=== PATIENT | female | born 1945 | race Caucasian/White ===

== ENCOUNTER 2017-11-10 21:31 | Inpatient (IN) | payer OTHER ==
[~2017-11-10] VITALS: Ht 149.9 cm; Wt 59.4 kg
[~2017-11-10 21:31] MED LIST: ALLO100T PO; ASPCH81X PO; ATOR-24 PO; CYM/30 PO; DOCU100C PO; FRS/40 PO; IMDSR30 PO; INSDGIPEN SC; LPR25 PO; NITR0.4S UT; POLY335019 PO; PRLSR20 PO; TYLER650 PO
[2017-11-10] MEDS ORDERED: DULO60CA44 PO (22:23)
[2017-11-10] MEDS ORDERED: INSDGIPEN SC (22:23)
[2017-11-10] MEDS ORDERED: ISOS30TA3 PO (22:24)
[2017-11-10] MEDS ORDERED: CHOL1000 PO (22:24)
[2017-11-10] MEDS ORDERED: RANI150T85 PO (22:24)
[2017-11-10] MEDS ORDERED: METO25TA56 PO (22:24)
[2017-11-10] MEDS ORDERED: SODIUM CHLORIDE 0.9% 250ML 250 ML IV STA (22:32)
[2017-11-10] MEDS ORDERED: MoRPHine SULFATE 4 MG/ML 1 ML CARP\\VIAL IV STA (22:32)
[2017-11-10 22:56] LABS: BASO % 0.6 %; BASO ABS # 0.06 K/uL (0-0.2); EOS % 2.8 %; EOS ABS # 0.27 K/uL (0-0.5); HEMATOCRIT 49.7 % (37-47); HEMOGLOBIN 16.3 g/dL (12.0-16.0); IG# 0.02 K/uL (0.00-0.02); LYMPH % 25.5 %; LYMPH ABS # 2.44 K/uL (1.2-3.4); MEAN CELL VOLUME 91.5 fL (80-100); MEAN CORPUSCULAR HGB CONC 32.8 g/dl (32-36); MEAN PLATELET VOLUME 11.3 fL (7.4-10.4); MONO % 10.6 %; MONO ABS # 1.01 K/uL (0.11-0.59); NEUT % 60.3 %; NEUT ABS # 5.77 K/uL (1.4-6.5); PLATELET COUNT 270 K/uL (130-400); RED CELL DISTRIBUTION WIDTH CV 14.2 % (11.5-14.5); RED CELL DISTRIBUTION WIDTH SD 47.1 fL (36.4-46.3); WHITE BLOOD COUNT 9.57 K/uL (4.8-10.8)
--- NOTE | 2017-11-10 23:13 | DIAGNOSTIC IMAGING REPORT ---
CHEST ONE VIEW PORTABLE CLINICAL HISTORY: Abdominal pain. COMPARISON STUDY: Chest radiograph June 27, 2017. FINDINGS: Lung volumes are normal. No pneumothorax or pleural effusion is noted. There is no consolidation. Mild cardiomegaly is noted without evidence for pulmonary edema. The appearance of the chest is unchanged. IMPRESSION: No acute cardiopulmonary findings. Electronically signed by: Jaspreet Howard M.D. 11/10/2017 11:11 PM Dictated Date/Time: 11/10/2017 11:11 PM
[2017-11-10 23:51] LABS: INFLUENZA A PCR Neg for Influ A (NEG); INFLUENZA B PCR Neg for Influ B (NEG)
[2017-11-10 23:56] LABS: ALBUMIN 3.3 gm/dl (3.4-5.0); ALKALINE PHOSPHATASE 260 U/L (45-117); ALT/SGPT 101 U/L (12-78); AST/SGOT 116 U/L (15-37); BLOOD UREA NITROGEN 33 mg/dl (7-18); CALCIUM 9.1 mg/dl (8.5-10.1); CARBON DIOXIDE 27 mmol/L (21-32); CREATININE 1.62 mg/dl (0.60-1.20); GLUCOSE 218 mg/dl (70-99); LIPASE 120 U/L (73-393); SODIUM 133 mmol/L (136-145)
--- NOTE | 2017-11-11 01:16 | EMERGENCY ROOM VISIT NOTE ---
History Report prepared by Tre: Blossom Tolbert Under the Supervision of: Dr. Chester Jimenez M.D. First contact with patient: 22:26 Chief Complaint: ABDOMINAL PAIN Stated Complaint: BACK & AB PAIN Nursing Triage Summary: patient presents by EMS, states has had mid abd pain for a few weeks now, now radiating to back. states lack of appetite recently and less BM's than normal, last being "a few days ago". History of Present Illness The patient is a 72 year old female who presents to the Emergency Room with complaints of persistent abdominal pain starting 3-4 days ago. The pain goes through to her back. The pain started gradually. She has intermittent sharp pains. She has never had this before. She reports some constipation. Her last bowel movement was 2 days ago and she had to strain. She has had a decreased appetite. She feels fatigued and she has had chills. She vomited tonight. She reports cough, congestion, headache, and dizziness for a few days. She has a rash on her leg which is itchy. She denies any burning with urination or blood in her urine. She is not on any blood thinners. 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 She was treated with chemo and radiation. She has not had any problems since. She has a history of hysterectomy , back surgery, cholecystectomy, heart failure, and kidney failure. Source of History: patient Onset: 3-4 days ago Position: abdomen Quality: sharp Timing: other (persistent) Associated Symptoms: + chills, + vomiting, + back pain, + fatigue, + rash Note: Pt reports constipation, decreased appetite. Review of Systems See HPI for pertinent positives and negatives. A total of ten systems were reviewed and were otherwise negative. Past Medical & Surgical Medical Problems: (1) TARA inhibitor intolerance (2) Anxiety (3) Atrial fibrillation and flutter (4) AV (arteriovenous fistula) (5) CKD (chronic kidney disease) stage 4, GFR 15-29 ml/min (6) Delirium (7) Diabetes mellitus type 2 in nonobese (8) Dyslipidemia (9) Generalized OA (10) Generalized weakness (11) GERD (gastroesophageal reflux disease) (12) HTN (hypertension) (13) Hyperparathyroidism (14) Right-sided congestive heart failure (15) Solitary right kidney (16) Viral syndrome Surgical Problems: (1) H/O cataract removal with insertion of prosthetic lens (2) H/O tubal ligation (3) History of cholecystectomy (4) History of hysterectomy (5) History of lumbar laminectomy (6) Previous section Family History Cancer Diabetes mellitus Hypertension Kidney disease Kidney stones Social History Smoking Status: Never Smoker Drug Use: none Marital Status: Housing Status: lives with family Occupation Status: retired Current/Historical Medications Scheduled Allopurinol (Zyloprim), 100 MG PO DAILY Aspirin (Aspirin Chewable), 81 MG PO QAM Atorvastatin (Lipitor), 40 MG PO DAILY Cholecalciferol (Vitamin D3), 1,000 MG PO DAILY Docusate Sodium (Stool Softener), 1 CAP PO BID Duloxetine Hcl (Cymbalta), 60 MG PO DAILY Insulin Glargine (Lantus Solostar), 34 UNITS SC QPM Isosorbide Mononitrate Ext Rel (Imdur Ext Rel), 30 MG PO QAM Metoprolol Tartrate (Lopressor) (Lopressor), 25 MG PO BID Nitroglycerin (Nitrostat), 0.4 MG UT PRN Polyethylene Glycol 3350 (Miralax), 17 GM PO QAM Ranitidine (Zantac), 150 MG PO DAILY Scheduled PRN Acetaminophen (Tylenol Arthitis Ext Rel), 650 MG PO Q8H PRN for Pain Furosemide (Lasix), 40 MG PO DAILY PRN for INCREASE SWELLING/BLOATING Allergies Coded Allergies: Gabapentin (Verified Allergy, Severe, EDEMA FACE/LIPS/TONGUE - ANGIOEDEMA , 11/10/17) TARA Inhibitors (Verified Allergy, Unknown, UNKNOWN, 11/10/17) Adhesives (Verified Allergy, Unknown, TAPE, 11/10/17) Latex1 -Allergic Contact Dermititis (Verified Allergy, Unknown, HIVES, RASH, 11/10/17) Meloxicam (Verified Allergy, Unknown, RENAL FAILURE, 11/10/17) Sulfa Antibiotics (Verified Allergy, Unknown, EDEMA,ITCHING, 11/10/17) Iodinated Diagnostic Agents (Verified Adverse Reaction, Unknown, PATIENT HAS CHRONIC KIDNEY FAILURE, 11/10/17) Physical Exam Vital Signs Date Time Temp Pulse Resp B/P (MAP) Pulse Ox O2 Delivery O2 Flow Rate FiO2 11/11/17 00:30 86 21 161/103 92 Room Air 11/11/17 00:19 167/70 11/10/17 22:48 180/104 11/10/17 21:45 36.9 87 20 235/91 94 Room Air 11/10/17 21:43 86 Physical Exam GENERAL: Awake, alert, fatigued-appearing, in no distress HENT: Normocephalic, atraumatic. Dry mucous membranes. EYES: Normal conjunctiva. Sclera non-icteric. NECK: Supple. No nuchal rigidity. FROM. No JVD. RESPIRATORY: Clear to auscultation. CARDIAC: Regular rate, normal rhythm. Extremities warm and well perfused. Pulses equal. ABDOMEN: Soft, non-distended. Generalized periumbilical discomfort. No discrete tenderness. No peritoneal signs. No rebound or guarding. No masses. RECTAL: Deferred. MUSCULOSKELETAL: Chest examination reveals no tenderness. The back is symmetrical on inspection without obvious abnormality. There is no CVA tenderness to palpation. No joint edema. LOWER EXTREMITIES: Calves are equal size bilaterally and non-tender. No edema. No discoloration. NEURO: Normal sensorium. No sensory or motor deficits noted. SKIN: No rash or jaundice noted. Medical Decision & Procedures ER Provider Diagnostic Interpretation: Xray results as stated below per my and radiologist interpretation. Radiology results as stated below per my review and [facility] radiologist interpretation: CHEST ONE VIEW PORTABLE CLINICAL HISTORY: Abdominal pain. COMPARISON STUDY: Chest radiograph June 27, 2017. FINDINGS: Lung volumes are normal. No pneumothorax or pleural effusion is noted. There is no consolidation. Mild cardiomegaly is noted without evidence for pulmonary edema. The appearance of the chest is unchanged. IMPRESSION: No acute cardiopulmonary findings. Electronically signed by: Jaspreet Howard M.D. 11/10/2017 11:11 PM Dictated Date/Time: 11/10/2017 11:[address] Abdomen & Pelvis without contrast: No fecal impaction. No colitis. Appendix not identified. Cholecystectomy. Splenic cyst. Marked left renal atrophy and scarring. Hysterectomy. Degenerative and surgical changes of the spine. Laboratory Results Test 11/10/17 21:41 11/10/17 22:55 11/10/17 23:11 Estimated Average Glucose 214 mg/dl Hemoglobin A1c 9.1 % (4.5-5.6) Influenza Type A (RT-PCR) Neg for Influ A (NEG) Influenza Type B (RT-PCR) Neg for Influ B (NEG) Lactic Acid Level 1.2 mmol/L (0.4-2.0) Magnesium Level 1.9 mg/dl (1.8-2.4) Direct Bilirubin 0.2 mg/dl (0-0.2) Troponin I < 0.015 ng/ml (0-0.045) Lipase 120 U/L (73-393) Laboratory results reviewed by me Medications Administered Medications (Trade) Dose Ordered Sig/Shreya Route Start Time Stop Time Status Last Admin Dose Admin Morphine Sulfate (MoRPHine SULFATE INJ) 4 mg NOW STAT IV 11/10/17 22:32 11/10/17 22:39 DC 11/10/17 22:50 4 MG Sodium Chloride 250 ml @ 999 mls/hr Q16M STAT IV 11/10/17 22:32 11/10/17 22:47 DC 11/10/17 22:32 999 MLS/HR ECG Per My Interpretation Indication: abdominal pain Rate (beats per minute): 82 Rhythm: atrial fibrillation Findings: no acute ischemic change, other (normal axis) ED Course 2230: The patient was evaluated in room C10. A complete history and physical exam was performed. 0101: Upon reexamination, the patient was resting comfortably. I discussed the test results and treatment plan with her. The patient will be evaluated for further management. 0112: I discussed the patient [facility] He will evaluate the patient for further treatment. Medical Decision I reviewed the patient's past medical history, medications, and the nursing notes as described above. Differential diagnosis: Etiologies such as appendicitis, diverticulitis, PUD, biliary pathology, UTI, pancreatitis, obstruction, mesenteric ischemia, aortic pathology, infections, inflammatory bowel disease, renal colic, as well as others were entertained. Patient is a 72-year-old woman with a past medical history of A. fib not on anticoagulation, CKD with left extremity AV fistula case patient's renal function declines from her solitary kidney since emergency department with persistent abdominal pain with radiation to her back for the past several days per hpi. 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 On arrival patient is uncomfortable but no acute distress, afebrile. She is hypertensive on arrival with systolic blood pressure to 260 but in the setting of pain. On exam the patient does exhibit pain out of proportion to exam. However, CT unremarkable but limited secondary to lack of contrast given the patient's CKD. Labs otherwise unremarkable including WBC and lactate within normal limits. The patient's pain improved after IV morphine however still with mild discomfort. Given the patient's symptoms of abdominal pain with radiation to her back dissection or aneurysm is in the differential however unable to fully evaluate at this time. Given the patient's improvement in symptoms dissection/aneurysm unlikely so will defer contrast study at this time however it is reasonable to admit the patient for pain control and possible contrast study if symptoms evolve and suggest aortic etiology. Case was discussed with Dr. Melton [facility] hospitalist to admit the patient for further management. Medication Reconcilliation Current Medication List: was personally reviewed by me Blood Pressure Screening Patient's blood pressure: Elevated blood pressure Referred to hospitalist. Consults Time Called: 0108 Consulting Physician: Dr. Burch [facility] hospitalist Returned Call: 0112 I discussed the patient with him - He will evaluate the patient for further treatment. Impression Primary Impression: Abdominal pain Scribe Attestation The scribe's documentation has been prepared under my direction and personally reviewed by me in its entirety. I confirm that the note above accurately reflects all work, treatment, procedures, and medical decision making performed by me. Departure Information Dispostion Being Evaluated By Hospitalist Referrals Jacquelyn Singleton D.O. (PCP) Patient Instructions My [facility]
[2017-11-11] MEDS ORDERED: PROCHLORPERAZINE INJ 5 MG in SYRINGE 4 ML IV PRN (02:15)
[2017-11-11] MEDS ORDERED: HYDROmorphone INJ 0.5 MG/0.5 ML SYR IV PRN (02:15)
[2017-11-11] MEDS ORDERED: HALOPERIDOL 1 MG TAB PO PRN (02:15)
[2017-11-11] MEDS ORDERED: GLUCOSE 40% GEL 15 GM TUBE PO PRN (02:15)
[2017-11-11] MEDS ORDERED: DEXTROSE 50% 50 ML SYR IV PRN (02:15)
[2017-11-11] MEDS ORDERED: GLUCAGON FOR INJ 1 MG VIAL SQ PRN (02:15)
[2017-11-11] MEDS ORDERED: GLUCOSE 10 TABS/TUBE PO PRN (02:15)
[2017-11-11] MEDS ORDERED: SODIUM CHLORIDE 0.9% 1000ML 1,000 ML IV SCH (02:15)
[2017-11-11] MEDS ORDERED: ACETAMINOPHEN 325 MG TAB PO PRN (02:15)
[2017-11-11] MEDS ORDERED: HALOPERIDOL LACTATE 5 MG/ML 1 ML VIAL IM PRN (02:15)
[2017-11-11] MEDS ORDERED: LACTULOSE SYRUP 30 GM/45 ML UDP PO STA (02:27)
[2017-11-11] MEDS ORDERED: IV FLUIDS COMPLETED PRN (03:15)
[2017-11-11 04:15] VITALS: BP 148/84; PULSE 84; TEMP 36.4; O2SAT 94; BMI 26.4
[2017-11-11] MEDS ORDERED: INSULIN ASPART 100 UNITS/ML 3 ML PEN SC ONE (05:00)
[2017-11-11] MEDS ORDERED: POLYETHYLENE (MIRALAX) 17 GM PACK PO ONE (05:00)
[2017-11-11] MEDS ORDERED: DOCUSATE SODIUM/SENNA 50/8.6MG TAB PO ONE (05:00)
--- NOTE | 2017-11-11 05:04 | HISTORY & PHYSICAL EXAMINATION ---
DATE OF ADMISSION: 11/10/2017 PRIMARY CARE PHYSICIAN: Dr. Singleton. CHIEF COMPLAINT: Abdominal pain. HISTORY OF PRESENT ILLNESS: History obtained from patient, family and records. Medical history significant for hypertension, DM2 insulin requiring, chronic renal insufficiency (baseline creatinine of 1.6), AFib not on anticoagulation due to fall risk, hyperlipidemia, chronic right-sided heart failure as per records, gallbladder cancer with liver mets, status post surgery, chemoradiation. Recent confinement last July 2017 for delirium. The last 2 days the patient noted upper abdominal pain with nausea followed by vomiting, constipated more than usual. No fever, no chills. Denies bladder discomfort. No chest pain, no sob. Patient brought by family to the Emergency Room. MEDICAL HISTORY: As above. SURGERIES: Vascular procedures, cholecystectomy, back surgery, cataract surgery, abdominal hysterectomy, bilateral tubal ligation. HOME MEDICATIONS: Tylenol, Zyloprim, aspirin, Lipitor, vitamin D3, stool softener, Lasix, Cymbalta, Lantus, Imdur ER, Lopressor, Nitrostat, MiraLax, Zantac. ALLERGIES: ADHESIVES, LATEX, GABAPENTIN, MELOXICAM, TARA INHIBITORS, SULFA, DYE. FAMILY HISTORY: Diabetes, high blood pressure. PERSONAL AND SOCIAL HISTORY: Nonsmoker, no chronic intake of alcoholic beverages. 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 REVIEW OF SYSTEMS: As per HPI, all 10 systems reviewed. All other ROS negative. PHYSICAL EXAMINATION: VITAL SIGNS: Blood pressure was noted to be 235/90, later 167/102, pulse rate 86, RR 21, temperature 36.9, sats 94 on room air. GENERAL: Noted to be slightly uncomfortable, in no respiratory distress. SKIN: Normal color, warm. HEENT: [place] palpebral conjunctivae. No ptosis. Dry mucosa. NECK: Supple, nontender. CHEST: Clear to auscultation. No tenderness. HEART: Irregular. No murmur. ABDOMEN: Some distention, minimal epigastric tenderness. EXTREMITIES: No edema, no tenderness. No gross deformity. NEUROLOGIC: Coherent. No gross focality except episodic confusion. LABORATORY DATA: Hemoglobin was noted to be 16, hematocrit 43, white blood cell count 9.3, platelets 270. Sodium 135, potassium 4, chloride 98, CO2 27, BUN 32, creatinine 1.6, glucose 218, AST 111, ALT 101, alkaline phosphatase 260. Lipase was normal. CT abdomen and pelvis initial read showed postcholecystectomy, some splenic cyst, hysterectomy, no fecal impaction, no colitis. Appendix not identified. ASSESSMENT: 1. Abdominal pain possible differentials : Biliary colic with abnormal LFTs. Constipation urinary tract infection. 2. hx gallbladder CA w/ liver metastasis status post surgery, chemoradiation In remission as per recent outpatient Oncology visit in 2013. 3. Hypertension, elevated secondary to discomfort. 4. Atrial fibrillation, rate controlled not on Coumadin as per patient preference. 5. DM2 insulin requiring, suboptimal control as of recent HgA1c of 8.5 last October 2017. 6. CRI, serum creatinine baseline PLAN: Observation [facility] MRCP. Bowel regimen. Follow UA. Further management pending workup results. ISS BG goal 140-180. Basal insulin adjusted for n.p.o. sips status Carb count coverage once diet advanced indicated due to suboptimal blood sugar control at baseline. DVT prophylaxis, Lovenox subQ. Full code. Addendum Initial MRCP read: duodenitis, no bile duct obstruction Add PPI to home Zantac. MTDD
[2017-11-11] MEDS ORDERED: PANTOprazole INJ 40 MG in SYRINGE 0 ML IV ONE (05:30)
[2017-11-11] MEDS ORDERED: INSULIN GLARGINE SOLOSTAR 100 UNITS/ML 3 ML PEN SC ONE (05:30)
[2017-11-11] MEDS: SODIUM CHLORIDE 0.9% 1000ML 1,000 ML IV SCH ×2 (05:44→16:42)
[2017-11-11 06:52] LABS: HEMOGLOBIN A1C 9.1 % (4.5-5.6)
--- NOTE | 2017-11-11 06:59 | DIAGNOSTIC IMAGING REPORT ---
ABDOMEN AND PELVIS CT WITHOUT CONTRAST CT DOSE: 284.87 mGy.cm HISTORY: Acute lower abdominal pain with constipation abd back pain constipation TECHNIQUE: Multiaxial CT images of the abdomen and pelvis were performed without contrast. A dose lowering technique was utilized adhering to the principles of ALARA. COMPARISON STUDY: MRCP 11/11/2017, CT abdomen and pelvis 11/16/2015 FINDINGS: Respiratory motion limits evaluation of the lung bases. There is mild subsegmental bibasilar atelectasis. Imaged inferior cardiac chambers are enlarged. Prior cholecystectomy. Evaluation of the solid abdominal organs is limited without the use of IV contrast. Within the limitations of the study, the liver, and adrenal glands are within normal limits. Moderate to severe generalized pancreatic atrophy. 2.7 x 2.5 cm low attenuating lesion of the medial spleen suggest splenic cyst. Marked atrophy with cortical scarring about the left kidney redemonstrated. Multifocal cortical lobulation and scarring is also noted throughout the right kidney however to a lesser extent. Bilateral renal vascular calcifications are noted. Low attenuating lesions of the left kidney are not completely characterized on this noncontrast study in measure up to 9 mm within the inferior pole left kidney suggesting renal cysts. No obstructive renal or ureteral calculi. No hydronephrosis. Ureters and urinary bladder are unremarkable. Prior hysterectomy. No adnexal mass lesions identified. Moderate atherosclerosis of the aorta without aneurysm. No bulky adenopathy. There is mild wall thickening with mild adjacent mesenteric inflammatory stranding of the pylorus, proximal duodenum and pancreatic head. No bowel obstruction. Appendix not definitively seen. No secondary signs of acute appendicitis. Soft tissues are unremarkable. The bones appear moderately demineralized and appear intact. Prior posterior decompression with interbody minerva and screw fusion at L5-S1. Multilevel facet arthrosis, intervertebral disc space narrowing and endplate spurring of the lumbar spine. IMPRESSION: 1. Mild wall thickening with mild adjacent mesenteric inflammatory stranding of the pylorus, proximal duodenum and pancreatic head suggests mild duodenitis or developing early acute pancreatitis. Correlate with lipase level. No bowel obstruction. 2. Prior cholecystectomy and hysterectomy. 3. 2.7 cm low attenuating lesion of the medial spleen suggests splenic cyst, unchanged. 4. Atrophic left kidney redemonstrated. 5. Cardiomegaly. Electronically signed by: Filipe Cunningham M.D. 11/11/2017 6:57 AM Dictated Date/Time: 11/11/2017 6:48 AM
--- NOTE | 2017-11-11 07:08 | DIAGNOSTIC IMAGING REPORT ---
MRCP HISTORY: 72 years-old Female abd pain acute generalized abdominal pain.Findings suggesting acute pancreatitis or duodenitis on CT abdomen and pelvis of same day COMPARISON: CT abdomen and pelvis of same day, MRCP 12/26/2008. TECHNIQUE: MRCP was obtained without IV contrast according to institutional protocol. FINDINGS: Motion degraded exam. Lobulated 2.8 cm circumscribed T2 hyperintense lesion of the medial spleen appears unchanged from comparison CT 11/16/2015, however has increased in size from MRCP of 2008 suggesting acquired splenic cyst. Prior cholecystectomy. No intrahepatic biliary ductal dilation. Common bile duct measures 5 mm transversely. No biliary ductal stricturing or focal filling defects identified. No pancreatic ductal dilation or evidence of pancreatic divisum. There is mild wall thickening of the duodenum with mild surrounding mesenteric edema adjacent to the duodenum and pancreatic duodenal groove. No dilated loops of small bowel identified. No soledad ascites. Marked atrophy with cortical lobulation scarring of the left kidney redemonstrated. T2 hyperintense 10 mm lesion of the inferior pole left kidney suggests splenic cyst. Mild nonspecific bilateral perinephric stranding. No aortic aneurysm or adenopathy identified. Imaged heart appears enlarged. Bones and soft tissues appear unremarkable. IMPRESSION: 1. Mild wall thickening of the duodenum with mild surrounding mesenteric edema adjacent to the duodenum and pancreatic duodenal groove suggest duodenitis or paraduodenal pancreatitis. Correlate with lipase level. 2. Prior cholecystectomy without evidence of biliary ductal dilation. 3. Motion degraded exam. 4. Atrophic left kidney. The above report was generated using voice recognition software. It may contain grammatical, syntax or spelling errors. Electronically signed by: Filipe Cunningham M.D. 11/11/2017 7:06 AM Dictated Date/Time: 11/11/2017 6:57 AM
[2017-11-11 07:46] VITALS: BP 162/76; PULSE 81; TEMP 36.6; O2SAT 90
[2017-11-11 07:53] LABS: BASO % 0.5 %; BASO ABS # 0.04 K/uL (0-0.2); EOS % 5.5 %; EOS ABS # 0.49 K/uL (0-0.5); HEMATOCRIT 43.5 % (37-47); HEMOGLOBIN 14.3 g/dL (12.0-16.0); IG# 0.02 K/uL (0.00-0.02); LYMPH % 23.2 %; LYMPH ABS # 2.05 K/uL (1.2-3.4); MEAN CELL VOLUME 90.8 fL (80-100); MEAN CORPUSCULAR HEMOGLOBIN 29.9 pg (25-34); MEAN CORPUSCULAR HGB CONC 32.9 g/dl (32-36); MEAN PLATELET VOLUME 10.5 fL (7.4-10.4); MONO % 14.8 %; MONO ABS # 1.31 K/uL (0.11-0.59); NEUT % 55.8 %; NEUT ABS # 4.92 K/uL (1.4-6.5); PLATELET COUNT 220 K/uL (130-400); RED CELL DISTRIBUTION WIDTH CV 14.3 % (11.5-14.5); RED CELL DISTRIBUTION WIDTH SD 47.2 fL (36.4-46.3); WHITE BLOOD COUNT 8.83 K/uL (4.8-10.8)
[2017-11-11 08:12] LABS: ALBUMIN 3.1 gm/dl (3.4-5.0); CALCIUM 9.1 mg/dl (8.5-10.1); CREATININE 1.7 mg/dl (0.60-1.20); POTASSIUM 3.4 mmol/L (3.5-5.1)
[2017-11-11 08:18] LABS: TOTAL PROTEIN 6.6 gm/dl (6.4-8.2)
[2017-11-11] MEDS: ASPIRIN 81 MG ECTAB PO SCH (08:21)
[2017-11-11] MEDS: ALLOPURINOL 100 MG TAB PO SCH (08:22)
[2017-11-11] MEDS: RANITIDINE HCL 150 MG TAB PO SCH (08:22)
[2017-11-11] MEDS: DULOXETINE HCL 60 MG CAP PO SCH (08:22)
[2017-11-11] MEDS: METOPROLOL TARTRATE 25 MG TAB PO SCH ×2 (08:23→20:34)
[2017-11-11] MEDS: ISOSORBIDE MONONITRATE 30 MG TABCR PO SCH (08:24)
[2017-11-11] MEDS: INSULIN ASPART 100 UNITS/ML 3 ML PEN SC SCH ×4 (08:31→20:38)
[2017-11-11] MEDS: HEPARIN SOD 5000 UNIT/0.5 ML CARP SQ SCH ×2 (09:22→13:04)
[2017-11-11] MEDS: POTASSIUM CHLR 10 MEQ / WTR 10 MEQ in PREMIXED WATER 100 ML IV SCH ×2 (09:31→12:01)
[2017-11-11] MEDS: TRAMADOL HCL 50 MG TAB PO PRN (12:07)
[2017-11-11 12:34] VITALS: BMI 26.4
--- NOTE | 2017-11-11 12:37 | Gastrointestinal Consultation ---
Gastrointestinal Consultation Date of Consultation: Nov 11, 2017 Attending Physician: Dr. Ramos Consulting Physician: Dr. Irene Templeton Reason for Consultation: Duodenitis vs. Pancreatitis History of Present Illness Patient is a 72 year old female pt of Dr. Jacquelyn Singleton with a hx of CKD, DM-2 , HTN, A-fib (not anticoagulated), CHF , gallbladder cancer with liver mets S/P surgery was brought to the ED for upper abdomen pain. GI is consulted for duodenitis vs. pancreatitis. On arrival, CT and MRCP suggest mild wall thickening of the duodenum vs. peripancreatic edema. During my evaluation of the patient, she was initially on the toilet and passed a moderate sized formed dixie stool with clots then more liquid blood passed into the toilet. She is a very poor historian. When asked about her pain, she doesn't recall when this first started. The patient is a very vague historian so I called her son who says that for the past few weeks, she has c/o pain. Her son says that at baseline, for years, she is minimally physically active, laying in bed until 3PM or until you "make her get up." He says that she is "always complaining of pain." He says that she has a poor memory and suspects dementia. He also told me that she told her family yesterday that she had not had a BM for 2-3 days. He says that his dad (the pt' s ) lives with the pt and that he also has some memory issues but is "pretty good." The /father does make sure that the pt takes her medications regularly. Regarding her hx of gallbladder cancer in 2006, she underwent surgical resection and radiation therapy, this in addition to right sided heart failure was thought to have caused development of portal hypertension. There was some mention in prior records of esophageal varices but EGDs from 2010 to 2016 mentioned "no esophageal varices," and at the time of her most recent EGD, there was mention of a mild Schatzi Ring. Past Medical/Surgical History Medical Problems: (1) Abdominal pain Status: Acute (2) Hyperglycemia Status: Acute Past Medical History: 1. CKD 2. DM-2 3. HTN 4. A-fib (not anticoagulated) 5. CHF 6. Gallbladder cancer with liver mets S/P surgery Past Surgical History: 1. Vascular procedures 2. Cholecystectomy 3. Back surgery, 4. Cataract surgery 5. Abdominal hysterectomy 6. Bilateral tubal ligation Family History Cancer Diabetes mellitus Hypertension Kidney disease Kidney stones Social History Smoking Status: Never Smoker Drug Use: none Marital Status: Housing Status: lives with family Occupation Status: retired Allergies Coded Allergies: Gabapentin (Verified Allergy, Severe, EDEMA FACE/LIPS/TONGUE - ANGIOEDEMA , 11/10/17) TARA Inhibitors (Verified Allergy, Unknown, UNKNOWN, 11/10/17) Adhesives (Verified Allergy, Unknown, TAPE, 11/10/17) Latex1 -Allergic Contact Dermititis (Verified Allergy, Unknown, HIVES, RASH, 11/10/17) Meloxicam (Verified Allergy, Unknown, RENAL FAILURE, 11/10/17) Sulfa Antibiotics (Verified Allergy, Unknown, EDEMA,ITCHING, 11/10/17) Iodinated Diagnostic Agents (Verified Adverse Reaction, Unknown, PATIENT HAS CHRONIC KIDNEY FAILURE, 11/10/17) Current Medications Home Meds and Scripts Medications Dose Route/Sig Max Daily Dose Days Date Category Lopressor (Metoprolol Tartrate) 25 Mg Tab 25 Mg PO BID 11/10/17 Reported Imdur Ext Rel (Isosorbide Mononitrate) 30 Mg Ertab 30 Mg PO QAM 11/10/17 Reported Zantac (Ranitidine HCl) 150 Mg Tab 150 Mg PO DAILY 11/10/17 Reported Vitamin D3 (Cholecalciferol) 1,000 Unit Tab 1,000 Mg PO DAILY 90 11/10/17 Reported Lantus Solostar (Insulin Glargine) 100 Unit/Ml Inj 34 Units SC QPM 11/10/17 Reported Cymbalta (Duloxetine Hcl) 60 Mg Cap 60 Mg PO DAILY 11/10/17 Reported Lipitor (Atorvastatin Calcium) 40 Mg Tab 40 Mg PO DAILY 06/27/17 Reported Miralax (Polyethylene Glycol 3350) 1 Pow Pow 17 Gm PO QAM 03/19/16 Reported Aspirin Chewable (Aspirin) 81 Mg Chew 81 Mg PO QAM 03/19/16 Reported Tylenol Arthitis Ext Rel (Acetaminophen) 650 Mg Ertab 650 Mg PO Q8H PRN 03/19/16 Reported Stool Softener (Docusate Sodium) 100 Mg Cap 1 Cap PO BID 03/19/16 Reported Zyloprim (Allopurinol) 100 Mg Tab 100 Mg PO DAILY 03/19/16 Reported Lasix (Furosemide) 40 Mg Tab 40 Mg PO DAILY PRN 03/19/16 Reported Nitrostat (Nitroglycerin) 0.4 Mg Sub 0.4 Mg UT PRN 03/09/14 Reported Review of Systems Constitutional: No fever Respiratory: No cough Cardiac: No chest pain Abdomen: + see HPI, + pain, + constipation, + GI bleeding, No nausea, No vomiting, No diarrhea Musculoskeletal: No joint pain Female : No dysuria Neuro: + memory loss (chronic) Psych: No depression symptoms Heme: No abnormal bleeding/bruising Endo: No fatigue Skin: No rash, No jaundice Physical Exam Date Time Temp Pulse Resp B/P (MAP) Pulse Ox O2 Delivery O2 Flow Rate FiO2 11/11/17 08:00 Room Air 11/11/17 07:46 36.6 81 16 162/76 (104) 90 Room Air 11/11/17 04:15 36.4 84 18 148/84 94 Room Air 11/11/17 01:54 20 159/76 96 11/11/17 00:30 86 21 161/103 92 Room Air 11/11/17 00:19 167/70 11/10/17 22:48 180/104 11/10/17 21:45 36.9 87 20 235/91 94 Room Air 11/10/17 21:43 86 General Appearance: no apparent distress ENT: pharynx normal Neck: supple, thyroid normal, no JVD Respiratory/Chest: lungs clear Cardiovascular: regular rate, rhythm, no JVD, no murmur Abdomen: soft, + tenderness (mild right mid abdomen tenderness) Extremities: non-tender, no pedal edema Neurologic/Psych: alert Skin: no jaundice Laboratory Results Last 24 Hours Test 11/10/17 21:41 11/10/17 22:55 11/10/17 23:11 11/11/17 05:14 White Blood Count 9.57 K/uL Red Blood Count 5.43 M/uL Hemoglobin 16.3 g/dL Hematocrit 49.7 % Mean Corpuscular Volume 91.5 fL Mean Corpuscular Hemoglobin 30.0 pg Mean Corpuscular Hemoglobin Concent 32.8 g/dl Platelet Count 270 K/uL Mean Platelet Volume 11.3 fL Neutrophils (%) (Auto) 60.3 % Lymphocytes (%) (Auto) 25.5 % Monocytes (%) (Auto) 10.6 % Eosinophils (%) (Auto) 2.8 % Basophils (%) (Auto) 0.6 % Neutrophils # (Auto) 5.77 K/uL Lymphocytes # (Auto) 2.44 K/uL Monocytes # (Auto) 1.01 K/uL Eosinophils # (Auto) 0.27 K/uL Basophils # (Auto) 0.06 K/uL RDW Standard Deviation 47.1 fL RDW Coefficient of Variation 14.2 % Immature Granulocyte % (Auto) 0.2 % Immature Granulocyte # (Auto) 0.02 K/uL Estimated Average Glucose 214 mg/dl Hemoglobin A1c 9.1 % Influenza Type A (RT-PCR) Neg for Influ A Influenza Type B (RT-PCR) Neg for Influ B Sodium Level 133 mmol/L Potassium Level 4.0 mmol/L Chloride Level 98 mmol/L Carbon Dioxide Level 27 mmol/L Anion Gap 8.0 mmol/L Blood Urea Nitrogen 33 mg/dl Creatinine 1.62 mg/dl Estimated GFR () 36.4 Estimated GFR (Non- 31.4 BUN/Creatinine Ratio 20.2 Random Glucose 218 mg/dl Lactic Acid Level 1.2 mmol/L Calcium Level 9.1 mg/dl Magnesium Level 1.9 mg/dl Total Bilirubin 0.6 mg/dl Direct Bilirubin 0.2 mg/dl Aspartate Amino Transf (AST/SGOT) 116 U/L Alanine Aminotransferase (ALT/SGPT) 101 U/L Alkaline Phosphatase 260 U/L Troponin I < 0.015 ng/ml Total Protein 7.0 gm/dl Albumin 3.3 gm/dl Lipase 120 U/L Bedside Glucose 118 mg/dl Test 11/11/17 07:18 11/11/17 08:06 White Blood Count 8.83 K/uL Red Blood Count 4.79 M/uL Hemoglobin 14.3 g/dL Hematocrit 43.5 % Mean Corpuscular Volume 90.8 fL Mean Corpuscular Hemoglobin 29.9 pg Mean Corpuscular Hemoglobin Concent 32.9 g/dl Platelet Count 220 K/uL Mean Platelet Volume 10.5 fL Neutrophils (%) (Auto) 55.8 % Lymphocytes (%) (Auto) 23.2 % Monocytes (%) (Auto) 14.8 % Eosinophils (%) (Auto) 5.5 % Basophils (%) (Auto) 0.5 % Neutrophils # (Auto) 4.92 K/uL Lymphocytes # (Auto) 2.05 K/uL Monocytes # (Auto) 1.31 K/uL Eosinophils # (Auto) 0.49 K/uL Basophils # (Auto) 0.04 K/uL RDW Standard Deviation 47.2 fL RDW Coefficient of Variation 14.3 % Immature Granulocyte % (Auto) 0.2 % Immature Granulocyte # (Auto) 0.02 K/uL Prothrombin Time 10.4 SECONDS Prothromb Time International Ratio 1.0 Activated Partial Thromboplast Time 21.0 SECONDS Partial Thromboplastin Ratio 0.8 Sodium Level 138 mmol/L Potassium Level 3.4 mmol/L Chloride Level 100 mmol/L Carbon Dioxide Level 30 mmol/L Anion Gap 7.0 mmol/L Blood Urea Nitrogen 34 mg/dl Creatinine 1.70 mg/dl Est Creatinine Clear Calc Drug Dose 23.5 ml/min Estimated GFR () 34.3 Estimated GFR (Non- 29.6 BUN/Creatinine Ratio 20.0 Random Glucose 156 mg/dl Calcium Level 9.1 mg/dl Total Bilirubin 0.8 mg/dl Aspartate Amino Transf (AST/SGOT) 90 U/L Alanine Aminotransferase (ALT/SGPT) 88 U/L Alkaline Phosphatase 238 U/L Total Protein 6.6 gm/dl Albumin 3.1 gm/dl Globulin 3.5 gm/dl Albumin/Globulin Ratio 0.9 Bedside Glucose 175 mg/dl Non contrast CT abd/pelvis 11/10/17: Mild wall thickening with mild adjacent mesenteric inflammatory stranding of the pylorus, proximal duodenum and pancreatic head suggests mild duodenitis or developing early acute pancreatitis. Correlate with lipase level. No bowel obstruction. 2. Prior cholecystectomy and hysterectomy. 3. 2.7 cm low attenuating lesion of the medial spleen suggests splenic cyst, unchanged. 4. Atrophic left kidney redemonstrated. 5. Cardiomegaly. MRCP 11/10/17: 1. Mild wall thickening of the duodenum with mild surrounding mesenteric edema adjacent to the duodenum and pancreatic duodenal groove suggest duodenitis or paraduodenal pancreatitis. Correlate with lipase level. 2. Prior cholecystectomy without evidence of biliary ductal dilation. 3. Motion degraded exam. 4. Atrophic left kidney. EGD 02/2016 Dr. Kirk: - Z-line regular, 33 cm from the incisors. - Mild Schatzki ring. - Hiatus hernia. - Normal stomach. - Normal examined duodenum. - Dilation attempted at the gastroesophageal junction successful. Colonoscopy 02/2016 Dr. Kirk: - Melanosis in the colon. - Two 1 to 2 mm polyps in the ascending colon. Resected and retrieved. - One 1 mm polyp in the transverse colon. Resected and retrieved. Clip was placed. Impression Patient is a 72 year old female with worsening of her chronic abdomen pain, CT suggestive of duodenitis and now, today, with rectal bleeding. Differentials considered are ulcer disease, duodenitis or duodenal ulcer, hemorrhoidal or diverticular bleeding. There is also some mention of prior portal HTN and esophageal varices, though I do not suspect a variceal bleed as her dixie stool was formed and she is hemodynamically stable. Her pain seems mild. This along with normal lipase argues against pancreatitis. I am unsure of the significance of the elevated LFTs but she could have microlithiasis in the bile duct, although CT and MRCP do not mention bile duct dilation.
--- NOTE | 2017-11-11 14:38 | Progress Note ---
Medicine Progress Note Date & Time of Visit: Nov 11, 2017 at 13:41. Subjective Pt was seen and examined Lying in bed with no distress Pt said that he feels tired and weak today Pt said that she does not have any appetite She said that her abdominal pain improved GI said that while they were there talking to her, she had a bloody BM Denies any chest pain, palpitation, dizziness and SOB Objective Last 8 Hrs Date Time Temp Pulse Resp B/P (MAP) Pulse Ox O2 Delivery O2 Flow Rate FiO2 11/11/17 08:00 Room Air 11/11/17 07:46 36.6 81 16 162/76 (104) 90 Room Air Physical Exam: General- No acute distress, sleepy Head- atraumatic Eyes- PERRL, EOMI ENT- oropharynx clear Neck- supple, no JVD Lungs- clear to auscultation Heart- regular rhythm Abdomen- normal bowel sounds, tenderness with palpation Extremities- no calf tenderness Neuro- alert, oriented x 3; PERRL Skin- warm & dry Laboratory Results: Last 24 Hours Test 11/10/17 21:41 11/10/17 22:55 11/10/17 23:11 11/11/17 05:14 White Blood Count 9.57 K/uL Red Blood Count 5.43 M/uL Hemoglobin 16.3 g/dL Hematocrit 49.7 % Mean Corpuscular Volume 91.5 fL Mean Corpuscular Hemoglobin 30.0 pg Mean Corpuscular Hemoglobin Concent 32.8 g/dl Platelet Count 270 K/uL Mean Platelet Volume 11.3 fL Neutrophils (%) (Auto) 60.3 % Lymphocytes (%) (Auto) 25.5 % Monocytes (%) (Auto) 10.6 % Eosinophils (%) (Auto) 2.8 % Basophils (%) (Auto) 0.6 % Neutrophils # (Auto) 5.77 K/uL Lymphocytes # (Auto) 2.44 K/uL Monocytes # (Auto) 1.01 K/uL Eosinophils # (Auto) 0.27 K/uL Basophils # (Auto) 0.06 K/uL RDW Standard Deviation 47.1 fL RDW Coefficient of Variation 14.2 % Immature Granulocyte % (Auto) 0.2 % Immature Granulocyte # (Auto) 0.02 K/uL Estimated Average Glucose 214 mg/dl Hemoglobin A1c 9.1 % Influenza Type A (RT-PCR) Neg for Influ A Influenza Type B (RT-PCR) Neg for Influ B Sodium Level 133 mmol/L Potassium Level 4.0 mmol/L Chloride Level 98 mmol/L Carbon Dioxide Level 27 mmol/L Anion Gap 8.0 mmol/L Blood Urea Nitrogen 33 mg/dl Creatinine 1.62 mg/dl Estimated GFR () 36.4 Estimated GFR (Non- 31.4 BUN/Creatinine Ratio 20.2 Random Glucose 218 mg/dl Lactic Acid Level 1.2 mmol/L Calcium Level 9.1 mg/dl Magnesium Level 1.9 mg/dl Total Bilirubin 0.6 mg/dl Direct Bilirubin 0.2 mg/dl Aspartate Amino Transf (AST/SGOT) 116 U/L Alanine Aminotransferase (ALT/SGPT) 101 U/L Alkaline Phosphatase 260 U/L Troponin I < 0.015 ng/ml Total Protein 7.0 gm/dl Albumin 3.3 gm/dl Lipase 120 U/L Bedside Glucose 118 mg/dl Test 11/11/17 07:18 11/11/17 08:06 11/11/17 11:43 White Blood Count 8.83 K/uL Red Blood Count 4.79 M/uL Hemoglobin 14.3 g/dL Hematocrit 43.5 % Mean Corpuscular Volume 90.8 fL Mean Corpuscular Hemoglobin 29.9 pg Mean Corpuscular Hemoglobin Concent 32.9 g/dl Platelet Count 220 K/uL Mean Platelet Volume 10.5 fL Neutrophils (%) (Auto) 55.8 % Lymphocytes (%) (Auto) 23.2 % Monocytes (%) (Auto) 14.8 % Eosinophils (%) (Auto) 5.5 % Basophils (%) (Auto) 0.5 % Neutrophils # (Auto) 4.92 K/uL Lymphocytes # (Auto) 2.05 K/uL Monocytes # (Auto) 1.31 K/uL Eosinophils # (Auto) 0.49 K/uL Basophils # (Auto) 0.04 K/uL RDW Standard Deviation 47.2 fL RDW Coefficient of Variation 14.3 % Immature Granulocyte % (Auto) 0.2 % Immature Granulocyte # (Auto) 0.02 K/uL Prothrombin Time 10.4 SECONDS Prothromb Time International Ratio 1.0 Activated Partial Thromboplast Time 21.0 SECONDS Partial Thromboplastin Ratio 0.8 Sodium Level 138 mmol/L Potassium Level 3.4 mmol/L Chloride Level 100 mmol/L Carbon Dioxide Level 30 mmol/L Anion Gap 7.0 mmol/L Blood Urea Nitrogen 34 mg/dl Creatinine 1.70 mg/dl Est Creatinine Clear Calc Drug Dose 23.5 ml/min Estimated GFR () 34.3 Estimated GFR (Non- 29.6 BUN/Creatinine Ratio 20.0 Random Glucose 156 mg/dl Calcium Level 9.1 mg/dl Total Bilirubin 0.8 mg/dl Aspartate Amino Transf (AST/SGOT) 90 U/L Alanine Aminotransferase (ALT/SGPT) 88 U/L Alkaline Phosphatase 238 U/L Total Protein 6.6 gm/dl Albumin 3.1 gm/dl Globulin 3.5 gm/dl Albumin/Globulin Ratio 0.9 Bedside Glucose 175 mg/dl 259 mg/dl Assessment & Plan Elevated liver enzymes associated with Abdominal pain Possible related to duodenitis CT showed mild wall thickening with mild adjacent mesenteric inflammatory stranding of the pylorus, proximal duodenum and pancreatic head MRCP showed mild wall thickening of the duodenum with mild surrounding mesenteric edema adjacent to the duodenum and pancreatic duodenal Elevated Liver enzymes GI consulted Continue pain control Continue PPI Continue clear liquid diet GI bleeding One episode of bloody stool as per GI team Will monitor H/H Case discussed with GI and consider scope her. 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 Hypertension BP stable Atrial fibrillation Rate controlled Not on coumadin On aspirin, If gi bleed continue, will hold aspirin DM type 2 Recent HgA1c of 8.5 last October 2017. Continue Insulin CKD stage 4 Stable Continue monitor BMP DVT Px hold heparin due to GI bleed On SCDs CODE STATUS FULL CODE Current Inpatient Medications: Current Inpatient Medications Medications (Trade) Dose Ordered Sig/Shreya Route Start Time Stop Time Status Last Admin Dose Admin Heparin Sodium (Porcine) (Heparin Sq 5000 Unit/0.5ml) 5,000 unit Q8 SQ 11/11/17 09:00 12/11/17 08:59 11/11/17 13:04 5,000 UNIT Acetaminophen (Tylenol Tab) 325 mg Q6H PRN PO 11/11/17 02:15 12/11/17 02:14 Insulin Aspart (novoLOG ASPART) SLIDING SCALE If C... ACHS SC 11/11/17 06:30 4/13/18 06:59 11/11/17 13:04 7 UNITS Glucose (Glucose 40% Gel) 15-30 GRAMS 15 GRAMS... UD PRN PO 11/11/17 02:15 12/11/17 02:14 Glucose (Glucose Chew Tab) 4-8 Tablets 4 Tabl... UD PRN PO 11/11/17 02:15 12/11/17 02:14 Dextrose (Dextrose 50% 50ML Syringe) 25-50ML OF 50% DW IV FOR... UD PRN IV 11/11/17 02:15 12/11/17 02:14 Glucagon (Glucagon Inj) 1 mg UD PRN SQ 11/11/17 02:15 12/11/17 02:14 Hydromorphone HCl (Dilaudid Inj) 0.5 mg Q3H PRN IV 11/11/17 02:15 11/25/17 02:14 Tramadol HCl (Ultram Tab) 25 mg Q6H PRN PO 11/11/17 02:15 12/11/17 02:14 11/11/17 12:07 25 MG Prochlorperazine Edisylate 5 mg/ Syringe 5 ml @ 5 mls/min Q6H PRN IV 11/11/17 02:15 12/11/17 02:14 Allopurinol (Zyloprim Tab) 100 mg DAILY PO 11/11/17 08:00 12/11/17 08:59 11/11/17 08:22 100 MG Aspirin (Ecotrin Tab) 81 mg QAM PO 11/11/17 08:00 12/11/17 08:59 11/11/17 08:21 81 MG Duloxetine HCl (Cymbalta Cap) 60 mg DAILY PO 11/11/17 08:00 12/11/17 08:59 11/11/17 08:22 60 MG Isosorbide Mononitrate (Imdur Ext Rel Tab) 30 mg QAM PO 11/11/17 08:00 12/11/17 08:59 11/11/17 08:24 30 MG Metoprolol Tartrate (Lopressor Tab) 25 mg BID PO 11/11/17 08:00 12/11/17 08:59 11/11/17 08:23 25 MG Ranitidine HCl (zANTac TAB) 150 mg DAILY PO 11/11/17 08:00 12/11/17 08:59 11/11/17 08:22 150 MG Senna/Docusate Sodium (Senokot S Tab) 1 tab BID PO 11/11/17 20:00 12/11/17 20:59 Polyethylene (Miralax Powder Packet) 17 gm DAILY PO 11/12/17 08:00 12/12/17 08:59 Haloperidol Lactate (Haldol Inj) 2 mg Q2H PRN IM 11/11/17 02:15 12/11/17 02:14 Haloperidol (Haldol Tab) 2 mg Q4H PRN PO 11/11/17 02:15 12/11/17 02:14 Miscellaneous (Iv Fluids Completed) 1 ea PRN PRN N/A 11/11/17 03:15 11/11/18 03:14 Insulin Glargine (Lantus Solostar Pen) 5 units BID SC 11/11/17 20:00 12/12/17 07:59 Pantoprazole Sodium (Protonix Tab) 40 mg QAM PO 11/12/17 08:00 12/12/17 07:59 Sodium Chloride 1,000 ml @ 60 mls/hr [id number] IV 11/11/17 05:30 11/11/17 22:09 11/11/17 05:44 60 MLS/HR
[2017-11-11 16:00] VITALS: BP 164/81; PULSE 79; TEMP 36.4; O2SAT 95
[2017-11-11] MEDS ORDERED: PANTOprazole INJ 80 MG in DEXTROSE 5% 100ML IV SCH (17:30)
[2017-11-11] MEDS: PANTOprazole INJ 40 MG in DEXTROSE 5% 100ML IV SCH ×2 (18:43→23:36)
[2017-11-11] MEDS: DOCUSATE SODIUM/SENNA 50/8.6MG TAB PO SCH (20:35)
[2017-11-11] MEDS: INSULIN GLARGINE SOLOSTAR 100 UNITS/ML 3 ML PEN SC SCH (20:37)
[2017-11-11] MEDS ORDERED: NURSING VERBAL MED ORDER ONE (23:30)
[2017-11-11 23:45] VITALS: BP 153/84; PULSE 80; TEMP 36.4; O2SAT 96
[2017-11-12] MEDS: PANTOprazole INJ 40 MG in DEXTROSE 5% 100ML IV SCH ×4 (03:57→22:23)
[2017-11-12] MEDS: INSULIN ASPART 100 UNITS/ML 3 ML PEN SC SCH ×5 (06:00→21:29)
[2017-11-12 07:42] LABS: HEMATOCRIT 39.9 % (37-47); HEMOGLOBIN 13.1 g/dL (12.0-16.0); MEAN CELL VOLUME 91.3 fL (80-100); MEAN CORPUSCULAR HGB CONC 32.8 g/dl (32-36); MEAN PLATELET VOLUME 10.5 fL (7.4-10.4); PLATELET COUNT 217 K/uL (130-400); RED CELL DISTRIBUTION WIDTH CV 14.2 % (11.5-14.5); RED CELL DISTRIBUTION WIDTH SD 47.4 fL (36.4-46.3); WHITE BLOOD COUNT 6.89 K/uL (4.8-10.8)
[2017-11-12 07:43] VITALS: BP 129/62; PULSE 74; TEMP 36.6; O2SAT 96
[2017-11-12] MEDS ORDERED: PANTOprazole SOD 40 MG TAB PO SCH (08:00)
[2017-11-12] MEDS: DOCUSATE SODIUM/SENNA 50/8.6MG TAB PO SCH ×2 (08:00→21:13)
[2017-11-12] MEDS: DULOXETINE HCL 60 MG CAP PO SCH (08:00)
[2017-11-12] MEDS: POLYETHYLENE (MIRALAX) 17 GM PACK PO SCH (08:00)
[2017-11-12] MEDS: ISOSORBIDE MONONITRATE 30 MG TABCR PO SCH (08:00)
[2017-11-12] MEDS: ALLOPURINOL 100 MG TAB PO SCH (08:00)
[2017-11-12] MEDS: RANITIDINE HCL 150 MG TAB PO SCH (08:00)
[2017-11-12] MEDS: ASPIRIN 81 MG ECTAB PO SCH (08:00)
[2017-11-12] MEDS ORDERED: INSULIN GLARGINE SOLOSTAR 100 UNITS/ML 3 ML PEN SC SCH (08:00)
[2017-11-12 08:18] LABS: ALBUMIN 2.8 gm/dl (3.4-5.0); CALCIUM 8.8 mg/dl (8.5-10.1); CREATININE 1.76 mg/dl (0.60-1.20); POTASSIUM 3.7 mmol/L (3.5-5.1); TOTAL PROTEIN 5.9 gm/dl (6.4-8.2)
[2017-11-12] MEDS ORDERED: SODIUM CHLORIDE 0.9% 500ML 500 ML IV SCH (08:45)
[2017-11-12] MEDS ORDERED: NURSING VERBAL MED ORDER ONE ×3 (08:45→16:45)
[2017-11-12] MEDS: METOPROLOL TARTRATE 25 MG TAB PO SCH ×2 (08:46→21:13)
[2017-11-12] MEDS: INSULIN GLARGINE SOLOSTAR 100 UNITS/ML 3 ML PEN SC SCH ×2 (08:48→21:28)
--- NOTE | 2017-11-12 09:33 | Gastroenterology Progress Note ---
Progress Note Date of Service: Nov 12, 2017 Subjective Pt evaluation today including: conversation w/ patient, physical exam, chart review, lab review Pt seen and evaluated, chart reviewed. No acute events overnight. Is NPO for EGD. Is hungry. She is a poor historian. I asked her about her rectal bleeding, she tells me she was not having any rectal bleeding. However, this was witnessed during admission. Continues to have intermittent abd pain. Sharp. She tells me no BM in 24 hours. No rectal bleeding x 24 hours. Otherwise feels ok. No fever, chills, CP, SOB. CT ABD/Pelvis: Mild wall thickening with mild adjacent mesenteric inflammatory stranding ofthe pylorus, proximal duodenum and pancreatic head suggests mild duodenitis or developing early acute pancreatitis. Correlate with lipase level. No bowel obstruction.2. Prior cholecystectomy and hysterectomy.3. 2.7 cm low attenuating lesion of the medial spleen suggests splenic cyst, unchanged.4. Atrophic left kidney redemonstrated.5. Cardiomegaly. MRCP 11/10/17: 1. Mild wall thickening of the duodenum with mild surrounding mesenteric edemaadjacent to the duodenum and pancreatic duodenal groove suggest duodenitis orparaduodenal pancreatitis. Correlate with lipase level.2. Prior cholecystectomy withoutevidence of biliary ductal dilation.3. Motion degraded exam.4. Atrophic left kidney. EGD 02/2016 Dr. Kirk: - Z-line regular, 33 cm from the incisors. - Mild Schatzki ring. - Hiatus hernia. - Normal stomach. - Normal examined duodenum. - Dilation attempted at the gastroesophageal junction successful. Colonoscopy 02/2016 Dr. Kirk: - Melanosis in the colon. - Two 1 to 2 mm polyps in the ascending colon. Resected and retrieved. - One 1 mm polyp in the transverse colon. Resected and retrieved. Clip was placed. Review of Systems Constitutional: No fever, No chills Respiratory: No cough, No shortness of breath Cardiac: No chest pain, No edema Abdomen: + pain, No nausea, No vomiting, No diarrhea, No constipation, No GI bleeding Medications Current Inpatient Medications Medications (Trade) Dose Ordered Sig/Shreya Route Start Time Stop Time Status Last Admin Dose Admin Heparin Sodium (Porcine) (Heparin Sq 5000 Unit/0.5ml) 5,000 unit Q8 SQ 11/11/17 09:00 12/11/17 08:59 Future Hold 11/11/17 13:04 5,000 UNIT Acetaminophen (Tylenol Tab) 325 mg Q6H PRN PO 11/11/17 02:15 12/11/17 02:14 Glucose (Glucose 40% Gel) 15-30 GRAMS 15 GRAMS... UD PRN PO 11/11/17 02:15 12/11/17 02:14 Glucose (Glucose Chew Tab) 4-8 Tablets 4 Tabl... UD PRN PO 11/11/17 02:15 12/11/17 02:14 Dextrose (Dextrose 50% 50ML Syringe) 25-50ML OF 50% DW IV FOR... UD PRN IV 11/11/17 02:15 12/11/17 02:14 11/12/17 06:29 25 ML Glucagon (Glucagon Inj) 1 mg UD PRN SQ 11/11/17 02:15 12/11/17 02:14 Hydromorphone HCl (Dilaudid Inj) 0.5 mg Q3H PRN IV 11/11/17 02:15 11/25/17 02:14 Tramadol HCl (Ultram Tab) 25 mg Q6H PRN PO 11/11/17 02:15 12/11/17 02:14 11/11/17 12:07 25 MG Prochlorperazine Edisylate 5 mg/ Syringe 5 ml @ 5 mls/min Q6H PRN IV 11/11/17 02:15 12/11/17 02:14 Allopurinol (Zyloprim Tab) 100 mg DAILY PO 11/11/17 08:00 12/11/17 08:59 11/11/17 08:22 100 MG Aspirin (Ecotrin Tab) 81 mg QAM PO 11/11/17 08:00 12/11/17 08:59 11/11/17 08:21 81 MG Duloxetine HCl (Cymbalta Cap) 60 mg DAILY PO 11/11/17 08:00 12/11/17 08:59 11/11/17 08:22 60 MG Isosorbide Mononitrate (Imdur Ext Rel Tab) 30 mg QAM PO 11/11/17 08:00 12/11/17 08:59 11/11/17 08:24 30 MG Metoprolol Tartrate (Lopressor Tab) 25 mg BID PO 11/11/17 08:00 12/11/17 08:59 11/12/17 08:46 25 MG Ranitidine HCl (zANTac TAB) 150 mg DAILY PO 11/11/17 08:00 12/11/17 08:59 11/11/17 08:22 150 MG Senna/Docusate Sodium (Senokot S Tab) 1 tab BID PO 11/11/17 20:00 12/11/17 20:59 11/11/17 20:35 1 TAB Polyethylene (Miralax Powder Packet) 17 gm DAILY PO 11/12/17 08:00 12/12/17 08:59 Haloperidol Lactate (Haldol Inj) 2 mg Q2H PRN IM 11/11/17 02:15 12/11/17 02:14 Haloperidol (Haldol Tab) 2 mg Q4H PRN PO 11/11/17 02:15 12/11/17 02:14 Miscellaneous (Iv Fluids Completed) 1 ea PRN PRN N/A 11/11/17 03:15 11/11/18 03:14 Insulin Glargine (Lantus Solostar Pen) 5 units BID SC 11/11/17 20:00 12/12/17 07:59 Future hold 11/11/17 20:37 5 UNITS Pantoprazole Sodium 40 mg/ Dextrose 100 ml @ 20 mls/hr Q5H IV 11/11/17 17:45 12/11/17 17:44 11/12/17 08:54 20 MLS/HR Insulin Aspart (novoLOG ASPART) SLIDING SCALE If C... Q6 SC 11/12/17 00:00 12/12/17 00:00 Sodium Chloride 500 ml @ 60 mls/hr Q8H20M IV 11/12/17 08:45 11/12/17 17:04 11/12/17 09:14 60 MLS/HR Objective Vital Signs Date Time Temp Pulse Resp B/P (MAP) Pulse Ox O2 Delivery O2 Flow Rate FiO2 11/12/17 07:43 36.6 74 16 129/62 (84) 96 Room Air 11/11/17 23:45 36.4 80 18 153/84 (107) 96 11/11/17 23:30 Room Air 11/11/17 16:00 36.4 79 18 164/81 (108) 95 Room Air 11/11/17 16:00 Room Air Physical Exam General Appearance: no apparent distress Eyes: PERRL ENT: hearing grossly normal Neck: supple Respiratory/Chest: lungs clear, normal breath sounds Cardiovascular: regular rate, rhythm, no JVD Abdomen: normal bowel sounds, soft, no organomegaly, + tenderness Neurologic/Psych: alert, normal mood/affect, oriented x 3 Laboratory Results Last 24 Hours Test 11/11/17 11:43 11/11/17 16:58 11/11/17 19:47 11/11/17 23:39 Bedside Glucose 259 mg/dl 178 mg/dl 234 mg/dl 78 mg/dl Test 11/12/17 06:14 11/12/17 06:49 11/12/17 07:02 Bedside Glucose 69 mg/dl 140 mg/dl White Blood Count 6.89 K/uL Red Blood Count 4.37 M/uL Hemoglobin 13.1 g/dL Hematocrit 39.9 % Mean Corpuscular Volume 91.3 fL Mean Corpuscular Hemoglobin 30.0 pg Mean Corpuscular Hemoglobin Concent 32.8 g/dl RDW Standard Deviation 47.4 fL RDW Coefficient of Variation 14.2 % Platelet Count 217 K/uL Mean Platelet Volume 10.5 fL Sodium Level 138 mmol/L Potassium Level 3.7 mmol/L Chloride Level 103 mmol/L Carbon Dioxide Level 29 mmol/L Anion Gap 6.0 mmol/L Blood Urea Nitrogen 34 mg/dl Creatinine 1.76 mg/dl Est Creatinine Clear Calc Drug Dose 22.7 ml/min Estimated GFR () 32.9 Estimated GFR (Non- 28.4 BUN/Creatinine Ratio 19.4 Random Glucose 174 mg/dl Calcium Level 8.8 mg/dl Total Bilirubin 0.6 mg/dl Aspartate Amino Transf (AST/SGOT) 56 U/L Alanine Aminotransferase (ALT/SGPT) 69 U/L Alkaline Phosphatase 205 U/L Total Protein 5.9 gm/dl Albumin 2.8 gm/dl Globulin 3.1 gm/dl Albumin/Globulin Ratio 0.9 Assessment and Plan 72 year old female with ABD pain, CT suggestive of duodenitis w/ witnessed rectal bleeding yesterday. Is NPO for EGD to rule out UGI source of rectal bleeding NPO EGD Please see report of EGD when completed for additional recommendations. I saw and evaluated the patient. EGD planned today to evalaute for evidence of PUD. We have discussed the risks to include bleeding, infection, perforation, pain, and aspiration.
[2017-11-12] MEDS ORDERED: LIDOCAINE HCL 2% 2 ML VIAL (20MG/ML) ONE (11:12)
[2017-11-12] MEDS ORDERED: PROPOFOL IV EMULSION 10 MG/ML 20 ML VIAL IV ONE (11:12)
[2017-11-12] MEDS ORDERED: FENTANYL CITRATE INJ 50 MCG/1 ML 2 ML VIAL ONE (11:13)
[2017-11-12] MEDS ORDERED: KETAMINE HCL INJ 50 MG/ML 10 ML VIAL ONE (11:18)
--- NOTE | 2017-11-12 11:56 | GI REPORT ---
Procedure Date: 11/12/2017 11:24 AM Procedure: Upper GI endoscopy Indications: Hematochezia Medicines: Monitored Anesthesia Care Complications: No immediate complications. Estimated blood loss: Minimal. Estimated Blood Loss: Estimated blood loss was minimal. Procedure: Pre-Anesthesia Assessment: - Prior to the procedure, a History and Physical was performed, and patient medications, allergies and sensitivities were reviewed. The patient's tolerance of previous anesthesia was reviewed. - The risks and benefits of the procedure and the sedation options and risks were discussed with the patient. All questions were answered and informed consent was obtained. - Patient identification and proposed procedure were verified prior to the procedure by the physician, the nurse and the public relations sales marketing. The procedure was verified in the procedure room. - Pre-procedure physical examination revealed no contraindications to sedation. - ASA Grade Assessment: III - A patient with severe systemic disease. - After reviewing the risks and benefits, the patient was deemed in satisfactory condition to undergo the procedure. - The anesthesia plan was to use monitored anesthesia care (MAC). - Immediately prior to administration of medications, the patient was re-assessed for adequacy to receive sedatives. - The heart rate, respiratory rate, oxygen saturations, blood pressure, adequacy of pulmonary ventilation, and response to care were monitored throughout the procedure. - The physical status of the patient was re-assessed after the procedure. After obtaining informed consent, the endoscope was passed under direct vision. Throughout the procedure, the patient's blood pressure, pulse, and oxygen saturations were monitored continuously. The scope was introduced through the mouth, and advanced to the third part of duodenum. The upper GI endoscopy was accomplished without difficulty. The patient tolerated the procedure well. Findings: The examined esophagus was normal. A small hiatal hernia was found. The proximal extent of the gastric folds (end of tubular esophagus) was 37 cm from the incisors. The hiatal narrowing was 39 cm from the incisors. The Z-line was 37 cm from the incisors. The entire examined stomach was normal. Biopsies were taken with a cold forceps for histology. Estimated blood loss was minimal. The second portion of the duodenum and third portion of the duodenum were normal. One partially obstructing oozing cratered duodenal ulcer with oozing hemorrhage (Chauncey Class Ib) was found in the duodenal bulb on the posterior wall. The lesion was 15 mm in largest dimension. Area was successfully injected with 2 mL of a 1:10,000 solution of epinephrine for drug delivery. Coagulation for hemostasis using a 7 Fr multipolar silver probe was successful. Impression: - Normal esophagus. - Small hiatal hernia. - Normal stomach. Biopsied. - Normal second portion of the duodenum and third portion of the duodenum. - One partially obstructing oozing posterior duodenal ulcer with oozing hemorrhage (Chauncey Class Ib). Injected. Treated with a multipolar probe. Recommendation: - [facility] care. - Clear liquid diet today. - Give Protonix (pantoprazole): 8 mg/hr IV by continuous infusion for 3 days. - Await pathology results. - If rebleeding occurs would advise transfer to a tertiary center for IR support. Irene Templeton D.O. Irene Templeton, DO 11/12/2017 11:55:56 AM This report has been signed electronically. Note Initiated On: 11/12/2017 11:24 AM I attest to the content of the Intraoperative Record and orders documented therein, exceptions below
[2017-11-12] MEDS ORDERED: EpINEphrine INJ 1MG/ML AMP 1 MG/ML AMP ONE (11:59)
[2017-11-12] MEDS ORDERED: ONDANSETRON INJ 2 MG/ML 2 ML VIAL ONE (12:17)
--- NOTE | 2017-11-12 12:39 | Anesthesiology Progress Note ---
Anesthesia Post Op Note Date & Time Nov 12, 2017 at 12:39 Vital Signs Pain Intensity: 3 Vital Signs Past 12 Hours Date Time Temp Pulse Resp B/P (MAP) Pulse Ox O2 Delivery O2 Flow Rate FiO2 11/12/17 12:37 80 16 162/54 (90) 96 Room Air 11/12/17 12:22 80 16 185/87 (119) 96 Room Air 11/12/17 12:07 80 16 166/70 (102) 96 Room Air 11/12/17 11:10 36.9 76 20 178/69 (105) 96 Room Air 11/12/17 08:00 Room Air 11/12/17 07:43 36.6 74 16 129/62 (84) 96 Room Air Notes Mental Status: alert / awake / arousable, participated in evaluation Pt Amnestic to Procedure: Yes Nausea / Vomiting: adequately controlled Pain: adequately controlled Airway Patency, RR, SpO2: stable & adequate BP & HR: stable & adequate Hydration State: stable & adequate Anesthetic Complications: no major complications apparent
[2017-11-12 13:54] VITALS: Ht 149.9 cm; Wt 59.4 kg
[2017-11-12 16:57] VITALS: BP 146/74; PULSE 86; TEMP 36.7; O2SAT 96
[2017-11-12] MEDS: SODIUM CHLORIDE 0.9% 1000ML 1,000 ML IV SCH (16:58)
--- NOTE | 2017-11-12 19:06 | Progress Note ---
Medicine Progress Note Date & Time of Visit: Nov 12, 2017 at 11:01. Subjective Pt was seen and examined Lying in bed with no distress with family at bedside Pt just came from EGD She said that she is hungry No blood stools Denies any chest pain, palpitation, dizziness and SOB Objective Last 8 Hrs Date Time Temp Pulse Resp B/P (MAP) Pulse Ox O2 Delivery O2 Flow Rate FiO2 11/12/17 16:57 36.7 86 18 146/74 (98) 96 Room Air 11/12/17 16:00 Room Air 11/12/17 12:37 80 16 162/54 (90) 96 Room Air 11/12/17 12:22 80 16 185/87 (119) 96 Room Air 11/12/17 12:07 80 16 166/70 (102) 96 Room Air 11/12/17 11:10 36.9 76 20 178/69 (105) 96 Room Air Physical Exam: General- No acute distress, sleepy Head- atraumatic Eyes- PERRL, EOMI ENT- oropharynx clear Neck- supple, no JVD Lungs- clear to auscultation Heart- regular rhythm Abdomen- normal bowel sounds, tenderness with palpation Extremities- no calf tenderness Neuro- alert, oriented x 3; PERRL Skin- warm & dry Laboratory Results: Last 24 Hours Test 11/11/17 19:47 11/11/17 23:39 11/12/17 06:14 11/12/17 06:49 Bedside Glucose 234 mg/dl 78 mg/dl 69 mg/dl 140 mg/dl Test 11/12/17 07:02 11/12/17 13:21 11/12/17 16:41 White Blood Count 6.89 K/uL Red Blood Count 4.37 M/uL Hemoglobin 13.1 g/dL Hematocrit 39.9 % Mean Corpuscular Volume 91.3 fL Mean Corpuscular Hemoglobin 30.0 pg Mean Corpuscular Hemoglobin Concent 32.8 g/dl RDW Standard Deviation 47.4 fL RDW Coefficient of Variation 14.2 % Platelet Count 217 K/uL Mean Platelet Volume 10.5 fL Sodium Level 138 mmol/L Potassium Level 3.7 mmol/L Chloride Level 103 mmol/L Carbon Dioxide Level 29 mmol/L Anion Gap 6.0 mmol/L Blood Urea Nitrogen 34 mg/dl Creatinine 1.76 mg/dl Est Creatinine Clear Calc Drug Dose 22.7 ml/min Estimated GFR () 32.9 Estimated GFR (Non- 28.4 BUN/Creatinine Ratio 19.4 Random Glucose 174 mg/dl Calcium Level 8.8 mg/dl Total Bilirubin 0.6 mg/dl Aspartate Amino Transf (AST/SGOT) 56 U/L Alanine Aminotransferase (ALT/SGPT) 69 U/L Alkaline Phosphatase 205 U/L Total Protein 5.9 gm/dl Albumin 2.8 gm/dl Globulin 3.1 gm/dl Albumin/Globulin Ratio 0.9 Bedside Glucose 85 mg/dl 99 mg/dl Assessment & Plan Elevated liver enzymes associated with Abdominal pain Possible related to duodenitis CT showed mild wall thickening with mild adjacent mesenteric inflammatory stranding of the pylorus, proximal duodenum and pancreatic head MRCP showed mild wall thickening of the duodenum with mild surrounding mesenteric edema adjacent to the duodenum and pancreatic duodenal Elevated Liver enzymes GI consulted Continue pain control Continue PPI Continue clear liquid diet GI bleeding One episode of bloody stool as per GI team Will monitor H/H Case discussed with GI and consider scope her. 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 Hypertension BP stable Atrial fibrillation Rate controlled Not on coumadin will hold aspirin due to ulcer DM type 2 Recent HgA1c of 8.5 last October 2017. Continue Insulin CKD stage 4 Stable Continue monitor BMP DVT Px hold heparin due to GI bleed On SCDs CODE STATUS FULL CODE Current Inpatient Medications: Current Inpatient Medications Medications (Trade) Dose Ordered Sig/Shreya Route Start Time Stop Time Status Last Admin Dose Admin Heparin Sodium (Porcine) (Heparin Sq 5000 Unit/0.5ml) 5,000 unit Q8 SQ 11/11/17 09:00 12/11/17 08:59 Future Hold 11/11/17 13:04 5,000 UNIT Acetaminophen (Tylenol Tab) 325 mg Q6H PRN PO 11/11/17 02:15 12/11/17 02:14 Glucose (Glucose 40% Gel) 15-30 GRAMS 15 GRAMS... UD PRN PO 11/11/17 02:15 12/11/17 02:14 Glucose (Glucose Chew Tab) 4-8 Tablets 4 Tabl... UD PRN PO 11/11/17 02:15 12/11/17 02:14 Dextrose (Dextrose 50% 50ML Syringe) 25-50ML OF 50% DW IV FOR... UD PRN IV 11/11/17 02:15 12/11/17 02:14 11/12/17 06:29 25 ML Glucagon (Glucagon Inj) 1 mg UD PRN SQ 11/11/17 02:15 12/11/17 02:14 Hydromorphone HCl (Dilaudid Inj) 0.5 mg Q3H PRN IV 11/11/17 02:15 11/25/17 02:14 Tramadol HCl (Ultram Tab) 25 mg Q6H PRN PO 11/11/17 02:15 12/11/17 02:14 11/11/17 12:07 25 MG Prochlorperazine Edisylate 5 mg/ Syringe 5 ml @ 5 mls/min Q6H PRN IV 11/11/17 02:15 12/11/17 02:14 Allopurinol (Zyloprim Tab) 100 mg DAILY PO 11/11/17 08:00 12/11/17 08:59 11/11/17 08:22 100 MG Aspirin (Ecotrin Tab) 81 mg QAM PO 11/11/17 08:00 12/11/17 08:59 11/11/17 08:21 81 MG Duloxetine HCl (Cymbalta Cap) 60 mg DAILY PO 11/11/17 08:00 12/11/17 08:59 11/11/17 08:22 60 MG Isosorbide Mononitrate (Imdur Ext Rel Tab) 30 mg QAM PO 11/11/17 08:00 12/11/17 08:59 11/11/17 08:24 30 MG Metoprolol Tartrate (Lopressor Tab) 25 mg BID PO 11/11/17 08:00 12/11/17 08:59 11/12/17 08:46 25 MG Ranitidine HCl (zANTac TAB) 150 mg DAILY PO 11/11/17 08:00 12/11/17 08:59 11/11/17 08:22 150 MG Senna/Docusate Sodium (Senokot S Tab) 1 tab BID PO 11/11/17 20:00 12/11/17 20:59 11/11/17 20:35 1 TAB Polyethylene (Miralax Powder Packet) 17 gm DAILY PO 11/12/17 08:00 12/12/17 08:59 Haloperidol Lactate (Haldol Inj) 2 mg Q2H PRN IM 11/11/17 02:15 12/11/17 02:14 Haloperidol (Haldol Tab) 2 mg Q4H PRN PO 11/11/17 02:15 12/11/17 02:14 Miscellaneous (Iv Fluids Completed) 1 ea PRN PRN N/A 11/11/17 03:15 11/11/18 03:14 Insulin Glargine (Lantus Solostar Pen) 5 units BID SC 11/11/17 20:00 12/12/17 07:59 Future hold 11/11/17 20:37 5 UNITS Pantoprazole Sodium 40 mg/ Dextrose 100 ml @ 20 mls/hr Q5H IV 11/11/17 17:45 12/11/17 17:44 11/12/17 16:58 20 MLS/HR Insulin Aspart (novoLOG ASPART) SLIDING SCALE If C... ACHS SC 11/12/17 16:30 12/12/17 00:00 Sodium Chloride 1,000 ml @ 50 mls/hr Q20H IV 11/12/17 17:00 12/12/17 16:59 11/12/17 16:58 50 MLS/HR
[2017-11-12] MEDS: TRAMADOL HCL 50 MG TAB PO PRN (21:14)
[2017-11-12 23:58] VITALS: BP 122/73; PULSE 73; TEMP 36.9; O2SAT 96
[2017-11-13] MEDS: PANTOprazole INJ 40 MG in DEXTROSE 5% 100ML IV SCH ×4 (03:02→19:08)
[2017-11-13] MEDS: SODIUM CHLORIDE 0.9% 1000ML 1,000 ML IV SCH (07:41)
[2017-11-13] MEDS: POLYETHYLENE (MIRALAX) 17 GM PACK PO SCH (08:00)
[2017-11-13 08:20] VITALS: BP 127/65; PULSE 80; TEMP 36.9; O2SAT 90
[2017-11-13] MEDS: DULOXETINE HCL 60 MG CAP PO SCH (09:14)
[2017-11-13] MEDS: ISOSORBIDE MONONITRATE 30 MG TABCR PO SCH (09:14)
[2017-11-13] MEDS: DOCUSATE SODIUM/SENNA 50/8.6MG TAB PO SCH ×2 (09:15→19:40)
[2017-11-13] MEDS: METOPROLOL TARTRATE 25 MG TAB PO SCH ×2 (09:15→19:40)
[2017-11-13] MEDS: RANITIDINE HCL 150 MG TAB PO SCH (09:16)
[2017-11-13] MEDS: ALLOPURINOL 100 MG TAB PO SCH (09:16)
[2017-11-13] MEDS: INSULIN ASPART 100 UNITS/ML 3 ML PEN SC SCH ×4 (09:22→20:58)
[2017-11-13] MEDS: INSULIN GLARGINE SOLOSTAR 100 UNITS/ML 3 ML PEN SC SCH ×2 (09:23→20:58)
[2017-11-13 09:44] LABS: HEMATOCRIT 39.3 % (37-47); HEMOGLOBIN 12.6 g/dL (12.0-16.0); MEAN CORPUSCULAR HEMOGLOBIN 29.5 pg (25-34); MEAN CORPUSCULAR HGB CONC 32.1 g/dl (32-36); MEAN PLATELET VOLUME 9.9 fL (7.4-10.4); PLATELET COUNT 212 K/uL (130-400); RED CELL DISTRIBUTION WIDTH CV 14.6 % (11.5-14.5); WHITE BLOOD COUNT 6.22 K/uL (4.8-10.8)
--- NOTE | 2017-11-13 10:10 | Gastroenterology Progress Note ---
Progress Note Date of Service: Nov 13, 2017 Subjective Pt evaluation today including: conversation w/ patient, physical exam, chart review, lab review Pt is seen and evaluated, chart reviewed. EGD w/ bleeding duodenal ulcer. Feels well. No abd pain, nausea, vomiting. Had a BM this AM which was brown. No fever , chills, CP, SOB Review of Systems Constitutional: No fever, No chills, No weight loss, No fatigue ENT: No sore throat, No tinnitus, No trouble swallowing, No pain on swallowing Respiratory: No cough, No sputum, No wheezing, No shortness of breath, No dyspnea at rest, No hemoptysis Cardiac: No chest pain, No PND, No edema, No palpitations Abdomen: No pain, No nausea, No vomiting, No diarrhea, No constipation, No GI bleeding Skin: No rash, No itch, No color change, No bleeding, No jaundice Medications Current Inpatient Medications Medications (Trade) Dose Ordered Sig/Shreya Route Start Time Stop Time Status Last Admin Dose Admin Heparin Sodium (Porcine) (Heparin Sq 5000 Unit/0.5ml) 5,000 unit Q8 SQ 11/11/17 09:00 12/11/17 08:59 Future Hold 11/11/17 13:04 5,000 UNIT Acetaminophen (Tylenol Tab) 325 mg Q6H PRN PO 11/11/17 02:15 12/11/17 02:14 Glucose (Glucose 40% Gel) 15-30 GRAMS 15 GRAMS... UD PRN PO 11/11/17 02:15 12/11/17 02:14 Glucose (Glucose Chew Tab) 4-8 Tablets 4 Tabl... UD PRN PO 11/11/17 02:15 12/11/17 02:14 Dextrose (Dextrose 50% 50ML Syringe) 25-50ML OF 50% DW IV FOR... UD PRN IV 11/11/17 02:15 12/11/17 02:14 11/12/17 06:29 25 ML Glucagon (Glucagon Inj) 1 mg UD PRN SQ 11/11/17 02:15 12/11/17 02:14 Hydromorphone HCl (Dilaudid Inj) 0.5 mg Q3H PRN IV 11/11/17 02:15 11/25/17 02:14 Tramadol HCl (Ultram Tab) 25 mg Q6H PRN PO 11/11/17 02:15 12/11/17 02:14 11/12/17 21:14 25 MG Prochlorperazine Edisylate 5 mg/ Syringe 5 ml @ 5 mls/min Q6H PRN IV 11/11/17 02:15 12/11/17 02:14 Allopurinol (Zyloprim Tab) 100 mg DAILY PO 11/11/17 08:00 12/11/17 08:59 11/13/17 09:16 100 MG Aspirin (Ecotrin Tab) 81 mg QAM PO 11/11/17 08:00 12/11/17 08:59 Future Hold 11/11/17 08:21 81 MG Duloxetine HCl (Cymbalta Cap) 60 mg DAILY PO 11/11/17 08:00 12/11/17 08:59 11/13/17 09:14 60 MG Isosorbide Mononitrate (Imdur Ext Rel Tab) 30 mg QAM PO 11/11/17 08:00 12/11/17 08:59 11/13/17 09:14 30 MG Metoprolol Tartrate (Lopressor Tab) 25 mg BID PO 11/11/17 08:00 12/11/17 08:59 11/13/17 09:15 25 MG Ranitidine HCl (zANTac TAB) 150 mg DAILY PO 11/11/17 08:00 12/11/17 08:59 11/13/17 09:16 150 MG Senna/Docusate Sodium (Senokot S Tab) 1 tab BID PO 11/11/17 20:00 12/11/17 20:59 11/13/17 09:15 1 TAB Polyethylene (Miralax Powder Packet) 17 gm DAILY PO 11/12/17 08:00 12/12/17 08:59 Haloperidol Lactate (Haldol Inj) 2 mg Q2H PRN IM 11/11/17 02:15 12/11/17 02:14 Haloperidol (Haldol Tab) 2 mg Q4H PRN PO 11/11/17 02:15 12/11/17 02:14 Miscellaneous (Iv Fluids Completed) 1 ea PRN PRN N/A 11/11/17 03:15 11/11/18 03:14 Insulin Glargine (Lantus Solostar Pen) 5 units BID SC 11/11/17 20:00 12/12/17 07:59 Future hold 11/13/17 09:23 5 UNITS Pantoprazole Sodium 40 mg/ Dextrose 100 ml @ 20 mls/hr Q5H IV 11/11/17 17:45 12/11/17 17:44 11/13/17 09:23 20 MLS/HR Insulin Aspart (novoLOG ASPART) SLIDING SCALE If C... ACHS SC 11/12/17 16:30 12/12/17 00:00 11/13/17 09:22 2 UNITS Sodium Chloride 1,000 ml @ 50 mls/hr Q20H IV 11/12/17 17:00 12/12/17 16:59 11/13/17 07:41 50 MLS/HR Objective Vital Signs Date Time Temp Pulse Resp B/P (MAP) Pulse Ox O2 Delivery O2 Flow Rate FiO2 11/13/17 08:20 36.9 80 20 127/65 (85) 90 11/13/17 00:00 Room Air 11/12/17 23:58 36.9 73 18 122/73 (89) 96 Room Air 11/12/17 19:00 Room Air 11/12/17 16:57 36.7 86 18 146/74 (98) 96 Room Air 11/12/17 16:00 Room Air 11/12/17 12:37 80 16 162/54 (90) 96 Room Air 11/12/17 12:22 80 16 185/87 (119) 96 Room Air 11/12/17 12:07 80 16 166/70 (102) 96 Room Air 11/12/17 11:10 36.9 76 20 178/69 (105) 96 Room Air Physical Exam General Appearance: no apparent distress Eyes: PERRL ENT: hearing grossly normal Neck: supple, no adenopathy, no JVD, trachea midline Respiratory/Chest: lungs clear, normal breath sounds, no respiratory distress, no accessory muscle use Cardiovascular: regular rate, rhythm, no edema, no gallop, no JVD Abdomen: normal bowel sounds, non tender, soft, no organomegaly, no pulsatile mass Neurologic/Psych: alert, normal mood/affect, oriented x 3 Skin: normal color, no jaundice, warm/dry, no rash Laboratory Results Last 24 Hours Test 11/12/17 13:21 11/12/17 16:41 11/12/17 21:00 11/13/17 07:57 Bedside Glucose 85 mg/dl 99 mg/dl 320 mg/dl 96 mg/dl Test 11/13/17 09:21 White Blood Count 6.22 K/uL Red Blood Count 4.27 M/uL Hemoglobin 12.6 g/dL Hematocrit 39.3 % Mean Corpuscular Volume 92.0 fL Mean Corpuscular Hemoglobin 29.5 pg Mean Corpuscular Hemoglobin Concent 32.1 g/dl RDW Standard Deviation 49.0 fL RDW Coefficient of Variation 14.6 % Platelet Count 212 K/uL Mean Platelet Volume 9.9 fL Assessment and Plan 72 year old female with ABD pain, CT suggestive of duodenitis w/ witnessed rectal bleeding yesterday. EGD w/ one partially obstructing oozing posterior duodenal ulcer with oozing hemorrhage treated with a multipolar probe. - Low residue diet - Continue 8 mg/hr IV infusion for 72 hours - OK to convert to PO on 11/15/17 - Await pathology results. - If rebleeding occurs would advise transfer to a tertiary center for IR support - OP EGD in 3 months I saw and evaluated the patient. She does note having some fatigue today but notes she is otherwise doing well. Her hemoglobin and hematocrit seem to be stable over the last 24-48 hours. At this time I would suggest continued use of a Protonix drip for another 24 hours. After this she can be transitioned to 40 mg of Protonix twice daily for 6 weeks and 1 time daily thereafter. We will plan to do a repeat upper endoscopy in approximately 12 weeks. I would also suggest use of an iron supplement twice daily for 6 weeks to help rebuild her iron stores. Please call with any questions or concerns over the weekend.
[2017-11-13 10:15] LABS: CALCIUM 8.6 mg/dl (8.5-10.1); CREATININE 1.86 mg/dl (0.60-1.20); POTASSIUM 3.8 mmol/L (3.5-5.1)
[2017-11-13 10:17] LABS: TOTAL PROTEIN 6.1 gm/dl (6.4-8.2)
[2017-11-13] MEDS ORDERED: INSULIN GLARGINE SOLOSTAR 100 UNITS/ML 3 ML PEN SC ONE (11:42)
[2017-11-13 15:06] LABS: HEMATOCRIT 37.3 % (37-47)
[2017-11-13 15:36] VITALS: BP 131/70; PULSE 72; TEMP 36.4; O2SAT 95
--- NOTE | 2017-11-13 19:31 | Progress Note ---
Medicine Progress Note Date & Time of Visit: Nov 13, 2017 at 19:29. Subjective Pt was seen and examined Lying in bed with no distress Pt said that she feels tired She said that she tolerated clear liquid diet Denies any chest pain, palpitation, dizziness and SOB Objective Last 8 Hrs Date Time Temp Pulse Resp B/P (MAP) Pulse Ox O2 Delivery O2 Flow Rate FiO2 11/13/17 16:00 Room Air 11/13/17 15:36 36.4 72 20 131/70 (90) 95 Physical Exam: General- No acute distress, sleepy Head- atraumatic Eyes- PERRL, EOMI ENT- oropharynx clear Neck- supple, no JVD Lungs- clear to auscultation Heart- regular rhythm Abdomen- normal bowel sounds, tenderness with palpation Extremities- no calf tenderness Neuro- alert, oriented x 3; PERRL Skin- warm & dry Laboratory Results: Last 24 Hours Test 11/12/17 21:00 11/13/17 07:57 11/13/17 09:21 11/13/17 11:22 Bedside Glucose 320 mg/dl 96 mg/dl 254 mg/dl White Blood Count 6.22 K/uL Red Blood Count 4.27 M/uL Hemoglobin 12.6 g/dL Hematocrit 39.3 % Mean Corpuscular Volume 92.0 fL Mean Corpuscular Hemoglobin 29.5 pg Mean Corpuscular Hemoglobin Concent 32.1 g/dl RDW Standard Deviation 49.0 fL RDW Coefficient of Variation 14.6 % Platelet Count 212 K/uL Mean Platelet Volume 9.9 fL Sodium Level 139 mmol/L Potassium Level 3.8 mmol/L Chloride Level 107 mmol/L Carbon Dioxide Level 23 mmol/L Anion Gap 9.0 mmol/L Blood Urea Nitrogen 21 mg/dl Creatinine 1.86 mg/dl Est Creatinine Clear Calc Drug Dose 21.5 ml/min Estimated GFR () 30.8 Estimated GFR (Non- 26.6 BUN/Creatinine Ratio 11.1 Random Glucose 187 mg/dl Calcium Level 8.6 mg/dl Total Bilirubin 0.6 mg/dl Aspartate Amino Transf (AST/SGOT) 40 U/L Alanine Aminotransferase (ALT/SGPT) 56 U/L Alkaline Phosphatase 208 U/L Total Protein 6.1 gm/dl Albumin 3.0 gm/dl Globulin 3.1 gm/dl Albumin/Globulin Ratio 1.0 Test 11/13/17 14:42 11/13/17 16:16 Hemoglobin 12.0 g/dL Hematocrit 37.3 % Bedside Glucose 204 mg/dl Assessment & Plan Elevated liver enzymes associated with Abdominal pain Possible related to duodenitis CT showed mild wall thickening with mild adjacent mesenteric inflammatory stranding of the pylorus, proximal duodenum and pancreatic head MRCP showed mild wall thickening of the duodenum with mild surrounding mesenteric edema adjacent to the duodenum and pancreatic duodenal Elevated Liver enzymes GI consulted Continue pain control Continue PPIx 3days, then transition to oral diet advanced to low fiber GI bleeding One episode of bloody stool as per GI team Will monitor H/H Case discussed with GI and consider scope her. 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 Hypertension BP stable Atrial fibrillation Rate controlled Not on coumadin will hold aspirin due to ulcer DM type 2 Recent HgA1c of 8.5 last October 2017. Continue Insulin CKD stage 4 creatine 1.86 today Will start on gentle IVF Continue monitor BMP DVT Px hold heparin due to GI bleed On SCDs CODE STATUS FULL CODE Current Inpatient Medications: Current Inpatient Medications Medications (Trade) Dose Ordered Sig/Shreya Route Start Time Stop Time Status Last Admin Dose Admin Heparin Sodium (Porcine) (Heparin Sq 5000 Unit/0.5ml) 5,000 unit Q8 SQ 11/11/17 09:00 12/11/17 08:59 Future Hold 11/11/17 13:04 5,000 UNIT Acetaminophen (Tylenol Tab) 325 mg Q6H PRN PO 11/11/17 02:15 12/11/17 02:14 Glucose (Glucose 40% Gel) 15-30 GRAMS 15 GRAMS... UD PRN PO 11/11/17 02:15 12/11/17 02:14 Glucose (Glucose Chew Tab) 4-8 Tablets 4 Tabl... UD PRN PO 11/11/17 02:15 12/11/17 02:14 Dextrose (Dextrose 50% 50ML Syringe) 25-50ML OF 50% DW IV FOR... UD PRN IV 11/11/17 02:15 12/11/17 02:14 11/12/17 06:29 25 ML Glucagon (Glucagon Inj) 1 mg UD PRN SQ 11/11/17 02:15 12/11/17 02:14 Hydromorphone HCl (Dilaudid Inj) 0.5 mg Q3H PRN IV 11/11/17 02:15 11/25/17 02:14 Tramadol HCl (Ultram Tab) 25 mg Q6H PRN PO 11/11/17 02:15 12/11/17 02:14 11/12/17 21:14 25 MG Prochlorperazine Edisylate 5 mg/ Syringe 5 ml @ 5 mls/min Q6H PRN IV 11/11/17 02:15 12/11/17 02:14 Allopurinol (Zyloprim Tab) 100 mg DAILY PO 11/11/17 08:00 12/11/17 08:59 11/13/17 09:16 100 MG Aspirin (Ecotrin Tab) 81 mg QAM PO 11/11/17 08:00 12/11/17 08:59 Future Hold 11/11/17 08:21 81 MG Duloxetine HCl (Cymbalta Cap) 60 mg DAILY PO 11/11/17 08:00 12/11/17 08:59 11/13/17 09:14 60 MG Isosorbide Mononitrate (Imdur Ext Rel Tab) 30 mg QAM PO 11/11/17 08:00 12/11/17 08:59 11/13/17 09:14 30 MG Metoprolol Tartrate (Lopressor Tab) 25 mg BID PO 11/11/17 08:00 12/11/17 08:59 11/13/17 09:15 25 MG Ranitidine HCl (zANTac TAB) 150 mg DAILY PO 11/11/17 08:00 12/11/17 08:59 11/13/17 09:16 150 MG Senna/Docusate Sodium (Senokot S Tab) 1 tab BID PO 11/11/17 20:00 12/11/17 20:59 11/13/17 09:15 1 TAB Polyethylene (Miralax Powder Packet) 17 gm DAILY PO 11/12/17 08:00 12/12/17 08:59 Haloperidol Lactate (Haldol Inj) 2 mg Q2H PRN IM 11/11/17 02:15 12/11/17 02:14 Haloperidol (Haldol Tab) 2 mg Q4H PRN PO 11/11/17 02:15 12/11/17 02:14 Miscellaneous (Iv Fluids Completed) 1 ea PRN PRN N/A 11/11/17 03:15 11/11/18 03:14 Pantoprazole Sodium 40 mg/ Dextrose 100 ml @ 20 mls/hr Q5H IV 11/11/17 17:45 12/11/17 17:44 11/13/17 19:08 20 MLS/HR Insulin Aspart (novoLOG ASPART) SLIDING SCALE If C... ACHS SC 11/12/17 16:30 12/12/17 00:00 11/13/17 18:12 4 UNITS Sodium Chloride 1,000 ml @ 50 mls/hr Q20H IV 11/12/17 17:00 12/12/17 16:59 11/13/17 07:41 50 MLS/HR Insulin Glargine (Lantus Solostar Pen) 10 units BID SC 11/13/17 20:00 12/13/17 19:59
[2017-11-13 19:38] VITALS: BP 138/69; PULSE 76
[2017-11-13] MEDS: TRAMADOL HCL 50 MG TAB PO PRN (19:40)
[2017-11-13] MEDS ORDERED: SODIUM CHLORIDE 0.9% 500ML 500 ML IV SCH (20:00)
[2017-11-14] MEDS: PANTOprazole INJ 40 MG in DEXTROSE 5% 100ML IV SCH ×3 (00:04→08:30)
[2017-11-14 00:34] VITALS: BP 144/56; PULSE 67; TEMP 36.7; O2SAT 94
[2017-11-14 07:34] VITALS: BP 143/75; PULSE 79; TEMP 36.7; O2SAT 94
[2017-11-14 07:44] LABS: BASO % 0.6 %; BASO ABS # 0.04 K/uL (0-0.2); EOS % 10.4 %; HEMATOCRIT 37.4 % (37-47); HEMOGLOBIN 11.8 g/dL (12.0-16.0); IG# 0.02 K/uL (0.00-0.02); LYMPH % 27.3 %; LYMPH ABS # 1.84 K/uL (1.2-3.4); MEAN CELL VOLUME 92.3 fL (80-100); MEAN CORPUSCULAR HEMOGLOBIN 29.1 pg (25-34); MEAN CORPUSCULAR HGB CONC 31.6 g/dl (32-36); MONO ABS # 0.81 K/uL (0.11-0.59); NEUT % 49.4 %; NEUT ABS # 3.33 K/uL (1.4-6.5); PLATELET COUNT 199 K/uL (130-400); RED CELL DISTRIBUTION WIDTH CV 14.5 % (11.5-14.5); RED CELL DISTRIBUTION WIDTH SD 49.4 fL (36.4-46.3); WHITE BLOOD COUNT 6.74 K/uL (4.8-10.8)
[2017-11-14 08:00] VITALS: O2SAT 94
[2017-11-14 08:04] LABS: CALCIUM 8.4 mg/dl (8.5-10.1); CREATININE 1.9 mg/dl (0.60-1.20)
[2017-11-14] MEDS: METOPROLOL TARTRATE 25 MG TAB PO SCH ×2 (08:27→19:46)
[2017-11-14] MEDS: ISOSORBIDE MONONITRATE 30 MG TABCR PO SCH (08:27)
[2017-11-14] MEDS: DULOXETINE HCL 60 MG CAP PO SCH (08:27)
[2017-11-14] MEDS: RANITIDINE HCL 150 MG TAB PO SCH (08:27)
[2017-11-14] MEDS: ALLOPURINOL 100 MG TAB PO SCH (08:27)
[2017-11-14] MEDS: INSULIN GLARGINE SOLOSTAR 100 UNITS/ML 3 ML PEN SC SCH ×2 (08:30→20:44)
[2017-11-14] MEDS: INSULIN ASPART 100 UNITS/ML 3 ML PEN SC SCH ×4 (08:30→20:41)
[2017-11-14] MEDS ORDERED: SODIUM CHLORIDE 0.9% 1000ML 1,000 ML IV SCH (08:30)
[2017-11-14] MEDS: DOCUSATE SODIUM/SENNA 50/8.6MG TAB PO SCH ×2 (08:31→19:46)
[2017-11-14] MEDS: POLYETHYLENE (MIRALAX) 17 GM PACK PO SCH (08:31)
[2017-11-14] MEDS: SODIUM CHLORIDE 0.9% 1000ML 1,000 ML IV SCH ×2 (08:31→11:39)
[2017-11-14] MEDS ORDERED: PANTOprazole SOD 40 MG TAB PO STA (08:50)
--- NOTE | 2017-11-14 08:53 | Gastroenterology Progress Note ---
Progress Note Date of Service: Nov 14, 2017 Subjective Pt evaluation today including: conversation w/ patient, physical exam The patient reports no recurrent melena or hematochezia over the last 24 hours. Of note she is having a large number of IV problems and seems to have been infiltrated IV this morning. She is tolerating regular food without any difficulty. Review of Systems Constitutional: No fever, No sweats, No fatigue Respiratory: + dyspnea on exertion, No cough, No wheezing, No dyspnea at rest Cardiac: No chest pain, No PND, No palpitations Medications Current Inpatient Medications Medications (Trade) Dose Ordered Sig/Shreya Route Start Time Stop Time Status Last Admin Dose Admin Heparin Sodium (Porcine) (Heparin Sq 5000 Unit/0.5ml) 5,000 unit Q8 SQ 11/11/17 09:00 12/11/17 08:59 Future Hold 11/11/17 13:04 5,000 UNIT Acetaminophen (Tylenol Tab) 325 mg Q6H PRN PO 11/11/17 02:15 12/11/17 02:14 Glucose (Glucose 40% Gel) 15-30 GRAMS 15 GRAMS... UD PRN PO 11/11/17 02:15 12/11/17 02:14 Glucose (Glucose Chew Tab) 4-8 Tablets 4 Tabl... UD PRN PO 11/11/17 02:15 12/11/17 02:14 Dextrose (Dextrose 50% 50ML Syringe) 25-50ML OF 50% DW IV FOR... UD PRN IV 11/11/17 02:15 12/11/17 02:14 11/12/17 06:29 25 ML Glucagon (Glucagon Inj) 1 mg UD PRN SQ 11/11/17 02:15 12/11/17 02:14 Hydromorphone HCl (Dilaudid Inj) 0.5 mg Q3H PRN IV 11/11/17 02:15 11/25/17 02:14 Tramadol HCl (Ultram Tab) 25 mg Q6H PRN PO 11/11/17 02:15 12/11/17 02:14 11/13/17 19:40 25 MG Prochlorperazine Edisylate 5 mg/ Syringe 5 ml @ 5 mls/min Q6H PRN IV 11/11/17 02:15 12/11/17 02:14 Allopurinol (Zyloprim Tab) 100 mg DAILY PO 11/11/17 08:00 12/11/17 08:59 11/14/17 08:27 100 MG Aspirin (Ecotrin Tab) 81 mg QAM PO 11/11/17 08:00 12/11/17 08:59 Future Hold 11/11/17 08:21 81 MG Duloxetine HCl (Cymbalta Cap) 60 mg DAILY PO 11/11/17 08:00 12/11/17 08:59 11/14/17 08:27 60 MG Isosorbide Mononitrate (Imdur Ext Rel Tab) 30 mg QAM PO 11/11/17 08:00 12/11/17 08:59 11/14/17 08:27 30 MG Metoprolol Tartrate (Lopressor Tab) 25 mg BID PO 11/11/17 08:00 12/11/17 08:59 11/14/17 08:27 25 MG Ranitidine HCl (zANTac TAB) 150 mg DAILY PO 11/11/17 08:00 12/11/17 08:59 11/14/17 08:27 150 MG Senna/Docusate Sodium (Senokot S Tab) 1 tab BID PO 11/11/17 20:00 12/11/17 20:59 11/13/17 09:15 1 TAB Polyethylene (Miralax Powder Packet) 17 gm DAILY PO 11/12/17 08:00 12/12/17 08:59 Haloperidol Lactate (Haldol Inj) 2 mg Q2H PRN IM 11/11/17 02:15 12/11/17 02:14 Haloperidol (Haldol Tab) 2 mg Q4H PRN PO 11/11/17 02:15 12/11/17 02:14 Miscellaneous (Iv Fluids Completed) 1 ea PRN PRN N/A 11/11/17 03:15 11/11/18 03:14 Pantoprazole Sodium 40 mg/ Dextrose 100 ml @ 20 mls/hr Q5H IV 11/11/17 17:45 12/11/17 17:44 11/14/17 05:23 20 MLS/HR Insulin Aspart (novoLOG ASPART) SLIDING SCALE If C... ACHS SC 11/12/17 16:30 12/12/17 00:00 11/14/17 08:30 3 UNITS Sodium Chloride 1,000 ml @ 75 mls/hr [id number] IV 11/12/17 17:00 12/12/17 16:59 11/13/17 07:41 50 MLS/HR Insulin Glargine (Lantus Solostar Pen) 10 units BID SC 11/13/17 20:00 12/13/17 19:59 11/14/17 08:30 10 UNITS Objective Vital Signs Date Time Temp Pulse Resp B/P (MAP) Pulse Ox O2 Delivery O2 Flow Rate FiO2 11/14/17 07:34 36.7 79 20 143/75 (97) 94 11/14/17 00:34 36.7 67 18 144/56 (85) 94 Room Air 11/14/17 00:00 Room Air 11/13/17 19:38 76 138/69 (92) 11/13/17 16:00 Room Air 11/13/17 15:36 36.4 72 20 131/70 (90) 95 Physical Exam General Appearance: no apparent distress Respiratory/Chest: lungs clear Cardiovascular: + systolic murmur Abdomen: soft Neurologic/Psych: alert Skin: no jaundice Laboratory Results Last 24 Hours Test 11/13/17 09:21 11/13/17 11:22 11/13/17 14:42 11/13/17 16:16 White Blood Count 6.22 K/uL Red Blood Count 4.27 M/uL Hemoglobin 12.6 g/dL 12.0 g/dL Hematocrit 39.3 % 37.3 % Mean Corpuscular Volume 92.0 fL Mean Corpuscular Hemoglobin 29.5 pg Mean Corpuscular Hemoglobin Concent 32.1 g/dl RDW Standard Deviation 49.0 fL RDW Coefficient of Variation 14.6 % Platelet Count 212 K/uL Mean Platelet Volume 9.9 fL Sodium Level 139 mmol/L Potassium Level 3.8 mmol/L Chloride Level 107 mmol/L Carbon Dioxide Level 23 mmol/L Anion Gap 9.0 mmol/L Blood Urea Nitrogen 21 mg/dl Creatinine 1.86 mg/dl Est Creatinine Clear Calc Drug Dose 21.5 ml/min Estimated GFR () 30.8 Estimated GFR (Non- 26.6 BUN/Creatinine Ratio 11.1 Random Glucose 187 mg/dl Calcium Level 8.6 mg/dl Total Bilirubin 0.6 mg/dl Aspartate Amino Transf (AST/SGOT) 40 U/L Alanine Aminotransferase (ALT/SGPT) 56 U/L Alkaline Phosphatase 208 U/L Total Protein 6.1 gm/dl Albumin 3.0 gm/dl Globulin 3.1 gm/dl Albumin/Globulin Ratio 1.0 Bedside Glucose 254 mg/dl 204 mg/dl Test 11/13/17 20:08 11/14/17 03:15 11/14/17 07:15 11/14/17 07:26 Bedside Glucose 166 mg/dl 137 mg/dl Urine Color YELLOW Urine Appearance CLEAR Urine pH 5.0 Urine Specific [place] 1.007 Urine Protein 1+ Urine Glucose (UA) NEG Urine Ketones NEG Urine Occult Blood 2+ Urine Nitrite NEG Urine Bilirubin NEG Urine Urobilinogen NEG Urine Leukocyte Esterase TRACE Urine WBC (Auto) 1-5 /hpf Urine RBC (Auto) 0-4 /hpf Urine Hyaline Casts (Auto) 1-5 /lpf Urine Epithelial Cells (Auto) 5-10 /lpf Urine Bacteria (Auto) NEG White Blood Count 6.74 K/uL Red Blood Count 4.05 M/uL Hemoglobin 11.8 g/dL Hematocrit 37.4 % Mean Corpuscular Volume 92.3 fL Mean Corpuscular Hemoglobin 29.1 pg Mean Corpuscular Hemoglobin Concent 31.6 g/dl Platelet Count 199 K/uL Mean Platelet Volume 10.0 fL Neutrophils (%) (Auto) 49.4 % Lymphocytes (%) (Auto) 27.3 % Monocytes (%) (Auto) 12.0 % Eosinophils (%) (Auto) 10.4 % Basophils (%) (Auto) 0.6 % Neutrophils # (Auto) 3.33 K/uL Lymphocytes # (Auto) 1.84 K/uL Monocytes # (Auto) 0.81 K/uL Eosinophils # (Auto) 0.70 K/uL Basophils # (Auto) 0.04 K/uL RDW Standard Deviation 49.4 fL RDW Coefficient of Variation 14.5 % Immature Granulocyte % (Auto) 0.3 % Immature Granulocyte # (Auto) 0.02 K/uL Sodium Level 140 mmol/L Potassium Level 4.0 mmol/L Chloride Level 110 mmol/L Carbon Dioxide Level 23 mmol/L Anion Gap 7.0 mmol/L Blood Urea Nitrogen 27 mg/dl Creatinine 1.90 mg/dl Est Creatinine Clear Calc Drug Dose 21.0 ml/min Estimated GFR () 30.0 Estimated GFR (Non- 25.9 BUN/Creatinine Ratio 14.0 Random Glucose 158 mg/dl Calcium Level 8.4 mg/dl Assessment and Plan Patient with a history of a posterior duodenal bulb ulcer resulting in significant bleeding. This was treated with thermal therapy and epinephrine injection. There appears to be no recurrence of bleeding interpreted her on . Given the IV problems I would suggest changing her tonics to 40 mg twice daily. Plan Protonix 40 mg twice daily for 6 weeks then 1 time daily thereafter Iron supplement twice daily for 4-6 weeks as outpatient Repeat upper endoscopy in 8-12 weeks Advance diet as tolerated She may be discharged either this afternoon or tomorrow morning from my perspective Please call with any questions or concerns, GI to sign off
[2017-11-14 15:29] VITALS: BP 143/77; PULSE 76; TEMP 36.4; O2SAT 97
--- NOTE | 2017-11-14 17:25 | Progress Note ---
Medicine Progress Note Date & Time of Visit: Nov 14, 2017 at 17:17. Subjective Pt was seen and examined Lying in bed with no distress with at bedside Pt said that she feels ok She tolerated diet No bloody stool reported Denies any chest pain, palpitation and SOB Objective Last 8 Hrs Date Time Temp Pulse Resp B/P (MAP) Pulse Ox O2 Delivery O2 Flow Rate FiO2 11/14/17 16:00 Room Air 11/14/17 15:29 36.4 76 18 143/77 (99) 97 Physical Exam: General- No acute distress, sleepy Head- atraumatic Eyes- PERRL, EOMI ENT- oropharynx clear Neck- supple, no JVD Lungs- clear to auscultation Heart- regular rhythm Abdomen- normal bowel sounds, tenderness with deep palpation Extremities- no calf tenderness Neuro- alert, oriented x 3; PERRL Skin- warm & dry Laboratory Results: Last 24 Hours Test 11/13/17 20:08 11/14/17 03:15 11/14/17 07:15 11/14/17 07:26 Bedside Glucose 166 mg/dl 137 mg/dl Urine Color YELLOW Urine Appearance CLEAR Urine pH 5.0 Urine Specific [place] 1.007 Urine Protein 1+ Urine Glucose (UA) NEG Urine Ketones NEG Urine Occult Blood 2+ Urine Nitrite NEG Urine Bilirubin NEG Urine Urobilinogen NEG Urine Leukocyte Esterase TRACE Urine WBC (Auto) 1-5 /hpf Urine RBC (Auto) 0-4 /hpf Urine Hyaline Casts (Auto) 1-5 /lpf Urine Epithelial Cells (Auto) 5-10 /lpf Urine Bacteria (Auto) NEG White Blood Count 6.74 K/uL Red Blood Count 4.05 M/uL Hemoglobin 11.8 g/dL Hematocrit 37.4 % Mean Corpuscular Volume 92.3 fL Mean Corpuscular Hemoglobin 29.1 pg Mean Corpuscular Hemoglobin Concent 31.6 g/dl Platelet Count 199 K/uL Mean Platelet Volume 10.0 fL Neutrophils (%) (Auto) 49.4 % Lymphocytes (%) (Auto) 27.3 % Monocytes (%) (Auto) 12.0 % Eosinophils (%) (Auto) 10.4 % Basophils (%) (Auto) 0.6 % Neutrophils # (Auto) 3.33 K/uL Lymphocytes # (Auto) 1.84 K/uL Monocytes # (Auto) 0.81 K/uL Eosinophils # (Auto) 0.70 K/uL Basophils # (Auto) 0.04 K/uL RDW Standard Deviation 49.4 fL RDW Coefficient of Variation 14.5 % Immature Granulocyte % (Auto) 0.3 % Immature Granulocyte # (Auto) 0.02 K/uL Sodium Level 140 mmol/L Potassium Level 4.0 mmol/L Chloride Level 110 mmol/L Carbon Dioxide Level 23 mmol/L Anion Gap 7.0 mmol/L Blood Urea Nitrogen 27 mg/dl Creatinine 1.90 mg/dl Est Creatinine Clear Calc Drug Dose 21.0 ml/min Estimated GFR () 30.0 Estimated GFR (Non- 25.9 BUN/Creatinine Ratio 14.0 Random Glucose 158 mg/dl Calcium Level 8.4 mg/dl Test 11/14/17 11:33 Bedside Glucose 207 mg/dl Assessment & Plan Elevated liver enzymes associated with Abdominal pain Possible related to duodenitis CT showed mild wall thickening with mild adjacent mesenteric inflammatory stranding of the pylorus, proximal duodenum and pancreatic head MRCP showed mild wall thickening of the duodenum with mild surrounding mesenteric edema adjacent to the duodenum and pancreatic duodenal Elevated Liver enzymes GI consulted Continue pain control Continue PPIx 3days, then transition to oral diet advanced to low fiber 11/14 PPI drip discontinued by GI Starting on oral PPI BIDx 6 weeks Diet tolerated GI bleeding One episode of bloody stool as per GI team Will monitor H/H Case discussed with GI and consider scope her. 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 Hypertension BP stable Atrial fibrillation Rate controlled Not on coumadin will hold aspirin due to ulcer DM type 2 Recent HgA1c of 8.5 last October 2017. Continue Insulin CKD stage 4 Creatine 1.9 today Continue gentle IVF Continue monitor BMP DVT Px hold heparin due to GI bleed On SCDs CODE STATUS FULL CODE DISPOSITION Will discharge tomorrow if medically stable Current Inpatient Medications: Current Inpatient Medications Medications (Trade) Dose Ordered Sig/Shreya Route Start Time Stop Time Status Last Admin Dose Admin Heparin Sodium (Porcine) (Heparin Sq 5000 Unit/0.5ml) 5,000 unit Q8 SQ 11/11/17 09:00 12/11/17 08:59 Future Hold 11/11/17 13:04 5,000 UNIT Acetaminophen (Tylenol Tab) 325 mg Q6H PRN PO 11/11/17 02:15 12/11/17 02:14 Glucose (Glucose 40% Gel) 15-30 GRAMS 15 GRAMS... UD PRN PO 11/11/17 02:15 12/11/17 02:14 Glucose (Glucose Chew Tab) 4-8 Tablets 4 Tabl... UD PRN PO 11/11/17 02:15 12/11/17 02:14 Dextrose (Dextrose 50% 50ML Syringe) 25-50ML OF 50% DW IV FOR... UD PRN IV 11/11/17 02:15 12/11/17 02:14 11/12/17 06:29 25 ML Glucagon (Glucagon Inj) 1 mg UD PRN SQ 11/11/17 02:15 12/11/17 02:14 Hydromorphone HCl (Dilaudid Inj) 0.5 mg Q3H PRN IV 11/11/17 02:15 11/25/17 02:14 Tramadol HCl (Ultram Tab) 25 mg Q6H PRN PO 11/11/17 02:15 12/11/17 02:14 11/13/17 19:40 25 MG Prochlorperazine Edisylate 5 mg/ Syringe 5 ml @ 5 mls/min Q6H PRN IV 11/11/17 02:15 12/11/17 02:14 Allopurinol (Zyloprim Tab) 100 mg DAILY PO 11/11/17 08:00 12/11/17 08:59 11/14/17 08:27 100 MG Aspirin (Ecotrin Tab) 81 mg QAM PO 11/11/17 08:00 12/11/17 08:59 Future Hold 11/11/17 08:21 81 MG Duloxetine HCl (Cymbalta Cap) 60 mg DAILY PO 11/11/17 08:00 12/11/17 08:59 11/14/17 08:27 60 MG Isosorbide Mononitrate (Imdur Ext Rel Tab) 30 mg QAM PO 11/11/17 08:00 12/11/17 08:59 11/14/17 08:27 30 MG Metoprolol Tartrate (Lopressor Tab) 25 mg BID PO 11/11/17 08:00 12/11/17 08:59 11/14/17 08:27 25 MG Ranitidine HCl (zANTac TAB) 150 mg DAILY PO 11/11/17 08:00 12/11/17 08:59 11/14/17 08:27 150 MG Senna/Docusate Sodium (Senokot S Tab) 1 tab BID PO 11/11/17 20:00 12/11/17 20:59 11/13/17 09:15 1 TAB Polyethylene (Miralax Powder Packet) 17 gm DAILY PO 11/12/17 08:00 12/12/17 08:59 Haloperidol Lactate (Haldol Inj) 2 mg Q2H PRN IM 11/11/17 02:15 12/11/17 02:14 Haloperidol (Haldol Tab) 2 mg Q4H PRN PO 11/11/17 02:15 12/11/17 02:14 Miscellaneous (Iv Fluids Completed) 1 ea PRN PRN N/A 11/11/17 03:15 11/11/18 03:14 Insulin Aspart (novoLOG ASPART) SLIDING SCALE If C... ACHS SC 11/12/17 16:30 12/12/17 00:00 11/14/17 13:01 3 UNITS Sodium Chloride 1,000 ml @ 75 mls/hr [id number] IV 11/12/17 17:00 12/12/17 16:59 11/14/17 11:39 75 MLS/HR Insulin Glargine (Lantus Solostar Pen) 10 units BID SC 11/13/17 20:00 12/13/17 19:59 11/14/17 08:30 10 UNITS Pantoprazole Sodium (Protonix Tab) 40 mg BID PO 11/14/17 20:00 12/14/17 19:59
[2017-11-14 19:43] VITALS: BP 154/89; PULSE 72
[2017-11-14] MEDS: PANTOprazole SOD 40 MG TAB PO SCH (19:45)
[2017-11-14 23:12] VITALS: BP 158/81; PULSE 76; TEMP 36.8; O2SAT 97
[2017-11-15] MEDS: SODIUM CHLORIDE 0.9% 1000ML 1,000 ML IV SCH ×2 (00:17→11:36)
[2017-11-15 07:44] VITALS: BP 146/53; PULSE 68; TEMP 36.7; O2SAT 93
[2017-11-15 08:00] VITALS: O2SAT 93
[2017-11-15] MEDS: POLYETHYLENE (MIRALAX) 17 GM PACK PO SCH (08:00)
[2017-11-15] MEDS: DOCUSATE SODIUM/SENNA 50/8.6MG TAB PO SCH (08:00)
[2017-11-15] MEDS: RANITIDINE HCL 150 MG TAB PO SCH (08:18)
[2017-11-15] MEDS: METOPROLOL TARTRATE 25 MG TAB PO SCH (08:18)
[2017-11-15] MEDS: ISOSORBIDE MONONITRATE 30 MG TABCR PO SCH (08:18)
[2017-11-15] MEDS: PANTOprazole SOD 40 MG TAB PO SCH (08:18)
[2017-11-15] MEDS: DULOXETINE HCL 60 MG CAP PO SCH (08:18)
[2017-11-15] MEDS: ALLOPURINOL 100 MG TAB PO SCH (08:18)
[2017-11-15] MEDS: INSULIN GLARGINE SOLOSTAR 100 UNITS/ML 3 ML PEN SC SCH (09:23)
[2017-11-15] MEDS: INSULIN ASPART 100 UNITS/ML 3 ML PEN SC SCH ×2 (09:25→13:11)
[2017-11-15] MEDS ORDERED: NURSING VERBAL MED ORDER ONE ×2 (09:30→12:15)
[2017-11-15 10:36] LABS: CALCIUM 7.9 mg/dl (8.5-10.1); CREATININE 1.49 mg/dl (0.60-1.20); POTASSIUM 4.6 mmol/L (3.5-5.1)
[2017-11-15 11:23] VITALS: BP 146/53; PULSE 68; TEMP 36.7; O2SAT 93
--- NOTE | 2017-11-15 15:09 | Progress Note ---
Medicine Progress Note Date & Time of Visit: Nov 15, 2017 at 15:00. Subjective Pt was seen and examined Lying in bed with no distress Pt was confused last night Now she is back to her baseline Pt does not want to go to [facility] anymore She would like to be discharged home with home health services She has been walking in the hallway with her and did well No bloody BM reported Denies any chest pain, palpitation, dizziness and SOB Objective Last 8 Hrs Date Time Temp Pulse Resp B/P (MAP) Pulse Ox O2 Delivery O2 Flow Rate FiO2 11/15/17 11:23 36.7 68 18 93 Room Air 11/15/17 08:00 93 Room Air 11/15/17 07:44 36.7 68 18 146/53 (84) 93 Physical Exam: General- No acute distress, sleepy Head- atraumatic Eyes- PERRL, EOMI ENT- oropharynx clear Neck- supple, no JVD Lungs- clear to auscultation Heart- regular rhythm Abdomen- normal bowel sounds, tenderness with deep palpation Extremities- no calf tenderness Neuro- alert, oriented x 3; PERRL Skin- warm & dry Laboratory Results: Last 24 Hours Test 11/14/17 16:23 11/14/17 20:17 11/15/17 07:26 11/15/17 07:52 Bedside Glucose 243 mg/dl 163 mg/dl 59 mg/dl 64 mg/dl Test 11/15/17 08:14 11/15/17 09:56 11/15/17 11:23 Bedside Glucose 89 mg/dl 199 mg/dl Sodium Level 142 mmol/L Potassium Level 4.6 mmol/L Chloride Level 113 mmol/L Carbon Dioxide Level 21 mmol/L Anion Gap 8.0 mmol/L Blood Urea Nitrogen 22 mg/dl Creatinine 1.49 mg/dl Est Creatinine Clear Calc Drug Dose 26.8 ml/min Estimated GFR () 40.2 Estimated GFR (Non- 34.7 BUN/Creatinine Ratio 14.4 Random Glucose 192 mg/dl Calcium Level 7.9 mg/dl Assessment & Plan Elevated liver enzymes associated with Abdominal pain Possible related to duodenitis CT showed mild wall thickening with mild adjacent mesenteric inflammatory stranding of the pylorus, proximal duodenum and pancreatic head MRCP showed mild wall thickening of the duodenum with mild surrounding mesenteric edema adjacent to the duodenum and pancreatic duodenal Elevated Liver enzymes GI consulted Continue pain control Continue PPIx 3days, then transition to oral diet advanced to low fiber 11/15 PPI drip discontinued by GI Continue oral PPI BIDx 6 weeks Tramadol for pain Diet tolerated Follow up with Gastro Upper GI bleeding Duodenal ulcer with bleeding One episode of bloody stool as per GI team Will monitor H/H Case discussed with GI and consider scope her. 11/15 EGD done showed One partially obstructing oozing posterior duodenal ulcer with oozing hemorrhage If pt develops any further bleeding will transfer to tertiary center for IR support to stop the bleeding Continue holding aspirin Continue Protonix 40 mg twice daily for 6 weeks then 1 time daily thereafter Iron supplement twice daily for 4-6 weeks as outpatient Repeat upper endoscopy in 8-12 weeks as an outpatient Follow with Gastro Hgb stable STOMACH, BIOPSIES: 1. BENIGN GASTRIC MUCOSA WITHOUT PATHOLOGIC CHANGE. 2. NO ACTIVE GASTRITIS IDENTIFIED. 3. NO H. PYLORI-LIKE ORGANISMS SEEN. 4. NO INTESTINAL METAPLASIA SEEN. 5. NEGATIVE FOR DYSPLASIA AND MALIGNANCY. 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 Hypertension BP stable Atrial fibrillation Rate controlled Not on coumadin Continue holding aspirin due to ulcer DM type 2 Recent HgA1c of 8.5 last October 2017. Continue Insulin CKD stage 4 Creatine 1.4 today Received gentle IVF Continue monitor BMP DVT Px hold heparin due to GI bleed On SCDs CODE STATUS FULL CODE DISPOSITION Will discharge home today with home health services Consultants: gastro Current Inpatient Medications: Current Inpatient Medications Medications (Trade) Dose Ordered Sig/Shreya Route Start Time Stop Time Status Last Admin Dose Admin Heparin Sodium (Porcine) (Heparin Sq 5000 Unit/0.5ml) 5,000 unit Q8 SQ 11/11/17 09:00 12/11/17 08:59 Future Hold 11/11/17 13:04 5,000 UNIT Acetaminophen (Tylenol Tab) 325 mg Q6H PRN PO 11/11/17 02:15 12/11/17 02:14 Glucose (Glucose 40% Gel) 15-30 GRAMS 15 GRAMS... UD PRN PO 11/11/17 02:15 12/11/17 02:14 Glucose (Glucose Chew Tab) 4-8 Tablets 4 Tabl... UD PRN PO 11/11/17 02:15 12/11/17 02:14 Dextrose (Dextrose 50% 50ML Syringe) 25-50ML OF 50% DW IV FOR... UD PRN IV 11/11/17 02:15 12/11/17 02:14 11/12/17 06:29 25 ML Glucagon (Glucagon Inj) 1 mg UD PRN SQ 11/11/17 02:15 12/11/17 02:14 Hydromorphone HCl (Dilaudid Inj) 0.5 mg Q3H PRN IV 11/11/17 02:15 11/25/17 02:14 Tramadol HCl (Ultram Tab) 25 mg Q6H PRN PO 11/11/17 02:15 12/11/17 02:14 11/13/17 19:40 25 MG Prochlorperazine Edisylate 5 mg/ Syringe 5 ml @ 5 mls/min Q6H PRN IV 11/11/17 02:15 12/11/17 02:14 Allopurinol (Zyloprim Tab) 100 mg DAILY PO 11/11/17 08:00 12/11/17 08:59 11/15/17 08:18 100 MG Aspirin (Ecotrin Tab) 81 mg QAM PO 11/11/17 08:00 12/11/17 08:59 Future Hold 11/11/17 08:21 81 MG Duloxetine HCl (Cymbalta Cap) 60 mg DAILY PO 11/11/17 08:00 12/11/17 08:59 11/15/17 08:18 60 MG Isosorbide Mononitrate (Imdur Ext Rel Tab) 30 mg QAM PO 11/11/17 08:00 12/11/17 08:59 11/15/17 08:18 30 MG Metoprolol Tartrate (Lopressor Tab) 25 mg BID PO 11/11/17 08:00 12/11/17 08:59 11/15/17 08:18 25 MG Ranitidine HCl (zANTac TAB) 150 mg DAILY PO 11/11/17 08:00 12/11/17 08:59 11/15/17 08:18 150 MG Senna/Docusate Sodium (Senokot S Tab) 1 tab BID PO 11/11/17 20:00 12/11/17 20:59 11/13/17 09:15 1 TAB Polyethylene (Miralax Powder Packet) 17 gm DAILY PO 11/12/17 08:00 12/12/17 08:59 Haloperidol Lactate (Haldol Inj) 2 mg Q2H PRN IM 11/11/17 02:15 12/11/17 02:14 Haloperidol (Haldol Tab) 2 mg Q4H PRN PO 11/11/17 02:15 12/11/17 02:14 Miscellaneous (Iv Fluids Completed) 1 ea PRN PRN N/A 11/11/17 03:15 11/11/18 03:14 Insulin Aspart (novoLOG ASPART) SLIDING SCALE If C... ACHS SC 11/12/17 16:30 12/12/17 00:00 Future hold 11/15/17 13:11 3 UNITS Insulin Glargine (Lantus Solostar Pen) 10 units BID SC 11/13/17 20:00 12/13/17 19:59 11/14/17 20:44 10 UNITS Pantoprazole Sodium (Protonix Tab) 40 mg BID PO 11/14/17 20:00 12/14/17 19:59 11/15/17 08:18 40 MG
[2017-11-15] MEDS ORDERED: ULT50X PO (15:13)
[2017-11-15] MEDS ORDERED: PRT40 PO (15:13)
--- NOTE | 2017-11-15 15:33 | Discharge Instructions ---
Discharge Instructions Date of Service Nov 15, 2017. Admission Reason for Admission: Abdominal Pain Discharge Discharge Diagnosis / Problem: Duodenal ulcer with bleeding, Abdominal pain, Diabetes Discharge Goals Goal(s): Decrease discomfort, Improve function, Improve disease control Activity Recommendations Activity Limitations: resume your previous activity (as tolerated) . Instructions / Follow-Up Instructions / Follow-Up Discharge home today with home health services Follow up with your primary care provider within 1 week (Dr. Singleton's office will call you for the appointment) Please call if you don't hear from Dr. Singleton's office by Thursday. Follow up with your Gastroenterology ( your physician will repeat the Endoscopy between 8 to 12 weeks) continue pantoprazole 40mg twice a day for 6 weeks, then change once to daily after the 6 weeks Hold aspirin for now until instructing to resume it by your physician Monitor blood sugar and bring blood sugar log at your next appointment with your primary care provider. Your insulin decreased to 20 units at night (Due to low blood sugar). Your physician will titrate it if needed. Hold next dose of tramadol if you develop any drowsiness or lethargy. Do not drive or operate any machine after taking the tramadol for pain. Continue physical therapy Fall precaution Current Hospital Diet Patient's current hospital diet: Diabetes Type 2 Diet, Regular Diet Discharge Diet Recommended Diet: AHA Diet (Heart Healthy), Diabetes Type 2 Diet Procedures Procedures Performed: EGD Pending Studies Studies pending at discharge: no Laboratory Results Hemoglobin A1c Test 11/10/17 21:41 Range/Units Estimated Average Glucose 214 mg/dl Hemoglobin A1c 9.1 H 4.5-5.6 % Medical Emergencies . Who to Call and When: Medical Emergencies: If at any time you feel your situation is an emergency, please call 911 immediately. . Non-Emergent Contact Non-Emergency issues call your: Primary Care Provider, [employer] Call Non-Emergent contact if: your pain is not controlled, you have any medication questions . . "Provider Documentation" section prepared by Chico Ramos. . [place] Drug Monitoring Program Search Results: no issues identified
--- NOTE | 2017-11-16 23:22 | Discharge Summary ---
Discharge Summary Date of Service Nov 16, 2017. Discharge Summary Admission Date: Nov 12, 2017 at 07:34 Discharge Date: Nov 15, 2017 Discharge Disposition: Home with services Principal Diagnosis: Duodenal ulcer with bleeding Secondary Diagnoses/Problems: Elevated Enzymes Abdominal pain DM type 2 Hx gallbladder CA w/ liver metastasis HTN AFIB CKD stage 4 Procedures: EGD MRCP HISTORY: 72 years-old Female abd pain acute generalized abdominal pain.Findings suggesting acute pancreatitis or duodenitis on CT abdomen and pelvis of same day COMPARISON: CT abdomen and pelvis of same day, MRCP 12/26/2008. TECHNIQUE: MRCP was obtained without IV contrast according to institutional protocol. FINDINGS: Motion degraded exam. Lobulated 2.8 cm circumscribed T2 hyperintense lesion of the medial spleen appears unchanged from comparison CT 11/16/2015, however has increased in size from MRCP of 2008 suggesting acquired splenic cyst. Prior cholecystectomy. No intrahepatic biliary ductal dilation. Common bile duct measures 5 mm transversely. No biliary ductal stricturing or focal filling defects identified. No pancreatic ductal dilation or evidence of pancreatic divisum. There is mild wall thickening of the duodenum with mild surrounding mesenteric edema adjacent to the duodenum and pancreatic duodenal groove. No dilated loops of small bowel identified. No soledad ascites. Marked atrophy with cortical lobulation scarring of the left kidney redemonstrated. T2 hyperintense 10 mm lesion of the inferior pole left kidney suggests splenic cyst. Mild nonspecific bilateral perinephric stranding. No aortic aneurysm or adenopathy identified. Imaged heart appears enlarged. Bones and soft tissues appear unremarkable. IMPRESSION: 1. Mild wall thickening of the duodenum with mild surrounding mesenteric edema adjacent to the duodenum and pancreatic duodenal groove suggest duodenitis or paraduodenal pancreatitis. Correlate with lipase level. 2. Prior cholecystectomy without evidence of biliary ductal dilation. 3. Motion degraded exam. 4. Atrophic left kidney. The above report was generated using voice recognition software. It may contain grammatical, syntax or spelling errors. Electronically signed by: Filipe Cunningham M.D. 11/11/2017 7:06 AM Dictated Date/Time: 11/11/2017 6:57 AM Consultations: gastro Medication Reconciliation New Medications: Pantoprazole (Pantoprazole Sodium) 40 Mg Tab 40 MG PO BID for 30 Days, TAB Tramadol HCl (Tramadol HCl) 50 Mg Tab 25 MG PO Q12 PRN for Pain for 7 Days, #7 TAB Hold for lethargy and drowsiness Continued Medications: Acetaminophen (Tylenol Arthitis Ext Rel) 650 Mg Ertab 650 MG PO Q8H PRN for Pain, CAP Allopurinol (Zyloprim) 100 Mg Tab 100 MG PO DAILY, TAB Atorvastatin (Lipitor) 40 Mg Tab 40 MG PO DAILY, TAB Cholecalciferol (Vitamin D3) 1,000 Unit Tab 1000 MG PO DAILY for 90 Days, TAB 3 Refills Docusate Sodium (Stool Softener) 100 Mg Cap 1 CAP PO BID Duloxetine Hcl (Cymbalta) 60 Mg Cap 60 MG PO DAILY, CAP Furosemide (Lasix) 40 Mg Tab 40 MG PO DAILY PRN for INCREASE SWELLING/BLOATING, TAB Insulin Glargine (Lantus Solostar) 100 Unit/Ml Inj 34 UNITS SC QPM, PEN Isosorbide Mononitrate Ext Rel (Imdur Ext Rel) 30 Mg Ertab 30 MG PO QAM, TAB Metoprolol Tartrate (Lopressor) (Lopressor) 25 Mg Tab 25 MG PO BID, TAB Nitroglycerin (Nitrostat) 0.4 Mg Sub 0.4 MG UT PRN, BTL Polyethylene Glycol 3350 (Miralax) 1 Pow Pow 17 GM PO QAM, #255 GM Ranitidine (Zantac) 150 Mg Tab 150 MG PO DAILY, TAB Discontinued Medications: Aspirin (Aspirin Chewable) 81 Mg Chew 81 MG PO QAM Admission Information HPI (per Admitting provider): CHIEF COMPLAINT: Abdominal pain. HISTORY OF PRESENT ILLNESS: History obtained from patient, family and records. Medical history significant for hypertension, DM2 insulin requiring, chronic renal insufficiency (baseline creatinine of 1.6), AFib not on anticoagulation due to fall risk, hyperlipidemia, chronic right-sided heart failure as per records, gallbladder cancer with liver mets, status post surgery, chemoradiation. Recent confinement last July 2017 for delirium. The last 2 days the patient noted upper abdominal pain with nausea followed by vomiting, constipated more than usual. No fever, no chills. Denies bladder discomfort. No chest pain, no sob. Patient brought by family to the Emergency Room. Physical Exam (per Admitting): PHYSICAL EXAMINATION: VITAL SIGNS: Blood pressure was noted to be 235/90, later 167/102, pulse rate 86, RR 21, temperature 36.9, sats 94 on room air. GENERAL: Noted to be slightly uncomfortable, in no respiratory distress. SKIN: Normal color, warm. HEENT: [place] palpebral conjunctivae. No ptosis. Dry mucosa. NECK: Supple, nontender. CHEST: Clear to auscultation. No tenderness. HEART: Irregular. No murmur. ABDOMEN: Some distention, minimal epigastric tenderness. EXTREMITIES: No edema, no tenderness. No gross deformity. NEUROLOGIC: Coherent. No gross focality except episodic confusion. Hospital Course Elevated liver enzymes associated with Abdominal pain Possible related to duodenitis CT showed mild wall thickening with mild adjacent mesenteric inflammatory stranding of the pylorus, proximal duodenum and pancreatic head MRCP showed mild wall thickening of the duodenum with mild surrounding mesenteric edema adjacent to the duodenum and pancreatic duodenal Elevated Liver enzymes GI consulted Continue pain control Continue PPIx 3days, then transition to oral diet advanced to low fiber 11/15 PPI drip discontinued by GI Continue oral PPI BIDx 6 weeks Tramadol for pain Diet tolerated Follow up with Gastro Upper GI bleeding Duodenal ulcer with bleeding One episode of bloody stool as per GI team Will monitor H/H Case discussed with GI and consider scope her. 11/15 EGD done showed One partially obstructing oozing posterior duodenal ulcer with oozing hemorrhage If pt develops any further bleeding will transfer to tertiary center for IR support to stop the bleeding Continue holding aspirin Continue Protonix 40 mg twice daily for 6 weeks then 1 time daily thereafter Iron supplement twice daily for 4-6 weeks as outpatient Repeat upper endoscopy in 8-12 weeks as an outpatient Follow with Gastro Hgb stable STOMACH, BIOPSIES: 1. BENIGN GASTRIC MUCOSA WITHOUT PATHOLOGIC CHANGE. 2. NO ACTIVE GASTRITIS IDENTIFIED. 3. NO H. PYLORI-LIKE ORGANISMS SEEN. 4. NO INTESTINAL METAPLASIA SEEN. 5. NEGATIVE FOR DYSPLASIA AND MALIGNANCY. 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 Hypertension BP stable Atrial fibrillation Rate controlled Not on coumadin Continue holding aspirin due to ulcer DM type 2 Recent HgA1c of 8.5 last October 2017. Continue Insulin CKD stage 4 Creatine 1.4 today Received gentle IVF Continue monitor BMP DVT Px hold heparin due to GI bleed On SCDs CODE STATUS FULL CODE DISPOSITION Will discharge home today with home health services Total time spent on discharge = 35 minutes This includes examination of the patient, discharge planning, medication reconciliation, and communication with other providers. Discharge Instructions Discharge Instructions Date of Service Nov 15, 2017. Admission Reason for Admission: Abdominal Pain Discharge Discharge Diagnosis / Problem: Duodenal ulcer with bleeding, Abdominal pain, Diabetes Discharge Goals Goal(s): Decrease discomfort, Improve function, Improve disease control Activity Recommendations Activity Limitations: resume your previous activity (as tolerated) . Instructions / Follow-Up Instructions / Follow-Up Discharge home today with home health services Follow up with your primary care provider within 1 week (Dr. Singleton's office will call you for the appointment) Please call if you don't hear from Dr. Singleton's office by Thursday. Follow up with your Gastroenterology ( your physician will repeat the Endoscopy between 8 to 12 weeks) continue pantoprazole 40mg twice a day for 6 weeks, then change once to daily after the 6 weeks Hold aspirin for now until instructing to resume it by your physician Monitor blood sugar and bring blood sugar log at your next appointment with your primary care provider. Your insulin decreased to 20 units at night (Due to low blood sugar). Your physician will titrate it if needed. Hold next dose of tramadol if you develop any drowsiness or lethargy. Do not drive or operate any machine after taking the tramadol for pain. Continue physical therapy Fall precaution Current Hospital Diet Patient's current hospital diet: Diabetes Type 2 Diet, Regular Diet Discharge Diet Recommended Diet: AHA Diet (Heart Healthy), Diabetes Type 2 Diet Procedures Procedures Performed: EGD Laboratory Results Hemoglobin A1c Test 11/10/17 21:41 Range/Units Estimated Average Glucose 214 mg/dl Hemoglobin A1c 9.1 H 4.5-5.6 % Medical Emergencies . Who to Call and When: Medical Emergencies: If at any time you feel your situation is an emergency, please call 911 immediately. . Non-Emergent Contact Non-Emergency issues call your: Primary Care Provider, [employer] Call Non-Emergent contact if: your pain is not controlled, you have any medication questions . . "Provider Documentation" section prepared by Chico Ramos. . [place] Drug Monitoring Program Search Results: no issues identified Additional Copies To Jacquelyn Singleton D.O.
== END 2017-11-15 16:00 | disposition home health service (06) | DRG 378 ==
LOC: EDBD 21:31 → C.EDC 21:32 → C.MS4W 11-11 01:38 → ENRESERV 11-11 01:47 → OBSVTOIN 11-12 07:34
PROVIDERS: ADMIT Internal Medicine; ATTEND Internal Medicine
PROC: 0W3P8ZZ Control Bleeding in Gastrointestinal Tract, Via Natural or Artificial Opening Endoscopic (ICD-10-PCS; principal; 2017-11-12 11:03)
PROC: 0DB68ZX Excision of Stomach, Via Natural or Artificial Opening Endoscopic, Diagnostic (ICD-10-PCS; principal; 2017-11-12 11:03)
DX: K26.4 Chronic or unspecified duodenal ulcer with hemorrhage (principal); I13.0 Hypertensive heart and chronic kidney disease with heart failure and stage 1 through stage 4 chronic kidney disease, or unspecified chronic kidney disease; N18.4 Chronic kidney disease, stage 4 (severe); I50.812 Chronic right heart failure; E11.22 Type 2 diabetes mellitus with diabetic chronic kidney disease; I48.91 Unspecified atrial fibrillation; E78.5 Hyperlipidemia, unspecified; Z85.09 Personal history of malignant neoplasm of other digestive organs; Z85.05 Personal history of malignant neoplasm of liver; Z92.21 Personal history of antineoplastic chemotherapy; Z92.3 Personal history of irradiation; Z90.49 Acquired absence of other specified parts of digestive tract; Z98.49 Cataract extraction status, unspecified eye; Z90.710 Acquired absence of both cervix and uterus; Z98.51 Tubal ligation status; Z98.890 Other specified postprocedural states; Z79.1 Long term (current) use of non-steroidal anti-inflammatories (NSAID); Z79.4 Long term (current) use of insulin; Z79.82 Long term (current) use of aspirin; Z79.899 Other long term (current) drug therapy; Z91.040 Latex allergy status; Z91.041 Radiographic dye allergy status; Z91.048 Other nonmedicinal substance allergy status; Z88.2 Allergy status to sulfonamides; Z88.8 Allergy status to other drugs, medicaments and biological substances; Z83.3 Family history of diabetes mellitus; Z82.49 Family history of ischemic heart disease and other diseases of the circulatory system; Z84.1 Family history of disorders of kidney and ureter

== ENCOUNTER 2018-04-03 04:44 | Emergency (ER) | payer OTHER ==
[~2018-04-03] VITALS: Ht 147.3 cm; Wt 57.9 kg
[~2018-04-03 04:44] MED LIST changes: -ALLO100T PO; -ASPCH81X PO; -ATOR-24 PO; +CHOL1000 PO; -CYM/30 PO; -DOCU100C PO; -FRS/40 PO; -IMDSR30 PO; -INSDGIPEN SC; -LPR25 PO; +METO25TA56 PO; -NITR0.4S UT; -POLY335019 PO; -PRLSR20 PO; +RANI150T85 PO; -TYLER650 PO
[2018-04-03 04:50] VITALS: TEMP 36.4; Ht 147.3 cm; Wt 57.9 kg
[2018-04-03] MEDS ORDERED: ONDANSETRON INJ 2 MG/ML 2 ML VIAL IV STA (04:53)
[2018-04-03] MEDS ORDERED: MoRPHine SULFATE 10 MG/ML CARP/VIAL IV STA (04:53)
[2018-04-03] MEDS ORDERED: SODIUM CHLORIDE 0.9% 500ML 500 ML IV STA (04:53)
--- NOTE | 2018-04-03 05:01 | EMERGENCY ROOM VISIT NOTE ---
History Report prepared by Tre: Naida Bustillos Under the Supervision of: Dr. Dmitriy Roberts M.D. First contact with patient: 04:49 Chief Complaint: FLANK PAIN Stated Complaint: RIGHT FLANK History of Present Illness The patient is a 72 year old female who presents to the Emergency Room for evaluation of right flank pain. Sharp stabbing pain starting yesterday. Associated with feeling weak and nauseous. Denies trauma, injury, no falls. States history of solitary right kidney on right side. She has no history of kidney stones. No cough, shob, cp, fevers, chills, vomiting, rashes, uti symptoms, diarrhea, blood in stool, vomiting blood. States this is unlike previous bleeding duodenal ulcer. No radiation of pain. Movement makes worse, rest makes better. No medications prior to arrival other than Tylenol which was ineffective. History of Afib but on no blood thinners other than ASA. Source of History: patient, spouse/significant other () Onset: yesterday afternoon Position: back (right, lower) Quality: sharp Timing: constant Associated Symptoms: No chest pain, No vomiting, No abdominal pain, No rash Note: Negative recent falls, or a history of kidney stones Review of Systems See HPI for pertinent positives & negatives. A total of 10 systems reviewed and were otherwise negative. Past Medical & Surgical Medical Problems: (1) TARA inhibitor intolerance (2) Anxiety (3) Atrial fibrillation and flutter (4) AV (arteriovenous fistula) (5) CKD (chronic kidney disease) stage 4, GFR 15-29 ml/min (6) Delirium (7) Diabetes mellitus type 2 in nonobese (8) Dyslipidemia (9) Generalized OA (10) Generalized weakness (11) GERD (gastroesophageal reflux disease) (12) HTN (hypertension) (13) Hyperparathyroidism (14) Right-sided congestive heart failure (15) Solitary right kidney (16) Viral syndrome Surgical Problems: (1) H/O cataract removal with insertion of prosthetic lens (2) H/O tubal ligation (3) History of cholecystectomy (4) History of hysterectomy (5) History of lumbar laminectomy (6) Previous section Family History Cancer Diabetes mellitus Hypertension Kidney disease Kidney stones Social History Smoking Status: Never Smoker Drug Use: none Marital Status: Housing Status: lives with family Occupation Status: retired Current/Historical Medications Scheduled Allopurinol (Zyloprim), 100 MG PO BID Aspirin (Aspirin Ec), 81 MG PO DAILY Atorvastatin (Lipitor), 40 MG PO QAM Cholecalciferol (Vitamin D3), 2,000 UNITS PO DAILY Docusate Sodium (Stool Softener), 100 MG PO BID Duloxetine Hcl (Cymbalta), 60 MG PO QAM Ferrous Gluconate (Ferrous Gluconate), 324 MG PO DAILY AT LUNCH Fexofenadine Hcl (Krupa Allergy), 180 MG PO QAM Furosemide (Lasix), 40 MG PO QAM Insulin Glargine (Lantus Solostar), 22 UNITS SQ QPM Isosorbide Mononitrate Ext Rel (Imdur Ext Rel), 30 MG PO QAM Liraglutide (Victoza), 1.2 MG SQ DAILY Metoprolol Succ (Toprol Xl) (Toprol-Xl), 50 MG PO DAILY Nitroglycerin (Nitrostat), 0.4 MG UT PRN Pantoprazole (Protonix), 40 MG PO BID Scheduled PRN Acetaminophen (Tylenol Arthitis Ext Rel), 650 MG PO Q8H PRN for Pain Polyethylene Glycol 3350 (Miralax), 17 GM PO DAILY PRN for Constipation Allergies Coded Allergies: Gabapentin (Verified Allergy, Severe, EDEMA FACE/LIPS/TONGUE - ANGIOEDEMA , 02/09/18) TARA Inhibitors (Verified Allergy, Unknown, UNKNOWN, 11/10/17) Adhesives (Verified Allergy, Unknown, TAPE, 02/09/18) Cephalexin (Verified Allergy, Unknown, ELEVATED BSG, 02/09/18) Insulin Detemir (Verified Allergy, Unknown, HIVES, ELEVATED BSG, 02/09/18) Latex1 -Allergic Contact Dermititis (Verified Allergy, Unknown, HIVES, RASH, 02/09/18) Meloxicam (Verified Allergy, Unknown, RENAL FAILURE, 02/09/18) Phenol (Verified Allergy, Unknown, HIVES, ELEVATED BSG, 02/09/18) Sulfa Antibiotics (Verified Allergy, Unknown, EDEMA,ITCHING, 02/09/18) Iodinated Diagnostic Agents (Verified Adverse Reaction, Unknown, PATIENT HAS CHRONIC KIDNEY FAILURE, 02/09/18) Physical Exam Vital Signs Date Time Temp Pulse Resp B/P (MAP) Pulse Ox O2 Delivery O2 Flow Rate FiO2 04/03/18 07:28 77 20 130/67 94 04/03/18 06:45 82 16 151/63 98 Room Air 04/03/18 06:13 81 16 141/74 99 Room Air 04/03/18 04:50 36.4 88 19 196/81 95 Room Air Physical Exam GENERAL: Patient is uncomfortable appearing and in mild distress. EYES: No scleral icterus, unremarkable pupils. ENT: Mucous membranes moist, no nasal congestion. NECK: No masses appreciated, no meningismus, trachea is midline. RESPIRATORY: No dyspnea. Clear to auscultation and equal bilaterally. No wheeze , no rhonchi. CARDIOVASCULAR: Regular rate and rhythm. No murmurs, rubs, gallops appreciated. GASTROINTESTINAL: Abdomen soft, nontender, no peritonitis. Bowel sounds positive. No masses appreciated. BACK: No midline tenderness, no CVA tenderness EXTREMITIES: Normal motion all extremities, no cyanosis, no edema. NEUROLOGIC: Alert and oriented, no acute motor or sensory deficits, no focal weakness, cranial nerves grossly intact. SKIN: No rash, no jaundice, no diaphoresis. Bruising of the right lower flank. Bruising of anterior abdomen consistent with insulin injections Medical Decision & Procedures ER Provider Diagnostic Interpretation: Stat Rad Radiology results and stated below per my review and radiologist interpretation: CT ABDOMEN & PELVIS Without Contrast: COMPARISON: 11/11/19 FINDINGS: The lung bases are clear. Liver and spleen are stable in appearance. No change in splenic cyst. The gallbladder surgically absent. The Bile ducts and pancreas are normal. The adrenal gland are unremarkable. Kidneys are unchanged the prior study there is mild persistent bilateral nephrocalcinosis there is atrophic change of the left kidney. There is no evidence for hydronephrosis. No evidence for hydroureter. No evidence for ureteral calculus. The bladder is unremarkable. . The appendix is not identified. Unremarkable appearance to the large and small bowel. Aorta is normal caliber. No adenopathy or extraluminal air. The osseous structures are normal IMPRESSION: Nephrolithiasis without evidence of hydronephrosis or ureteral calculus. No acute abnormality demonstrated within the abdomen or pelvis Radiologist: Jose Bedolla MD Laboratory Results 04/03/18 02:01 Red Blood Count 4.40, Mean Corpuscular Volume 94.5, Mean Corpuscular Hemoglobin 30.7, Mean Corpuscular Hemoglobin Concent 32.5, Mean Platelet Volume 10.2, Neutrophils (%) (Auto) 72.9, Lymphocytes (%) (Auto) 14.9, Monocytes (%) (Auto) 8.9, Eosinophils (%) (Auto) 2.8, Basophils (%) (Auto) 0.3, Neutrophils # (Auto) 8.95, Lymphocytes # (Auto) 1.83, Monocytes # (Auto) 1.10, Eosinophils # (Auto) 0.35, Basophils # (Auto) 0.04 04/03/18 02:01 Test 04/03/18 02:01 04/03/18 05:06 04/03/18 06:05 White Blood Count 12.30 K/uL (4.8-10.8) Red Blood Count 4.40 M/uL (4.2-5.4) Hemoglobin 13.5 g/dL (12.0-16.0) Hematocrit 41.6 % (37-47) Mean Corpuscular Volume 94.5 fL (80-100) Mean Corpuscular Hemoglobin 30.7 pg (25-34) Mean Corpuscular Hemoglobin Concent 32.5 g/dl (32-36) Platelet Count 206 K/uL (130-400) Mean Platelet Volume 10.2 fL (7.4-10.4) Neutrophils (%) (Auto) 72.9 % Lymphocytes (%) (Auto) 14.9 % Monocytes (%) (Auto) 8.9 % Eosinophils (%) (Auto) 2.8 % Basophils (%) (Auto) 0.3 % Neutrophils # (Auto) 8.95 K/uL (1.4-6.5) Lymphocytes # (Auto) 1.83 K/uL (1.2-3.4) Monocytes # (Auto) 1.10 K/uL (0.11-0.59) Eosinophils # (Auto) 0.35 K/uL (0-0.5) Basophils # (Auto) 0.04 K/uL (0-0.2) RDW Standard Deviation 45.3 fL (36.4-46.3) RDW Coefficient of Variation 13.2 % (11.5-14.5) Immature Granulocyte % (Auto) 0.2 % Immature Granulocyte # (Auto) 0.03 K/uL (0.00-0.02) Est Creatinine Clear Calc Drug Dose 22.3 ml/min Estimated GFR () 33.8 Estimated GFR (Non- 29.2 BUN/Creatinine Ratio 27.1 (10-20) Calcium Level 9.1 mg/dl (8.5-10.1) Total Bilirubin 0.4 mg/dl (0.2-1) Direct Bilirubin 0.1 mg/dl (0-0.2) Aspartate Amino Transf (AST/SGOT) 25 U/L (15-37) Alanine Aminotransferase (ALT/SGPT) 27 U/L (12-78) Alkaline Phosphatase 187 U/L (45-117) Total Protein 7.1 gm/dl (6.4-8.2) Albumin 3.7 gm/dl (3.4-5.0) Lipase 62 U/L (73-393) Bedside Hemoglobin 13.6 g/dl (12.0-16.0) Bedside Hematocrit 40 % (37-47) Bedside Sodium 141 mEq/L (135-144) Bedside Potassium 3.3 mEq/L (3.3-5.0) Bedside Chloride 100 mEq/L (101-112) Bedside Total CO2 28 mEq/l (24-31) Anion Gap 17.0 mmol/L (16-25) Bedside Blood Urea Nitrogen 41 mg/dl (7-18) Bedside Creatinine 1.7 mg/dl (0.6-1.3) Bedside Glucose (other) 92 mg/dl (70-99) Bedside Ionized Calcium ([place]) 1.13 mmol/l (1.12-1.32) Urine Color COLORLESS Urine Appearance CLEAR (CLEAR) Urine pH 6.5 (4.5-7.5) Urine Specific [place] 1.010 (1.000-1.030) Urine Protein 1+ (NEG) Urine Glucose (UA) NEG (NEG) Urine Ketones NEG (NEG) Urine Occult Blood NEG (NEG) Urine Nitrite NEG (NEG) Urine Bilirubin NEG (NEG) Urine Urobilinogen NEG (NEG) Urine Leukocyte Esterase NEG (NEG) Urine RBC 0-4 /hpf (0-4) Urine WBC 5-10 /hpf (0-5) Urine Epithelial Cells 5-10 /lpf (0-5) Urine Bacteria NEG (NEG) Laboratory results as reviewed by me. Medications Administered Medications (Trade) Dose Ordered Sig/Shreya Route Start Time Stop Time Status Last Admin Dose Admin Morphine Sulfate (MoRPHine SULFATE INJ) 6 mg NOW STAT IV 04/03/18 04:53 04/03/18 04:55 DC 04/03/18 05:23 6 MG Ondansetron HCl (Zofran Inj) 4 mg NOW STAT IV 04/03/18 04:53 04/03/18 04:55 DC 04/03/18 05:22 4 MG Sodium Chloride 500 ml @ 999 mls/hr Q31M STAT IV 04/03/18 04:53 04/03/18 05:23 DC 04/03/18 05:22 999 MLS/HR Fentanyl Citrate (Fentanyl Inj) 75 mcg NOW STAT IV 04/03/18 05:46 04/03/18 05:47 DC 04/03/18 06:11 75 MCG Oxycodone HCl (Roxicodone Immediate Rel 5MG Home Pack) 1 homepack UD ONCE PO 04/03/18 07:15 04/03/18 07:16 DC 04/03/18 07:15 1 HOMEPACK Ondansetron HCl (ZOFRAN ODT 4MG Home Pack) 1 homepack UD ONCE PO 04/03/18 07:15 04/03/18 07:16 DC 04/03/18 07:27 1 HOMEPACK ED Course 0449: The patient was evaluated in room A2. A complete history and physical exam was performed. 0453: Ordered Sodium Chloride 500 ml @ 999 mls/hr IV, Zofran Inj 4 mg IV, Morphine Sulfate 6 mg IV 0521: I checked on the patient at this time. She is getting back from her CT scan. 0544: I checked on the patient at this time. She states she is still having pain and the morphine is making her arm itch. She appears in mild distress. 0546: Ordered Fentanyl Inj 75 mcg IV Medical Decision Differential: Renal Colic, Pyelonephritis, Hydronephrosis, Appendicitis, Diverticulitis, Retroperitoneal Bleed/Infection, Aortic Pathology, MSK, Neurologic Pathology, amongst other pathologies entertained. 72 yr old patient with onset right flank pain from yesterday. She clearly has hematoma right flank which I suspect is from overzealous injection of insulin as she is adamant no falls/injuries. Clearly pain is worse with movement and palpation of this area. CT without mention of this though otherwise ct without acute findings. Single right kidney without acute findings. UA clear. Labs look ok with jsut mild WBC bump but I find no evidence of infection at this time. Hematoma does not currently appear infected. Cr is around her baseline. She is much better after some pain medications. She does not have the symptoms of GI bleed she had last visit here. She is stable, breathing comfortably and in no distress. I do not see obvious cause to admit her at this time. Symptoms are not consistent with acute ischemic colitis (afib not on anticoagulation). no evidence aortic issue. We did discuss possibility of early shingles and she will monitor for rash. Reviewed need to follow up with PCP. We discussed obs but she agrees with monitoring at home and will return if worsening or other concerns. Stable and looks well at discharge. Medication Reconcilliation Current Medication List: was personally reviewed by me Blood Pressure Screening Patient's blood pressure: Elevated blood pressure Impression Primary Impression: Right flank pain Additional Impression: Right flank hematoma Scribe Attestation The scribe's documentation has been prepared under my direction and personally reviewed by me in its entirety. I confirm that the note above accurately reflects all work, treatment, procedures, and medical decision making performed by me. Departure Information Dispostion Home / Self-Care Referrals Jacquelyn Singleton D.O. (PCP) Patient Instructions ED Flank Pain Uncertain Cause, My [facility] Additional Instructions Rest. Avoid exertion and keep well hydrated. Monitor for swelling, rash, fevers, worsening pain or other concerns. Follow up with Primary Care Provider. You have received a narcotic pain medication. These medications may cause drowsiness and should not be used with other sedative medications. Do not drive , drink alcohol, perform dangerous activities, nor make important decisions after taking these medications. Problem Qualifiers
[2018-04-03 05:16] LABS: BASO % 0.3 %; BASO ABS # 0.04 K/uL (0-0.2); EOS % 2.8 %; EOS ABS # 0.35 K/uL (0-0.5); HEMATOCRIT 41.6 % (37-47); HEMOGLOBIN 13.5 g/dL (12.0-16.0); IG# 0.03 K/uL (0.00-0.02); LYMPH % 14.9 %; LYMPH ABS # 1.83 K/uL (1.2-3.4); MEAN CELL VOLUME 94.5 fL (80-100); MEAN CORPUSCULAR HEMOGLOBIN 30.7 pg (25-34); MEAN CORPUSCULAR HGB CONC 32.5 g/dl (32-36); MEAN PLATELET VOLUME 10.2 fL (7.4-10.4); MONO % 8.9 %; NEUT % 72.9 %; NEUT ABS # 8.95 K/uL (1.4-6.5); PLATELET COUNT 206 K/uL (130-400); RED CELL DISTRIBUTION WIDTH CV 13.2 % (11.5-14.5); RED CELL DISTRIBUTION WIDTH SD 45.3 fL (36.4-46.3)
[2018-04-03 05:20] LABS: ISTAT CREATININE 1.7 mg/dl (0.6-1.3); ISTAT IONIZED CALCIUM 1.13 mmol/l (1.12-1.32); ISTAT POTASSIUM 3.3 mEq/L (3.3-5.0)
[2018-04-03] MEDS ORDERED: FENTANYL CITRATE INJ 50 MCG/1 ML 2 ML VIAL IV STA (05:46)
[2018-04-03 06:02] LABS: ALBUMIN 3.7 gm/dl (3.4-5.0); CALCIUM 9.1 mg/dl (8.5-10.1); CREATININE 1.72 mg/dl (0.60-1.20); POTASSIUM 3.3 mmol/L (3.5-5.1); TOTAL PROTEIN 7.1 gm/dl (6.4-8.2)
[2018-04-03] MEDS ORDERED: METO50TA16 PO (06:30)
--- NOTE | 2018-04-03 06:41 | DIAGNOSTIC IMAGING REPORT ---
CT SCAN OF THE ABDOMEN AND PELVIS WITHOUT IV CONTRAST CLINICAL HISTORY: Right flank pain. COMPARISON STUDY: Abdominal CT dated 11/10/2017. MRCP dated 11/11/2017. TECHNIQUE: CT scan of the abdomen and pelvis is performed from the lung bases to the proximal femora. Images are reviewed in the axial, sagittal, and coronal planes. IV contrast was not administered for this examination as per the referring clinician. A dose lowering technique was utilized adhering to the principles of ALARA. CT DOSE: 495.31 mGy.cm FINDINGS: Lung bases: The heart is mildly enlarged and without pericardial effusion. The lung bases are clear. Liver: The unenhanced liver is normal in size and contour. Nodularity of the hepatic surface contour suggests early change of cirrhosis. There is no intrahepatic biliary ductal dilatation. Gallbladder: Surgically absent noting clips in the gallbladder fossa. Spleen: Normal in size and attenuation. A 3.2 cm cyst in the spleen is unchanged. Pancreas: The unenhanced pancreas is markedly atrophic and grossly unremarkable. Adrenal glands: Unremarkable. Kidneys: The unenhanced kidneys are atrophic, left asymmetrically greater than right and without hydronephrosis. Numerous foci of cortical scarring are present in the left kidney. Numerous renal vascular calcifications are observed. Small nonobstructing right renal calculi are not excluded. A 1.1 cm exophytic cyst arises from the left lower pole. Abdominal vasculature: The abdominal aorta is normal in course and caliber noting advanced atherosclerotic calcification. Bowel: There is no bowel obstruction. The appendix is normal as visualized. Peritoneum: There is no intraperitoneal free air or abdominal ascites. Lymphadenopathy: There is no lymphadenopathy seen in the abdomen or pelvis. A calcified portacaval node is incidentally noted. Pelvic viscera: The gallbladder is normal as visualized. The uterus is surgically absent. No adnexal lesion is seen Skeletal structures: The skeletal structures are osteopenic. Moderate lumbosacral spondylosis is observed. There are post laminectomy changes throughout the lumbar spine as well as L5 -S1 spinal fusion. No lytic or blastic lesions are seen. IMPRESSION: 1. There are no acute infectious or inflammatory findings in the abdomen or pelvis. 2. Nodularity of the hepatic surface contour suggests early change of cirrhosis. 3. Cardiomegaly. 4. Additional findings as above. Electronically signed by: Christoph Chandler M.D. 04/03/2018 6:39 AM Dictated Date/Time: 04/03/2018 6:28 AM
[2018-04-03] MEDS ORDERED: OXYCODONE IR HOME PACK PO ONE (07:15)
[2018-04-03] MEDS ORDERED: ONDANSETRON HOME PACK 4MG OD TAB PO ONE (07:15)
[2018-04-03 07:28] VITALS: BP 130/67; PULSE 77; O2SAT 94
[2018-04-04] MEDS ORDERED: LIRA18IN SQ (06:24)
[2018-04-04] MEDS ORDERED: ASPI81TA28 PO (06:25)
[2018-04-04] MEDS ORDERED: PANT40TA PO (06:26)
[2018-04-04] MEDS ORDERED: CHOL20007 PO (06:28)
[2018-04-04] MEDS ORDERED: METO50TA8 PO (06:31)
[2018-04-04] MEDS ORDERED: FEXO1TAB49 PO (09:56)
[2018-04-04] MEDS ORDERED: FERR325T18 PO (09:57)
[2018-04-04] MEDS ORDERED: ALLO100T PO (10:22)
[2018-04-04] MEDS ORDERED: FRS/40 PO (10:22)
[2018-04-04] MEDS ORDERED: DOCU100C PO (10:22)
[2018-04-04] MEDS ORDERED: TYLER650 PO (10:22)
[2018-04-04] MEDS ORDERED: POLY335019 PO (10:22)
[2018-04-04] MEDS ORDERED: NITR0.4S UT (10:49)
[2018-04-04] MEDS ORDERED: ATOR-24 PO (13:14)
[2018-04-04] MEDS ORDERED: INSDGIPEN SQ (22:23)
[2018-04-04] MEDS ORDERED: DULO60CA44 PO (22:23)
[2018-04-04] MEDS ORDERED: ISOS30TA3 PO (22:24)
== END 2018-04-03 07:30 | disposition home or self-care (01) ==
LOC: EDBD 04:44 → C.EDA 04:45
DX: S30.1XXA Contusion of abdominal wall, initial encounter (principal); X58.XXXA Exposure to other specified factors, initial encounter; Q60.0 Renal agenesis, unilateral; F41.9 Anxiety disorder, unspecified; I48.91 Unspecified atrial fibrillation; I48.92 Unspecified atrial flutter; N18.4 Chronic kidney disease, stage 4 (severe); E11.9 Type 2 diabetes mellitus without complications; E78.5 Hyperlipidemia, unspecified; M19.90 Unspecified osteoarthritis, unspecified site; K21.9 Gastro-esophageal reflux disease without esophagitis; I12.9 Hypertensive chronic kidney disease with stage 1 through stage 4 chronic kidney disease, or unspecified chronic kidney disease; E21.3 Hyperparathyroidism, unspecified; Z98.49 Cataract extraction status, unspecified eye; Z96.1 Presence of intraocular lens; Z98.51 Tubal ligation status; Z90.49 Acquired absence of other specified parts of digestive tract; Z90.710 Acquired absence of both cervix and uterus; Z80.9 Family history of malignant neoplasm, unspecified; Z83.3 Family history of diabetes mellitus; Z82.49 Family history of ischemic heart disease and other diseases of the circulatory system; Z84.1 Family history of disorders of kidney and ureter; Z79.82 Long term (current) use of aspirin; Z79.899 Other long term (current) drug therapy; Z79.4 Long term (current) use of insulin; Z79.84 Long term (current) use of oral hypoglycemic drugs; Z88.8 Allergy status to other drugs, medicaments and biological substances; Z91.040 Latex allergy status; Z88.2 Allergy status to sulfonamides

== ENCOUNTER 2018-04-04 19:10 | Emergency (ER) | payer OTHER ==
[~2018-04-04] VITALS: Ht 147.3 cm; Wt 59.4 kg
[~2018-04-04 19:10] MED LIST changes: +ALLO100T PO; +ASPI81TA28 PO; +ATOR-24 PO; -CHOL1000 PO; +CHOL20007 PO; +DOCU100C PO; +FERR325T18 PO; +FEXO1TAB49 PO; +FRS/40 PO; +LIRA18IN SQ; -METO25TA56 PO; +METO50TA8 PO; +NITR0.4S UT; +PANT40TA PO; +POLY335019 PO; -RANI150T85 PO; +TYLER650 PO
[2018-04-04 19:14] VITALS: TEMP 36.7
[2018-04-04 19:25] VITALS: Ht 147.3 cm; Wt 59.4 kg
[2018-04-04] MEDS ORDERED: ACETAMINOPHEN IV 650 MG in EMPTY BAG 0 ML IV STA (19:27)
[2018-04-04 20:56] LABS: ALBUMIN 3.6 gm/dl (3.4-5.0); ALT/SGPT 26 U/L (12-78); AST/SGOT 27 U/L (15-37); BLOOD UREA NITROGEN 43 mg/dl (7-18); CALCIUM 8.5 mg/dl (8.5-10.1); CARBON DIOXIDE 27 mmol/L (21-32); CREATININE 1.76 mg/dl (0.60-1.20); GLUCOSE 128 mg/dl (70-99); POTASSIUM 3.9 mmol/L (3.5-5.1); SODIUM 138 mmol/L (136-145)
[2018-04-04 21:01] LABS: ALKALINE PHOSPHATASE 190 U/L (45-117); TOTAL PROTEIN 6.8 gm/dl (6.4-8.2)
--- NOTE | 2018-04-04 21:55 | DIAGNOSTIC IMAGING REPORT ---
LUMBAR SPINE WITHOUT CT DOSE: HISTORY: Pain right flank pain, recons please TECHNIQUE: Multiaxial CT images of the lumbar spine were performed and reformatted in the sagittal and coronal plane without the use of contrast. A dose lowering technique was utilized adhering to the principles of ALARA. COMPARISON: None. FINDINGS: Mild scoliosis. Vertebral body stature is normal. Significant degenerative disc change throughout. Vacuum discs are identified at L2-L3 and L3-L4. Findings of a posterior laminectomy and fusion at L5-S1. No significant bony compromise of the spinal canal. Degenerative change of the vertebral endplates throughout. Degenerative changes of the posterior arch throughout. IMPRESSION: 1. Mild scoliosis. 2. Significant degenerative disc change throughout. 3. Findings of an L5-S1 laminectomy and fusion with hardware considered intact.. 4. No evidence for major compromise of the spinal canal. The above report was generated using voice recognition software. It may contain grammatical, syntax or spelling errors. Electronically signed by: Po Beckman M.D. 04/04/2018 9:54 PM Dictated Date/Time: 04/04/2018 9:48 PM
--- NOTE | 2018-04-04 22:11 | DIAGNOSTIC IMAGING REPORT ---
VENOUS DOPPLER LWR EXT BILA HISTORY: Pain. Edema. DVT COMPARISON STUDY: None. FINDINGS: There is normal compressibility, flow, and augmentation within the bilateral lower extremity deep venous systems. IMPRESSION: No DVT within the right or left lower extremity. The above report was generated using voice recognition software. It may contain grammatical, syntax or spelling errors. Electronically signed by: Po Beckman M.D. 04/04/2018 10:09 PM Dictated Date/Time: 04/04/2018 10:09 PM
[2018-04-04] MEDS ORDERED: DULO60CA44 PO (22:23)
[2018-04-04] MEDS ORDERED: INSDGIPEN SQ (22:23)
[2018-04-04] MEDS ORDERED: ISOS30TA3 PO (22:24)
--- NOTE | 2018-04-04 22:27 | DIAGNOSTIC IMAGING REPORT ---
CHEST 2 VIEWS ROUTINE CLINICAL HISTORY: right flank pain, pain with deep breath dyspnea COMPARISON STUDY: 11/10/2017 FINDINGS: The bones soft tissues and hemidiaphragms are normal. The cardiomediastinal silhouette is normal. The lungs are clear. The pulmonary vasculature is normal. IMPRESSION: Negative chest. The above report was generated using voice recognition software. It may contain grammatical, syntax or spelling errors. Electronically signed by: Po Beckman M.D. 04/04/2018 10:26 PM Dictated Date/Time: 04/04/2018 10:25 PM
[2018-04-04] MEDS ORDERED: OXYCODONE HCL IR 5 MG TAB (IMMEDIATE RELEASE) PO STA (22:47)
[2018-04-04 23:11] VITALS: BP 139/83; PULSE 84; O2SAT 94
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
== END 2018-04-04 23:13 | disposition home or self-care (01) ==
LOC: C.EDB 19:11
DX: S30.1XXA Contusion of abdominal wall, initial encounter (principal); W22.8XXA Striking against or struck by other objects, initial encounter; F41.9 Anxiety disorder, unspecified; N18.4 Chronic kidney disease, stage 4 (severe); E11.9 Type 2 diabetes mellitus without complications; E78.5 Hyperlipidemia, unspecified; M19.90 Unspecified osteoarthritis, unspecified site; K21.9 Gastro-esophageal reflux disease without esophagitis; I11.0 Hypertensive heart disease with heart failure; E21.3 Hyperparathyroidism, unspecified; Z79.82 Long term (current) use of aspirin; Z79.4 Long term (current) use of insulin; Z79.899 Other long term (current) drug therapy

== ENCOUNTER 2020-02-10 09:46 | Inpatient (IN) ==
[2020-02-10 10:14] LABS: Basophils # (auto) 0.05 K/uL (0-0.2); Basophils % (auto) 0.4 %; Eosinophils # (auto) 0.46 K/uL (0-0.5); Eosinophils % (auto) 3.6 %; Hematocrit (blood only) 42.3 % (37-47); Hemoglobin 13.6 g/dL (12.0-16.0); Immature Granulocytes # (auto) 0.04 K/uL (0.00-0.02); Immature Granulocytes % (auto) 0.3 %; Lymphocytes # (auto) 1.85 K/uL (1.2-3.4); Lymphocytes % (auto) 14.5 %; Mean Corpuscular Hemoglobin 30.8 pg (25-34); Mean Corpuscular Hgb Conc 32.2 g/dL (32-36); Mean Corpuscular Volume 95.7 fL (80-100); Mean Platelet Volume 9.9 fL (7.4-10.4); Monocytes # (auto) 1.15 K/uL (0.11-0.59); Neutrophils # (auto) 9.19 K/uL (1.4-6.5); Neutrophils % (auto) 72.2 %; Platelet Count 262 K/uL (130-400); RDW Standard Deviation 48.8 fL (36.4-46.3); Red Blood Count 4.42 M/uL (4.2-5.4); White Blood Count 12.74 K/uL (4.8-10.8)
--- NOTE | 2020-02-10 10:16 | Emergency Department Note ---
History of Present Illness General Chief complaint: Vertigo Time Seen by Provider: 02/10/20 09:47 Source: patient Mode of arrival: EMS History of Present Illness Provider complaint: Dizziness Onset (ago): day(s) Location: head Severity: severe Pain Consistency: + constant Quality: + other (Inability to keep balance and vertigo) Exacerbated By: + movement Associated symptoms: + chest pain, + cough and + headaches; no fever/chills, no nausea/vomiting and no shortness of breath This is a 74-year-old female who presents with dizziness for the past 3 days. She states that she has been unable to walk. When she stands up she is extremely unsteady and she feels like the room is spinning. She also feels somewhat lightheaded. The symptoms have been constant for the past 3 days but she did not want to come to the emergency department. She also states that she has had a headache. It started 2 days ago and feels like a pressure throughout her head. It is not worse with light. She had no headache yesterday but it came back today. She has no fevers, vomiting, focal numbness or weakness, shortness of breath, diarrhea or known exposure to COVID-19. She does state that she developed a mild cough recently. She states that she has a history of heart disease and gets on and off chest pain. She has not had chest pain for 2 weeks. That occurred when she was extremely stressed and she cannot give any further details regarding that pain. She occasionally gets abdominal pain but denies any urinary symptoms. She denies any black or bloody stools. She does state she previously had a history of a bleeding ulcer. Home Medications Home Medications Medication Instructions Recorded Confirmed Type allopurinol 200 mg PO BID 10/06/18 02/10/20 History aspirin 81 mg PO QAM 10/06/18 02/10/20 History atorvastatin 40 mg PO QAM 10/06/18 02/10/20 History bisacodyl 10 mg NH WK PRN 10/06/18 02/10/20 History buspirone 10 mg PO BID 10/06/18 02/10/20 History cholecalciferol (vitamin D3) 2,000 unit PO QAM 10/06/18 02/10/20 History [Vitamin D3] docusate sodium 100 mg PO BID 10/06/18 02/10/20 History escitalopram oxalate 10 mg PO QAM 10/06/18 02/10/20 History ferrous gluconate 324 mg PO QAM 10/06/18 02/10/20 History fexofenadine 180 mg PO UD PRN 10/06/18 02/10/20 History furosemide 40 mg PO QAM 10/06/18 02/10/20 History isosorbide mononitrate 30 mg PO QAM 10/06/18 02/10/20 History losartan 25 mg PO QAM 10/06/18 02/10/20 History metoprolol succinate 50 mg PO QAM 10/06/18 02/10/20 History nitroglycerin 0.4 mg SUBLINGUAL UD PRN 10/06/18 02/10/20 History pantoprazole 40 mg PO QAM 10/06/18 02/10/20 History Tresiba FlexTouch U-100 20 unit SUBCUT HS 12/23/18 02/10/20 History Victoza 2-Momo 0.6 mg SUBCUT HS 12/23/18 02/10/20 History diphenhydramine HCl [Benadryl] 25 mg PO Q6H PRN 12/23/18 02/10/20 History acetaminophen [Tylenol 8 Hour] 1,950 mg PO HS 02/10/20 02/10/20 History venlafaxine 75 mg PO DAILY 02/10/20 02/10/20 History Allergies Allergy/AdvReac Type Severity Reaction Status Date / Time gabapentin Allergy Severe EDEMA Verified 02/10/20 10:26 FACE/LIPS/TONGUE - ANGIOEDEMA TARA Inhibitors Allergy Unknown UNKNOWN Verified 02/10/20 10:26 adhesive Allergy Unknown TAPE Verified 02/10/20 10:26 cephalexin Allergy Unknown ELEVATED Verified 02/10/20 10:26 BSG insulin detemir Allergy Unknown HIVES, Verified 02/10/20 10:26 ELEVATED BSG latex Allergy Unknown HIVES, RASH Verified 02/10/20 10:26 meloxicam Allergy Unknown RENAL Verified 02/10/20 10:26 FAILURE phenol Allergy Unknown HIVES, Verified 02/10/20 10:26 ELEVATED BSG Sulfa (Sulfonamide Allergy Unknown EDEMA,ITCHI Verified 02/10/20 10:26 Antibiotics) NG Iodinated Contrast Media AdvReac Unknown PATIENT Verified 02/10/20 10:26 HAS CHRONIC KIDNEY FAILURE Past Med/Surg History Medical History TARA inhibitor intolerance (Chronic) Anxiety (Chronic) Atrial fibrillation follows w/ dr. aquino; dx years ago AV (arteriovenous fistula) (Chronic) left arm CKD (chronic kidney disease) stage 4, GFR 15-29 ml/min (Chronic) follows w/ dr. 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 Under surveillance History of gastric ulcer History of gastrointestinal bleeding History of migraine HTN (hypertension) (Chronic) Hyperparathyroidism (Chronic) Osteoporosis Right-sided congestive heart failure (Chronic) Solitary right kidney (Chronic) Surgical History H/O cataract removal with insertion of prosthetic lens (Resolved) H/O tubal ligation (Resolved) History of cholecystectomy (Resolved) History of colonoscopy History of esophagogastroduodenoscopy (EGD) History of lumbar laminectomy (Resolved) x 2 History of total abdominal hysterectomy and bilateral salpingo-oophorectomy Previous section (Resolved) "x2" Family History Other Cancer Diabetes Hypertension Social History (Updated 02/10/20 @ 12:42 by Mary Jane Marmolejo PA-C) Preferred Language: [place] Communication Ability: Effective Embalmer Assistant Required: No Beliefs That Will Affect Care: None marital status: / Current Living Situation: Alone current occupational status: retired Other Information That Helps Us Care for You: No Feels Safe at Home: Yes Safety Concerns: Feels Safe At This Time Smoking Status: Never smoker Second Hand Exposure: Yes ( used to smoke) ; Hx Alcohol Use: No Hx Substance Use: No Review of Systems See HPI for pertinent positives & negatives. and A total of 10 systems reviewed and were otherwise negative Physical Exam Vital Signs Vital Signs - 24 hr 02/10/20 09:47 02/10/20 10:22 02/10/20 11:01 Temperature 36.5 C Temperature Source Oral Pulse Rate - Lying 84 Pulse Rate - Sitting 79 Pulse Rate - Standing 82 Pulse Rate 84 80 Pulse Rate from SpO2 Sensor Pulse Rhythm Regular Respiratory Rate 17 20 Respiratory Effort / Characteristics Non-Labored Spontaneous Respiratory Depth Normal Respiratory Pattern Regular Blood Pressure - Lying 174/87 H Blood Pressure - Sitting 167/112 H Blood Pressure- Standing 154/87 H Blood Pressure 174/87 H 140/71 Blood Pressure Mean 116 120 Pulse Oximetry 95 95 Oxygen Delivery Method Room Air Sepsis Recent Fever Within 48 Hours No Sepsis New/Unexplained Change in Mental Status No Sepsis Action Taken by Nursing No Action Required 02/10/20 11:30 Temperature Temperature Source Pulse Rate - Lying Pulse Rate - Sitting Pulse Rate - Standing Pulse Rate 76 Pulse Rate from SpO2 Sensor 79 Pulse Rhythm Respiratory Rate 20 Respiratory Effort / Characteristics Respiratory Depth Respiratory Pattern Blood Pressure - Lying Blood Pressure - Sitting Blood Pressure- Standing Blood Pressure 136/61 Blood Pressure Mean 97 Pulse Oximetry 97 Oxygen Delivery Method Sepsis Recent Fever Within 48 Hours Sepsis New/Unexplained Change in Mental Status Sepsis Action Taken by Nursing Constitutional: Vital signs reviewed. Eyes: Pupils are equal round reactive to light. Conjunctiva are noninjected. ENT: Pharynx is clear without erythema or exudate. Mucous membranes are moist. Neck supple without meningeal signs. Respiratory: Clear to auscultation bilaterally. Breath sounds are equal bilaterally. Cardiovascular: Irregularly irregular rhythm. Normal rate. No rubs or gallops. GI: Soft, nondistended and nontender. Bowel sounds are present. Musculoskeletal: No peripheral edema. No lower extremity tenderness. Integumentary: No cyanosis. or jaundice. Neurologic: The patient is awake and alert. Cranial nerves II-XII are intact. Motor is 5 out of 5 all extremities. Sensation is intact to light touch all extremities. Normal speech. No pronator drift. No dysdiadochokinesis. No limb ataxia. Very unsteady gait. Could not take more than 2 steps. No nystagmus. Negative head impulse testing. Negative test of skew. The patient can shake her head or nod her head vigorously without eliciting any symptoms. Psychiatric: Normal affect. Not anxious appearing. Course Administered Medications Miscellaneous (Carbohydrates For Hypoglycemia) 15 - 30 gm PO UD PRN PRN Reason: Hypoglycemia Protocol Stop: 03/11/20 14:10 Last Admin: 02/10/20 14:30 Dose: 15 gm Documented by: [id number] Discontinued Medications Diphenhydramine HCl (Benadryl) 12.5 mg IV NOW STA Stop: 02/10/20 11:22 Last Admin: 02/10/20 11:25 Dose: 12.5 mg Documented by: [id number] Sodium Chloride (Nss) 500 mls @ 80 mls/hr IV .Q6H15M INGE Stop: 03/11/20 10:29 Last Infusion: 02/10/20 14:13 Dose: 0 mls/hr Documented by: [id number] Admin: 02/10/20 10:37 Dose: 80 mls/hr Documented by: [id number] Prochlorperazine 5 mg/ Syringe 5 mls @ 5 mls/min IV ONE ONE Stop: 02/10/20 11:22 Last Admin: 02/10/20 11:26 Dose: Not Given Documented by: [id number] Prochlorperazine (Compazine) Confirm Administered Dose 10 mg .ROUTE .STK-MED ONE Stop: 02/10/20 11:25 Last Admin: 02/10/20 11:26 Dose: 5 mg Documented by: [id number] Medical Decision Making Differential Diagnosis CVA, brain mass, ICH, vertigo, VBI, metabolic derangement, anemia Medical Records Attestation: I reviewed the patient's medical records. I did perform a limited focused review of portions of the patient's old chart on the electronic medical record. The patient has had no recent pertinent visits to this hospital. Home Medications Current Medication List: was personally reviewed by me Laboratory Data Attestation: I reviewed the patient's lab results. Result diagrams: 02/10/20 09:50 02/10/20 09:50 Lab Results 02/10/20 02/10/20 02/10/20 Range/Units 09:50 09:50 09:50 WBC 12.74 H (4.8-10.8) K/uL RBC 4.42 (4.2-5.4) M/uL Hgb 13.6 (12.0-16.0) g/dL Hct 42.3 (37-47) % MCV 95.7 (80-100) fL MCH 30.8 (25-34) pg MCHC 32.2 (32-36) g/dL RDW Std Deviation 48.8 H (36.4-46.3) fL RDW Coeff of Yrn 14.0 (11.5-14.5) % Plt Count 262 (130-400) K/uL MPV 9.9 (7.4-10.4) fL Immature Gran % (Auto) 0.3 % Neut % (Auto) 72.2 % Lymph % (Auto) 14.5 % Leon % (Auto) 9.0 % Eos % (Auto) 3.6 % Baso % (Auto) 0.4 % Immature Gran # (Auto) 0.04 H (0.00-0.02) K/uL Neut # (Auto) 9.19 H (1.4-6.5) K/uL Lymph # (Auto) 1.85 (1.2-3.4) K/uL Leon # (Auto) 1.15 H (0.11-0.59) K/uL Eos # (Auto) 0.46 (0-0.5) K/uL Baso # (Auto) 0.05 (0-0.2) K/uL PT 10.3 (9.0-12.0) Seconds INR 1.0 (0.9-1.1) APTT 26.5 (21.0-31.0) Seconds PTT Ratio 0.9 Sodium 141 (136-145) mmol/L Potassium 4.0 (3.5-5.1) mmol/L Chloride 106 (98-107) mmol/L Carbon Dioxide 28 (21-32) mmol/L Anion Gap 7.0 (3-11) BUN 63 H (7-18) mg/dl Creatinine 2.30 H (0.6-1.2) mg/dl Est Cr Clr Drug Dosing 17.8 ml/min Est GFR ( Amer) 23.5 Est GFR (Non-Af Amer) 20.3 BUN/Creatinine Ratio 27.3 H (10-20) Glucose 87 (70-99) mg/dl Calcium 9.0 (8.5-10.1) mg/dl Magnesium 2.3 (1.8-2.4) mg/dl Total Bilirubin 0.4 (0.2-1) mg/dl AST 22 (15-37) U/L ALT 30 (12-78) U/L Alkaline Phosphatase 139 H (45-117) U/L Troponin I < 0.015 (0-0.045) ng/ml Total Protein 7.7 (6.4-8.2) gm/dl Albumin 4.0 (3.4-5.0) gm/dl Globulin 3.7 (2.5-4.0) gm/dl Albumin/Globulin Ratio 1.1 (0.9-2) Specimen Hemolysis Hepatitis C Ab Screen (Neg) 02/10/20 Range/Units 09:50 WBC (4.8-10.8) K/uL RBC (4.2-5.4) M/uL Hgb (12.0-16.0) g/dL Hct (37-47) % MCV (80-100) fL MCH (25-34) pg MCHC (32-36) g/dL RDW Std Deviation (36.4-46.3) fL RDW Coeff of Yrn (11.5-14.5) % Plt Count (130-400) K/uL MPV (7.4-10.4) fL Immature Gran % (Auto) % Neut % (Auto) % Lymph % (Auto) % Leon % (Auto) % Eos % (Auto) % Baso % (Auto) % Immature Gran # (Auto) (0.00-0.02) K/uL Neut # (Auto) (1.4-6.5) K/uL Lymph # (Auto) (1.2-3.4) K/uL Leon # (Auto) (0.11-0.59) K/uL Eos # (Auto) (0-0.5) K/uL Baso # (Auto) (0-0.2) K/uL PT (9.0-12.0) Seconds INR (0.9-1.1) APTT (21.0-31.0) Seconds PTT Ratio Sodium (136-145) mmol/L Potassium (3.5-5.1) mmol/L Chloride (98-107) mmol/L Carbon Dioxide (21-32) mmol/L Anion Gap (3-11) BUN (7-18) mg/dl Creatinine (0.6-1.2) mg/dl Est Cr Clr Drug Dosing ml/min Est GFR ( Amer) Est GFR (Non-Af Amer) BUN/Creatinine Ratio (10-20) Glucose (70-99) mg/dl Calcium (8.5-10.1) mg/dl Magnesium (1.8-2.4) mg/dl Total Bilirubin (0.2-1) mg/dl AST (15-37) U/L ALT (12-78) U/L Alkaline Phosphatase (45-117) U/L Troponin I (0-0.045) ng/ml Total Protein (6.4-8.2) gm/dl Albumin (3.4-5.0) gm/dl Globulin (2.5-4.0) gm/dl Albumin/Globulin Ratio (0.9-2) Specimen Hemolysis Hepatitis C Ab Screen Neg (Neg) Imaging Data Radiologist's Impression: XR chest 1V portable CLINICAL HISTORY: Cough. COMPARISON STUDY: 10/06/2018 FINDINGS: The heart remains enlarged. There is no focal pulmonary consolidation. There is no failure. There are no pleural effusions. There is minor chronic interstitial thickening.[ IMPRESSION: No active disease in the chest. ACT 112: Negative or not required by law. Electronically signed by: Ra Solitario M.D. 02/10/2020 10:[address] DOSE: 638.56 mGycm HISTORY: Headache/ataxia eval for cva TECHNIQUE: Multiaxial CT images of the head were performed without the use of intravenous contrast. Automated exposure control was utilized for this study. A dose lowering technique was utilized adhering to the principles of ALARA. Comparison: Head CT 06/27/2017. Findings: The paranasal sinuses and mastoid air cells are clear. The calvarium and skull base are intact. There is no mass, hematoma, midline shift, acute infarct. White matter hypodensity is nonspecific but suggestive of microvascular ischemic change. The ventricles and sulci demonstrate mild age-related involutional changes. Impression: No significant change compared to the prior study. No acute intracranial abnormality. ACT 112: Negative or not required by law. Electronically signed by: Javier Cerda M.D. 02/10/2020 11:24 AM ECG Data Attestation: I personally reviewed and interpreted this ECG as follows: Indication: + weakness Rate (beats per minute): 88 Rhythm: + atrial fibrillation ECG Intervals/blocks: no Left bundle branch block ECG ST segments: no ST elevation ECG Findings: no PVCs Blood Pressure Blood Pressure Findings: Elevated blood pressure Blood Pressure Disposition: further management by hospitalist KELLEY Narrative I did evaluate the patient as noted above. The patient is presenting with ataxia and vertigo. She is neurologically intact except for her inability to walk. She does not show any dysdiadochokinesis or limb ataxia. I did place an order for continuous cardiac monitoring. The monitor showed atrial fibrillation with a rate of 84. I did order and personally review the patient's 12-lead EKG as described above. Twelve-lead EKG shows atrial fibrillation without any acute ischemia. I did order and personally reviewed the images of the patient's chest x-ray as described above. There is no evidence of acute ischemia. I did order and review the patient's blood work as noted in the electronic medical record. Her white blood cell count is slightly elevated. She is not anemic. E lectrolytes are unremarkable. Creatinine is elevated consistent with her chronic kidney disease. I did order a CT of the head. I did review the images myself as well as the radiology report as described above. There is no evidence of acute stroke. I did treat her with normal saline IV. She was also given Compazine and Benadryl for headache. I did discuss the test results with her. I did recommend hospitalization due to her significant ataxia. She does have a history of atrial fibrillation and does not take any blood thinners other than baby aspirin. She will need a MRI of the brain to evaluate for CVA. I did discuss the case with the hospitalist and rn case mgr. Impression & Plan Ataxia, Headache, CKD (chronic kidney disease) Discharge Plan Visit Data *Final* Discharge Date/Time: 02/10/20 12:52 Chief Complaint: Vertigo ED Provider: Erwin Valadez Discharge Problem: Ataxia, Headache, CKD (chronic kidney disease) Patient Disposition: Admitted As Inpatient Discharge Instructions Interventions: ED Discharge Assessment Last Done: 02/10/20 12:52 Discharge Problem: Headache Qualifiers: Headache type: unspecified Headache chronicity pattern: acute headache Intractability: not intractable Qualified Code(s): R51 - Headache CKD (chronic kidney disease) Qualifiers: Chronic kidney disease stage: unspecified stage Qualified Code(s): N18.9 - Chronic kidney disease, unspecified
[2020-02-10 10:27] LABS: Partial Thromboplastin Ratio 0.9; Partial Thromboplastin Time 26.5 Seconds (21.0-31.0); Prothrombin Time 10.3 Seconds (9.0-12.0)
--- NOTE | 2020-02-10 10:27 | XRay Report ---
XR chest 1V portable CLINICAL HISTORY: Cough. COMPARISON STUDY: 10/06/2018 FINDINGS: The heart remains enlarged. There is no focal pulmonary consolidation. There is no failure. There are no pleural effusions. There is minor chronic interstitial thickening.[ IMPRESSION: No active disease in the chest. ACT 112: Negative or not required by law. Electronically signed by: Ra Solitario M.D. 02/10/2020 10:25 AM
[2020-02-10 10:29] LABS: Alanine Aminotransferase 30 U/L (12-78); Albumin Globulin Ratio 1.1 (0.9-2); Alkaline Phosphatase 139 U/L (45-117); Aspartate Aminotransferase 22 U/L (15-37); BUN Creatinine Ratio 27.3 (10-20); Bilirubin,Total 0.4 mg/dl (0.2-1); Blood Urea Nitrogen 63 mg/dl (7-18); Carbon Dioxide 28 mmol/L (21-32); Chloride 106 mmol/L (98-107); Creatinine Clr Calc Pharmacy 17.8 ml/min; Est GFR (African American) 23.5; Est GFR (Non-African American) 20.3; Globulin 3.7 gm/dl (2.5-4.0); Glucose 87 mg/dl (70-99); Magnesium 2.3 mg/dl (1.8-2.4); Sodium 141 mmol/L (136-145); Total Protein 7.7 gm/dl (6.4-8.2); Troponin I < 0.015 ng/ml (0-0.045)
[2020-02-10] MEDS ORDERED: SODIUM CHLORIDE 0.9% 500 ML IV SCH (10:30)
[2020-02-10] MEDS ORDERED: DiphenhydrAMINE HCL 50 MG/ML VIAL IV STA (11:21)
[2020-02-10] MEDS ORDERED: PROCHLORPERAZINE 5 MG in SYRINGE 4 ML IV ONE (11:21)
[2020-02-10] MEDS ORDERED: PROCHLORPERAZINE 5 MG/ML 2 ML VIAL ONE (11:24)
--- NOTE | 2020-02-10 11:25 | CT Scan Report ---
HEAD CT NONCONTRAST CT DOSE: 638.56 mGycm HISTORY: Headache/ataxia eval for cva TECHNIQUE: Multiaxial CT images of the head were performed without the use of intravenous contrast. A utomated exposure control was utilized for this study. A dose lowering technique was utilized adheri ng to the principles of ALARA. Comparison: Head CT 06/27/2017. Findings: The paranasal sinuses and mastoid air cells are clear. The calvarium and skull base are int act. There is no mass, hematoma, midline shift, acute infarct. White matter hypodensity is nonspecifi c but suggestive of microvascular ischemic change. The ventricles and sulci demonstrate mild age-rela minerva involutional changes. Impression: No significant change compared to the prior study. No acute intracranial abnormality. ACT 112: Negative or not required by law. Electronically signed by: Javier Cerda M.D. 02/10/2020 11:24 AM
--- NOTE | 2020-02-10 12:28 | History & Physical Report ---
Date of Service February 10, 2020 Assessment & Plan (1) Vertigo: (2) Ataxia: This is a 74-year-old female who has significant past medical history of persistent atrial fibrillation not on oral anticoagulation, T2DM insulin- dependent, HTN, HLD, CKD stage IV, right-sided CHF, history of gastric ulcer with GI bleed, hyperparathyroidism solitary right kidney, history of gallbladder cancer status post resection, chemo and radiation who presents to ED secondary to dizziness and inability to walk x3 days. In ED received 500ml IVF, IV compazine, and benadryl with mild improvement of sx. Admission warranted due to persistent vertigo with ataxia and unable to safely return home admit to [facility] obtain MRI r/o central lesion or CVA given afib meclizine 25mg po q8hr prn dizziness compazine 5mg prn nausea/emesis PT/OT - henry manevuer for BPPV? APAP max 2g for analgesia follow labs (3) Atrial fibrillation: Persistent Afib follows [facility] cardiology continue metoprolol for rate/rhythm control Not on systemic anticoagulation due to history of GI bleed and patient persistence Continue ASA [id number] 5 ( Age, F, CHF, HTN, T2DM) (4) Diabetes mellitus type 2 in nonobese: Last A1c 6.7 08/2019 Obtain A1c in a.m. Lantus/NovoLog per protocol Hold Sal (5) CKD (chronic kidney disease) stage 4, GFR 15-29 ml/min: Follows Dr. Enrique, mature AV fistula in place renal fxn at baseline, cr 1.8-2.1 monitor renal function (6) Right-sided congestive heart failure: Follows with [facility] cardiology Last echo 10/2015 revealed EF 60 to 65% with moderate to severe MR and elevated RVSP Patient is currently euvolemic Continue Lasix, metoprolol, losartan strict I and O, daily weight (7) Dyslipidemia: continue statin (8) HTN (hypertension): blood pressure stable continue metoprolol, lasix, losartan, imdur monitor (9) Depression with anxiety: mood stable anxious with loss of past july continue escitalopram, buspar (10) GERD (gastroesophageal reflux disease): hx of gastric ulcer and GIB no melena, hematochezia continue PPI (11) DVT prophylaxis: SQ Heparin Disposition: admit to med tele Follow up: PCP Dr. Aaron Jefferson upon discharge Pt was seen and examined in collaboration with Dr. Mattson, please see addendum History of Present Illness Chief Complaint: Dizziness and inability to walk x3 days. Primary Care Provider: Kourtney Jefferson MD This is a 74-year-old female who has significant past medical history of persistent atrial fibrillation not on oral anticoagulation, T2DM insulin-depend ent, HTN, HLD, CKD stage IV, right-sided CHF, history of gastric ulcer with GI bleed, hyperparathyroidism solitary right kidney, history of gallbladder cancer status post resection, chemo and radiation who presents to ED secondary to dizziness and inability to walk x3 days. Symptoms started gradually when she woke up on Thursday. She described a spinning-like sensation with positional change. Symptoms would improve by remaining in place for several seconds. She also had inability to walk and felt, "wobbly." She further complains of rhinorrhea which she thought was allergies, dry cough x2 months and generalized weakness. She denies any recent illness, fever, chills, sweats, lightheadedness, presyncope, change in hearing, tinnitus, change in vision, chest pain, shortness of breath, palpitations, nausea, vomiting, abdominal pain, change in bowel or urinary habits. Patient lives alone at home and typically ambulates without assist device but over the past 3 days has basically been unable to ambulate. Overall good appetite and good p.o. intake. Has never had anything in the past. She does have history of persistent A. fib and is not on anticoagulation due to history of CKD stage IV lung with history of GI bleed. Patient also appears to not have wanted to be on anticoagulation. She is on ASA daily. She is insulin-dependent diabetic well controlled with a last A1c of 6.7 . She last took Tresiba 20 units last evening. Unfortunately she was this past July and this has caused her a lot of anxiety and stress. In ED patient remained hemodynamically stable. Her orthostatics were negative during our evaluation. Lab work notable for mild leukocytosis 12.74, H&H 13.6 and 42.3, platelet 262, BUN 63, creatinine 2.30, mag 2.3, troponin WNL, LFTs WNL. Chest x-ray negative for acute cardiopulmonary abnormality, mild chronic interstitial changes noted. Head CT negative for acute abnormality. Chronic microvascular ischemic change noted. Allergies Allergy/AdvReac Type Severity Reaction Status Date / Time gabapentin Allergy Severe EDEMA Verified 02/10/20 10:26 FACE/LIPS/TONGUE - ANGIOEDEMA TARA Inhibitors Allergy Unknown UNKNOWN Verified 02/10/20 10:26 adhesive Allergy Unknown TAPE Verified 02/10/20 10:26 cephalexin Allergy Unknown ELEVATED Verified 02/10/20 10:26 BSG insulin detemir Allergy Unknown HIVES, Verified 02/10/20 10:26 ELEVATED BSG latex Allergy Unknown HIVES, RASH Verified 02/10/20 10:26 meloxicam Allergy Unknown RENAL Verified 02/10/20 10:26 FAILURE phenol Allergy Unknown HIVES, Verified 02/10/20 10:26 ELEVATED BSG Sulfa (Sulfonamide Allergy Unknown EDEMA,ITCHI Verified 02/10/20 10:26 Antibiotics) NG Iodinated Contrast Media AdvReac Unknown PATIENT Verified 02/10/20 10:26 HAS CHRONIC KIDNEY FAILURE Home Medications Home Medications Medication Instructions Recorded Confirmed Type allopurinol 200 mg PO BID 10/06/18 02/10/20 History aspirin 81 mg PO QAM 10/06/18 02/10/20 History atorvastatin 40 mg PO QAM 10/06/18 02/10/20 History bisacodyl 10 mg MN WK PRN 10/06/18 02/10/20 History buspirone 10 mg PO BID 10/06/18 02/10/20 History cholecalciferol (vitamin D3) 2,000 unit PO QAM 10/06/18 02/10/20 History [Vitamin D3] docusate sodium 100 mg PO BID 10/06/18 02/10/20 History escitalopram oxalate 10 mg PO QAM 10/06/18 02/10/20 History ferrous gluconate 324 mg PO QAM 10/06/18 02/10/20 History fexofenadine 180 mg PO UD PRN 10/06/18 02/10/20 History furosemide 40 mg PO QAM 10/06/18 02/10/20 History isosorbide mononitrate 30 mg PO QAM 10/06/18 02/10/20 History losartan 25 mg PO QAM 10/06/18 02/10/20 History metoprolol succinate 50 mg PO QAM 10/06/18 02/10/20 History nitroglycerin 0.4 mg SUBLINGUAL UD PRN 10/06/18 02/10/20 History pantoprazole 40 mg PO QAM 10/06/18 02/10/20 History Tresiba FlexTouch U-100 20 unit SUBCUT HS 12/23/18 02/10/20 History Victoza 2-Momo 0.6 mg SUBCUT HS 12/23/18 02/10/20 History diphenhydramine HCl [Benadryl] 25 mg PO Q6H PRN 12/23/18 02/10/20 History acetaminophen [Tylenol 8 Hour] 1,950 mg PO HS 02/10/20 02/10/20 History venlafaxine 75 mg PO DAILY 02/10/20 02/10/20 History Past Med/Surg History Medical History TARA inhibitor intolerance (Chronic) Anxiety (Chronic) Atrial fibrillation follows w/ dr. aquino; dx years ago AV (arteriovenous fistula) (Chronic) left arm CKD (chronic kidney disease) stage 4, GFR 15-29 ml/min (Chronic) follows w/ dr. 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 Under surveillance History of gastric ulcer History of gastrointestinal bleeding History of migraine HTN (hypertension) (Chronic) Hyperparathyroidism (Chronic) Osteoporosis Right-sided congestive heart failure (Chronic) Solitary right kidney (Chronic) Surgical History H/O cataract removal with insertion of prosthetic lens (Resolved) H/O tubal ligation (Resolved) History of cholecystectomy (Resolved) History of colonoscopy History of esophagogastroduodenoscopy (EGD) History of lumbar laminectomy (Resolved) x 2 History of total abdominal hysterectomy and bilateral salpingo-oophorectomy Previous section (Resolved) "x2" Family History Other Cancer Diabetes Hypertension Social History (Updated 02/10/20 @ 12:42 by Mary Jane Marmolejo PA-C) Preferred Language: Spanish Communication Ability: Effective Cleaners Required: No Beliefs That Will Affect Care: None marital status: / Current Living Situation: Alone current occupational status: retired Other Information That Helps Us Care for You: No Feels Safe at Home: Yes Safety Concerns: Feels Safe At This Time Smoking Status: Never smoker Second Hand Exposure: Yes ( used to smoke) ; Hx Alcohol Use: No Hx Substance Use: No Review of Systems Review of Systems: All systems reviewed & are unremarkable except as noted in HPI & below Physical Exam Physical Exam: Please see Dr. Mattson addendum for details regarding A&P. Results & Data Results & Data ([facility]) Vital Signs (Past 12 Hours) Vital Signs Temp Pulse Resp BP Pulse Ox 02/10/20 11:30 76 20 136/61 97 02/10/20 11:01 80 20 140/71 95 02/10/20 09:47 36.5 C 84 17 174/87 H 95 Laboratory Results Short CBC 02/10/20 02/10/20 Range/Units 09:50 09:50 WBC 12.74 H (4.8-10.8) K/uL Hgb 13.6 (12.0-16.0) g/dL Hct 42.3 (37-47) % Plt Count 262 (130-400) K/uL Creatinine 2.30 H (0.6-1.2) mg/dl BMP 02/10/20 09:50 Sodium 141 Potassium 4.0 Chloride 106 Carbon Dioxide 28 BUN 63 H Creatinine 2.30 H Glucose 87 Calcium 9.0 Cardiac Enzymes 02/10/20 Range/Units 09:50 Troponin I < 0.015 (0-0.045) ng/ml Liver Function 02/10/20 Range/Units 09:50 Total Bilirubin 0.4 (0.2-1) mg/dl AST 22 (15-37) U/L ALT 30 (12-78) U/L Alkaline Phosphatase 139 H (45-117) U/L Albumin 4.0 (3.4-5.0) gm/dl Diagnostic Findings Head CT: Impression: No significant change compared to the prior study. No acute intracranial abnor mality. CXR: IMPRESSION: No active disease in the chest. Medications Administered Sodium Chloride (Nss) 500 mls @ 80 mls/hr IV .Q6H15M INGE Stop: 03/11/20 10:29 Last Admin: 02/10/20 10:37 Dose: 80 mls/hr Documented by: [id number] Discontinued Medications Diphenhydramine HCl (Benadryl) 12.5 mg IV NOW STA Stop: 02/10/20 11:22 Last Admin: 02/10/20 11:25 Dose: 12.5 mg Documented by: [id number] Prochlorperazine 5 mg/ Syringe 5 mls @ 5 mls/min IV ONE ONE Stop: 02/10/20 11:22 Last Admin: 02/10/20 11:26 Dose: Not Given Documented by: [id number] Prochlorperazine (Compazine) Confirm Administered Dose 10 mg .ROUTE .STK-MED ONE Stop: 02/10/20 11:25 Last Admin: 02/10/20 11:26 Dose: 5 mg Documented by: [id number] ECG Rate (beats per minute): 88 Rhythm: atrial fibrillation Code Status & VTE Plan Code Status DNR VTE Prophylaxis Plan VTE Prophylaxis will be ordered: Yes Supervising Physician Co-Signing Physician Notes History and physical exam performed by me. History significant for 74-year-old female who has significant past medical history of persistent atrial fibrillation not on oral anticoagulation, T2DM insulin-dependent, HTN, HLD, CKD stage IV, right-sided CHF, history of gastric ulcer with GI bleed, hyperparathyroidism solitary right kidney, history of gal lbladder cancer status post resection, chemo and radiation who presents to ED secondary to dizziness and inability to walk x3 days. Patient reported feeling of 'self spinning'. Reported this happened more on getting up from a sitting or supine position Denied any blurry vision, syncope, focal weakness. Reported some headache Denied any hearing abnormalities or tinnitus Denied any fevers,chills, nausea, vomiting Physcial exam General: Elderly woman, well hydrated, no acute distress and not ill appearing Eyes: PERRL, conjunctivae normal, not pale, anicteric sclerae, EOM intact bilaterally ENMT: External ear and nose normal, oropharynx normal Neck: Normal visual inspection, no tracheal deviation, no swelling noted Respiratory: Normal respiratory effort, no respiratory distress, lungs clear to auscultation, no crackles and no wheezes Cardiovascular: Pulse is irregular, s1-2, no pedal edema. BP supine was 135/57, sitting was 147/92 in the room during evaluation Gastrointestinal (Abdomen): Abdomen is not distended, soft, non-tender to palpation, no guarding, no palpable hepatosplenomegaly, normal bowel sounds Musculoskeletal: No cyanosis or clubbing Neurologic: Alert and oriented x 3, No focal weakness, sensation grossly intact, no nystagmus. Could not assess gait as patient developed vertigo during evaluation Psychiatric: Euthymic affect, no depressed affect Labs significant for Cr 2.30, WBC 12.74 CT head did not show any acute intracranial abnormality. -Vertigo Peripheral vs Central. -CKD4 Get MRI brain to rule out stroke Patient has risk factors for CVA like atrial fibrillation for which she has been on ASA only due to previous GI bleed per review of outpatient cardiology notes Continue symptomatic management with meclizine, antihistamines Negative orthostatic hypotension during evaluation PT/OT Fall precautions Code status -Patient stated she is DNI/DNR Other plans as detailed in Mary Jane Marmolejo PA-C's note
--- NOTE | 2020-02-10 13:44 | Magnetic Resonance Report ---
MR brain wo con HISTORY: 74 years-old Female vertigo, ataxia acute dizziness with vertigo and ataxia. Unsteady gait. COMPARISON: Head CT 02/10/2020, brain MRI 06/27/2017 TECHNIQUE: Multiplanar multisequence MRI of the brain was obtained without the use of IV contrast FINDINGS: Investment Manager localizer images demonstrate no gross extracranial abnormality. The midline structures includin g the corpus callosum, brainstem, optic chiasm, pituitary and pineal glands appear unremarkable the s agittal T1 series. No cerebellar tonsillar herniation. Degenerative changes are noted involving the i aristides cervical spine. There are a few small lipomata noted involving the falx cerebri. There is no re stricted diffusion identified to suggest acute or subacute infarct. There is no acute intracranial hemorrhage, midline shift, abnormal extra axial collection, hydrocepha coni or intracranial mass. Mild age-related involutional changes. Moderate to extensive patchy T2/FLAI R hyperintensities about the white matter have progressively worsened from 2017. Major vascular flow voids are patent. Mastoid air cells are clear. Mild mucosal thickening of the paranasal sinuses and n kaiser turbinates. Prior bilateral lens replacement. The skull and soft tissues are unremarkable. IMPRESSION: 1. No acute intracranial abnormality, specifically there is no evidence of acute or subacute infarct. 2. Age-related involutional changes with moderate to extensive T2/FLAIR hyperintensities throughout t he white matter suggestive of chronic microvascular ischemic disease, progressively worsened from the comparison 2017 exam. ACT 112: Negative or not required by law. The above report was generated using voice recognition software. It may contain grammatical, syntax o r spelling errors. Electronically signed by: Filipe Cunningham M.D. 02/10/2020 1:42 PM
[2020-02-10] MEDS ORDERED: CARBOHYDRATES FOR HYPOGLYCEMIA PO PRN (14:11)
[2020-02-10] MEDS ORDERED: MECLIZINE HCL 25 MG TAB PO PRN (14:11)
[2020-02-10] MEDS ORDERED: GLUCAGON FOR INJ 1 MG VIAL SQ PRN (14:11)
[2020-02-10] MEDS ORDERED: DEXTROSE 50% 50 ML SYRINGE IV PRN (14:11)
[2020-02-10] MEDS ORDERED: ONDANSETRON INJ 2 MG/ML 2 ML VIAL IV PRN (14:11)
[2020-02-10] MEDS ORDERED: GLUCOSE 10 TABS/TUBE PO PRN (14:11)
[2020-02-10] MEDS ORDERED: ACETAMINOPHEN 325 MG TAB PO PRN (14:11)
[2020-02-10] MEDS ORDERED: PROCHLORPERAZINE 5 MG in SYRINGE 4 ML IV PRN (14:11)
[2020-02-10] MEDS ORDERED: POLYETHYLENE (MIRALAX) 17 GM PACK PO PRN (14:11)
[2020-02-10] MEDS ORDERED: GLUCOSE 40% GEL 15 GM TUBE PO PRN (14:11)
[2020-02-10] MEDS: HEPARIN SOD 5,000 UNIT/0.5 ML VIAL SQ SCH ×2 (16:38→21:04)
[2020-02-10] MEDS: INSULIN ASPART 100 UNITS/ML 3 ML PEN SC SCH ×2 (17:40→21:05)
[2020-02-10] MEDS ORDERED: INSULIN GLARGINE SOLOSTAR 100 UNITS/ML 3 ML PEN SC SCH (21:00)
[2020-02-10] MEDS: allopurinoL 100 MG TAB PO SCH (21:04)
[2020-02-10] MEDS: DOCUSATE SODIUM 100 MG CAP PO SCH (21:04)
[2020-02-10 22:48] LABS: Appearance Urine Cloudy (Clear); Bacteria Urine Automated Negative (Negative); Bilirubin Urine Negative (Negative); Blood Urine Negative (Negative); Color Urine Yellow; Glucose Urine UA Negative (Negative); Ketones Urine Negative (Negative); Leukocyte Esterase Urine 2+ (Negative); Nitrite Urine Negative (Negative); Protein Urine Trace (Negative); RBC Urine Automated 0-4 /hpf (0-4); Specific Gravity Urine 1.014 (1.000-1.030); Urobilinogen Urine Negative (Negative); WBC Urine Automated >30 /hpf (0-5); pH Urine 5.5 (4.5-7.5)
[2020-02-10] MEDS ORDERED: LORazepam 0.5 MG TAB PO PRN (23:52)
--- NOTE | 2020-02-11 06:15 | Electrocardiogram Report ---
Test Reason : Blood Pressure : / mmHG Vent. Rate : 088 BPM Atrial Rate : 267 BPM P-R Int : 000 ms QRS Dur : 076 ms QT Int : 386 ms P-R-T Axes : 000 019 025 degrees QTc Int : 467 ms Atrial fibrillation Abnormal ECG When compared with ECG of 07-OCT-2018 06:18, No significant change was found Confirmed by Lee Jacinto ([id number]) on 02/11/2020 6:15:16 AM Referred By: REFERRED SELF Confirmed By:Lee Jacinto
[2020-02-11] MEDS: HEPARIN SOD 5,000 UNIT/0.5 ML VIAL SQ SCH (06:17)
[2020-02-11] MEDS: allopurinoL 100 MG TAB PO SCH (08:18)
[2020-02-11] MEDS: DOCUSATE SODIUM 100 MG CAP PO SCH (08:18)
[2020-02-11] MEDS: INSULIN ASPART 100 UNITS/ML 3 ML PEN SC SCH ×2 (08:24→12:45)
[2020-02-11] MEDS ORDERED: CHOLECALCIFEROL 1,000 UNITS 25 MCG TAB PO SCH (09:00)
[2020-02-11] MEDS ORDERED: FUROSEMIDE 40 MG TAB PO SCH (09:00)
[2020-02-11] MEDS ORDERED: LOSARTAN POTASSIUM 25 MG TAB PO SCH (09:00)
[2020-02-11] MEDS ORDERED: ISOSORBIDE MONO EXTENDED REL 30 MG TABCR PO SCH (09:00)
[2020-02-11] MEDS ORDERED: ESCITALOPRAM OXALATE 10 MG TAB PO SCH (09:00)
[2020-02-11] MEDS ORDERED: ASPIRIN 81 MG ECTAB PO SCH (09:00)
[2020-02-11] MEDS ORDERED: FERROUS GLUCONATE 324 MG TAB PO SCH (09:00)
[2020-02-11] MEDS ORDERED: METOPROLOL SUCC 50MG EXT REL TAB PO SCH (09:00)
[2020-02-11] MEDS ORDERED: ATORVASTATIN 40 MG TAB PO SCH (09:00)
[2020-02-11] MEDS ORDERED: VENLAFAXINE HCL XR 75 MG CAPXR PO SCH (09:00)
[2020-02-11] MEDS ORDERED: PANTOprazole 40 MG TAB PO SCH (09:00)
[2020-02-11 09:20] LABS: Hematocrit (blood only) 40.3 % (37-47); Hemoglobin 12.9 g/dL (12.0-16.0); Mean Corpuscular Hemoglobin 30.6 pg (25-34); Mean Corpuscular Volume 95.5 fL (80-100); Mean Platelet Volume 9.8 fL (7.4-10.4); Platelet Count 244 K/uL (130-400); RDW Standard Deviation 48.2 fL (36.4-46.3); Red Blood Count 4.22 M/uL (4.2-5.4); White Blood Count 8.49 K/uL (4.8-10.8)
[2020-02-11 09:58] LABS: BUN Creatinine Ratio 26.8 (10-20); Calcium 8.7 mg/dl (8.5-10.1); Creatinine Clr Calc Pharmacy 18.1 ml/min; Est GFR (African American) 24.1; Est GFR (Non-African American) 20.8; Potassium 4.1 mmol/L (3.5-5.1)
[2020-02-11 10:01] LABS: Estimated Average Glucose 151 mg/dl; Hemoglobin A1C 6.9 % (4.5-5.6)
--- NOTE | 2020-02-11 12:38 | Hospitalist Progress Note ---
Date of Service February 11, 2020 Assessment & Plan (1) Vertigo: (2) Ataxia: (3) Diabetes mellitus type 2 in nonobese: This is a 74-year-old female who has significant past medical history of persistent atrial fibrillation not on oral anticoagulation, T2DM insulin- dependent, HTN, HLD, CKD stage IV, right-sided CHF, history of gastric ulcer with GI bleed, hyperparathyroidism solitary right kidney, history of gallbladder cancer status post resection, chemo and radiation who presents to ED secondary to dizziness and inability to walk x3 days. In ED received 500ml IVF, IV compazine, and benadryl with mild improvement of sx. Admission warranted due to persistent vertigo with ataxia and unable to safely return home. Hypoglycemia in the 60s noted on ED presentation -work up in hospital showed chronic atrial fibrillation with controlled heart rates, no stroke by brain MRI imaging, no orthostatic hypotension. 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 new prescription of Tresiba 5 units daily sent electronically to [facility] at [address] [place] [address] -Patient reports she has supplies to do blood sugar checks and should check blood sugars with meals or when feeling lightheaded and write these glucose levels down to follow up with primary care doctor. (4) Atrial fibrillation: chronic atrial fibrillation -work up in hospital showed chronic atrial fibrillation with controlled heart rates -continue metoprolol for rate/rhythm control -Not on systemic anticoagulation due to history of GI bleed and patient persistence -Continue ASA (5) CKD (chronic kidney disease) stage 4, GFR 15-29 ml/min: -Follows Dr. Enrique, mature AV fistula in place -renal function at baseline, cr 1.8-2.1 (6) Dyslipidemia: -continue statin (7) Right-sided congestive heart failure: -Follows with [facility] cardiology Last echo 10/2015 revealed EF 60 to 65% with moderate to severe MR and elevated RVSP Patient is currently euvolemic Continue Lasix, metoprolol, losartan (8) HTN (hypertension): -continue metoprolol, lasix, losartan, imdur (9) Depression with anxiety: -continue escitalopram, buspar (10) GERD (gastroesophageal reflux disease): hx of gastric ulcer and GIB no melena, hematochezia continue PPI (11) DVT prophylaxis: SQ Heparin when she is in the hospital Discharge diagnosis: Vertigo and Ataxia may be from hypoglycemia at home Type 2 diabetes mellitus with diabetic chronic kidney disease with alf current use of insulin Chronic Kidney Stage IV Chronic atrial fibrillation Admission and Anticipated Discharge Date Admission Date: February 10, 2020 Subjective work up in hospital showed chronic atrial fibrillation with controlled heart rates, no stroke by brain MRI imaging, no orthostatic hypotension. patient performed well with therapy as per nurse on 02/11/2020 discussed with patient and her son by telephone that patient needs to check blood sugar glucose at home regularly as her "dizziness" may be from tight glycemic control or low blood sugars (hypoglycemia) since she does not check blood sugars regularly no chest pain, no dizziness today. no abdomen pain. no nausea. eats the food. no shortness of breath. breathing on room air Review of Systems Review of Systems: All systems reviewed & are unremarkable except as noted in Subjective Physical Exam Constitutional: WD/WN, vitals as above Eyes: PERRL, conjunctivae normal, anicteric sclerae EOM intact bilaterally ENMT: external ear and nose normal, oropharynx normal Neck: normal visual inspection Respiratory: normal respiratory effort, lungs clear to auscultation Cardiovascular: Rate/Rhythm: regular rate and + irregularly irregular Gastrointestinal (Abdomen): normal bowel sounds, soft, nontender, no hepatosplenomegaly Musculoskeletal: Head/Neck/Chest: normocephalic and head atraumatic Neurologic: PERRL, EOMI, accommodation nl, no face palsy, no dysarthria CN's II-XI intact bilaterally Psychiatric: A+Ox3, euthymic affect Results & Data Results & Data ([facility]) Vital Signs (Past 12 Hours) Vital Signs Temp Pulse Resp BP Pulse Ox 02/11/20 11:38 36.8 C 78 18 131/61 95 02/11/20 09:16 79 134/76 02/11/20 08:58 101 H 18 145/75 H 02/11/20 07:32 36.7 C 78 18 148/73 H 96 02/11/20 02:45 36.7 C 68 18 149/70 H 93
--- NOTE | 2020-02-11 12:46 | Discharge Summary ---
Date of Service February 11, 2020 Admission HPI Per Admitting Provider This is a 74-year-old female who has significant past medical history of persistent atrial fibrillation not on oral anticoagulation, T2DM insulin- dependent, HTN, HLD, CKD stage IV, right-sided CHF, history of gastric ulcer with GI bleed, hyperparathyroidism solitary right kidney, history of gallbladder cancer status post resection, chemo and radiation who presents to ED secondary to dizziness and inability to walk x3 days. Symptoms started gradually when she woke up on Thursday. She described a spinning-like sensation with positional change. Symptoms would improve by remaining in place for several seconds. She also had inability to walk and felt, "wobbly." She further complains of rhinorrhea which she thought was allergies, dry cough x2 months and generalized weakness. She denies any recent illness, fever, chills, sweats, lightheadedness, presyncope, change in hearing, tinnitus, change in vision, chest pain, shortness of breath, palpitations, nausea, vomiting, abdominal pain, change in bowel or urinary habits. Patient lives alone at home and typically ambulates without assist device but over the past 3 days has basically been unable to ambulate. Overall good appetite and good p.o. intake. Has never had anything in the past. She does have history of persistent A. fib and is not on anticoagulation due to history of CKD stage IV lung with history of GI bleed. Patient also appears to not have wanted to be on anticoagulation. She is on ASA daily. She is insulin-dependent diabetic well controlled with a last A1c of 6.7. She last took Tresiba 20 units last evening. Unfortunately she was this past July and this has caused her a lot of anxiety and stress. In ED patient remained hemodynamically stable. Her orthostatics were negative during our evaluation. Lab work notable for mild leukocytosis 12.74, H&H 13.6 and 42.3, platelet 262, BUN 63, creatinine 2.30, mag 2.3, troponin WNL, LFTs WNL. Chest x-ray negative for acute cardiopulmonary abnormality, mild chronic inte rstitial changes noted. Head CT negative for acute abnormality. Chronic microvascular ischemic change noted. Principal Diagnosis Vertigo and Ataxia may be from hypoglycemia at home Type 2 diabetes mellitus with diabetic chronic kidney disease with longterm current use of insulin Chronic Kidney Stage IV Chronic atrial fibrillation Discharge Exam Constitutional WD/WN, vitals as above Eyes PERRL, conjunctivae normal, anicteric sclerae EOM intact bilaterally ENMT external ear and nose normal, oropharynx normal Neck trachea midline, no thyromegaly normal visual inspection Respiratory normal respiratory effort, lungs clear to auscultation Cardiovascular Rate/Rhythm: regular rate and + irregularly irregular Gastrointestinal (Abdomen) normal bowel sounds, soft, nontender, no hepatosplenomegaly Musculoskeletal Head/Neck/Chest: normocephalic and head atraumatic Neurologic PERRL, EOMI, accommodation nl, no face palsy, no dysarthria CN's II-XI intact bilaterally Psychiatric A+Ox3, euthymic affect Discharge Data Allergies Allergy/AdvReac Type Severity Reaction Status Date / Time gabapentin Allergy Severe EDEMA Verified 02/10/20 10:26 FACE/LIPS/TONGUE - ANGIOEDEMA TARA Inhibitors Allergy Unknown UNKNOWN Verified 02/10/20 10:26 adhesive Allergy Unknown TAPE Verified 02/10/20 10:26 cephalexin Allergy Unknown ELEVATED Verified 02/10/20 10:26 BSG insulin detemir Allergy Unknown HIVES, Verified 02/10/20 10:26 ELEVATED BSG latex Allergy Unknown HIVES, RASH Verified 02/10/20 10:26 meloxicam Allergy Unknown RENAL Verified 02/10/20 10:26 FAILURE phenol Allergy Unknown HIVES, Verified 02/10/20 10:26 ELEVATED BSG Sulfa (Sulfonamide Allergy Unknown EDEMA,ITCHI Verified 02/10/20 10:26 Antibiotics) NG Iodinated Contrast Media AdvReac Unknown PATIENT Verified 02/10/20 10:26 HAS CHRONIC KIDNEY FAILURE Consultations 02/10/20 11:28 ED Decision to Admit Stat 02/10/20 14:11 Consult Case Management - Discharge Planning Routine Ordered Studies 02/10/20 10:02 CT head/brain wo con Stat 02/10/20 12:11 MR brain wo con Stat Hospital Course (1) Vertigo: (2) Ataxia: This is a 74-year-old female who has significant past medical history of persistent atrial fibrillation not on oral anticoagulation, T2DM insulin- dependent, HTN, HLD, CKD stage IV, right-sided CHF, history of gastric ulcer with GI bleed, hyperparathyroidism solitary right kidney, history of gallbladder cancer status post resection, chemo and radiation who presents to ED secondary to dizziness and inability to walk x3 days. In ED received 500ml IVF, IV compazine, and benadryl with mild improvement of sx. Admission warranted due to persistent vertigo with ataxia and unable to safely return home admit to [facility] tele obtain MRI r/o central lesion or CVA given afib meclizine 25mg po q8hr prn dizziness compazine 5mg prn nausea/emesis PT/OT - henry manevuer for BPPV? APAP max 2g for analgesia follow labs (3) Diabetes mellitus type 2 in nonobese: This is a 74-year-old female who has significant past medical history of persistent atrial fibrillation not on oral anticoagulation, T2DM insulin- dependent, HTN, HLD, CKD stage IV, right-sided CHF, history of gastric ulcer with GI bleed, hyperparathyroidism solitary right kidney, history of gallbladder cancer status post resection, chemo and radiation who presents to ED secondary to dizziness and inability to walk x3 days. In ED received 500ml IVF, IV compazine, and benadryl with mild improvement of sx. Admission warranted due to persistent vertigo with ataxia and unable to safely return home. Hypoglycemia in the 60s noted on ED presentation -work up in hospital showed chronic atrial fibrillation with controlled heart rates, no stroke by brain MRI imaging, no orthostatic hypotension. patient performed well with therapy as per nurse on 02/11/2020 -discussed with patient and her son by telephone that patient needs to check blood sugar glucose at home regularly as her "dizziness" may be from tight glycemic control or low blood sugars (hypoglycemia) since she does not check blood sugars regularly -Hemoglobin A1c of 6.9 shows really good longterm diabetes control but at this time patient should cut back on home diabetes medications and take Tresiba insulin as 5 units every night (instead of 20 units ever night) and the Victoza. new prescription of Tresiba 5 units daily sent electronically to [facility] at [address] [place] [address] -Patient reports she has supplies to do blood sugar checks and should check blood sugars with meals or when feeling lightheaded and write these glucose levels down to follow up with primary care doctor. (4) Atrial fibrillation: chronic atrial fibrillation -work up in hospital showed chronic atrial fibrillation with controlled heart rates -continue metoprolol for rate/rhythm control -Not on systemic anticoagulation due to history of GI bleed and patient persistence -Continue ASA (5) CKD (chronic kidney disease) stage 4, GFR 15-29 ml/min: -Follows Dr. Enrique, mature AV fistula in place -renal function at baseline, cr 1.8-2.1 (6) Dyslipidemia: -continue statin (7) Right-sided congestive heart failure: -Follows with [facility] cardiology Last echo 10/2015 revealed EF 60 to 65% with moderate to severe MR and elevated RVSP Patient is currently euvolemic Continue Lasix, metoprolol, losartan (8) HTN (hypertension): -continue metoprolol, lasix, losartan, imdur (9) Depression with anxiety: -continue escitalopram, buspar (10) GERD (gastroesophageal reflux disease): hx of gastric ulcer and GIB no melena, hematochezia continue PPI (11) DVT prophylaxis: SQ Heparin when she is in the hospital Discharge diagnosis: Vertigo and Ataxia may be from hypoglycemia at home Type 2 diabetes mellitus with diabetic chronic kidney disease 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 Chronic Kidney Stage IV Chronic atrial fibrillation Total Time Total Time Spent Total Time Spent (In Minutes): 40 minutes Total Time Includes: Examination of the Patient, Discharge Planning, Medication Reconciliation and Communication With Other Providers Discharge Plan Discharge Items Patient Disposition: Home - Self-Care Reason For Visit: VERTIGO,ATAXIA Discharge Diagnosis: Vertigo and Ataxia may be from hypoglycemia at home Type 2 diabetes mellitus with diabetic chronic kidney disease 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 patient performed well with therapy as per nurse on 02/11/2020 discussed with patient and her son by telephone that patient needs to check blood sugar glucose at home regularly as her "dizziness" may be from tight glycemic control or low blood sugars (hypoglycemia) since she does not check blood sugars regularly Hemoglobin A1c of 6.9 shows really good longterm diabetes control but at this time patient should cut back on home diabetes medications and take Tresiba insulin as 5 units every night (instead of 20 units ever night) and the Victoza. new prescription of Tresiba 5 units daily sent electronically to [facility] at [address] [place] [address] Patient reports she has supplies to do blood sugar checks and should check blood sugars with meals or when feeling lightheaded and write these glucose levels down to follow up with primary care doctor. Pending Studies at Discharge: No Stand-Alone Forms: My [facility] [id number], Smoking Cessation Medications and DC Order Prescriptions: New Tresiba U-100 Insulin 100 unit/mL solution 5 units SQ DAILY 30 Days Qty: 1.5 RF: 0 Continued furosemide 40 mg tablet 40 mg PO QAM RF: 0 atorvastatin 40 mg tablet 40 mg PO QAM RF: 0 metoprolol succinate 50 mg tablet extended release 24 hr 50 mg PO QAM RF: 0 isosorbide mononitrate 30 mg tablet extended release 24 hr 30 mg PO QAM RF: 0 fexofenadine 180 mg Tablet 180 mg PO UD PRN (Reason: Allergic Symptoms) RF: 0 allopurinol 100 mg tablet 200 mg PO BID RF: 0 aspirin 81 mg Tablet,Delayed Release (Dr/Ec) 81 mg PO QAM RF: 0 bisacodyl 10 mg Suppository 10 mg MI WK PRN (Reason: Constipation) RF: 0 pantoprazole 40 mg tablet,delayed release (DR/EC) 40 mg PO QAM RF: 0 buspirone 10 mg tablet 10 mg PO BID RF: 0 losartan 25 mg tablet 25 mg PO QAM RF: 0 nitroglycerin 0.4 mg Tablet, Sublingual 0.4 mg Sublingual UD PRN (Reason: Chest Pain) RF: 0 docusate sodium 100 mg Capsule 100 mg PO BID RF: 0 escitalopram oxalate 10 mg tablet 10 mg PO QAM RF: 0 ferrous gluconate 324 mg (38 mg iron) Tablet 324 mg PO QAM RF: 0 cholecalciferol (vitamin D3) [Vitamin D3] 2,000 unit Capsule 2,000 unit PO QAM RF: 0 venlafaxine 75 mg capsule,extended release 24hr 75 mg PO DAILY RF: 0 Victoza 2-Momo 0.6 mg/0.1 mL (18 mg/3 mL) Pen Injector 0.6 mg SUBCUT HS RF: 0 Discontinued acetaminophen [Tylenol 8 Hour] 650 mg Tablet Extended Release 1,950 mg PO HS RF: 0 diphenhydramine HCl [Benadryl] 25 mg Capsule 25 mg PO Q6H PRN (Reason: Allergy Symptoms) RF: 0 Tresiba FlexTouch U-100 100 unit/mL (3 mL) Insulin Pen 20 unit SUBCUT HS RF: 0 Discharge Orders: Discharge Order (Routine); Ordered 02/11/20 Ordered By: Chris Zuniga/Other Patient Handouts: Hyperglycemia, Hypoglycemia, Diabetes Type 2 Managing, Blood Sugar Check Admission Data Admit Date/Time: 02/10/20 11:58 Attending Provider: Chris Martins Admit Provider: Mimi Mattson I. Primary Care Provider: Kourtney Ureña Other Providers: Mimi Mattson I.
== END 2020-02-11 13:39 | disposition home or self-care (01) | DRG 638 ==
LOC: ED 09:46 → SUATTDRO 11:58 → 2N 11:58

== ENCOUNTER 2022-03-01 14:13 | Inpatient (IN) ==
[2022-03-01] MEDS ORDERED: SODIUM CHLORIDE 0.9% 500 ML IV STA (14:28)
--- NOTE | 2022-03-01 14:36 | Emergency Department Note ---
Impression & Plan Abdominal ascites, Urinary tract infection, LUCERO (dyspnea on exertion) ED Provider Note NAME: VERO AKINS AGE: 76 SEX: F : 1945 ARRIVES VIA: Walk-In INFORMANT: Patient, patient's son ED PROVIDER(S): Arjun Interiano DO CHIEF COMPLAINT: Weakness HPI: The patient is a 76-year-old female who presented to the emergency dep artment with her son for an evaluation of generalized weakness. Apparently patient has a history of liver cancer and had surgery in the past. She has had ascites which is slowly been worsening. She is scheduled for an EGD with her bologna maker. She is also scheduled for further work-up and testing over the next 2 weeks. She was told by her bologna maker if she started getting worse she should go to the emergency department for further evaluation. She denies having any nausea or vomiting. She denies having any black or bloody bowel moods. She states that she has significant weakness especially with exertion as well as shortness of breath with exertion. She is had no chest pain. She denies having any fever. She has had no lower extremity swelling but does complain of back pain. She has had falls recently. She fell recently and struck her back as well as her head. ROS: See above HPI for pertinent positives & negatives. A total of 10 systems reviewed and were otherwise negative. PAST MEDICAL HISTORY: See Below PAST SURGICAL HISTORY: See Below FAMILY HISTORY: See Below SOCIAL HISTORY: See Below HOME MEDICATIONS: See Below ALLERGIES: See Below VITALS: See Below PHYSICAL EXAMINATION: GENERAL: The patient is awake and alert. She is nonanxious appearing. EYES: The conjunctivae are clear. The pupils are round and reactive. EARS, NOSE, MOUTH AND THROAT: The nose is without any evidence of any deformity. Mucous membranes are moist. Tongue is midline. NECK: The neck is nontender and supple. RESPIRATORY: Diminished breath sounds are noted at the bases. There were rales at both bases. CARDIOVASCULAR: Regular rate and rhythm noted there no murmurs rubs or gallops normal S1 normal S2. GASTROINTESTINAL: The abdomen is moderately distended. There is right upper quadrant tenderness to palpation. There is no guarding rigidity. MUSCULOSKELETAL/EXTREMITIES: There is no evidence of gross deformity full range of motion is noted in the hips and shoulders. SKIN: There is no obvious evidence of any rash. There are no petechiae, pallor or cyanosis noted. Ecchymosis was noted over the left upper rib cage. There was tenderness to palpation. NEUROLOGIC: Patient is awake alert and oriented x3. Strength is symmetric but diminished. MEDICAL DECISION MAKING: The patient is a 76-year-old female who presented to the emergency department for an evaluation of ascites. The patient was diagnosed with ascites secondary to cirrhosis. She has a history of liver disease as well as cancer. The patient has been having worsening ascites. She is being worked up by gastroenterology but she was told to come to the emergency department if symptoms worsen. She does have significant shortness of breath with any exertion and has abdominal pain. She has signs of urinary tract infection on ur inalysis. She was treated with IV antibiotics in the emergency department. She was reevaluated multiple times. I discussed her condition with the on-call [facility] hospitalist group. They have agreed to evaluate the patient in the emergency department for further management and disposition. Triage Nursing notes reviewed. Prior medical records reviewed Vital Signs: reviewed and remarkable for elevated blood pressure. Differential diagnosis: Infection, dehydration, metabolic abnormality, hypo/hyperglycemia, electrolyte disturbance, anemia, hypoxia, cardiac sources, intracerebral event, toxicologic, neurologic, as well as other pathologies. ER treatment provided: See below Diagnostics interpreted by me: ECG: EKG was obtained in the emergency department. My interpretation is atrial fibrillation at 93 bpm. There was no PVCs noted. Nonspecific ST segment abnormalities were noted in the lateral leads. Low voltage was noted throughout. This was compared to a tracing from February 10, 2020. The ST segment abnormalities appear increased compared to the previous tracing otherwise no changes. Cardiac Monitoring: An order was placed for continuous cardiac monitoring. The monitor shows a rate of 95 bpm with sinus rhythm. Laboratory studies: As stated above and show below. Imaging studies: See below Consultation(s): I discussed this case with Dr. Morton [facility]. Past Med/Surg History Medical History TARA inhibitor intolerance Anxiety Atrial fibrillation follows w/ dr. aquino; dx years ago AV (arteriovenous fistula) left arm>"STILL WORKING" HAS NOT HAD TO USE Cirrhosis of liver CKD (chronic kidney disease) stage 4, GFR 15-29 ml/min follows w/ dr. 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 History of gastric ulcer History of gastrointestinal bleeding History of migraine HTN (hypertension) Hx of falling Hx of gout Hyperparathyroidism Osteoporosis Right-sided congestive heart failure Solitary right kidney Vertigo Surgical History H/O cataract removal with insertion of prosthetic lens RT/LEFT H/O tubal ligation History of section X 2 History of cholecystectomy History of colonoscopy History of esophagogastroduodenoscopy (EGD) History of lumbar laminectomy x 2 History of tooth extraction History of total abdominal hysterectomy and bilateral salpingo-oophorectomy Family History Other Cancer Diabetes Hypertension No family history of adverse response to anesthesia Social History Smoking Status: Never smoker Second Hand Exposure: Yes ( used to smoke); Hx Alcohol Use: No Hx Substance Use: No Preferred Language: Burundian Communication Ability: Effective Glaucoma Specialist Required: No Beliefs That Will Affect Care: None marital status: / Current Living Situation: Alone current occupational status: retired Feels Safe at Home: Yes Assistive Devices: Denture - Upper, Glasses and Walker Allergies Allergies Allergy/AdvReac Type Severity Reaction Status Date / Time gabapentin Allergy Severe EDEMA Verified 11/14/21 16:00 FACE/LIPS/TONGUE - ANGIOEDEMA meloxicam Allergy Severe RENAL Verified 11/14/21 16:00 FAILURE insulin detemir Allergy Intermediate HIVES, Verified 11/14/21 16:00 ELEVATED BSG latex Allergy Intermediate HIVES, RASH Verified 11/14/21 16:00 phenol Allergy Intermediate HIVES, Verified 11/14/21 16:00 ELEVATED BSG Sulfa (Sulfonamide Allergy Intermediate EDEMA,ITCHI Verified 11/14/21 16:00 Antibiotics) NG adhesive Allergy Mild skin Verified 11/14/21 16:00 irritation cephalexin Allergy Mild ELEVATED Verified 11/14/21 16:00 BSG TARA Inhibitors Allergy Unknown UNKNOWN Verified 11/14/21 16:00 Iodinated Contrast Media AdvReac Unknown PATIENT Verified 11/14/21 16:00 HAS CHRONIC KIDNEY FAILURE Home Meds Home Medications Medication Instructions Recorded Confirmed allopurinol 100 mg tablet 200 mg PO BID 10/06/18 11/14/21 aspirin 81 mg tablet,delayed 81 mg PO QAM 10/06/18 11/14/21 release atorvastatin 40 mg tablet 40 mg PO QAM 10/06/18 11/14/21 bisacodyl 10 mg rectal suppository 10 mg NV DAILY PRN 10/06/18 11/14/21 buspirone 10 mg tablet 10 mg PO BID 10/06/18 11/14/21 cholecalciferol (vitamin D3) 50 2,000 unit PO QAM 10/06/18 11/14/21 mcg (2,000 unit) capsule (Vitamin D3) docusate sodium 100 mg capsule 100 mg PO BID 10/06/18 11/14/21 escitalopram oxalate 10 mg tablet 10 mg PO QAM 10/06/18 11/14/21 fexofenadine 180 mg tablet 180 mg PO UD PRN 10/06/18 11/14/21 furosemide 40 mg tablet 40 mg PO QAM 10/06/18 11/14/21 isosorbide mononitrate 30 mg 30 mg PO QAM 10/06/18 11/14/21 tablet,extended release 24 hr losartan 25 mg tablet 25 mg PO QAM 10/06/18 11/14/21 metoprolol succinate 50 mg 50 mg PO QAM 10/06/18 11/14/21 tablet,extended release 24 hr nitroglycerin 0.4 mg sublingual 0.4 mg SUBLINGUAL UD PRN 10/06/18 11/14/21 tablet pantoprazole 40 mg tablet,delayed 40 mg PO QAM PRN 10/06/18 11/14/21 release liraglutide 0.6 mg/0.1 mL (18 mg/3 0.6 mg SUBCUT HS 12/23/18 11/14/21 mL) subcutaneous pen injector (Victoza 2-Momo) venlafaxine 75 mg capsule,extended 75 mg PO DAILY 02/10/20 11/14/21 release 24 hr insulin degludec 100 unit/mL (3 5 unit SUBCUT HS 04/09/21 11/14/21 mL) subcutaneous pen (Tresiba FlexTouch U-100 insulin) Results & Data (ED) Vital Signs Vital Signs - 24 hr 03/01/22 14:17 03/01/22 15:14 03/01/22 16:12 Temperature 36.9 C Temperature Source Temporal Artery Scan Pulse Rate 90 78 93 H Pulse Rate [Apical] 78 Pulse Rate [Right Finger] Pulse Rhythm [Apical] Regular Pulse Strength [Apical] Normal Respiratory Rate 18 19 20 Respiratory Effort / Characteristics Spontaneous Non-Labored Spontaneous Respiratory Depth Normal Normal Respiratory Pattern Regular Blood Pressure 157/66 H Blood Pressure [Right Arm] 176/102 H Blood Pressure Mean 96 Blood Pressure Mean [Right Arm] 126 Blood Pressure Position [Right Arm] Lying Pulse Oximetry 99 97 98 Oxygen Delivery Method Room Air Room Air Room Air Sepsis Recent Fever Within 48 Hours No Sepsis New/Unexplained Change in Mental Status No Sepsis Action Taken by Nursing No Action Required 03/01/22 16:13 03/01/22 19:00 Temperature Temperature Source Pulse Rate 95 H Pulse Rate [Apical] Pulse Rate [Right Finger] 95 H Pulse Rhythm [Apical] Pulse Strength [Apical] Respiratory Rate 20 20 Respiratory Effort / Characteristics Non-Labored Respiratory Depth Normal Respiratory Pattern Blood Pressure 155/85 H Blood Pressure [Right Arm] 175/102 H Blood Pressure Mean 108 Blood Pressure Mean [Right Arm] 126 Blood Pressure Position [Right Arm] Pulse Oximetry 99 95 Oxygen Delivery Method Room Air Sepsis Recent Fever Within 48 Hours Sepsis New/Unexplained Change in Mental Status Sepsis Action Taken by [facility] Medications Current Medication List: was personally reviewed by me Laboratory Data Attestation: I reviewed the patient's lab results. Result diagrams: 03/01/22 17:00 03/01/22 17:00 Lab Results 03/01/22 03/01/22 03/01/22 Range/Units 16:20 17:00 17:00 WBC 8.67 (4.8-10.8) K/uL RBC 3.53 L (4.2-5.4) M/uL Hgb 10.8 L (12.0-16.0) g/dL Hct 33.9 L (37-47) % MCV 96.0 (80-100) fL MCH 30.6 (25-34) pg MCHC 31.9 L (32-36) g/dL RDW Std Deviation 53.9 H (36.4-46.3) fL RDW Coeff of Yrn 15.5 H (11.5-14.5) % Plt Count 252 (130-400) K/uL MPV 10.4 (7.4-10.4) fL Immature Gran % (Auto) 0.2 % Neut % (Auto) 68.9 % Lymph % (Auto) 17.9 % Lyman % (Auto) 9.5 % Eos % (Auto) 3.3 % Baso % (Auto) 0.2 % Neut # (Auto) 5.97 (1.4-6.5) K/uL Lymph # (Auto) 1.55 (1.2-3.4) K/uL Lyman # (Auto) 0.82 H (0.11-0.59) K/uL Eos # (Auto) 0.29 (0-0.5) K/uL Baso # (Auto) 0.02 (0-0.2) K/uL Immature Gran # (Auto) 0.02 (0.00-0.02) K/uL PT 11.5 (9.0-12.0) Seconds INR 1.1 (0.9-1.1) APTT (21.0-31.0) Seconds PTT Ratio Sodium (136-145) mmol/L Potassium (3.5-5.1) mmol/L Chloride (98-107) mmol/L Carbon Dioxide (21-32) mmol/L Anion Gap (3-11) BUN (6-23) mg/dl Creatinine (0.6-1.2) mg/dl Est Cr Clr Drug Dosing ml/min Est GFR ( Amer) ml/min Est GFR (Non-Af Amer) ml/min BUN/Creatinine Ratio (10-20) Glucose (70-99(Fasting)) mg/dl Calcium (8.5-10.1) mg/dl Total Bilirubin (0.2-1.0) mg/dl Direct Bilirubin (0-0.2) mg/dl AST (13-39) U/L ALT (7-52) U/L Alkaline Phosphatase (34-104) U/L Troponin I High Sens (0-14) pg/ml Total Protein (6.0-8.3) gm/dl Albumin (3.4-5.0) gm/dl Globulin (2.5-4.0) gm/dl Albumin/Globulin Ratio (0.9-2) Lipase (11-82) U/L Urine Color Yellow Urine Appearance Clear (Clear) Urine pH 5.5 (4.5-7.5) Ur Specific [place] 1.008 (1.000-1.030) Urine Protein Negative (Negative) Urine Glucose (UA) Negative (Negative) Urine Ketones Negative (Negative) Urine Blood Negative (Negative) Urine Nitrite Positive A (Negative) Urine Bilirubin Negative (Negative) Urine Urobilinogen Negative (Negative) Ur Leukocyte Esterase 2+ H (Negative) Urine WBC (Auto) >30 H (0-5) /hpf Urine RBC (Auto) 0-4 (0-4) /hpf U Hyaline Cast (Auto) 0 (0-5) /lpf U Epithel Cells (Auto) 0-5 (0-5) /lpf Urine Bacteria (Auto) 3+ H (Negative) SARS-CoV-2, RNA, NAAT (NEGATIVE) 03/01/22 03/01/22 03/01/22 Range/Units 17:00 17:00 18:23 WBC (4.8-10.8) K/uL RBC (4.2-5.4) M/uL Hgb (12.0-16.0) g/dL Hct (37-47) % MCV (80-100) fL MCH (25-34) pg MCHC (32-36) g/dL RDW Std Deviation (36.4-46.3) fL RDW Coeff of Yrn (11.5-14.5) % Plt Count (130-400) K/uL MPV (7.4-10.4) fL Immature Gran % (Auto) % Neut % (Auto) % Lymph % (Auto) % Lyman % (Auto) % Eos % (Auto) % Baso % (Auto) % Neut # (Auto) (1.4-6.5) K/uL Lymph # (Auto) (1.2-3.4) K/uL Lyman # (Auto) (0.11-0.59) K/uL Eos # (Auto) (0-0.5) K/uL Baso # (Auto) (0-0.2) K/uL Immature Gran # (Auto) (0.00-0.02) K/uL PT (9.0-12.0) Seconds INR (0.9-1.1) APTT 26.8 (21.0-31.0) Seconds PTT Ratio 1.0 Sodium 143 (136-145) mmol/L Potassium 4.0 (3.5-5.1) mmol/L Chloride 111 H (98-107) mmol/L Carbon Dioxide 23 (21-32) mmol/L Anion Gap 9 (3-11) BUN 69 H (6-23) mg/dl Creatinine 2.03 H (0.6-1.2) mg/dl Est Cr Clr Drug Dosing 17.5 ml/min Est GFR ( Amer) 26.9 ml/min Est GFR (Non-Af Amer) 23.2 ml/min BUN/Creatinine Ratio 34.0 H (10-20) Glucose 88 (70-99(Fasting)) mg/dl Calcium 8.8 (8.5-10.1) mg/dl Total Bilirubin 0.7 (0.2-1.0) mg/dl Direct Bilirubin 0.1 (0-0.2) mg/dl AST 17 (13-39) U/L ALT 9 (7-52) U/L Alkaline Phosphatase 103 (34-104) U/L Troponin I High Sens 26.1 H (0-14) pg/ml Total Protein 6.1 (6.0-8.3) gm/dl Albumin 4.0 (3.4-5.0) gm/dl Globulin 2.1 L (2.5-4.0) gm/dl Albumin/Globulin Ratio 1.9 (0.9-2) Lipase 9 L (11-82) U/L Urine Color Urine Appearance (Clear) Urine pH (4.5-7.5) Ur Specific [place] (1.000-1.030) Urine Protein (Negative) Urine Glucose (UA) (Negative) Urine Ketones (Negative) Urine Blood (Negative) Urine Nitrite (Negative) Urine Bilirubin (Negative) Urine Urobilinogen (Negative) Ur Leukocyte Esterase (Negative) Urine WBC (Auto) (0-5) /hpf Urine RBC (Auto) (0-4) /hpf U Hyaline Cast (Auto) (0-5) /lpf U Epithel Cells (Auto) (0-5) /lpf Urine Bacteria (Auto) (Negative) SARS-CoV-2, RNA, NAAT NEGATIVE (NEGATIVE) Administered Medications Discontinued Medications Sodium Chloride (Nss) 500 mls @ 999 mls/hr IV .Q31M STA Stop: 03/01/22 14:58 Last Infusion: 03/01/22 18:02 Dose: 0 mls/hr Documented by: [id number] Admin: 03/01/22 17:06 Dose: 999 mls/hr Documented by: [id number] Ceftriaxone Sodium (Rocephin) 2,000 mg in 70 mls @ 140 mls/hr IV NOW STA Stop: 03/01/22 17:49 Last Infusion: 03/01/22 19:29 Dose: 0 mls/hr Documented by: [id number] Admin: 03/01/22 18:32 Dose: 140 mls/hr Documented by: [id number] Imaging Data Radiologist's Impression: Abdomen/Pelvis CT 03/01/22 14:28 CT abd pelvis wo con CLINICAL HISTORY: RUQ pain TECHNIQUE: Helical axial images of the abdomen and pelvis were obtained. Automated dose lowering techniques and/or adjustment according to patient size were utilized for this exam. This exam was performed without intravenous contrast. CT DOSE: 258.65 mGy.cm COMPARISON: Comparison is made to CT abdomen pelvis 11/14/2021 FINDINGS: Lower chest: Bibasilar atelectasis versus scarring is seen. There is trace left pleural effusion. Liver: Nodular contour of the liver is seen compatible with cirrhosis. Gallbladder and biliary tree: Patient is status post cholecystectomy. Physiologic prominence of the biliary ducts is noted. Pancreas: Fatty replacement of the pancreas is seen. Spleen: A hypodensity in the medial aspect of the spleen is unchanged measuring approximately 25 mm. It likely represents a cyst. Calcified splenic foci are favored to represent granulomas. Adrenals: Unremarkable. Kidneys and ureters: Atrophic appearance of the left kidney. Vascular calcifications are seen bilaterally, nonobstructive stones cannot be excluded. No evidence of hydronephrosis. Bladder: Unremarkable. Reproductive organs: Patient is status post hysterectomy. Bowel: Diverticulosis is seen without evidence of diverticulitis. The appendix is unremarkable. A small hiatal hernia is noted. Lymph nodes Retroperitoneal: Unremarkable. Mesenteric: Unremarkable. Pelvic: Unremarkable. Peritoneum: Moderate to large ascites is seen, significantly increased from prior exam. Vessels: Atherosclerotic calcifications are seen. Abdominal wall: Diffuse body wall edema is seen. Bones: Posterior fixation hardware is seen at L5-S1. Multilevel degenerative changes are seen IMPRESSION: 1. Moderate to large ascites is seen, significantly increased from prior exam. 2. Mildly cirrhotic appearance of the liver. 3. Redemonstration of multiple calcifications about the kidneys bilaterally. These are favored to represent vascular calcifications with or without superimposed nonobstructive nephrolithiasis. No hydronephrosis is seen. 4. Additional findings as above. ACT 112: Negative or not required by law. Electronically signed by: Anirudh Eldridge M.D. 03/01/2022 4:[address] 03/01/22 14:28 CT cervical spine wo con CLINICAL HISTORY: fall TECHNIQUE: Multidetector row helical CT of the cervical spine was performed without administration of intravenous contrast. Coronal and sagittal reformation s were obtained. Automated dose lowering techniques and/or adjustment according to patient size were utilized for this exam. Comparison: None available at the time of this dictation. FINDINGS: No acute fractures or subluxations are identified. The vertebral body heights and disk spaces are well maintained. The alignment is normal. Soft tissues are unremarkable. IMPRESSION: No evidence of acute bony injury. ACT 112: Negative or not required by law. Electronically signed by: Anirudh Eldridge M.D. 03/01/2022 4:[address] 03/01/22 14:28 CT head/brain wo con CLINICAL HISTORY: fall Technique: Contiguous axial CT images of the head were acquired from the base of the skull to the vertex without intravenous contrast administration. Images were viewed in brain, subdural and bone windows. Automated dose lowering techniques and/or adjustment according to patient size were utilized for this exam. Comparison: Comparison is made to CT head 02/10/2020 Findings: Areas of decreased attenuation are present in the periventricular and subcortical white matter bilaterally consistent with small vessel ischemic disease. Generalized cerebral atrophy with commensurate enlargement of the bubba tricles, sulci, and cisterns is also present. There is no acute intracranial hemorrhage or evidence of acute territorial infarction. No shift of the midline structures, mass effect, or extra-axial abnormalities are shown. Atherosclerotic calcifications are present in the intracranial segments of the internal carotid arteries. Imaged portions of the paranasal sinuses and mastoid air cells are clear. The orbits appear normal. There are no acute fractures of the calvaria or scalp swelling. Impression: No acute intracranial hemorrhage, no evidence of acute territorial infarction or other acute intracranial disease process. ACT 112: Negative or not required by law. Electronically signed by: Anirudh Eldridge M.D. 03/01/2022 4:00 PM Chest X-Ray 03/01/22 14:29 XR chest 1V portable CLINICAL HISTORY: SOB TECHNIQUE: Single frontal radiograph of the chest was obtained. Comparison: Comparison is made to chest radiograph 02/10/2020 FINDINGS: No lines and tubes are seen. Cardiomegaly is noted. Prominence and cephalization of the vasculature is seen. No evidence of pleural effusion or pneumothorax. IMPRESSION: Cardiomegaly with mild pulmonary edema. ACT 112: Negative or not required by law. Electronically signed by: Anirudh Eldridge M.D. 03/01/2022 3:05 PM Discharge Plan Visit Data Chief Complaint: Respiratory Problems Stated Complaint: FLUID IN ABDOMEN/COUGH/TROUBLE BREATHING ED Provider: Arjun Interiano Discharge Problem: Abdominal ascites, Urinary tract infection, LUCERO (dyspnea on exertion) Patient Disposition: Being Evaluated by Hospitalist Forms Stand Alone Forms: [facility] Prescriptions Prescriptions: No Action furosemide 40 mg tablet 40 mg PO QAM RF: 0 atorvastatin 40 mg tablet 40 mg PO QAM RF: 0 metoprolol succinate 50 mg tablet extended release 24 hr 50 mg PO QAM RF: 0 isosorbide mononitrate 30 mg tablet extended release 24 hr 30 mg PO QAM RF: 0 fexofenadine 180 mg Tablet 180 mg PO UD PRN (Reason: Allergic Symptoms) RF: 0 allopurinol 100 mg tablet 200 mg PO BID RF: 0 aspirin 81 mg Tablet,Delayed Release (Dr/Ec) 81 mg PO QAM RF: 0 bisacodyl 10 mg Suppository 10 mg NV DAILY PRN (Reason: Constipation) RF: 0 pantoprazole 40 mg tablet,delayed release (DR/EC) 40 mg PO QAM PRN (Reason: Indigestion) RF: 0 buspirone 10 mg tablet 10 mg PO BID RF: 0 losartan 25 mg tablet 25 mg PO QAM RF: 0 nitroglycerin 0.4 mg Tablet, Sublingual 0.4 mg Sublingual UD PRN (Reason: Chest Pain) RF: 0 docusate sodium 100 mg Capsule 100 mg PO BID RF: 0 escitalopram oxalate 10 mg tablet 10 mg PO QAM RF: 0 cholecalciferol (vitamin D3) [Vitamin D3] 2,000 unit Capsule 2,000 unit PO QAM RF: 0 venlafaxine 75 mg capsule,extended release 24hr 75 mg PO DAILY RF: 0 Victoza 2-Momo 0.6 mg/0.1 mL (18 mg/3 mL) Pen Injector 0.6 mg SUBCUT HS RF: 0 Tresiba FlexTouch U-100 100 unit/mL (3 mL) Insulin Pen 5 unit SUBCUT HS RF: 0 Referrals Referrals: Kourtney Molina MD [Primary Care Provider] -
--- NOTE | 2022-03-01 15:07 | XRay Report ---
XR chest 1V portable CLINICAL HISTORY: SOB TECHNIQUE: Single frontal radiograph of the chest was obtained. Comparison: Comparison is made to chest radiograph 02/10/2020 FINDINGS: No lines and tubes are seen. Cardiomegaly is noted. Prominence and cephalization of the vasculature i s seen. No evidence of pleural effusion or pneumothorax. IMPRESSION: Cardiomegaly with mild pulmonary edema. ACT 112: Negative or not required by law. Electronically signed by: Anirudh Eldridge M.D. 03/01/2022 3:05 PM
--- NOTE | 2022-03-01 16:02 | CT Scan Report ---
CT head/brain wo con CLINICAL HISTORY: fall Technique: Contiguous axial CT images of the head were acquired from the base of the skull to the danish cristofer without intravenous contrast administration. Images were viewed in brain, subdural and bone [facility]. Automated dose lowering techniques and/or adjustment according to patient size were utilized for this exam. Comparison: Comparison is made to CT head 02/10/2020 Findings: Areas of decreased attenuation are present in the periventricular and subcortical white matter bilate rally consistent with small vessel ischemic disease. Generalized cerebral atrophy with commensurate e nlargement of the ventricles, sulci, and cisterns is also present. There is no acute intracranial hem orrhage or evidence of acute territorial infarction. No shift of the midline structures, mass effect, or extra-axial abnormalities are shown. Atherosclerotic calcifications are present in the intracran ial segments of the internal carotid arteries. Imaged portions of the paranasal sinuses and mastoid air cells are clear. The orbits appear normal. There are no acute fractures of the calvaria or scalp swelling. Impression: No acute intracranial hemorrhage, no evidence of acute territorial infarction or other acute intracra nial disease process. ACT 112: Negative or not required by law. Electronically signed by: Anirudh Eldridge M.D. 03/01/2022 4:00 PM
--- NOTE | 2022-03-01 16:11 | CT Scan Report ---
CT cervical spine wo con CLINICAL HISTORY: fall TECHNIQUE: Multidetector row helical CT of the cervical spine was performed without administration of intravenous contrast. Coronal and sagittal reformations were obtained. Automated dose lowering techn iques and/or adjustment according to patient size were utilized for this exam. Comparison: None available at the time of this dictation. FINDINGS: No acute fractures or subluxations are identified. The vertebral body heights and disk spaces are wel l maintained. The alignment is normal. Soft tissues are unremarkable. IMPRESSION: No evidence of acute bony injury. ACT 112: Negative or not required by law. Electronically signed by: Anirudh Eldridge M.D. 03/01/2022 4:08 PM
--- NOTE | 2022-03-01 16:21 | CT Scan Report ---
CT abd pelvis wo con CLINICAL HISTORY: RUQ pain TECHNIQUE: Helical axial images of the abdomen and pelvis were obtained. Automated dose lowering tech niques and/or adjustment according to patient size were utilized for this exam. This exam was perfor med without intravenous contrast. CT DOSE: 258.65 mGy.cm COMPARISON: Comparison is made to CT abdomen pelvis 11/14/2021 FINDINGS: Lower chest: Bibasilar atelectasis versus scarring is seen. There is trace left pleural effusion. Liver: Nodular contour of the liver is seen compatible with cirrhosis. Gallbladder and biliary tree: Patient is status post cholecystectomy. Physiologic prominence of the b iliary ducts is noted. Pancreas: Fatty replacement of the pancreas is seen. Spleen: A hypodensity in the medial aspect of the spleen is unchanged measuring approximately 25 mm. It likely represents a cyst. Calcified splenic foci are favored to represent granulomas. Adrenals: Unremarkable. Kidneys and ureters: Atrophic appearance of the left kidney. Vascular calcifications are seen bilater ally, nonobstructive stones cannot be excluded. No evidence of hydronephrosis. Bladder: Unremarkable. Reproductive organs: Patient is status post hysterectomy. Bowel: Diverticulosis is seen without evidence of diverticulitis. The appendix is unremarkable. A sma ll hiatal hernia is noted. Lymph nodes Retroperitoneal: Unremarkable. Mesenteric: Unremarkable. Pelvic: Unremarkable. Peritoneum: Moderate to large ascites is seen, significantly increased from prior exam. Vessels: Atherosclerotic calcifications are seen. Abdominal wall: Diffuse body wall edema is seen. Bones: Posterior fixation hardware is seen at L5-S1. Multilevel degenerative changes are seen IMPRESSION: 1. Moderate to large ascites is seen, significantly increased from prior exam. 2. Mildly cirrhotic appearance of the liver. 3. Redemonstration of multiple calcifications about the kidneys bilaterally. These are favored to re present vascular calcifications with or without superimposed nonobstructive nephrolithiasis. No hydro nephrosis is seen. 4. Additional findings as above. ACT 112: Negative or not required by law. Electronically signed by: Anirudh Eldridge M.D. 03/01/2022 4:19 PM
[2022-03-01 16:36] LABS: Appearance Urine Clear (Clear); Bacteria Urine Automated 3+ (Negative); Bilirubin Urine Negative (Negative); Blood Urine Negative (Negative); Cast Urine Automated 0 /lpf (0-5); Color Urine Yellow; Epithelial Cell Urine Auto 0-5 /lpf (0-5); Glucose Urine UA Negative (Negative); Ketones Urine Negative (Negative); Leukocyte Esterase Urine 2+ (Negative); Nitrite Urine Positive (Negative); Protein Urine Negative (Negative); RBC Urine Automated 0-4 /hpf (0-4); Specific Gravity Urine 1.008 (1.000-1.030); Urobilinogen Urine Negative (Negative); WBC Urine Automated >30 /hpf (0-5); pH Urine 5.5 (4.5-7.5)
[2022-03-01 17:18] LABS: Basophils # (auto) 0.02 K/uL (0-0.2); Basophils % (auto) 0.2 %; Eosinophils # (auto) 0.29 K/uL (0-0.5); Eosinophils % (auto) 3.3 %; Hematocrit (blood only) 33.9 % (37-47); Hemoglobin 10.8 g/dL (12.0-16.0); Immature Granulocytes # (auto) 0.02 K/uL (0.00-0.02); Immature Granulocytes % (auto) 0.2 %; Lymphocytes # (auto) 1.55 K/uL (1.2-3.4); Lymphocytes % (auto) 17.9 %; Mean Corpuscular Hemoglobin 30.6 pg (25-34); Mean Corpuscular Hgb Conc 31.9 g/dL (32-36); Mean Platelet Volume 10.4 fL (7.4-10.4); Monocytes # (auto) 0.82 K/uL (0.11-0.59); Monocytes % (auto) 9.5 %; Neutrophils # (auto) 5.97 K/uL (1.4-6.5); Neutrophils % (auto) 68.9 %; Platelet Count 252 K/uL (130-400); RDW Coefficient of Variation 15.5 % (11.5-14.5); RDW Standard Deviation 53.9 fL (36.4-46.3); Red Blood Count 3.53 M/uL (4.2-5.4); White Blood Count 8.67 K/uL (4.8-10.8)
[2022-03-01] MEDS ORDERED: cefTRIAXone SODIUM 2,000 MG/70 ML BAG IV STA (17:20)
[2022-03-01 17:34] LABS: INR 1.1 (0.9-1.1); Prothrombin Time 11.5 Seconds (9.0-12.0)
[2022-03-01 17:46] LABS: Troponin I High Sensitivity 26.1 pg/ml (0-14)
[2022-03-01 17:50] LABS: Albumin Globulin Ratio 1.9 (0.9-2); Bilirubin Direct 0.1 mg/dl (0-0.2); Bilirubin,Total 0.7 mg/dl (0.2-1.0); Calcium 8.8 mg/dl (8.5-10.1); Creatinine Clr Calc Pharmacy 17.5 ml/min; Est GFR (African American) 26.9 ml/min; Est GFR (Non-African American) 23.2 ml/min; Globulin 2.1 gm/dl (2.5-4.0); Total Protein 6.1 gm/dl (6.0-8.3)
[2022-03-01 18:17] LABS: Partial Thromboplastin Time 26.8 Seconds (21.0-31.0)
--- NOTE | 2022-03-01 18:46 | History & Physical Report ---
Date of Service March 01, 2022 Assessment & Plan (1) Acute right heart failure: Plan: Known h/o right heart failure possibly as a cause of cirrhosis 2/2 congestive hepatopathy presents with acute worsening and fluid overload. Presumed cardiac cause for her increased ascites given heart failure syndorm edescribed including decreased exercise tolerance, weight gain, 2 pillow orthopnea, +PND reported. She has increased fatigue with a dry cough for last 2-3 weeks along with these symptoms described. She has persistent atrial fibrillation. Significant JVD seen on examination. Place arce for accurate output and start Lasix 40 IV daily. Trend BNP and update echo. Caution to not drop her volume too much to risk hypoperfusion. Consult cardiology. Will hold off on paracentesis at this time given possible imrpovement with diuretics. Although consideration was given to PE as a cause of both dyspnea and acute heart failure, she is not reporting chest pain, is not hypoxic and additional contrast with Stage IV CKD may worsen kidney function when other causes (i.e-pulmonary edema) are present as an explanation of symptoms. (2) UTI (urinary tract infection): Plan: Increased urgency and +UA. Rocephin started and will continue pending clinical improvement and culture results. (3) Abdominal ascites: Plan: Likely result of acute ferrer failure, however, recently seen in outpatient GI clinic and there was a plan to perform abdominal paracentesis. Consulted GI for thoughts at this point. (4) Cirrhosis: Plan: appears compensated--INR and bilirubin are within normal limits. (5) Generalized weakness: Plan: As a result of issues above. PT/OT to assess when appropriate. (6) Recurrent falls: Plan: As a result of UTI and fatigue/weakness from heart failure and other chronic medical conditions. (7) Diabetes mellitus type 2 in nonobese: Plan: Allergies to Levemir, but says she has taken Lantus in the past without issue. Hold Tresiba and start Lantus/Novolog during hospital stay. (8) CKD (chronic kidney disease) stage 4, GFR 15-29 ml/min: Plan: chronic, at her baseline. Minimize insult to kidneys with contrast or other nephrotoxins and renally dose medications as needed. (9) HTN (hypertension): Plan: chronic, uncontrolled. Reassess after diuretic therapy started and continue home therapies (10) DVT prophylaxis: Plan: Heparin Full Code per patient on admission. Son was at bedside with her and corroborated her story. 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 Imaging in 2008 suggestive of lobular liver and ascites s/p IJ LB 8/09 = mild steatosis, bridging fibrosis, sinus total dilation. Cirrhosis serologies negative. Ultimately dx'd with right heart failure, cardiac cirrhosis + NAFLD. Last seen by GI in 2019. Lost to follow-up at that time. Developed RLQ abd discomfort that is constant x 1 month. Saw GI in the clinic on 02/25/22 with US guided paracentesis planned and MRI of liver. She presents today reporting recurrent falls and worsening ascites. She reports 5-10 lb weight gain and other symptoms over the last 2-3 weeks includingworsening dry cough, incrased swelling in abdomen with lower abdomina pain that is described as intermittent sharp pains that are fleeting and change from side to side when she moves around. She has 2 pillow orthopnea and +PND reported. 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 She reports "sometimes I think I will never get back" referring to walking to her mailbox and back again. She is not able to drive a car. She denies fevers, chills. She reports a new urinary urgency but no dysuria or flank pain. She has noticed alternating diarrhea and now has not had a BM in 2 days. She is VERY ITCHY on her back. No rash is present but she does have ecchymosis as the result of a fall at home. Allergies Allergy/AdvReac Type Severity Reaction Status Date / Time gabapentin Allergy Severe EDEMA Verified 11/14/21 16:00 FACE/LIPS/TONGUE - ANGIOEDEMA meloxicam Allergy Severe RENAL Verified 11/14/21 16:00 FAILURE insulin detemir Allergy Intermediate HIVES, Verified 11/14/21 16:00 ELEVATED BSG latex Allergy Intermediate HIVES, RASH Verified 11/14/21 16:00 phenol Allergy Intermediate HIVES, Verified 11/14/21 16:00 ELEVATED BSG Sulfa (Sulfonamide Allergy Intermediate EDEMA,ITCHI Verified 11/14/21 16:00 Antibiotics) NG adhesive Allergy Mild skin Verified 11/14/21 16:00 irritation cephalexin Allergy Mild ELEVATED Verified 11/14/21 16:00 BSG TARA Inhibitors Allergy Unknown UNKNOWN Verified 11/14/21 16:00 Iodinated Contrast Media AdvReac Unknown PATIENT Verified 11/14/21 16:00 HAS CHRONIC KIDNEY FAILURE Home Medications Medication Instructions Recorded Confirmed Type allopurinol 100 mg tablet 200 mg PO QAM 10/06/18 03/01/22 History aspirin 81 mg tablet,delayed 81 mg PO QAM 10/06/18 03/01/22 History release atorvastatin 40 mg tablet 40 mg PO QAM 10/06/18 03/01/22 History bisacodyl 10 mg rectal suppository 10 mg TX DAILY PRN 10/06/18 03/01/22 History cholecalciferol (vitamin D3) 50 2,000 unit PO QAM 10/06/18 03/01/22 History mcg (2,000 unit) capsule (Vitamin D3) docusate sodium 100 mg capsule 100 mg PO BID 10/06/18 03/01/22 History fexofenadine 180 mg tablet 180 mg PO DAILY PRN 10/06/18 03/01/22 History furosemide 40 mg tablet 40 mg PO QAM 10/06/18 03/01/22 History isosorbide mononitrate 30 mg 30 mg PO QAM 10/06/18 03/01/22 History tablet,extended release 24 hr losartan 25 mg tablet 12.5 mg PO QAM 10/06/18 03/01/22 History nitroglycerin 0.4 mg sublingual 0.4 mg SUBLINGUAL UD PRN 10/06/18 03/01/22 History tablet insulin degludec 100 unit/mL (3 5 unit SUBCUT DAILY 04/09/21 03/01/22 History mL) subcutaneous pen (Tresiba FlexTouch U-100 insulin) hydroxyzine HCl 25 mg tablet 25 mg PO Q6H PRN 03/01/22 03/01/22 History lorazepam 0.5 mg tablet 0.5 - 1 mg PO HS PRN 03/01/22 03/01/22 History metoprolol succinate 25 mg 25 mg PO QAM 03/01/22 03/01/22 History tablet,extended release 24 hr pantoprazole 20 mg tablet,delayed 20 mg PO QAM 03/01/22 03/01/22 History release sertraline 100 mg tablet 100 mg PO HS 03/01/22 03/01/22 History Past Med/Surg History Medical History TARA inhibitor intolerance Anxiety Atrial fibrillation follows w/ dr. aquino; dx years ago AV (arteriovenous fistula) left arm>"STILL WORKING" HAS NOT HAD TO USE Cirrhosis of liver CKD (chronic kidney disease) stage 4, GFR 15-29 ml/min follows w/ dr. 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 History of gastric ulcer History of gastrointestinal bleeding History of migraine HTN (hypertension) Hx of falling Hx of gout Hyperparathyroidism Osteoporosis Right-sided congestive heart failure Solitary right kidney Vertigo Surgical History H/O cataract removal with insertion of prosthetic lens RT/LEFT H/O tubal ligation History of section X 2 History of cholecystectomy History of colonoscopy History of esophagogastroduodenoscopy (EGD) History of lumbar laminectomy x 2 History of tooth extraction History of total abdominal hysterectomy and bilateral salpingo-oophorectomy Family History Other Cancer Diabetes Hypertension No family history of adverse response to anesthesia Social History Smoking Status: Never smoker Second Hand Exposure: Yes ( used to smoke); Hx Alcohol Use: No Hx Substance Use: No Preferred Language: Maori Communication Ability: Effective 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 Physical Exam Physical Exam: CONSTITUTIONAL: WNWD, vitals as above, generally ill appearing and fatigued EYES: pupils are round and equal bilaterally, normal conjunctivae, no scleral icterus ENT: external ear and nose normal, oropharynx clear, no TM abnormality, no maxillary or ethmoid sinus tenderness NECK: trachea midline, no lymphadenopathy, normal thyroid RESPIRATORY: clear to auscultation bilaterally, no crackles, rales or wheezes, normal respiratory effort CARDIOVASCULAR: regular rate and rhythm, S1 and 2 heard without murmurs, gallops or rubs, +significant JVD to angle of mandible, no peripheral edema, CHEST: inspection of chest was normal GASTROINTESTINAL: soft, TTP in RLQ/LLQ, no guarding, +fluid but not protuberant MUSCULOSKELETAL: generalized weakness, head is normocephalic and atraumatic, neck supple, normal palpation of chest wall without tenderness SKIN: warm and dry, ecchymotic areas on upper back. NEUROLOGIC: patellar DTRs 2+ bilat. PERRL, EOMI, no facial palsy, no dysarthria. Touch, pain and proprioception normal. CN 2-12 grossly intact, no sensory deficit, normal cognition, normal speech, no tremor PSYCHIATRIC: alert cooperative and oriented to person, place and time. Euthymic mood, makes good eye contact, language grossly intact, recent and remote memory grossly intact. Results & Data Results & Data ([facility]) Vital Signs (Past 12 Hours) Vital Signs Temp Pulse Pulse Pulse Resp BP BP 03/01/22 16:13 95 H 20 175/102 H 03/01/22 16:12 93 H 20 03/01/22 15:14 78 78 19 176/102 H 03/01/22 14:17 36.9 C 90 18 157/66 H Pulse Ox 03/01/22 16:13 99 03/01/22 16:12 98 03/01/22 15:14 97 03/01/22 14:17 99 Laboratory Results Short CBC 03/01/22 Range/Units 17:00 WBC 8.67 (4.8-10.8) K/uL Hgb 10.8 L (12.0-16.0) g/dL Hct 33.9 L (37-47) % Plt Count 252 (130-400) K/uL BMP 03/01/22 17:00 Sodium 143 Potassium 4.0 Chloride 111 H Carbon Dioxide 23 BUN 69 H Creatinine 2.03 H Glucose 88 Calcium 8.8 Liver Function 03/01/22 Range/Units 17:00 Total Bilirubin 0.7 (0.2-1.0) mg/dl Direct Bilirubin 0.1 (0-0.2) mg/dl AST 17 (13-39) U/L ALT 9 (7-52) U/L Alkaline Phosphatase 103 (34-104) U/L Albumin 4.0 (3.4-5.0) gm/dl Urine 03/01/22 Range/Units 16:20 Urine Color Yellow Urine Appearance Clear (Clear) Urine pH 5.5 (4.5-7.5) Ur Specific [place] 1.008 (1.000-1.030) Urine Protein Negative (Negative) Urine Glucose (UA) Negative (Negative) Diagnostic Findings Abdomen/Pelvis CT 03/01/22 14:28 CT abd pelvis wo con CLINICAL HISTORY: RUQ pain TECHNIQUE: Helical axial images of the abdomen and pelvis were obtained. Automated dose lowering techniques and/or adjustment according to patient size were utilized for this exam. This exam was performed without intravenous contrast. CT DOSE: 258.65 mGy.cm COMPARISON: Comparison is made to CT abdomen pelvis 11/14/2021 FINDINGS: Lower chest: Bibasilar atelectasis versus scarring is seen. There is trace left pleural effusion. Liver: Nodular contour of the liver is seen compatible with cirrhosis. Gallbladder and biliary tree: Patient is status post cholecystectomy. Physiologic prominence of the biliary ducts is noted. Pancreas: Fatty replacement of the pancreas is seen. Spleen: A hypodensity in the medial aspect of the spleen is unchanged measuring approximately 25 mm. It likely represents a cyst. Calcified splenic foci are favored to represent granulomas. Adrenals: Unremarkable. Kidneys and ureters: Atrophic appearance of the left kidney. Vascular calcifications are seen bilaterally, nonobstructive stones cannot be excluded. No evidence of hydronephrosis. Bladder: Unremarkable. Reproductive organs: Patient is status post hysterectomy. Bowel: Diverticulosis is seen without evidence of diverticulitis. The appendix is unremarkable. A small hiatal hernia is noted. Lymph nodes Retroperitoneal: Unremarkable. Mesenteric: Unremarkable. Pelvic: Unremarkable. Peritoneum: Moderate to large ascites is seen, significantly increased from prior exam. Vessels: Atherosclerotic calcifications are seen. Abdominal wall: Diffuse body wall edema is seen. Bones: Posterior fixation hardware is seen at L5-S1. Multilevel degenerative changes are seen IMPRESSION: 1. Moderate to large ascites is seen, significantly increased from prior exam. 2. Mildly cirrhotic appearance of the liver. 3. Redemonstration of multiple calcifications about the kidneys bilaterally. These are favored to represent vascular calcifications with or without superimposed nonobstructive nephrolithiasis. No hydronephrosis is seen. 4. Additional findings as above. ACT 112: Negative or not required by law. Electronically signed by: Anirudh Eldridge M.D. 03/01/2022 4:[address] 03/01/22 14:28 CT cervical spine wo con CLINICAL HISTORY: fall TECHNIQUE: Multidetector row helical CT of the cervical spine was performed without administration of intravenous contrast. Coronal and sagittal reformations were obtained. Automated dose lowering techniques and/or adjustment according to patient size were utilized for this exam. Comparison: None available at the time of this dictation. FINDINGS: No acute fractures or subluxations are identified. The vertebral body heights and disk spaces are well maintained. The alignment is normal. Soft tissues are unremarkable. IMPRESSION: No evidence of acute bony injury. ACT 112: Negative or not required by law. Electronically signed by: Anirudh Eldridge M.D. 03/01/2022 4:[address] 03/01/22 14:28 CT head/brain wo con CLINICAL HISTORY: fall Technique: Contiguous axial CT images of the head were acquired from the base of the skull to the vertex without intravenous contrast administration. Images were viewed in brain, subdural and bone windows. Automated dose lowering techniques and/or adjustment according to patient size were utilized for this exam. Comparison: Comparison is made to CT head 02/10/2020 Findings: Areas of decreased attenuation are present in the periventricular and subcortical white matter bilaterally consistent with small vessel ischemic disease. Generalized cerebral atrophy with commensurate enlargement of the ventricles, sulci, and cisterns is also present. There is no acute intracranial hemorrhage or evidence of acute territorial infarction. No shift of the midline structures, mass effect, or extra-axial abnormalities are shown. Athero sclerotic calcifications are present in the intracranial segments of the internal carotid arteries. Imaged portions of the paranasal sinuses and mastoid air cells are clear. The orbits appear normal. There are no acute fractures of the calvaria or scalp swelling. Impression: No acute intracranial hemorrhage, no evidence of acute territorial infarction or other acute intracranial disease process. ACT 112: Negative or not required by law. Electronically signed by: Anirudh Eldridge M.D. 03/01/2022 4:00 PM Chest X-Ray 03/01/22 14:29 XR chest 1V portable CLINICAL HISTORY: SOB TECHNIQUE: Single frontal radiograph of the chest was obtained. Comparison: Comparison is made to chest radiograph 02/10/2020 FINDINGS: No lines and tubes are seen. Cardiomegaly is noted. Prominence and cephalization of the vasculature is seen. No evidence of pleural effusion or pneumothorax. IMPRESSION: Cardiomegaly with mild pulmonary edema. ACT 112: Negative or not required by law. Electronically signed by: Anirudh Eldridge M.D. 03/01/2022 3:05 PM Code Status & VTE Plan VTE Prophylaxis Plan VTE Prophylaxis will be ordered: Yes (1) Abdominal ascites Ascites type: other type Qualified Code(s): R18.8 - Other ascites
[2022-03-01] MEDS ORDERED: FUROSEMIDE 40 MG/4 ML VIAL IV ONE (19:35)
[2022-03-01] MEDS ORDERED: GLUCAGON FOR INJ 1 MG VIAL SQ PRN (21:11)
[2022-03-01] MEDS ORDERED: POLYETHYLENE (MIRALAX) 17 GM PACK PO PRN (21:11)
[2022-03-01] MEDS ORDERED: GLUCOSE 10 TAB/TUBE PO PRN (21:11)
[2022-03-01] MEDS ORDERED: GLUCOSE 40% GEL 15 GM TUBE PO PRN (21:11)
[2022-03-01] MEDS ORDERED: DEXTROSE 50% 50 ML SYRINGE IV PRN (21:11)
[2022-03-01] MEDS: CARBOHYDRATES FOR HYPOGLYCEMIA PO PRN (21:50)
[2022-03-01] MEDS: HEPARIN SOD 5,000 UNIT/0.5 ML VIAL SQ SCH (21:56)
[2022-03-01] MEDS: INSULIN ASPART PER UNIT SC SCH (21:56)
[2022-03-01] MEDS: DOCUSATE SODIUM 100 MG CAP PO SCH (21:56)
[2022-03-01] MEDS: SERTRALINE HCL 100 MG TABLET PO SCH (21:56)
[2022-03-01] MEDS: hydrOXYzine HCl 25 MG TAB PO PRN (22:00)
[2022-03-01] MEDS: LANTUS PER UNIT CHARGE SQ SCH (22:29)
[2022-03-01] MEDS: LORazepam 0.5 MG TAB PO PRN (23:42)
[2022-03-02 07:12] LABS: INR 1.1 (0.9-1.1); Prothrombin Time 11.4 Seconds (9.0-12.0)
[2022-03-02 07:20] LABS: Albumin Globulin Ratio 1.8 (0.9-2); Albumin Level 3.7 gm/dl (3.4-5.0); BUN Creatinine Ratio 34.3 (10-20); Bilirubin,Total 0.5 mg/dl (0.2-1.0); Calcium 8.6 mg/dl (8.5-10.1); Creatinine Clr Calc Pharmacy 16.2 ml/min; Est GFR (African American) 27.2 ml/min; Est GFR (Non-African American) 23.5 ml/min; Globulin 2.1 gm/dl (2.5-4.0); Hematocrit (blood only) 31.9 % (37-47); Hemoglobin 10.3 g/dL (12.0-16.0); Mean Corpuscular Hgb Conc 32.3 g/dL (32-36); Mean Corpuscular Volume 96.1 fL (80-100); Mean Platelet Volume 10.6 fL (7.4-10.4); Platelet Count 235 K/uL (130-400); Potassium 4.3 mmol/L (3.5-5.1); RDW Coefficient of Variation 15.6 % (11.5-14.5); RDW Standard Deviation 55.3 fL (36.4-46.3); Red Blood Count 3.32 M/uL (4.2-5.4); Total Protein 5.8 gm/dl (6.0-8.3); White Blood Count 7.13 K/uL (4.8-10.8)
[2022-03-02] MEDS: INSULIN ASPART PER UNIT SC SCH ×4 (08:11→20:59)
[2022-03-02] MEDS: LANTUS PER UNIT CHARGE SQ SCH ×2 (08:12→21:04)
[2022-03-02] MEDS: METOPROLOL SUCC 25MG EXT REL TAB PO SCH (08:12)
[2022-03-02] MEDS: FUROSEMIDE 40 MG/4 ML VIAL IV SCH (08:13)
[2022-03-02] MEDS: LOSARTAN POTASSIUM 25 MG TAB PO SCH (08:13)
[2022-03-02] MEDS: HEPARIN SOD 5,000 UNIT/0.5 ML VIAL SQ SCH ×2 (08:14→20:08)
[2022-03-02] MEDS: DOCUSATE SODIUM 100 MG CAP PO SCH ×2 (08:14→20:09)
[2022-03-02] MEDS: allopurinoL 100 MG TAB PO SCH (08:15)
[2022-03-02] MEDS: ISOSORBIDE MONO EXTENDED REL 30 MG TABCR PO SCH (08:15)
[2022-03-02] MEDS: ATORVASTATIN 40 MG TAB PO SCH (08:15)
[2022-03-02] MEDS: ASPIRIN 81 MG ECTAB PO SCH (08:15)
[2022-03-02] MEDS: PANTOprazole 40 MG TAB PO SCH (08:16)
--- NOTE | 2022-03-02 10:16 | Gastrointestinal Consultation ---
Date of Consultation March 02, 2022 Assessment & Plan (1) Cirrhosis: Cirrhosis serologies negative previously. Ultimately dx'd with right heart failure, cardiac cirrhosis + NAFLD upon prior presentation Will need -Echo -Paracentesis but would limit to 5 L given kidney function and would give some albumin after with lasix 25 would suffice of albumin, please send for albumin, total protein, cytology given history of gallbladder cancer, cell count and differential. 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 Imaging in 2008 suggestive of lobular liver and ascites s/p IJ LB 8/09 = mild steatosis, bridging fibrosis, sinus total dilation. Cirrhosis serologies negative. Ultimately dx'd with right heart failure, cardiac cirrhosis + NAFLD. Last seen by GI in 2018. Lost to follow-up at that time. Developed RLQ abd discomfort that is constant x 1 month. Saw GI in the clinic on 02/25/22 with US guided paracentesis planned and MRI of liver. She presents today reporting weakness and worsening ascites. She reports 5-10 lb weight gain dry cough, increased swelling in abdomen with lower abdominal pain that is described as intermittent sharp pains that are fleeting and change from side to side when she moves around. She has 2 pillow orthopnea and +PND reported. Today she feels better, has been seen by cardiology and has an echocardiogram pending. Allergies Allergy/AdvReac Type Severity Reaction Status Date / Time gabapentin Allergy Severe EDEMA Verified 11/14/21 16:00 FACE/LIPS/TONGUE - ANGIOEDEMA meloxicam Allergy Severe RENAL Verified 11/14/21 16:00 FAILURE insulin detemir Allergy Intermediate HIVES, Verified 11/14/21 16:00 ELEVATED BSG latex Allergy Intermediate HIVES, RASH Verified 11/14/21 16:00 phenol Allergy Intermediate HIVES, Verified 11/14/21 16:00 ELEVATED BSG Sulfa (Sulfonamide Allergy Intermediate EDEMA,ITCHI Verified 11/14/21 16:00 Antibiotics) NG adhesive Allergy Mild skin Verified 11/14/21 16:00 irritation cephalexin Allergy Mild ELEVATED Verified 11/14/21 16:00 BSG TARA Inhibitors Allergy Unknown UNKNOWN Verified 11/14/21 16:00 Iodinated Contrast Media AdvReac Unknown PATIENT Verified 11/14/21 16:00 HAS CHRONIC KIDNEY FAILURE Home Medications Medication Instructions Recorded Confirmed Type allopurinol 100 mg tablet 200 mg PO QAM 10/06/18 03/01/22 History aspirin 81 mg tablet,delayed 81 mg PO QAM 10/06/18 03/01/22 History release atorvastatin 40 mg tablet 40 mg PO QAM 10/06/18 03/01/22 History bisacodyl 10 mg rectal suppository 10 mg CA DAILY PRN 10/06/18 03/01/22 History cholecalciferol (vitamin D3) 50 2,000 unit PO QAM 10/06/18 03/01/22 History mcg (2,000 unit) capsule (Vitamin D3) docusate sodium 100 mg capsule 100 mg PO BID 10/06/18 03/01/22 History fexofenadine 180 mg tablet 180 mg PO DAILY PRN 10/06/18 03/01/22 History furosemide 40 mg tablet 40 mg PO QAM 10/06/18 03/01/22 History isosorbide mononitrate 30 mg 30 mg PO QAM 10/06/18 03/01/22 History tablet,extended release 24 hr losartan 25 mg tablet 12.5 mg PO QAM 10/06/18 03/01/22 History nitroglycerin 0.4 mg sublingual 0.4 mg SUBLINGUAL UD PRN 10/06/18 03/01/22 History tablet insulin degludec 100 unit/mL (3 5 unit SUBCUT DAILY 04/09/21 03/01/22 History mL) subcutaneous pen (Tresiba FlexTouch U-100 insulin) hydroxyzine HCl 25 mg tablet 25 mg PO Q6H PRN 03/01/22 03/01/22 History lorazepam 0.5 mg tablet 0.5 - 1 mg PO HS PRN 03/01/22 03/01/22 History metoprolol succinate 25 mg 25 mg PO QAM 03/01/22 03/01/22 History tablet,extended release 24 hr pantoprazole 20 mg tablet,delayed 20 mg PO QAM 03/01/22 03/01/22 History release sertraline 100 mg tablet 100 mg PO HS 03/01/22 03/01/22 History Patient History Medical History TARA inhibitor intolerance Anxiety Atrial fibrillation follows w/ dr. aquino; dx years ago AV (arteriovenous fistula) left arm>"STILL WORKING" HAS NOT HAD TO USE Cirrhosis of liver CKD (chronic kidney disease) stage 4, GFR 15-29 ml/min follows w/ dr. 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 History of gastric ulcer History of gastrointestinal bleeding History of migraine HTN (hypertension) Hx of falling Hx of gout Hyperparathyroidism Osteoporosis Right-sided congestive heart failure Solitary right kidney Vertigo Surgical History H/O cataract removal with insertion of prosthetic lens RT/LEFT H/O tubal ligation History of section X 2 History of cholecystectomy History of colonoscopy History of esophagogastroduodenoscopy (EGD) History of lumbar laminectomy x 2 History of tooth extraction History of total abdominal hysterectomy and bilateral salpingo-oophorectomy Family History Other Cancer Diabetes Hypertension No family history of adverse response to anesthesia Social History Smoking Status: Unknown if ever smoked Second Hand Exposure: Yes ( used to smoke); Hx Alcohol Use: No Hx Substance Use: No Preferred Language: Greek Communication Ability: Effective Individual Pension Adviser Required: No Beliefs That Will Affect Care: None marital status: / Current Living Situation: Alone Current Living Situation Comment: with help on Tuesdays and current occupational status: retired Other Information That Helps Us Care for You: No Feels Safe at Home: No Is there a partner from a previous relationship who is making you feel unsafe now?: No Any Concerns about Your Family Situation: No Would You Like to Speak to Someone About Your Situation: No Safety Concerns: Feels Safe At This Time Assistive Devices: Cane, Glasses and Walker Physical Exam Physical Exam: Oriented x3 mildly weak no apparent distress Heart is irregularly irregular Abdomen is soft not distended not overly impressive for tense ascites No peripheral edema No jaundice No Neurologic deficits Results & Data ([facility]) Vital Signs (Past 12 Hours) Vital Signs Temp Pulse Pulse Resp BP Pulse Ox 03/02/22 07:19 36.6 C 85 18 132/73 96 03/02/22 03:54 36.9 C 88 16 134/68 94 03/01/22 22:52 79
--- NOTE | 2022-03-02 12:49 | Hospitalist Progress Note ---
Date of Service March 02, 2022 Assessment & Plan (1) Acute right heart failure: Plan: Known h/o right heart failure possibly as a cause of cirrhosis 2/2 congestive hepatopathy presents with acute worsening and fluid overload. Presumed cardiac cause for her increased ascites given heart failure syndrome described including decreased exercise tolerance, weight gain, 2 pillow orthopnea, +PND reported. She has increased fatigue with a dry cough for last 2-3 weeks along with these symptoms described. She has persistent atrial fibrillation. Significant JVD seen on examination Cont Lasix 40mg IV daily, strict I/Os, low salt diet, daily BMP given chronic kidney disease. Dr. Mix following. Watch for improvement on diuretics and limited ability for paracentesis over this holiday 10/02 staffing. Contacted radiology today and put her on the schedule to be done Thursday. (2) UTI (urinary tract infection): Plan: Increased urgency and +UA. Rocephin started and will continue pending clinical improvement and culture results. (3) Abdominal ascites: Plan: Likely result of acute ferrer failure, however, recently seen in outpatient GI clinic and there was a plan to perform abdominal paracentesis. Cont with paracentesis and low salt diet per GI. (4) Cirrhosis: Plan: appears compensated but ascites present--INR and bilirubin are within normal limits. (5) Generalized weakness: Plan: As a result of issues above. PT/OT to assess when appropriate. (6) Recurrent falls: Plan: As a result of UTI and fatigue/weakness from heart failure and other chronic medical conditions. (7) Diabetes mellitus type 2 in nonobese: Plan: Allergies to Levemir, but says she has taken Lantus in the past without issue. Hold Tresiba and cont Lantus/Novolog. Currently at goal . (8) CKD (chronic kidney disease) stage 4, GFR 15-29 ml/min: Plan: chronic, at her baseline. Minimize insult to kidneys with contrast or other nephrotoxins and renally dose medications as needed. (9) HTN (hypertension): Plan: chronic, uncontrolled. Reassess after diuretic therapy started and continue home therapies (10) DVT prophylaxis: Plan: Heparin Full Code Dispo-to [facility] and Anticipated Discharge Date Admission Date: March 01, 2022 Subjective 76-year-old female with a history of longstanding right heart failure and known cirrhosis presents with acute heart failure syndrome with worsening fluid in her abdomen. Today patient is still fatigued She is not sure if she really feels better at this point or not-just came in last night Spear in place and net 1 L out this morning Denies any chest pain Still short of breath but it is intermittent. Review of Systems Review of Systems: All systems reviewed negative except as indicated above. Physical Exam Physical Exam: CONSTITUTIONAL: WNWD, vitals as above, generally ill appearing and fatigued EYES: pupils are round and equal bilaterally, normal conjunctivae, no scleral icterus ENT: external ear and nose normal, oropharynx clear NECK: trachea midline, no lymphadenopathy, normal thyroid RESPIRATORY: clear to auscultation bilaterally, no crackles, rales or wheezes, normal respiratory effort CARDIOVASCULAR: regular rate and rhythm, S1 and 2 heard without murmurs, gallops or rubs, +significant JVD to angle of mandible still present, no peripheral edema, CHEST: inspection of chest was normal GASTROINTESTINAL: soft, TTP in RLQ/LLQ, no guarding, +fluid but not protuberant MUSCULOSKELETAL: generalized weakness, head is normocephalic and atraumatic, neck supple, normal palpation of chest wall without tenderness SKIN: warm and dry, ecchymotic areas on upper back. NEUROLOGIC: No facial palsy, no dysarthria. CN 2-12 grossly intact, no sensory deficit, normal cognition, normal speech, no tremor PSYCHIATRIC: alert cooperative and oriented to person, place and time. Results & Data Results & Data ([facility]) Vital Signs (Past 12 Hours) Vital Signs Temp Pulse Resp BP Pulse Ox 03/02/22 11:21 36.8 C 74 18 139/68 96 03/02/22 07:19 36.6 C 85 18 132/73 96 03/02/22 03:54 36.9 C 88 16 134/68 94 Laboratory Results Short CBC 03/01/22 03/02/22 Range/Units 17:00 05:54 WBC 8.67 7.13 (4.8-10.8) K/uL Hgb 10.8 L 10.3 L (12.0-16.0) g/dL Hct 33.9 L 31.9 L (37-47) % Plt Count 252 235 (130-400) K/uL BMP 03/01/22 03/02/22 17:00 05:54 Sodium 143 141 Potassium 4.0 4.3 Chloride 111 H 110 H Carbon Dioxide 23 24 BUN 69 H 69 H Creatinine 2.03 H 2.01 H Glucose 88 250 H Calcium 8.8 8.6 Liver Function 03/01/22 03/02/22 Range/Units 17:00 05:54 Total Bilirubin 0.7 0.5 (0.2-1.0) mg/dl Direct Bilirubin 0.1 (0-0.2) mg/dl AST 17 20 (13-39) U/L ALT 9 8 (7-52) U/L Alkaline Phosphatase 103 96 (34-104) U/L Albumin 4.0 3.7 (3.4-5.0) gm/dl Urine 03/01/22 Range/Units 16:20 Urine Color Yellow Urine Appearance Clear (Clear) Urine pH 5.5 (4.5-7.5) Ur Specific [place] 1.008 (1.000-1.030) Urine Protein Negative (Negative) Urine Glucose (UA) Negative (Negative) Medications Administered Current Inpatient Medications Acetaminophen (Acetaminophen 500 Mg Tab) 500 mg PO Q4H PRN PRN Reason: Pain or Fever Stop: 03/31/22 21:10 Allopurinol (Allopurinol 100 Mg Tab) [facility] Stop: 04/01/22 08:59 Last Admin: 03/02/22 08:15 Dose: 200 mg Documented by: Aspirin (Aspirin 81 Mg Ectab) 81 [facility] Stop: 04/01/22 08:59 Last Admin: 03/02/22 08:15 Dose: 81 mg Documented by: Atorvastatin Calcium (Atorvastatin 40 Mg Tab) 40 mg PO QAM [facility] Stop: 04/01/22 08:59 Last Admin: 03/02/22 08:15 Dose: 40 mg Documented by: Dextrose (Dextrose 50% 50 Ml Syringe) 25 - 50 ml IV UD PRN; Protocol PRN Reason: Hypoglycemia Protocol Stop: 03/31/22 21:10 Docusate Sodium (Docusate Sodium 100 Mg Cap) 100 mg PO BID [facility] Stop: 03/31/22 21:10 Last Admin: 03/02/22 08:14 Dose: 100 mg Documented by: Furosemide (Furosemide 40 Mg/4 Ml Vial) 40 mg IV DAILY [facility] Stop: 04/01/22 08:59 Last Admin: 03/02/22 08:13 Dose: 40 mg Documented by: Glucagon (Glucagon For Inj 1 Mg Vial) 1 mg SQ UD PRN; Protocol PRN Reason: Hypoglycemia Protocol Stop: 03/31/22 21:10 Glucose (Glucose 10 Tabs/Tube) 4 - 8 tabs PO UD PRN; Protocol PRN Reason: Hypoglycemia Protocol Stop: 03/31/22 21:10 Glucose (Glucose 40% Gel 15 Gm Tube) 15 - 30 gm PO UD PRN; Protocol PRN Reason: Hypoglycemia Protocol Stop: 03/31/22 21:10 Heparin Sodium (Porcine) (Heparin Sod 5,000 Unit/0.5 Ml Vial) 5,000 units SQ Q12 [facility] Stop: 03/31/22 21:10 Last Admin: 03/02/22 08:14 Dose: 5,000 units Documented by: Hydroxyzine HCl (Hydroxyzine Hcl 25 Mg Tab) 25 mg PO Q6H PRN PRN Reason: .ITCHING Stop: 03/31/22 21:10 Last Admin: 03/01/22 22:00 Dose: 25 mg Documented by: Ceftriaxone Sodium 1,000 mg/ (Dextrose) 60 mls @ 100 mls/hr IV Q24H INGE; Protocol Stop: 03/07/22 16:59 Insulin Aspart (Insulin Aspart Per Unit) 0 units SC ACHS [facility] Stop: 03/31/22 21:10 Last Admin: 03/02/22 08:11 Dose: 5 units Documented by: Insulin Glargine (Lantus Per Unit Charge) 9 units SQ BID [facility] Stop: 03/31/22 21:10 Last Admin: 03/02/22 08:12 Dose: 9 units Documented by: Isosorbide Mononitrate (Isosorbide Payne Extended Rel 30 Mg Tabcr) 30 mg PO QAM [facility] Stop: 04/01/22 08:59 Last Admin: 03/02/22 08:15 Dose: 30 mg Documented by: Lorazepam (Lorazepam 0.5 Mg Tab) 0.5 mg PO HS PRN PRN Reason: Insomnia Stop: 03/31/22 21:10 Last Admin: 03/01/22 23:42 Dose: 0.5 mg Documented by: Losartan Potassium (Losartan Potassium 25 Mg Tab) 12.5 mg PO QAM [facility] Stop: 08/02/22 08:59 Last Admin: 03/02/22 08:13 Dose: 12.5 mg Documented by: Metoprolol Succinate (Metoprolol Succ 25mg Ext Rel Tab) [facility] Stop: 04/01/22 08:59 Last Admin: 03/02/22 08:12 Dose: 25 mg Documented by: Miscellaneous (Carbohydrates For Hypoglycemia ) 15 - 30 gm PO UD PRN PRN Reason: Hypoglycemia Protocol Stop: 03/31/22 21:10 Last Admin: 03/01/22 21:50 Dose: 15 gm Documented by: Pantoprazole Sodium (Pantoprazole 40 Mg Tab) 40 [facility] Stop: 04/01/22 08:59 Last Admin: 03/02/22 08:16 Dose: 40 mg Documented by: Polyethylene Glycol (Polyethylene (Miralax) 17 Gm Pack) 17 gm PO DAILY PRN PRN Reason: Constipation Stop: 03/31/22 21:10 Sertraline HCl (Sertraline Hcl 100 Mg Tablet) [address] [facility] Stop: 03/31/22 21:10 Last Admin: 03/01/22 21:56 Dose: 100 mg Documented by: (1) Abdominal ascites Ascites type: other type Qualified Code(s): R18.8 - Other ascites
--- NOTE | 2022-03-02 14:50 | Cardiology Consultation ---
Date of Consultation March 02, 2022 Assessment & Plan (1) Acute right heart failure: Continue cautious diuresis given her history of stage IV CKD. Agree with furosemide 40 mg IV daily. Patient is not on anticoagulation due to past concerns of gastrointestinal bleeding with regards to her atrial fibrillation. History of Present Illness Attending Physician: Madeleine Morton, History of Present Illness Mariela Marshall is a 76-year-old female seen in cardiology consultation per the request of Dr. Morton for the evaluation of right-sided congestive heart failure . Patient well-known to the undersigned as I have followed her as an outpatient for years. She describes that for the last month, she has had progressively worsened activity tolerance, shortness of breath with minimal exertion, falls, and progressive abdominal bloating. 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 An extensive evaluation was performed regarding cirrhosis including a transient jugular liver biopsy in February, which revealed elevated right atrial pressure. Pathology at that time was consistent with congestive hepatopathy and mild steatosis. The patient was referred for cardiac catheterization at [facility] which took place in May, at which time left and right heart catheterization performed with no obstructive coronary heart disease and results were consistent with an isolated right ventricular myopathy. She has developed progressive valvular he art disease including at least moderate mitral regurgitation and severe tricuspid regurgitation. History also notable for permanent atrial fibrillation/flutter, not on anticoagulation due to past gastrointestinal bleeding. She also has a history of stage IV chronic kidney disease, most recent outpatient chemistry panel January,, with creatinine of 2.2, EGFR 22 mL/min/m. Allergies Allergy/AdvReac Type Severity Reaction Status Date / Time gabapentin Allergy Severe EDEMA Verified 11/14/21 16:00 FACE/LIPS/TONGUE - ANGIOEDEMA meloxicam Allergy Severe RENAL Verified 11/14/21 16:00 FAILURE insulin detemir Allergy Intermediate HIVES, Verified 11/14/21 16:00 ELEVATED BSG latex Allergy Intermediate HIVES, RASH Verified 11/14/21 16:00 phenol Allergy Intermediate HIVES, Verified 11/14/21 16:00 ELEVATED BSG Sulfa (Sulfonamide Allergy Intermediate EDEMA,ITCHI Verified 11/14/21 16:00 Antibiotics) NG adhesive Allergy Mild skin Verified 11/14/21 16:00 irritation cephalexin Allergy Mild ELEVATED Verified 11/14/21 16:00 BSG TARA Inhibitors Allergy Unknown UNKNOWN Verified 11/14/21 16:00 Iodinated Contrast Media AdvReac Unknown PATIENT Verified 11/14/21 16:00 HAS CHRONIC KIDNEY FAILURE Home Medications Medication Instructions Recorded Confirmed Type allopurinol 100 mg tablet 200 mg PO QAM 10/06/18 03/01/22 History aspirin 81 mg tablet,delayed 81 mg PO QAM 10/06/18 03/01/22 History release atorvastatin 40 mg tablet 40 mg PO QAM 10/06/18 03/01/22 History bisacodyl 10 mg rectal suppository 10 mg NJ DAILY PRN 10/06/18 03/01/22 History cholecalciferol (vitamin D3) 50 2,000 unit PO QAM 10/06/18 03/01/22 History mcg (2,000 unit) capsule (Vitamin D3) docusate sodium 100 mg capsule 100 mg PO BID 10/06/18 03/01/22 History fexofenadine 180 mg tablet 180 mg PO DAILY PRN 10/06/18 03/01/22 History furosemide 40 mg tablet 40 mg PO QAM 10/06/18 03/01/22 History isosorbide mononitrate 30 mg 30 mg PO QAM 10/06/18 03/01/22 History tablet,extended release 24 hr losartan 25 mg tablet 12.5 mg PO QAM 10/06/18 03/01/22 History nitroglycerin 0.4 mg sublingual 0.4 mg SUBLINGUAL UD PRN 10/06/18 03/01/22 History tablet insulin degludec 100 unit/mL (3 5 unit SUBCUT DAILY 04/09/21 03/01/22 History mL) subcutaneous pen (Tresiba FlexTouch U-100 insulin) hydroxyzine HCl 25 mg tablet 25 mg PO Q6H PRN 03/01/22 03/01/22 History lorazepam 0.5 mg tablet 0.5 - 1 mg PO HS PRN 03/01/22 03/01/22 History metoprolol succinate 25 mg 25 mg PO QAM 03/01/22 03/01/22 History tablet,extended release 24 hr pantoprazole 20 mg tablet,delayed 20 mg PO QAM 03/01/22 03/01/22 History release sertraline 100 mg tablet 100 mg PO HS 03/01/22 03/01/22 History Patient History Medical History TARA inhibitor intolerance Anxiety Atrial fibrillation follows w/ dr. aquino; dx years ago AV (arteriovenous fistula) left arm>"STILL WORKING" HAS NOT HAD TO USE Cirrhosis of liver CKD (chronic kidney disease) stage 4, GFR 15-29 ml/min follows w/ dr. 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 History of gastric ulcer History of gastrointestinal bleeding History of migraine HTN (hypertension) Hx of falling Hx of gout Hyperparathyroidism Osteoporosis Right-sided congestive heart failure Solitary right kidney Vertigo Surgical History H/O cataract removal with insertion of prosthetic lens RT/LEFT H/O tubal ligation History of section X 2 History of cholecystectomy History of colonoscopy History of esophagogastroduodenoscopy (EGD) History of lumbar laminectomy x 2 History of tooth extraction History of total abdominal hysterectomy and bilateral salpingo-oophorectomy Family History Other Cancer Diabetes Hypertension No family history of adverse response to anesthesia Social History Smoking Status: Unknown if ever smoked Second Hand Exposure: Yes ( used to smoke); Hx Alcohol Use: No Hx Substance Use: No Preferred Language: Maori Communication Ability: Effective House Carpenter Required: No Beliefs That Will Affect Care: None marital status: / Current Living Situation: Alone Current Living Situation Comment: with help on Tuesdays and current occupational status: retired Other Information That Helps Us Care for You: No Feels Safe at Home: No Is there a partner from a previous relationship who is making you feel unsafe now?: No Any Concerns about Your Family Situation: No Would You Like to Speak to Someone About Your Situation: No Safety Concerns: Feels Safe At This Time Assistive Devices: Cane, Glasses and Walker Review of Systems Review of Systems: All systems reviewed & are unremarkable except as noted in HPI & below Physical Exam Constitutional: Generalized ill in appearance, without acute distress Respiratory: Auscultation: lungs clear to auscultation bilaterally Cardiovascular: Rate/Rhythm: + irregularly irregular Heart Sounds: + murmur (2/6 systolic murmur) Extremities: no edema Gastrointestinal (Abdomen): Mild abdominal bloating, fluid retention Neurologic: PERRL, EOMI, accommodation nl, no face palsy, no dysarthria Genitourinary: Spear catheter in place draining clear yellow urine Results & Data ([facility]) Vital Signs (Past 12 Hours) Vital Signs Temp Pulse Resp BP Pulse Ox 03/02/22 11:21 36.8 C 74 18 139/68 96 03/02/22 07:19 36.6 C 85 18 132/73 96 03/02/22 03:54 36.9 C 88 16 134/68 94 Laboratory Results Cardiac Enzymes 03/01/22 03/02/22 03/02/22 Range/Units 17:00 05:54 05:54 AST 17 20 (13-39) U/L Troponin I High Sens 26.1 H (0-14) pg/ml B-Natriuretic Peptide 1166 H (0-100) pg/ml Coagulation 03/01/22 03/01/22 03/02/22 Range/Units 17:00 17:00 05:54 PT 11.5 11.4 (9.0-12.0) Seconds APTT 26.8 (21.0-31.0) Seconds B-Natriuretic Peptide (0-100) pg/ml 03/02/22 Range/Units 05:54 PT (9.0-12.0) Seconds APTT (21.0-31.0) Seconds B-Natriuretic Peptide 1166 H (0-100) pg/ml CBC 03/01/22 03/02/22 Range/Units 17:00 05:54 WBC 8.67 7.13 (4.8-10.8) K/uL RBC 3.53 L 3.32 L (4.2-5.4) M/uL Hgb 10.8 L 10.3 L (12.0-16.0) g/dL Hct 33.9 L 31.9 L (37-47) % Plt Count 252 235 (130-400) K/uL Neut # (Auto) 5.97 (1.4-6.5) K/uL Lymph # (Auto) 1.55 (1.2-3.4) K/uL Terrell # (Auto) 0.82 H (0.11-0.59) K/uL Eos # (Auto) 0.29 (0-0.5) K/uL Baso # (Auto) 0.02 (0-0.2) K/uL Comprehensive Metabolic Panel 03/01/22 03/02/22 Range/Units 17:00 05:54 Sodium 143 141 (136-145) mmol/L Potassium 4.0 4.3 (3.5-5.1) mmol/L Chloride 111 H 110 H (98-107) mmol/L Carbon Dioxide 23 24 (21-32) mmol/L BUN 69 H 69 H (6-23) mg/dl Creatinine 2.03 H 2.01 H (0.6-1.2) mg/dl Glucose 88 250 H (70-99(Fasting)) mg/dl Calcium 8.8 8.6 (8.5-10.1) mg/dl Direct Bilirubin 0.1 (0-0.2) mg/dl AST 17 20 (13-39) U/L ALT 9 8 (7-52) U/L Alkaline Phosphatase 103 96 (34-104) U/L Total Protein 6.1 5.8 L (6.0-8.3) gm/dl Albumin 4.0 3.7 (3.4-5.0) gm/dl Intake and Output 03/01/22 03/02/22 03/02/22 22:59 06:59 14:59 Intake Total 570 / 570 Output Total 1000 / 1600 600 / 1600 Balance -430 / -1030 -600 / -1030 Intake: IV 570 / 570 Sodium Chloride 0.9% 500 ml @ 500 / 500 999 mls/hr IV .Q31M STA Rx#: [id number] cefTRIAXone SODIUM 2,000 mg In 70 / 70 70 ml @ 140 mls/hr IV NOW STA Rx#:[id number] Output: Urine Amount (Catheter) 1000 / 1600 600 / 1600 Spear/Indwelling 1000 / 1600 600 / 1600 Other: Weight 51.1 kg 50.9 kg 50.9 kg Weight Measurement Method Built in [facility] Built in [facility] Patient Weight 03/03/22 06:59 Weight 50.9 kg Diagnostic Findings Recent outpatient CT of the abdomen pelvis 02/27/2022, moderate to large abdominal pelvic ascites. EKG performed 03/01/2022 revealed atrial fibrillation at 93 bpm, poor R wave progression anterior precordial leads, chronic finding, nonspecific diffuse T wave flattening. Echocardiogram performed today 03/02/2021 reviewed independently: The right ventricle is severely dilated, with moderate diffuse right ventricular hypokinesis, flattening of the interventricular septum with D-shaped septum morphology consistent with right ventricular pressure/volume overload state. The left ventricular wall motion is otherwise normal, LVEF 55 to 60%. Moderate left atrial dilatation is present. Severe right atrial dilatation is present. Moderate mitral regurgitation is present. Severe tricuspid regurgitation is present. Severe pulmonary hypertension is present, pulmonary artery systolic pressure is estimated to be 73 mmHg.
[2022-03-02] MEDS: cefTRIAXone SODIUM 1,000 MG in DEXTROSE 5% 50 ML IV SCH (17:28)
[2022-03-02] MEDS: hydrOXYzine HCl 25 MG TAB PO PRN ×2 (18:36→20:10)
[2022-03-02] MEDS: SERTRALINE HCL 100 MG TABLET PO SCH (20:08)
[2022-03-02] MEDS: LORazepam 0.5 MG TAB PO PRN (22:34)
[2022-03-03 07:44] LABS: Hematocrit (blood only) 32.9 % (37-47); Hemoglobin 10.2 g/dL (12.0-16.0); Mean Corpuscular Hemoglobin 29.8 pg (25-34); Mean Corpuscular Volume 96.2 fL (80-100); Mean Platelet Volume 10.5 fL (7.4-10.4); Platelet Count 246 K/uL (130-400); RDW Coefficient of Variation 15.7 % (11.5-14.5); RDW Standard Deviation 54.6 fL (36.4-46.3); Red Blood Count 3.42 M/uL (4.2-5.4)
[2022-03-03] MEDS: LANTUS PER UNIT CHARGE SQ SCH ×2 (08:25→20:27)
[2022-03-03] MEDS: INSULIN ASPART PER UNIT SC SCH ×4 (08:25→20:15)
[2022-03-03] MEDS: FUROSEMIDE 40 MG/4 ML VIAL IV SCH (08:26)
[2022-03-03] MEDS: ASPIRIN 81 MG ECTAB PO SCH (08:33)
[2022-03-03] MEDS: PANTOprazole 40 MG TAB PO SCH (08:33)
[2022-03-03 08:34] LABS: BUN Creatinine Ratio 28.1 (10-20); Calcium 8.7 mg/dl (8.5-10.1); Creatinine Clr Calc Pharmacy 13.9 ml/min; Est GFR (African American) 22.6 ml/min; Est GFR (Non-African American) 19.5 ml/min
[2022-03-03] MEDS: LOSARTAN POTASSIUM 25 MG TAB PO SCH (08:34)
[2022-03-03] MEDS: ISOSORBIDE MONO EXTENDED REL 30 MG TABCR PO SCH (08:34)
[2022-03-03] MEDS: ATORVASTATIN 40 MG TAB PO SCH (08:34)
[2022-03-03] MEDS: METOPROLOL SUCC 25MG EXT REL TAB PO SCH (08:34)
[2022-03-03] MEDS: allopurinoL 100 MG TAB PO SCH (08:34)
[2022-03-03] MEDS: HEPARIN SOD 5,000 UNIT/0.5 ML VIAL SQ SCH ×2 (08:35→20:11)
[2022-03-03] MEDS: DOCUSATE SODIUM 100 MG CAP PO SCH ×2 (08:35→20:11)
[2022-03-03] MEDS ORDERED: ALBUMIN 25% 100 mL 25 GM/100 ML VIAL IV SCH (09:00)
--- NOTE | 2022-03-03 13:07 | Cardiology Progress Note ---
Date of Service March 03, 2022 Assessment & Plan (1) Acute right heart failure: Plan: Continue cautious diuresis given her history of stage IV CKD. Agree with furosemide 40 mg IV daily. Patient is not on anticoagulation due to past concerns of gastrointestinal bleeding with regards to her atrial fibrillation. Creatinine has trended up to 2.35. Continue current dose of furosemide 40 mg IV daily, future considerations include transitioning her to 20 mg IV every 6. As previously noted, she is not on chronic anticoagulation due to past gastrointestinal bleeding concerns. Continue subcutaneous heparin for DVT prophylaxis. Admission and Anticipated Discharge Date Admission Date: March 01, 2022 Subjective Patient seen in cardiology follow-up. More lethargic today. Abdominal bloating perhaps a little bit better subjectively and on exam. Telemetry reveals rate controlled atrial fibrillation/flutter in the 80s. Physical Exam Constitutional: Chronically ill in appearance without acute distress Respiratory: Auscultation: lungs clear to auscultation bilaterally Cardiovascular: Rate/Rhythm: + irregularly irregular Heart Sounds: + murmur (2/6 systolic murmur) Extremities: no edema Jugular venous distention noted, consistent with history of severe tricuspid regurgitation Neurologic: PERRL, EOMI, accommodation nl, no face palsy, no dysarthria Results & Data ([facility]) Vital Signs (Past 12 Hours) Vital Signs Temp Pulse Pulse Pulse Resp BP Pulse Ox 03/03/22 12:33 37.2 C 85 18 136/61 95 03/03/22 09:00 94 H 03/03/22 08:01 36.8 C 76 16 150/56 H 96 03/03/22 03:37 37 C 85 20 96
--- NOTE | 2022-03-03 13:17 | Gastroenterology Progress Note ---
Date of Service March 03, 2022 Assessment & Plan (1) Cirrhosis: Plan: Cirrhosis serologies negative previously. Ultimately dx'd with right heart failure, cardiac cirrhosis + NAFLD upon prior presentation -Echo Echo shows significant right heart failure, likely driving force in setting of CKD a combination of cirrhosis -Paracentesis but would limit to 5 L given kidney function and would give some albumin after with lasix 25 would suffice of albumin, please send for albumin, total protein, cytology given history of gallbladder cancer, cell count and differential. -Diuretics per cardiology and close monitoring of Kidney function creatinine did bump today, -Low salt diet -Call w questions Admission and Anticipated Discharge Date Admission Date: March 01, 2022 Subjective still complains of feeling weak, no signs of bleeding or confusion. Echo was reviewed. Physical Exam Physical Exam: Oriented x3 mildly weak no apparent distress Heart is irregularly irregular Abdomen is soft not distended not overly impressive for tense ascites No peripheral edema No jaundice No Neurologic deficits Results & Data ([facility]) Vital Signs (Past 12 Hours) Vital Signs Temp Pulse Pulse Pulse Resp BP Pulse Ox 03/03/22 12:33 37.2 C 85 18 136/61 95 03/03/22 09:00 94 H 03/03/22 08:01 36.8 C 76 16 150/56 H 96 03/03/22 03:37 37 C 85 20 96
--- NOTE | 2022-03-03 13:23 | Hospitalist Progress Note ---
Date of Service March 03, 2022 Assessment & Plan (1) Acute right heart failure: Plan: Known h/o right heart failure possibly as a cause of cirrhosis 2/2 congestive hepatopathy presents with acute worsening and fluid overload. Presumed cardiac cause for her increased ascites given heart failure syndrome described including decreased exercise tolerance, weight gain, 2 pillow orthopnea, +PND reported. She has increased fatigue with a dry cough for last 2-3 weeks along with these symptoms described. Significant JVD seen on examination Acute right heart failure is complicated by atrial fibrillation and valvular heart disease Appreciate cardiology input and recommendation Cont Lasix 40mg IV daily, strict I/Os, low salt diet, daily BMP given chronic kidney disease. Dr. Mix following. Remains weak and lethargic but no shortness of breath at rest Cumulative fluid balance is -1171 mL (2) UTI (urinary tract infection): Plan: Increased urgency and +UA. Rocephin started and will continue pending clinical improvement and culture results. (3) Abdominal ascites: Plan: Likely result of acute ferrer failure, however, recently seen in outpatient GI clinic and there was a plan to perform abdominal paracentesis. Cont with paracentesis and low salt diet per GI. Has been getting albumin infusion which will be given before and after paracentesis (4) Cirrhosis: Plan: Appears compensated but ascites present--INR and bilirubin are within normal limits. (5) Generalized weakness: Plan: As a result of issues above. PT/OT to assess when appropriate. (6) Recurrent falls: Plan: As a result of UTI and fatigue/weakness from heart failure and other chronic medical conditions. (7) Diabetes mellitus type 2 in nonobese: Plan: Allergies to Levemir, but says she has taken Lantus in the past without issue. Hold Tresiba and cont Lantus/Novolog. Currently at goal . (8) CKD (chronic kidney disease) stage 4, GFR 15-29 ml/min: Plan: Chronic, at her baseline. Minimize insult to kidneys with contrast or other nephrotoxins and renally dose medications as needed. Creatinine is slightly up at 2.25 today Will monitor PRP (9) HTN (hypertension): Plan: Chronic, uncontrolled. Reassess after diuretic therapy started and continue home therapies (10) DVT prophylaxis: Plan: Heparin Full Code Dispo-to PCU Admission and Anticipated Discharge Date Admission Date: March 01, 2022 Subjective 03/03/2022 The patient was seen and examined in telemetry unit She complains to have generalized weakness Denies any chest pain, palpitation or shortness of breath No abdominal pain nausea and or vomiting Review of Systems Review of Systems: All systems reviewed and are unremarkable except as noted below Physical Exam Physical Exam: Lying in bed very lethargic without any acute distress Constitutional: well developed, well nourished, + ill appearing and average body habitus Eyes: PERRL, conjunctivae normal, anicteric sclerae ENMT: external ear and nose normal, oropharynx normal Neck: trachea midline, no thyromegaly Respiratory: no respiratory distress Auscultation: + diminished lung sounds; no crackles and no wheezes Cardiovascular: Rate/Rhythm: + irregularly irregular; not tachycardic Heart Sounds: normal S1, normal S2 and + murmur (2/6 ESM over precordium) Vessels: + JVD (Elevated JVD) Extremities: no edema Gastrointestinal (Abdomen): Inspection/Auscultation: + abdomen distended and normal bowel sounds Percussion/Palpation: abdomen soft and + ascites (Mild to moderate ascites clinically); abdomen nontender Musculoskeletal: No acute arthritis in any joint Neurologic: Alert, awake and oriented x3. Generally very weak and lethargic Lymphatic: no cervical or axillary lymphadenopathy Results & Data Results & Data ([facility]) Vital Signs (Past 12 Hours) Vital Signs Temp Pulse Pulse Pulse Resp BP Pulse Ox 03/03/22 12:33 37.2 C 85 18 136/61 95 03/03/22 09:00 94 H 03/03/22 08:01 36.8 C 76 16 150/56 H 96 03/03/22 03:37 37 C 85 20 96 Laboratory Results Short CBC 03/03/22 Range/Units 06:09 WBC 8.50 (4.8-10.8) K/uL Hgb 10.2 L (12.0-16.0) g/dL Hct 32.9 L (37-47) % Plt Count 246 (130-400) K/uL BMP 03/03/22 06:09 Sodium 141 Potassium 4.0 Chloride 106 Carbon Dioxide 25 BUN 66 H Creatinine 2.35 H D Glucose 182 H Calcium 8.7 Medications Administered Current Inpatient Medications Acetaminophen (Acetaminophen 500 Mg Tab) 500 mg PO Q4H PRN PRN Reason: Pain or Fever Stop: 03/31/22 21:10 Allopurinol (Allopurinol 100 Mg Tab) 200 mg PO QAM INGE Stop: 04/01/22 08:59 Last Admin: 03/03/22 08:34 Dose: 200 mg Documented by: Aspirin (Aspirin 81 Mg Ectab) 81 mg PO QAM [facility] Stop: 04/01/22 08:59 Last Admin: 03/03/22 08:33 Dose: 81 mg Documented by: Atorvastatin Calcium (Atorvastatin 40 Mg Tab) 40 mg PO QAM INGE Stop: 04/01/22 08:59 Last Admin: 03/03/22 08:34 Dose: 40 mg Documented by: Dextrose (Dextrose 50% 50 Ml Syringe) 25 - 50 ml IV UD PRN; Protocol PRN Reason: Hypoglycemia Protocol Stop: 03/31/22 21:10 Docusate Sodium (Docusate Sodium 100 Mg Cap) 100 mg PO BID [facility] Stop: 03/31/22 21:10 Last Admin: 03/03/22 08:35 Dose: Not Given Documented by: Furosemide (Furosemide 40 Mg/4 Ml Vial) 40 mg IV DAILY [facility] Stop: 04/01/22 08:59 Last Admin: 03/03/22 08:26 Dose: 40 mg Documented by: Glucagon (Glucagon For Inj 1 Mg Vial) 1 mg SQ UD PRN; Protocol PRN Reason: Hypoglycemia Protocol Stop: 03/31/22 21:10 Glucose (Glucose 10 Tabs/Tube) 4 - 8 tabs PO UD PRN; Protocol PRN Reason: Hypoglycemia Protocol Stop: 03/31/22 21:10 Glucose (Glucose 40% Gel 15 Gm Tube) 15 - 30 gm PO UD PRN; Protocol PRN Reason: Hypoglycemia Protocol Stop: 03/31/22 21:10 Heparin Sodium (Porcine) (Heparin Sod 5,000 Unit/0.5 Ml Vial) 5,000 units SQ Q12 INGE Stop: 03/31/22 21:10 Last Admin: 03/03/22 08:35 Dose: 5,000 units Documented by: Hydroxyzine HCl (Hydroxyzine Hcl 25 Mg Tab) 25 mg PO Q6H PRN PRN Reason: .ITCHING Stop: 03/31/22 21:10 Last Admin: 03/02/22 20:10 Dose: 25 mg Documented by: Ceftriaxone Sodium 1,000 mg/ (Dextrose) 60 mls @ 100 mls/hr IV Q24H [facility]; Protocol Stop: 03/07/22 16:59 Last Infusion: 03/02/22 18:30 Dose: Infused Documented by: Albumin Human (Albumin 25% 100 Ml) 25 gm in 100 mls @ 50 mls/hr IV TODAY@0900 [facility] Stop: 03/03/22 16:00 Last Infusion: 03/03/22 10:02 Dose: Infused Documented by: Insulin Aspart (Insulin Aspart Per Unit) 0 units SC ACHS [facility] Stop: 03/31/22 21:10 Last Admin: 03/03/22 12:08 Dose: 3 units Documented by: Insulin Glargine (Lantus Per Unit Charge) 9 units SQ BID [facility] Stop: 03/31/22 21:10 Last Admin: 03/03/22 08:25 Dose: 9 units Documented by: Isosorbide Mononitrate (Isosorbide [place] Extended Rel 30 Mg Tabcr) 30 mg PO [facility] Stop: 04/01/22 08:59 Last Admin: 03/03/22 08:34 Dose: 30 mg Documented by: Lorazepam (Lorazepam 0.5 Mg Tab) 0.5 mg PO HS PRN PRN Reason: Insomnia Stop: 03/31/22 21:10 Last Admin: 03/02/22 22:34 Dose: 0.5 mg Documented by: Losartan Potassium (Losartan Potassium 25 Mg Tab) 12.5 mg PO [facility] Stop: 04/01/22 08:59 Last Admin: 03/03/22 08:34 Dose: 12.5 mg Documented by: Metoprolol Succinate (Metoprolol Succ 25mg Ext Rel Tab) 25 mg PO [facility] Stop: 04/01/22 08:59 Last Admin: 03/03/22 08:34 Dose: 25 mg Documented by: Miscellaneous (Carbohydrates For Hypoglycemia ) 15 - 30 gm PO UD PRN PRN Reason: Hypoglycemia Protocol Stop: 03/31/22 21:10 Last Admin: 03/01/22 21:50 Dose: 15 gm Documented by: Pantoprazole Sodium (Pantoprazole 40 Mg Tab) 40 mg PO [facility] Stop: 04/01/22 08:59 Last Admin: 03/03/22 08:33 Dose: 40 mg Documented by: Polyethylene Glycol (Polyethylene (Miralax) 17 Gm Pack) 17 gm PO DAILY PRN PRN Reason: Constipation Stop: 03/31/22 21:10 Sertraline HCl (Sertraline Hcl 100 Mg Tablet) 100 mg PO HS INGE Stop: 03/31/22 21:10 Last Admin: 03/02/22 20:08 Dose: 100 mg Documented by: (1) Abdominal ascites Ascites type: other type Qualified Code(s): R18.8 - Other ascites
[2022-03-03] MEDS: cefTRIAXone SODIUM 1,000 MG in DEXTROSE 5% 50 ML IV SCH (16:59)
[2022-03-03] MEDS: hydrOXYzine HCl 25 MG TAB PO PRN (20:11)
[2022-03-03] MEDS: SERTRALINE HCL 100 MG TABLET PO SCH (20:11)
[2022-03-03] MEDS: LORazepam 0.5 MG TAB PO PRN (22:00)
--- NOTE | 2022-03-03 22:38 | Electrocardiogram Report ---
Test Reason : Blood Pressure : / mmHG Vent. Rate : 093 BPM Atrial Rate : 220 BPM P-R Int : 000 ms QRS Dur : 076 ms QT Int : 364 ms P-R-T Axes : 000 019 009 degrees QTc Int : 452 ms Poor data quality, interpretation may be adversely affected Atrial fibrillation Cannot rule out Anterior infarct , age undetermined Abnormal ECG When compared with ECG of 10-FEB-2020 10:03, Minimal criteria for Anterior infarct are now Present Nonspecific T wave abnormality, worse in Inferior leads Confirmed by Lee Jacinto ([id number]) on 03/03/2022 10:38:22 PM Referred By: REFERRED SELF Confirmed By:Lee Jacinto
[2022-03-04] MEDS: INSULIN ASPART PER UNIT SC SCH ×4 (07:56→21:25)
[2022-03-04] MEDS: LANTUS PER UNIT CHARGE SQ SCH ×2 (08:06→21:23)
[2022-03-04] MEDS: FUROSEMIDE 40 MG/4 ML VIAL IV SCH (08:09)
[2022-03-04] MEDS: ISOSORBIDE MONO EXTENDED REL 30 MG TABCR PO SCH (08:10)
[2022-03-04] MEDS: METOPROLOL SUCC 25MG EXT REL TAB PO SCH (08:10)
[2022-03-04] MEDS: allopurinoL 100 MG TAB PO SCH (08:10)
[2022-03-04] MEDS: ATORVASTATIN 40 MG TAB PO SCH (08:10)
[2022-03-04] MEDS: LOSARTAN POTASSIUM 25 MG TAB PO SCH (08:10)
[2022-03-04] MEDS: ASPIRIN 81 MG ECTAB PO SCH (08:10)
[2022-03-04] MEDS: DOCUSATE SODIUM 100 MG CAP PO SCH ×2 (08:10→21:22)
[2022-03-04] MEDS: PANTOprazole 40 MG TAB PO SCH (08:10)
[2022-03-04] MEDS: HEPARIN SOD 5,000 UNIT/0.5 ML VIAL SQ SCH ×2 (08:11→21:22)
[2022-03-04 08:13] LABS: BUN Creatinine Ratio 31.9 (10-20); Calcium 8.7 mg/dl (8.5-10.1); Creatinine Clr Calc Pharmacy 13.9 ml/min; Est GFR (African American) 22.6 ml/min; Est GFR (Non-African American) 19.5 ml/min; Magnesium 2.2 mg/dl (1.7-2.4); Potassium 3.8 mmol/L (3.5-5.1)
--- NOTE | 2022-03-04 10:32 | Ultrasound Report ---
PARACENTESIS UNDER ULTRASOUND GUIDANCE CLINICAL HISTORY: Cirrhosis and ascites COMPARISON STUDY: Abdominal CT dated 03/01/2022. PROCEDURE: The risks, benefits, and alternatives to the procedure were discussed with the patient who voiced understanding. Written informed consent was obtained. Following real-time ultrasound localiza tion of a suitable pocket of fluid in the right lower quadrant, the abdomen was prepped and draped in the usual sterile fashion. The skin and soft tissues were anesthetized with 1% lidocaine. The sheath ed paracentesis needle was inserted and approximately 2 liters of bloody appearing ascitic fluid was removed by vacuum suction. The procedure was well tolerated and without immediate complication. The p atient left the department in satisfactory condition. IMPRESSION: Successful ultrasound-guided paracentesis with removal of approximately 2 liters of blood y appearing ascitic fluid. ACT 112: Negative or not required by law. Electronically signed by: Christoph Chandler M.D. 03/04/2022 10:31 AM
[2022-03-04 11:42] LABS: Basophils # (auto) 0.02 K/uL (0-0.2); Basophils % (auto) 0.3 %; Eosinophils # (auto) 0.35 K/uL (0-0.5); Eosinophils % (auto) 5.3 %; Hematocrit (blood only) 30.5 % (37-47); Hemoglobin 9.6 g/dL (12.0-16.0); Immature Granulocytes # (auto) 0.01 K/uL (0.00-0.02); Immature Granulocytes % (auto) 0.2 %; Lymphocytes # (auto) 1.05 K/uL (1.2-3.4); Mean Corpuscular Hemoglobin 30.4 pg (25-34); Mean Corpuscular Hgb Conc 31.5 g/dL (32-36); Mean Corpuscular Volume 96.5 fL (80-100); Mean Platelet Volume 10.1 fL (7.4-10.4); Monocytes % (auto) 10.7 %; Neutrophils # (auto) 4.42 K/uL (1.4-6.5); Neutrophils % (auto) 67.5 %; Platelet Count 200 K/uL (130-400); RDW Coefficient of Variation 15.3 % (11.5-14.5); RDW Standard Deviation 53.7 fL (36.4-46.3); Red Blood Count 3.16 M/uL (4.2-5.4); White Blood Count 6.55 K/uL (4.8-10.8)
--- NOTE | 2022-03-04 12:27 | CT Scan Report ---
CT SCAN OF THE ABDOMEN AND PELVIS WITHOUT IV CONTRAST CLINICAL HISTORY: Bloody paracentesis. COMPARISON STUDY: Abdominal CT dated 03/01/2022. TECHNIQUE: CT scan of the abdomen and pelvis is performed from the lung bases to the proximal femora. Images are reviewed in the axial, sagittal, and coronal planes. IV contrast was not administered for this examination. A dose lowering technique was utilized adhering to the principles of ALARA. CT DOSE: 326.14 mGycm FINDINGS: Lung bases: The heart is enlarged and without pericardial effusion. There is a small hiatal hernia. T here are small left and trace right pleural effusions and atelectasis. Liver: The unenhanced liver is cirrhotic in morphology and heterogeneous in attenuation with nodulari ty of the hepatic surface contour. There is no intrahepatic biliary ductal dilatation. Gallbladder: Surgically absent noting clips in the gallbladder fossa. Spleen: Normal in size and attenuation. A 3.5 cm cyst is again noted in the spleen. Pancreas: The unenhanced pancreas is atrophic and grossly unremarkable. Adrenal glands: Unremarkable. Kidneys: There is asymmetric cortical atrophy of the left kidney as compared to the right. Foci of co rtical scarring are noted in both kidneys. Right-sided nephrolithiasis is suspected. This difficult t o assess due to extensive renovascular calcification. There is no ureteral stone or hydronephrosis. A 1.5 cm exophytic cyst is noted arising from the left kidney. Abdominal vasculature: The abdominal aorta is normal in course and caliber noting advanced atheroscle rotic calcification. Bowel: There is no bowel obstruction. Moderate fecal retention is seen throughout the colon. The appe ndix is not visualized. Peritoneum: There is only a small volume of residual simple appearing abdominopelvic ascites. No intr aperitoneal free air is seen. Lymphadenopathy: None. Pelvic viscera: The bladder is partially decompressed around a Spear catheter. The bladder wall appea rs mildly thickened and there is nonspecific intraluminal gas. The uterus is surgically absent. No ad nexal lesion is seen. Skeletal structures: The skeletal structures are osteopenic. There is moderate to advanced lumbosacra l spondylosis with postoperative change L5-S1 spinal fusion hardware in place. No lytic or blastic le sions are seen. IMPRESSION: 1. The liver is cirrhotic in morphology and heterogeneous in attenuation. 2. There is only a small volume of simple appearing residual ascitic fluid. 3. No hematoma is identified. 4. Cardiomegaly and pleural effusions. 5. The bladder wall appears thickened and a Spear catheter is in place. Correlate with clinical findi ngs and urinalysis. 6. Additional findings as above. ACT 112: Negative or not required by law. Electronically signed by: Christoph Chandler M.D. 03/04/2022 12:25 PM
--- NOTE | 2022-03-04 16:18 | Hospitalist Progress Note ---
Date of Service March 04, 2022 Assessment & Plan (1) Acute right heart failure: Plan: Known h/o right heart failure possibly as a cause of cirrhosis 2/2 congestive hepatopathy presents with acute worsening and fluid overload. Presumed cardiac cause for her increased ascites given heart failure syndrome described including decreased exercise tolerance, weight gain, 2 pillow orthopnea, +PND reported. She has increased fatigue with a dry cough for last 2-3 weeks along with these symptoms described. Significant JVD seen on examination Acute right heart failure is complicated by atrial fibrillation and valvular heart disease Appreciate cardiology input and recommendation Cont Lasix 40mg IV daily, strict I/Os, low salt diet, daily BMP given chronic kidney disease. Dr. Mix following. Remains weak and lethargic but no shortness of breath at rest Cumulative fluid balance is -1171 mL and 201 2 mL as of 03/04/2022 Patient remains free of any shortness of breath at rest We will get PT and OT evaluation (2) UTI (urinary tract infection): Plan: Increased urgency and +UA. Rocephin started and will continue pending clinical improvement and culture results. (3) Abdominal ascites: Plan: Likely result of acute ferrer failure, however, recently seen in outpatient GI clinic and there was a plan to perform abdominal paracentesis. Cont with paracentesis and low salt diet per GI. Has been getting albumin infusion which will be given before and after paracentesis Status post paracentesis 2 L bloody fluid was taken out-likely secondary to trauma She has been feeling much better following paracentesis CT scan of the abdomen pelvis did not show any significant findings and no hematoma The patient was reassured Waiting for the paracentesis fluid analysis (4) Cirrhosis: Plan: Appears compensated but ascites present--INR and bilirubin are within normal limits. (5) Generalized weakness: Plan: As a result of issues above. PT/OT to assess when appropriate. (6) Recurrent falls: Plan: As a result of UTI and fatigue/weakness from heart failure and other chronic medical conditions. (7) Diabetes mellitus type 2 in nonobese: Plan: Allergies to Levemir, but says she has taken Lantus in the past without issue. Hold Tresiba and cont Lantus/Novolog. Currently at goal . Sliding scale has been started (8) CKD (chronic kidney disease) stage 4, GFR 15-29 ml/min: Plan: Chronic, at her baseline. Minimize insult to kidneys with contrast or other nephrotoxins and renally dose medications as needed. Creatinine is slightly up at 2.25 today Will monitor PRP-creatinine remains elevated at 2.3 (9) HTN (hypertension): Plan: Chronic, uncontrolled. Reassess after diuretic therapy started and continue home therapies (10) DVT prophylaxis: Plan: Heparin Full Code Dispo-to PCU Admission and Anticipated Discharge Date Admission Date: March 01, 2022 Subjective 03/03/2022 The patient was seen and examined in telemetry unit She complains to have generalized weakness Denies any chest pain, palpitation or shortness of breath No abdominal pain nausea and or vomiting 03/04/2022 The patient was seen and examined in telemetry unit She has had paracentesis which was reported to be bloody by the radiologist She has had CT scan of the abdomen and pelvis following paracentesis She has been feeling much better following paracentesis and denies any significant symptoms today Will ask for PT and OT evaluation Review of Systems Review of Systems: All systems reviewed and are unremarkable except as noted below Physical Exam Physical Exam: Lying in bed very lethargic without any acute distress Constitutional: well developed, well nourished, + ill appearing and average body habitus Eyes: PERRL, conjunctivae normal, anicteric sclerae ENMT: external ear and nose normal, oropharynx normal Neck: trachea midline, no thyromegaly Respiratory: no respiratory distress Auscultation: + diminished lung sounds; no crackles and no wheezes Cardiovascular: Rate/Rhythm: + irregularly irregular; not tachycardic Heart Sounds: normal S1, normal S2 and + murmur (2/6 ESM over precordium) Vessels: + JVD (Elevated JVD) Extremities: no edema Gastrointestinal (Abdomen): Inspection/Auscultation: + abdomen distended and normal bowel sounds Percussion/Palpation: abdomen soft and + ascites (Mild to moderate ascites clinically); abdomen nontender Musculoskeletal: No acute arthritis involving any joint. Neurologic: Alert, awake and oriented x3. Generally weak without any focal neurodeficit Lymphatic: no cervical or axillary lymphadenopathy Results & Data Results & Data ([facility]) Vital Signs (Past 12 Hours) Vital Signs Temp Pulse Pulse Pulse Resp BP Pulse Ox 03/04/22 16:00 71 03/04/22 15:49 36.9 C 76 18 146/63 H 97 03/04/22 12:04 36.9 C 80 19 171/71 H 97 03/04/22 11:17 36.8 C 76 20 172/50 H 95 03/04/22 10:47 36.7 C 78 20 150/64 H 93 03/04/22 10:17 36.8 C 83 20 146/67 H 93 03/04/22 10:02 36.8 C 81 18 146/55 H 93 03/04/22 08:00 74 03/04/22 07:26 36.8 C 80 17 137/67 96 Laboratory Results Short CBC 03/04/22 Range/Units 11:20 WBC 6.55 (4.8-10.8) K/uL Hgb 9.6 L (12.0-16.0) g/dL Hct 30.5 L (37-47) % Plt Count 200 (130-400) K/uL BMP 03/04/22 07:16 Sodium 140 Potassium 3.8 Chloride 108 H Carbon Dioxide 24 BUN 75 H Creatinine 2.35 H Glucose 98 Calcium 8.7 Medications Administered Current Inpatient Medications Acetaminophen (Acetaminophen 500 Mg Tab) 500 mg PO Q4H PRN PRN Reason: Pain or Fever Stop: 03/31/22 21:10 Allopurinol ([facility] 100 Mg Tab) [facility] Stop: 04/01/22 08:59 Last Admin: 03/04/22 08:10 Dose: 200 mg Documented by: Aspirin (Aspirin 81 Mg Ectab) 81 mg PO QAM [facility] Stop: 04/01/22 08:59 Last Admin: 03/04/22 08:10 Dose: 81 mg Documented by: Atorvastatin Calcium (Atorvastatin 40 Mg Tab) 40 mg PO QAM [facility] Stop: 04/01/22 08:59 Last Admin: 03/04/22 08:10 Dose: 40 mg Documented by: Dextrose (Dextrose 50% 50 Ml Syringe) 25 - 50 ml IV UD PRN; Protocol PRN Reason: Hypoglycemia Protocol Stop: 03/31/22 21:10 Docusate Sodium (Docusate Sodium 100 Mg Cap) 100 mg PO BID INGE Stop: 03/31/22 21:10 Last Admin: 03/04/22 08:10 Dose: 100 mg Documented by: Furosemide (Furosemide 40 Mg/4 Ml Vial) 40 mg IV DAILY [facility] Stop: 04/01/22 08:59 Last Admin: 03/04/22 08:09 Dose: 40 mg Documented by: Glucagon (Glucagon For Inj 1 Mg Vial) 1 mg SQ UD PRN; Protocol PRN Reason: Hypoglycemia Protocol Stop: 03/31/22 21:10 Glucose (Glucose 10 Tabs/Tube) 4 - 8 tabs PO UD PRN; Protocol PRN Reason: Hypoglycemia Protocol Stop: 03/31/22 21:10 Glucose (Glucose 40% Gel 15 Gm Tube) 15 - 30 gm PO UD PRN; Protocol PRN Reason: Hypoglycemia Protocol Stop: 03/31/22 21:10 Heparin Sodium (Porcine) (Heparin Sod 5,000 Unit/0.5 Ml Vial) 5,000 units SQ Q12 INGE Stop: 03/31/22 21:10 Last Admin: 03/04/22 08:11 Dose: 5,000 units Documented by: Hydroxyzine HCl (Hydroxyzine Hcl 25 Mg Tab) 25 mg PO Q6H PRN PRN Reason: .ITCHING Stop: 03/31/22 21:10 Last Admin: 03/03/22 20:11 Dose: 25 mg Documented by: Ceftriaxone Sodium 1,000 mg/ (Dextrose) 60 mls @ 100 mls/hr IV Q24H [facility]; Protocol Stop: 03/07/22 16:59 Last Infusion: 03/03/22 17:37 Dose: Infused Documented by: Insulin Aspart (Insulin Aspart Per Unit) 0 units SC ACHS [facility] Stop: 04/03/22 16:29 Insulin Glargine (Lantus Per Unit Charge) 9 units SQ BID INGE Stop: 03/31/22 21:10 Last Admin: 03/04/22 08:06 Dose: 9 units Documented by: Isosorbide Mononitrate (Isosorbide [place] Extended Rel 30 Mg Tabcr) 30 mg PO QAM INGE Stop: 04/01/22 08:59 Last Admin: 03/04/22 08:10 Dose: 30 mg Documented by: Lorazepam (Lorazepam 0.5 Mg Tab) 0.5 mg PO HS PRN PRN Reason: Insomnia Stop: 03/31/22 21:10 Last Admin: 03/03/22 22:00 Dose: 0.5 mg Documented by: Losartan Potassium (Losartan Potassium 25 Mg Tab) 12.5 mg PO QAM [facility] Stop: 04/01/22 08:59 Last Admin: 03/04/22 08:10 Dose: 12.5 mg Documented by: Metoprolol Succinate (Metoprolol Succ 25mg Ext Rel Tab) [facility] Stop: 04/01/22 08:59 Last Admin: 03/04/22 08:10 Dose: 25 mg Documented by: Miscellaneous (Carbohydrates For Hypoglycemia ) 15 - 30 gm PO UD PRN PRN Reason: Hypoglycemia Protocol Stop: 03/31/22 21:10 Last Admin: 03/01/22 21:50 Dose: 15 gm Documented by: Pantoprazole Sodium (Pantoprazole 40 Mg Tab) 40 mg PO [facility] Stop: 04/01/22 08:59 Last Admin: 03/04/22 08:10 Dose: 40 mg Documented by: Polyethylene Glycol (Polyethylene (Miralax) 17 Gm Pack) 17 gm PO DAILY PRN PRN Reason: Constipation Stop: 03/31/22 21:10 Sertraline HCl (Sertraline Hcl 100 Mg Tablet) 100 mg PO [facility] Stop: 03/31/22 21:10 Last Admin: 03/03/22 20:11 Dose: 100 mg Documented by: (1) Abdominal ascites Ascites type: other type Qualified Code(s): R18.8 - Other ascites
--- NOTE | 2022-03-04 16:52 | Cardiology Progress Note ---
Date of Service March 04, 2022 Assessment & Plan (1) Acute right heart failure: Plan: Continue cautious diuresis given her history of stage IV CKD. Patient is not on anticoagulation due to past concerns of gastrointestinal bleeding with regards to her atrial fibrillation. Holding furosemide given significant volume taken off with paracentesis, and concerns of potential volume depletion, risk of worsening renal function. Admission and Anticipated Discharge Date Admission Date: March 01, 2022 Subjective Patient seen in cardiology follow-up. She looks tired and washed out. Underwent ultrasound-guided paracentesis today with radiology, yielding 2 L of bloody appearing ascitic fluid. Patient noted significant fatigue after. CT of the abdomen pelvis today suggests cirrhotic morphology of the liver, improvement in the amount of ascites status post paracentesis, bilateral small pleural effusions. Physical Exam Physical Exam: Temp Pulse Resp BP Pulse Ox 36.9 C 71 18 146/63 H 97 03/04/22 15:49 03/04/22 16:00 03/04/22 15:49 03/04/22 15:49 03/04/22 15:49 Constitutional: Chronically ill in appearance without acute distress Respiratory: Mildly reduced breath sounds the bases, no rales rhonchi or wheezing Cardiovascular: Irregular rhythm, 2/6 systolic murmur, no edema Gastrointestinal (Abdomen): Abdomen less distended. Nonpainful Neurologic: PERRL, EOMI, accommodation nl, no face palsy, no dysarthria Results & Data ([facility] [place]) Vital Signs (Past 12 Hours) Vital Signs Temp Pulse Pulse Pulse Resp BP Pulse Ox 03/04/22 16:00 71 03/04/22 15:49 36.9 C 76 18 146/63 H 97 03/04/22 12:04 36.9 C 80 19 171/71 H 97 03/04/22 11:17 36.8 C 76 20 172/50 H 95 03/04/22 10:47 36.7 C 78 20 150/64 H 93 03/04/22 10:17 36.8 C 83 20 146/67 H 93 03/04/22 10:02 36.8 C 81 18 146/55 H 93 03/04/22 08:00 74 03/04/22 07:26 36.8 C 80 17 137/67 96 Laboratory Results CBC 03/04/22 Range/Units 11:20 WBC 6.55 (4.8-10.8) K/uL RBC 3.16 L (4.2-5.4) M/uL Hgb 9.6 L (12.0-16.0) g/dL Hct 30.5 L (37-47) % Plt Count 200 (130-400) K/uL Neut # (Auto) 4.42 (1.4-6.5) K/uL Lymph # (Auto) 1.05 L (1.2-3.4) K/uL [place] # (Auto) 0.70 H (0.11-0.59) K/uL Eos # (Auto) 0.35 (0-0.5) K/uL Baso # (Auto) 0.02 (0-0.2) K/uL Comprehensive Metabolic Panel 03/04/22 Range/Units 07:16 Sodium 140 (136-145) mmol/L Potassium 3.8 (3.5-5.1) mmol/L Chloride 108 H (98-107) mmol/L Carbon Dioxide 24 (21-32) mmol/L BUN 75 H (6-23) mg/dl Creatinine 2.35 H (0.6-1.2) mg/dl Glucose 98 (70-99(Fasting)) mg/dl Calcium 8.7 (8.5-10.1) mg/dl Intake and Output 03/04/22 03/04/22 03/04/22 06:59 14:59 22:59 Intake Total 150 / 510 400 / 400 Output Total 250 / 1000 651 / 651 Balance -100 / -490 -251 / -251 Intake: Oral 150 / 350 400 / 400 Output: Urine Amount (Catheter) 250 / 1000 650 / 650 Spear/Indwelling 250 / 1000 650 / 650 # Bowel Movements Other: Weight 50.2 kg Weight Measurement Method Built in [facility]
--- NOTE | 2022-03-04 17:15 | Gastroenterology Progress Note ---
Date of Service March 04, 2022 Assessment & Plan (1) Acute right heart failure: (2) Cirrhosis: (3) Abdominal ascites: Plan: This is a 76 y/o female with right heart failure, cardiac cirrhosis, + NAFLD, admitted w/ weakness, ascites, weight gain, abd pain, s/s CHF. Echo w/ significant heart failure, likely driving force in setting of CKD a combination of cirrhosis. Tap today was [address] suggests no apparent hematoma, has cirrhotic morphology of the liver, improvement in the amount of ascites status post paracentesis, bilateral small pleural effusions. On exam, soft abd. Chronically ill appearing. - Await fluid studies, including albumin, total protein, cytology given history of gallbladder cancer, cell count and differential. - Diuretics per cardiology and close monitoring of Kidney function creatinine did bump today, - Low salt diet Admission and Anticipated Discharge Date Admission Date: March 01, 2022 Supervising Physician Co-Signing Physician Notes I saw and evaluted the patient on 03/04/22. She has a history of right-sided heart failure resulting in cardiac cirrhosis. She did undergo a diagnostic paracentesis today notable for bloody return. As result we have suggested a noncontrast CT to evaluate for hemorrhage within the peritoneum. Subjective Patient seen and examined, chart reviewed. Had 2 L tap today and was reportedly bloody. Pt feeling weak; denies abd pain, n/v, hematemesis, melena, CP, SOB. Review of Systems Review of Systems: All systems reviewed & are unremarkable except as noted in HPI & below Physical Exam Constitutional: chronically ill, pale Eyes: sclerae not anicteric Respiratory: normal respiratory effort, lungs clear to auscultation Cardiovascular: Rate/Rhythm: + irregularly irregular Gastrointestinal (Abdomen): Inspection/Auscultation: abdomen normal to inspection and normal bowel sounds; abdomen not distended, no abdominal wall ecchymosis and no abdominal edema Percussion/Palpation: abdomen soft; abdomen nontender, no ascites and no fluid wave Skin: no jaundice Neurologic: no asterixis Psychiatric: A+Ox3, euthymic affect Results & Data ([facility]) Vital Signs (Past 12 Hours) Vital Signs Temp Pulse Pulse Pulse Resp BP Pulse Ox 03/04/22 16:00 71 03/04/22 15:49 36.9 C 76 18 146/63 H 97 03/04/22 12:04 36.9 C 80 19 171/71 H 97 03/04/22 11:17 36.8 C 76 20 172/50 H 95 03/04/22 10:47 36.7 C 78 20 150/64 H 93 03/04/22 10:17 36.8 C 83 20 146/67 H 93 03/04/22 10:02 36.8 C 81 18 146/55 H 93 03/04/22 08:00 74 03/04/22 07:26 36.8 C 80 17 137/67 96 Laboratory Results 03/04/22 03/04/22 03/04/22 Range/Units 16:11 12:17 11:49 WBC (4.8-10.8) K/uL RBC (4.2-5.4) M/uL Hgb (12.0-16.0) g/dL Hct (37-47) % MCV (80-100) fL MCH (25-34) pg MCHC (32-36) g/dL RDW Std Deviation (36.4-46.3) fL RDW Coeff of Yrn (11.5-14.5) % Plt Count (130-400) K/uL MPV (7.4-10.4) fL Immature Gran % (Auto) % Neut % (Auto) % Lymph % (Auto) % [place] % (Auto) % Eos % (Auto) % Baso % (Auto) % Neut # (Auto) (1.4-6.5) K/uL Lymph # (Auto) (1.2-3.4) K/uL [place] # (Auto) (0.11-0.59) K/uL Eos # (Auto) (0-0.5) K/uL Baso # (Auto) (0-0.2) K/uL Immature Gran # (Auto) (0.00-0.02) K/uL Sodium (136-145) mmol/L Potassium (3.5-5.1) mmol/L Chloride (98-107) mmol/L Carbon Dioxide (21-32) mmol/L Anion Gap (3-11) BUN (6-23) mg/dl Creatinine (0.6-1.2) mg/dl Est Cr Clr Drug Dosing ml/min Est GFR ( Amer) ml/min Est GFR (Non-Af Amer) ml/min BUN/Creatinine Ratio (10-20) Glucose (70-99(Fasting)) mg/dl POC Glucose 116 H 341 H* 333 H* (70-99) mg/dl Calcium (8.5-10.1) mg/dl Magnesium (1.7-2.4) mg/dl 03/04/22 03/04/22 03/04/22 Range/Units 11:48 11:20 07:25 WBC 6.55 (4.8-10.8) K/uL RBC 3.16 L (4.2-5.4) M/uL Hgb 9.6 L (12.0-16.0) g/dL Hct 30.5 L (37-47) % MCV 96.5 (80-100) fL MCH 30.4 (25-34) pg MCHC 31.5 L (32-36) g/dL RDW Std Deviation 53.7 H (36.4-46.3) fL RDW Coeff of Yrn 15.3 H (11.5-14.5) % Plt Count 200 (130-400) K/uL MPV 10.1 (7.4-10.4) fL Immature Gran % (Auto) 0.2 % Neut % (Auto) 67.5 % Lymph % (Auto) 16.0 % [place] % (Auto) 10.7 % Eos % (Auto) 5.3 % Baso % (Auto) 0.3 % Neut # (Auto) 4.42 (1.4-6.5) K/uL Lymph # (Auto) 1.05 L (1.2-3.4) K/uL [place] # (Auto) 0.70 H (0.11-0.59) K/uL Eos # (Auto) 0.35 (0-0.5) K/uL Baso # (Auto) 0.02 (0-0.2) K/uL Immature Gran # (Auto) 0.01 (0.00-0.02) K/uL Sodium (136-145) mmol/L Potassium (3.5-5.1) mmol/L Chloride (98-107) mmol/L Carbon Dioxide (21-32) mmol/L Anion Gap (3-11) BUN (6-23) mg/dl Creatinine (0.6-1.2) mg/dl Est Cr Clr Drug Dosing ml/min Est GFR ( Amer) ml/min Est GFR (Non-Af Amer) ml/min BUN/Creatinine Ratio (10-20) Glucose (70-99(Fasting)) mg/dl POC Glucose 343 H* 94 (70-99) mg/dl Calcium (8.5-10.1) mg/dl Magnesium (1.7-2.4) mg/dl 03/04/22 03/03/22 Range/Units 07:16 20:15 WBC (4.8-10.8) K/uL RBC (4.2-5.4) M/uL Hgb (12.0-16.0) g/dL Hct (37-47) % MCV (80-100) fL MCH (25-34) pg MCHC (32-36) g/dL RDW Std Deviation (36.4-46.3) fL RDW Coeff of Yrn (11.5-14.5) % Plt Count (130-400) K/uL MPV (7.4-10.4) fL Immature Gran % (Auto) % Neut % (Auto) % Lymph % (Auto) % [place] % (Auto) % Eos % (Auto) % Baso % (Auto) % Neut # (Auto) (1.4-6.5) K/uL Lymph # (Auto) (1.2-3.4) K/uL [place] # (Auto) (0.11-0.59) K/uL Eos # (Auto) (0-0.5) K/uL Baso # (Auto) (0-0.2) K/uL Immature Gran # (Auto) (0.00-0.02) K/uL Sodium 140 (136-145) mmol/L Potassium 3.8 (3.5-5.1) mmol/L Chloride 108 H (98-107) mmol/L Carbon Dioxide 24 (21-32) mmol/L Anion Gap 8 (3-11) BUN 75 H (6-23) mg/dl Creatinine 2.35 H (0.6-1.2) mg/dl Est Cr Clr Drug Dosing 13.9 ml/min Est GFR ( Amer) 22.6 ml/min Est GFR (Non-Af Amer) 19.5 ml/min BUN/Creatinine Ratio 31.9 H (10-20) Glucose 98 (70-99(Fasting)) mg/dl POC Glucose 91 (70-99) mg/dl Calcium 8.7 (8.5-10.1) mg/dl Magnesium 2.2 (1.7-2.4) mg/dl Diagnostic Findings US ABD paracentesis: IMPRESSION: Successful ultrasound-guided paracentesis with removal of approximately 2 liters of bloody appearing ascitic fluid. CTAP: Lung bases: The heart is enlarged and without pericardial effusion. There is a small hiatal hernia. There are small left and trace right pleural effusions and atelectasis. Liver: The unenhanced liver is cirrhotic in morphology and heterogeneous in attenuation with nodularity of the hepatic surface contour. There is no intrahepatic biliary ductal dilatation. Gallbladder: Surgically absent noting clips in the gallbladder fossa. Spleen: Normal in size and attenuation. A 3.5 cm cyst is again noted in the spleen. Pancreas: The unenhanced pancreas is atrophic and grossly unremarkable. Adrenal glands: Unremarkable. Kidneys: There is asymmetric cortical atrophy of the left kidney as compared to the right. Foci of cortical scarring are noted in both kidneys. Right-sided nephrolithiasis is suspected. This difficult to assess due to extensive renovascular calcification. There is no ureteral stone or hydronephrosis. A 1.5 cm exophytic cyst is noted arising from the left kidney. Abdominal vasculature: The abdominal aorta is normal in course and caliber noting advanced atherosclerotic calcification. Bowel: There is no bowel obstruction. Moderate fecal retention is seen throughout the colon. The appendix is not visualized. Peritoneum: There is only a small volume of residual simple appearing abdominopelvic ascites. No intraperitoneal free air is seen. Lymphadenopathy: None. Pelvic viscera: The bladder is partially decompressed around a Spear catheter. The bladder wall appears mildly thickened and there is nonspecific intraluminal gas. The uterus is surgically absent. No adnexal lesion is seen. Skeletal structures: The skeletal structures are osteopenic. There is moderate to advanced lumbosacral spondylosis with postoperative change L5-S1 spinal fusion hardware in place. No lytic or blastic lesions are seen. IMPRESSION: 1. The liver is cirrhotic in morphology and heterogeneous in attenuation. 2. There is only a small volume of simple appearing residual ascitic fluid. 3. No hematoma is identified. 4. Cardiomegaly and pleural effusions. 5. The bladder wall appears thickened and a Spear catheter is in place. Correlate with clinical findings and urinalysis. 6. Additional findings as above. (1) Abdominal ascites Ascites type: other type Qualified Code(s): R18.8 - Other ascites
[2022-03-04] MEDS: cefTRIAXone SODIUM 1,000 MG in DEXTROSE 5% 50 ML IV SCH (17:22)
[2022-03-04] MEDS: LORazepam 0.5 MG TAB PO PRN (21:22)
[2022-03-04] MEDS: SERTRALINE HCL 100 MG TABLET PO SCH (21:25)
[2022-03-04] MEDS: hydrOXYzine HCl 25 MG TAB PO PRN (22:12)
[2022-03-05 06:43] LABS: Basophils # (auto) 0.02 K/uL (0-0.2); Basophils % (auto) 0.2 %; Eosinophils % (auto) 4.7 %; Hematocrit (blood only) 32.7 % (37-47); Hemoglobin 10.3 g/dL (12.0-16.0); Immature Granulocytes # (auto) 0.02 K/uL (0.00-0.02); Immature Granulocytes % (auto) 0.2 %; Lymphocytes # (auto) 1.83 K/uL (1.2-3.4); Lymphocytes % (auto) 21.7 %; Mean Corpuscular Hemoglobin 29.9 pg (25-34); Mean Corpuscular Hgb Conc 31.5 g/dL (32-36); Mean Corpuscular Volume 95.1 fL (80-100); Mean Platelet Volume 10.7 fL (7.4-10.4); Monocytes # (auto) 1.27 K/uL (0.11-0.59); Neutrophils % (auto) 58.2 %; Platelet Count 239 K/uL (130-400); RDW Coefficient of Variation 15.7 % (11.5-14.5); Red Blood Count 3.44 M/uL (4.2-5.4); White Blood Count 8.44 K/uL (4.8-10.8)
[2022-03-05 07:06] LABS: BUN Creatinine Ratio 32.6 (10-20); Calcium 8.7 mg/dl (8.5-10.1); Creatinine Clr Calc Pharmacy 14.6 ml/min; Est GFR (African American) 23.9 ml/min; Est GFR (Non-African American) 20.6 ml/min; Magnesium 2.2 mg/dl (1.7-2.4)
[2022-03-05] MEDS: CARBOHYDRATES FOR HYPOGLYCEMIA PO PRN (07:36)
[2022-03-05] MEDS: HEPARIN SOD 5,000 UNIT/0.5 ML VIAL SQ SCH ×2 (08:08→20:31)
[2022-03-05] MEDS: INSULIN ASPART PER UNIT SC SCH ×4 (08:08→20:38)
[2022-03-05] MEDS: DOCUSATE SODIUM 100 MG CAP PO SCH ×2 (08:09→20:31)
[2022-03-05] MEDS: LANTUS PER UNIT CHARGE SQ SCH ×2 (08:10→20:38)
[2022-03-05] MEDS: LOSARTAN POTASSIUM 25 MG TAB PO SCH (08:13)
[2022-03-05] MEDS: PANTOprazole 40 MG TAB PO SCH (08:15)
[2022-03-05] MEDS: allopurinoL 100 MG TAB PO SCH (08:15)
[2022-03-05] MEDS: ASPIRIN 81 MG ECTAB PO SCH (08:16)
[2022-03-05] MEDS: METOPROLOL SUCC 25MG EXT REL TAB PO SCH (08:16)
[2022-03-05] MEDS: ISOSORBIDE MONO EXTENDED REL 30 MG TABCR PO SCH (08:16)
[2022-03-05] MEDS: ATORVASTATIN 40 MG TAB PO SCH (09:37)
--- NOTE | 2022-03-05 09:47 | Gastroenterology Progress Note ---
Date of Service March 05, 2022 Assessment & Plan (1) Acute right heart failure: (2) Cirrhosis: (3) Abdominal ascites: Plan: This is a 76 y/o female with right heart failure, cardiac cirrhosis, + NAFLD, admitted w/ weakness, ascites, weight gain, abd pain, s/s CHF. Echo w/ significant heart failure, likely driving force in setting of CKD a combination of cirrhosis. Tap yesterday was [address] suggests no apparent hematoma, has cirrhotic morphology of the liver, improvement in the amount of ascites status post paracentesis. On exam, soft abd. Chronically ill appearing. - Await fluid studies, including albumin, total protein, cytology given history of gallbladder cancer, cell count and differential. I spoke with the lab; they need the orders changed to reflect that the fluid was already collected; I attempted to change the orders but I was unable to; thus I spoke with her hospitalist to help in this regard. - Diuretics per cardiology and close monitoring of Kidney function - Low salt diet - Avoid Tylenol > 2 gm daily - Avoid hepatotoxins - F/u with GI as OP - GI will sign off, please call with questions Admission and Anticipated Discharge Date Admission Date: March 01, 2022 Supervising Physician Co-Signing Physician Notes I saw and evaluated the patient. Overall she seems to be doing fairly well from the standpoint of her liver disease. As we noted before this appears to be cardiac related cirrhosis and would recommend continued follow-up with her cardiology provider as this is what is driving the underlying liver problems. Please call with any additional questions or concerns. Subjective Patient seen and examined, chart reviewed. No acute events overnight; tolerated her breakfast. No n/v, melena, hematochezia, hematemesis, fever, chills, CP. Has ongoing SOB and cough. Review of Systems Review of Systems: All systems reviewed & are unremarkable except as noted in HPI & below Physical Exam Constitutional: WD/WN, vitals as above chronically ill, somewhat pale Eyes: sclerae not anicteric Respiratory: normal respiratory effort, lungs clear to auscultation Cardiovascular: RRR, no murmur, no edema Rate/Rhythm: + irregularly irregular Gastrointestinal (Abdomen): Inspection/Auscultation: abdomen normal to inspection and normal bowel sounds; abdomen not distended, no abdominal wall ecchymosis and no abdominal edema Percussion/Palpation: abdomen soft; abdomen nontender, no ascites and no fluid wave Skin: no jaundice Psychiatric: A+Ox3, euthymic affect Results & Data ([facility]) Vital Signs (Past 12 Hours) Vital Signs Temp Pulse Pulse Resp BP Pulse Ox 03/05/22 07:49 36.7 C 74 18 135/69 96 03/05/22 03:46 36.7 C 80 16 149/67 H 95 03/04/22 23:20 37.1 C 82 16 128/66 96 03/04/22 22:17 77 Laboratory Results 03/05/22 03/05/22 03/05/22 Range/Units 07:53 07:46 07:37 WBC (4.8-10.8) K/uL RBC (4.2-5.4) M/uL Hgb (12.0-16.0) g/dL Hct (37-47) % MCV (80-100) fL MCH (25-34) pg MCHC (32-36) g/dL RDW Std Deviation (36.4-46.3) fL RDW Coeff of Yrn (11.5-14.5) % Plt Count (130-400) K/uL MPV (7.4-10.4) fL Immature Gran % (Auto) % Neut % (Auto) % Lymph % (Auto) % Coos % (Auto) % Eos % (Auto) % Baso % (Auto) % Neut # (Auto) (1.4-6.5) K/uL Lymph # (Auto) (1.2-3.4) K/uL Coos # (Auto) (0.11-0.59) K/uL Eos # (Auto) (0-0.5) K/uL Baso # (Auto) (0-0.2) K/uL Immature Gran # (Auto) (0.00-0.02) K/uL Sodium (136-145) mmol/L Potassium (3.5-5.1) mmol/L Chloride (98-107) mmol/L Carbon Dioxide (21-32) mmol/L Anion Gap (3-11) BUN (6-23) mg/dl Creatinine (0.6-1.2) mg/dl Est Cr Clr Drug Dosing ml/min Est GFR ( Amer) ml/min Est GFR (Non-Af Amer) ml/min BUN/Creatinine Ratio (10-20) Glucose (70-99(Fasting)) mg/dl POC Glucose 77 49 L* 56 L* (70-99) mg/dl Calcium (8.5-10.1) mg/dl Magnesium (1.7-2.4) mg/dl 03/05/22 03/05/22 03/05/22 Range/Units 07:37 07:21 07:21 WBC (4.8-10.8) K/uL RBC (4.2-5.4) M/uL Hgb (12.0-16.0) g/dL Hct (37-47) % MCV (80-100) fL MCH (25-34) pg MCHC (32-36) g/dL RDW Std Deviation (36.4-46.3) fL RDW Coeff of Yrn (11.5-14.5) % Plt Count (130-400) K/uL MPV (7.4-10.4) fL Immature Gran % (Auto) % Neut % (Auto) % Lymph % (Auto) % Coos % (Auto) % Eos % (Auto) % Baso % (Auto) % Neut # (Auto) (1.4-6.5) K/uL Lymph # (Auto) (1.2-3.4) K/uL Coos # (Auto) (0.11-0.59) K/uL Eos # (Auto) (0-0.5) K/uL Baso # (Auto) (0-0.2) K/uL Immature Gran # (Auto) (0.00-0.02) K/uL Sodium (136-145) mmol/L Potassium (3.5-5.1) mmol/L Chloride (98-107) mmol/L Carbon Dioxide (21-32) mmol/L Anion Gap (3-11) BUN (6-23) mg/dl Creatinine (0.6-1.2) mg/dl Est Cr Clr Drug Dosing ml/min Est GFR ( Amer) ml/min Est GFR (Non-Af Amer) ml/min BUN/Creatinine Ratio (10-20) Glucose (70-99(Fasting)) mg/dl POC Glucose 56 L* 64 L* 68 L* (70-99) mg/dl Calcium (8.5-10.1) mg/dl Magnesium (1.7-2.4) mg/dl 03/05/22 03/05/22 03/04/22 Range/Units 06:23 06:23 20:21 WBC 8.44 (4.8-10.8) K/uL RBC 3.44 L (4.2-5.4) M/uL Hgb 10.3 L (12.0-16.0) g/dL Hct 32.7 L (37-47) % MCV 95.1 (80-100) fL MCH 29.9 (25-34) pg MCHC 31.5 L (32-36) g/dL RDW Std Deviation 54.0 H (36.4-46.3) fL RDW Coeff of Yrn 15.7 H (11.5-14.5) % Plt Count 239 (130-400) K/uL MPV 10.7 H (7.4-10.4) fL Immature Gran % (Auto) 0.2 % Neut % (Auto) 58.2 % Lymph % (Auto) 21.7 % Coos % (Auto) 15.0 % Eos % (Auto) 4.7 % Baso % (Auto) 0.2 % Neut # (Auto) 4.90 (1.4-6.5) K/uL Lymph # (Auto) 1.83 (1.2-3.4) K/uL Coos # (Auto) 1.27 H (0.11-0.59) K/uL Eos # (Auto) 0.40 (0-0.5) K/uL Baso # (Auto) 0.02 (0-0.2) K/uL Immature Gran # (Auto) 0.02 (0.00-0.02) K/uL Sodium 142 (136-145) mmol/L Potassium 4.0 (3.5-5.1) mmol/L Chloride 108 H (98-107) mmol/L Carbon Dioxide 26 (21-32) mmol/L Anion Gap 8 (3-11) BUN 73 H (6-23) mg/dl Creatinine 2.24 H (0.6-1.2) mg/dl Est Cr Clr Drug Dosing 14.6 ml/min Est GFR ( Amer) 23.9 ml/min Est GFR (Non-Af Amer) 20.6 ml/min BUN/Creatinine Ratio 32.6 H (10-20) Glucose 58 L (70-99(Fasting)) mg/dl POC Glucose 195 H (70-99) mg/dl Calcium 8.7 (8.5-10.1) mg/dl Magnesium 2.2 (1.7-2.4) mg/dl 03/04/22 03/04/22 03/04/22 Range/Units 16:11 12:17 11:49 WBC (4.8-10.8) K/uL RBC (4.2-5.4) M/uL Hgb (12.0-16.0) g/dL Hct (37-47) % MCV (80-100) fL MCH (25-34) pg MCHC (32-36) g/dL RDW Std Deviation (36.4-46.3) fL RDW Coeff of Yrn (11.5-14.5) % Plt Count (130-400) K/uL MPV (7.4-10.4) fL Immature Gran % (Auto) % Neut % (Auto) % Lymph % (Auto) % Coos % (Auto) % Eos % (Auto) % Baso % (Auto) % Neut # (Auto) (1.4-6.5) K/uL Lymph # (Auto) (1.2-3.4) K/uL Coos # (Auto) (0.11-0.59) K/uL Eos # (Auto) (0-0.5) K/uL Baso # (Auto) (0-0.2) K/uL Immature Gran # (Auto) (0.00-0.02) K/uL Sodium (136-145) mmol/L Potassium (3.5-5.1) mmol/L Chloride (98-107) mmol/L Carbon Dioxide (21-32) mmol/L Anion Gap (3-11) BUN (6-23) mg/dl Creatinine (0.6-1.2) mg/dl Est Cr Clr Drug Dosing ml/min Est GFR ( Amer) ml/min Est GFR (Non-Af Amer) ml/min BUN/Creatinine Ratio (10-20) Glucose (70-99(Fasting)) mg/dl POC Glucose 116 H 341 H* 333 H* (70-99) mg/dl Calcium (8.5-10.1) mg/dl Magnesium (1.7-2.4) mg/dl 03/04/22 03/04/22 Range/Units 11:48 11:20 WBC 6.55 (4.8-10.8) K/uL RBC 3.16 L (4.2-5.4) M/uL Hgb 9.6 L (12.0-16.0) g/dL Hct 30.5 L (37-47) % MCV 96.5 (80-100) fL MCH 30.4 (25-34) pg MCHC 31.5 L (32-36) g/dL RDW Std Deviation 53.7 H (36.4-46.3) fL RDW Coeff of Yrn 15.3 H (11.5-14.5) % Plt Count 200 (130-400) K/uL MPV 10.1 (7.4-10.4) fL Immature Gran % (Auto) 0.2 % Neut % (Auto) 67.5 % Lymph % (Auto) 16.0 % Coos % (Auto) 10.7 % Eos % (Auto) 5.3 % Baso % (Auto) 0.3 % Neut # (Auto) 4.42 (1.4-6.5) K/uL Lymph # (Auto) 1.05 L (1.2-3.4) K/uL Coos # (Auto) 0.70 H (0.11-0.59) K/uL Eos # (Auto) 0.35 (0-0.5) K/uL Baso # (Auto) 0.02 (0-0.2) K/uL Immature Gran # (Auto) 0.01 (0.00-0.02) K/uL Sodium (136-145) mmol/L Potassium (3.5-5.1) mmol/L Chloride (98-107) mmol/L Carbon Dioxide (21-32) mmol/L Anion Gap (3-11) BUN (6-23) mg/dl Creatinine (0.6-1.2) mg/dl Est Cr Clr Drug Dosing ml/min Est GFR ( Amer) ml/min Est GFR (Non-Af Amer) ml/min BUN/Creatinine Ratio (10-20) Glucose (70-99(Fasting)) mg/dl POC Glucose 343 H* (70-99) mg/dl Calcium (8.5-10.1) mg/dl Magnesium (1.7-2.4) mg/dl (1) Abdominal ascites Ascites type: other type Qualified Code(s): R18.8 - Other ascites
[2022-03-05 14:35] LABS: Appearance Peritoneal Fluid Cloudy; Color Peritoneal Fluid Red; RBC Peritoneal Fluid (A) 661000 /uL; WBC Peritoneal Fluid (A) 682 /ul (0-300)
[2022-03-05 14:53] LABS: Lymphocytes, Fluid 20 %; Mono,Macrophage,Mesothelial 71 %; Neutrophils, Fluid 9 %
--- NOTE | 2022-03-05 15:35 | Hospitalist Progress Note ---
Date of Service March 05, 2022 Assessment & Plan (1) Acute right heart failure: Plan: Known h/o right heart failure possibly as a cause of cirrhosis 2/2 congestive hepatopathy presents with acute worsening and fluid overload. Presumed cardiac cause for her increased ascites given heart failure syndrome described including decreased exercise tolerance, weight gain, 2 pillow orthopnea, +PND reported. She has increased fatigue with a dry cough for last 2-3 weeks along with these symptoms described. Significant JVD seen on examination Acute right heart failure is complicated by atrial fibrillation and valvular heart disease Appreciate cardiology input and recommendation Cont Lasix 40mg IV daily, strict I/Os, low salt diet, daily BMP given chronic kidney disease. Dr. Mix following. Remains weak and lethargic but no shortness of breath at rest Cumulative fluid balance is -1171 mL and 201 2 mL as of 03/04/2022 Patient remains free of any shortness of breath at rest Appreciate PT and OT evaluation and recommended to go to PCP Patient remains reasonably stable and the manager of case management is working on placement (2) UTI (urinary tract infection): Plan: Increased urgency and +UA. Rocephin started and will continue pending clinical improvement and culture results. Urine culture grew E. coli and is sensitive to ceftriaxone-we will continue for 5 days at least (3) Abdominal ascites: Plan: Likely result of acute ferrer failure, however, recently seen in outpatient GI clinic and there was a plan to perform abdominal paracentesis. Cont with paracentesis and low salt diet per GI. Has been getting albumin infusion which will be given before and after paracentesis Status post paracentesis-traumatic 2 L bloody fluid was taken out-likely secondary to trauma She has been feeling much better following paracentesis CT scan of the abdomen pelvis did not show any significant findings and no hematoma The patient was reassured Very high RBC count and minimally high WBC count Albumin level is 2.4 with total protein 3.4 Gram stain is pending and cytology is pending to (4) Cirrhosis: Plan: Appears compensated but ascites present--INR and bilirubin are within normal limits. (5) Generalized weakness: Plan: As a result of issues above. PT/OT to assess when appropriate. (6) Recurrent falls: Plan: As a result of UTI and fatigue/weakness from heart failure and other chronic medical conditions. (7) Diabetes mellitus type 2 in nonobese: Plan: Allergies to Levemir, but says she has taken Lantus in the past without issue. Hold Tresiba and cont Lantus/Novolog. Currently at goal . Sliding scale has been started (8) CKD (chronic kidney disease) stage 4, GFR 15-29 ml/min: Plan: Chronic, at her baseline. Minimize insult to kidneys with contrast or other nephrotoxins and renally dose medications as needed. Creatinine is slightly up at 2.25 today Will monitor PRP-creatinine remains elevated at 2.3 Diuretics are on hold now (9) HTN (hypertension): Plan: Chronic, uncontrolled. Reassess after diuretic therapy started and continue home therapies (10) DVT prophylaxis: Plan: Heparin Full Code Dispo-to PCU Admission and Anticipated Discharge Date Admission Date: March 01, 2022 Subjective 03/03/2022 The patient was seen and examined in telemetry unit She complains to have generalized weakness Denies any chest pain, palpitation or shortness of breath No abdominal pain nausea and or vomiting 03/04/2022 The patient was seen and examined in telemetry unit She has had paracentesis which was reported to be bloody by the radiologist She has had CT scan of the abdomen and pelvis following paracentesis She has been feeling much better following paracentesis and denies any significant symptoms today Will ask for PT and OT evaluation 03/05/2022 The patient was seen and examined in telemetry unit She has been generally weak and lethargic today but denies any other significant symptoms She denies any more abdominal pain, chest pain or palpitation or any more shortness of breath Review of Systems Review of Systems: All systems reviewed and are unremarkable except as noted below Neurologic: Generally weak and lethargic Physical Exam Physical Exam: Lying in bed very lethargic without any acute distress Constitutional: well developed, well nourished, + ill appearing and average body habitus Eyes: PERRL, conjunctivae normal, anicteric sclerae ENMT: external ear and nose normal, oropharynx normal Neck: trachea midline, no thyromegaly Respiratory: no respiratory distress Auscultation: + diminished lung sounds; no crackles and no wheezes Cardiovascular: Rate/Rhythm: + irregularly irregular; not tachycardic Heart Sounds: normal S1, normal S2 and + murmur (2/6 ESM over precordium) Vessels: + JVD (Elevated JVD) Extremities: no edema Gastrointestinal (Abdomen): Inspection/Auscultation: + abdomen distended and normal bowel sounds Percussion/Palpation: abdomen soft and + ascites (Mild to moderate ascites clinically); abdomen nontender Musculoskeletal: No acute arthritis involving any joint Neurologic: Alert, awake and oriented x3. She remains generally weak and lethargic Lymphatic: no cervical or axillary lymphadenopathy Results & Data Results & Data ([facility]) Vital Signs (Past 12 Hours) Vital Signs Temp Pulse Resp BP Pulse Ox 03/05/22 11:41 37.1 C 81 18 129/70 94 03/05/22 07:49 36.7 C 74 18 135/69 96 03/05/22 03:46 36.7 C 80 16 149/67 H 95 Laboratory Results Short CBC 03/05/22 Range/Units 06:23 WBC 8.44 (4.8-10.8) K/uL Hgb 10.3 L (12.0-16.0) g/dL Hct 32.7 L (37-47) % Plt Count 239 (130-400) K/uL BMP 03/05/22 06:23 Sodium 142 Potassium 4.0 Chloride 108 H Carbon Dioxide 26 BUN 73 H Creatinine 2.24 H Glucose 58 L Calcium 8.7 Medications Administered Current Inpatient Medications Acetaminophen (Acetaminophen 500 Mg Tab) 500 mg PO Q4H PRN PRN Reason: Pain or Fever Stop: 03/31/22 21:10 Allopurinol ([facility] 100 Mg Tab) [facility] Stop: 04/01/22 08:59 Last Admin: 03/05/22 08:15 Dose: 200 mg Documented by: Aspirin (Aspirin 81 Mg Ectab) 81 mg PO QAM [facility] Stop: 04/01/22 08:59 Last Admin: 03/05/22 08:16 Dose: 81 mg Documented by: Atorvastatin Calcium (Atorvastatin 40 Mg Tab) 40 mg PO QAM [facility] Stop: 04/01/22 08:59 Last Admin: 03/05/22 09:37 Dose: 40 mg Documented by: Dextrose (Dextrose 50% 50 Ml Syringe) 25 - 50 ml IV UD PRN; Protocol PRN Reason: Hypoglycemia Protocol Stop: 03/31/22 21:10 Docusate Sodium (Docusate Sodium 100 Mg Cap) 100 mg PO BID [facility] Stop: 03/31/22 21:10 Last Admin: 03/05/22 08:09 Dose: 100 mg Documented by: Furosemide (Furosemide 40 Mg/4 Ml Vial) 40 mg IV DAILY [facility] Stop: 04/01/22 08:59 Last Admin: 03/04/22 08:09 Dose: 40 mg Documented by: Glucagon (Glucagon For Inj 1 Mg Vial) 1 mg SQ UD PRN; Protocol PRN Reason: Hypoglycemia Protocol Stop: 03/31/22 21:10 Glucose (Glucose 10 Tabs/Tube) 4 - 8 tabs PO UD PRN; Protocol PRN Reason: Hypoglycemia Protocol Stop: 03/31/22 21:10 Glucose (Glucose 40% Gel 15 Gm Tube) 15 - 30 gm PO UD PRN; Protocol PRN Reason: Hypoglycemia Protocol Stop: 03/31/22 21:10 Heparin Sodium (Porcine) (Heparin Sod 5,000 Unit/0.5 Ml Vial) 5,000 units SQ Q12 [facility] Stop: 03/31/22 21:10 Last Admin: 03/05/22 08:08 Dose: 5,000 units Documented by: Hydroxyzine HCl (Hydroxyzine Hcl 25 Mg Tab) 25 mg PO Q6H PRN PRN Reason: .ITCHING Stop: 03/31/22 21:10 Last Admin: 03/04/22 22:12 Dose: 25 mg Documented by: Ceftriaxone Sodium 1,000 mg/ (Dextrose) 60 mls @ 100 mls/hr IV Q24H [facility]; Protocol Stop: 03/07/22 16:59 Last Infusion: 03/04/22 17:59 Dose: Infused Documented by: Insulin Aspart (Insulin Aspart Per Unit) 0 units SC ACHS [facility] Stop: 04/03/22 16:29 Last Admin: 03/05/22 12:27 Dose: 7 units Documented by: Insulin Glargine (Lantus Per Unit Charge) 5 units SQ HS [facility] Stop: 03/31/22 21:10 Isosorbide Mononitrate (Isosorbide [place] Extended Rel 30 Mg Tabcr) 30 mg PO QAM [facility] Stop: 04/01/22 08:59 Last Admin: 03/05/22 08:16 Dose: 30 mg Documented by: Lorazepam (Lorazepam 0.5 Mg Tab) 0.5 mg PO HS PRN PRN Reason: Insomnia Stop: 03/31/22 21:10 Last Admin: 07/05/22 21:22 Dose: 0.5 mg Documented by: Losartan Potassium (Losartan Potassium 25 Mg Tab) 12.5 mg PO QAM [facility] Stop: 04/01/22 08:59 Last Admin: 03/05/22 08:13 Dose: 12.5 mg Documented by: Metoprolol Succinate (Metoprolol Succ 25mg Ext Rel Tab) 25 mg PO QAM [facility] Stop: 04/01/22 08:59 Last Admin: 03/05/22 08:16 Dose: 25 mg Documented by: Miscellaneous (Carbohydrates For Hypoglycemia ) 15 - 30 gm PO UD PRN PRN Reason: Hypoglycemia Protocol Stop: 03/31/22 21:10 Last Admin: 03/05/22 07:36 Dose: 15 gm Documented by: Pantoprazole Sodium (Pantoprazole 40 Mg Tab) [facility] [place] Stop: 04/01/22 08:59 Last Admin: 03/05/22 08:15 Dose: 40 mg Documented by: Polyethylene Glycol (Polyethylene (Miralax) 17 Gm Pack) 17 gm PO DAILY PRN PRN Reason: Constipation Stop: 03/31/22 21:10 Sertraline HCl (Sertraline Hcl 100 Mg Tablet) 100 mg PO [facility] Stop: 03/31/22 21:10 Last Admin: 03/04/22 21:25 Dose: 100 mg Documented by: (1) Abdominal ascites Ascites type: other type Qualified Code(s): R18.8 - Other ascites
[2022-03-05] MEDS: cefTRIAXone SODIUM 1,000 MG in DEXTROSE 5% 50 ML IV SCH (16:32)
[2022-03-05] MEDS: hydrOXYzine HCl 25 MG TAB PO PRN (16:33)
--- NOTE | 2022-03-05 20:19 | Cardiology Progress Note ---
Date of Service March 05, 2022 Assessment & Plan (1) Acute right heart failure: Plan: Resume furosemide, 20 mg IV twice daily at 7 AM, 1400. DVT prophylaxis: Subcutaneous heparin. Admission and Anticipated Discharge Date Admission Date: March 01, 2022 Subjective Patient seen in follow-up. Slightly more anxious today. Rate controlled atrial flutter noted. Physical Exam Constitutional: Chronically ill in appearance, no acute distress Respiratory: Auscultation: lungs clear to auscultation bilaterally Cardiovascular: Rate/Rhythm: + irregularly irregular Heart Sounds: + murmur (2/6 systolic murmur) Extremities: no edema Gastrointestinal (Abdomen): Nontender, less distended than on presentation Neurologic: PERRL, EOMI, accommodation nl, no face palsy, no dysarthria Results & Data ([facility]) Vital Signs (Past 12 Hours) Vital Signs Temp Pulse Resp BP Pulse Ox 03/05/22 20:16 36.9 C 89 20 147/70 H 96 03/05/22 16:38 37 C 83 18 147/66 H 93 03/05/22 11:41 37.1 C 81 18 129/70 94
[2022-03-05] MEDS: SERTRALINE HCL 100 MG TABLET PO SCH (20:31)
[2022-03-05] MEDS: LORazepam 0.5 MG TAB PO PRN (20:37)
[2022-03-05] MEDS: ACETAMINOPHEN 500 MG TAB PO PRN (20:43)
[2022-03-06 07:12] LABS: BUN Creatinine Ratio 36.3 (10-20); Calcium 8.5 mg/dl (8.5-10.1); Creatinine Clr Calc Pharmacy 15.4 ml/min; Est GFR (African American) 25.6 ml/min
[2022-03-06] MEDS: INSULIN ASPART PER UNIT SC SCH ×4 (08:52→20:56)
[2022-03-06] MEDS: ATORVASTATIN 40 MG TAB PO SCH (08:53)
[2022-03-06] MEDS: ISOSORBIDE MONO EXTENDED REL 30 MG TABCR PO SCH (08:53)
[2022-03-06] MEDS: FUROSEMIDE INJ 20 MG/2 ML VIAL IV SCH ×2 (08:53→14:45)
[2022-03-06] MEDS: hydrOXYzine HCl 25 MG TAB PO PRN (08:53)
[2022-03-06] MEDS: PANTOprazole 40 MG TAB PO SCH (08:53)
[2022-03-06] MEDS: DOCUSATE SODIUM 100 MG CAP PO SCH ×2 (08:53→21:43)
[2022-03-06] MEDS: METOPROLOL SUCC 25MG EXT REL TAB PO SCH (08:54)
[2022-03-06] MEDS: HEPARIN SOD 5,000 UNIT/0.5 ML VIAL SQ SCH ×2 (08:54→21:43)
[2022-03-06] MEDS: allopurinoL 100 MG TAB PO SCH (08:54)
[2022-03-06] MEDS: ASPIRIN 81 MG ECTAB PO SCH (08:54)
[2022-03-06] MEDS: LOSARTAN POTASSIUM 25 MG TAB PO SCH (08:54)
--- NOTE | 2022-03-06 14:19 | Cardiology Progress Note ---
Date of Service March 06, 2022 Assessment & Plan (1) Acute right heart failure: Plan: -furosemide, 20 mg IV twice daily at 7 AM, 1400. DVT prophylaxis: Subcutaneous heparin. Admission and Anticipated Discharge Date Admission Date: March 01, 2022 Subjective Patient seen in follow-up. Still tired. Perhaps feels a little bit better today. Telemetry reveals rate controlled atrial flutter 70 bpm. Physical Exam Constitutional: + frail appearing Respiratory: Auscultation: lungs clear to auscultation bilaterally Cardiovascular: Rate/Rhythm: + irregularly irregular Heart Sounds: + murmur (2/6 systolic murmur) Extremities: no edema Neurologic: PERRL, EOMI, accommodation nl, no face palsy, no dysarthria Results & Data ([facility]) Vital Signs (Past 12 Hours) Vital Signs Temp Pulse Pulse Resp BP Pulse Ox 03/06/22 12:03 37.1 C 75 18 136/67 96 03/06/22 07:38 36.5 C 76 16 151/76 H 96 03/06/22 03:56 36.8 C 90 18 130/69 95
--- NOTE | 2022-03-06 16:25 | Hospitalist Progress Note ---
Date of Service March 06, 2022 Assessment & Plan (1) Acute right heart failure: Plan: Known h/o right heart failure possibly as a cause of cirrhosis 2/2 congestive hepatopathy presents with acute worsening and fluid overload. Presumed cardiac cause for her increased ascites given heart failure syndrome described including decreased exercise tolerance, weight gain, 2 pillow orthopnea, +PND reported. She has increased fatigue with a dry cough for last 2-3 weeks along with these symptoms described. Significant JVD seen on examination Acute right heart failure is complicated by atrial fibrillation and valvular heart disease Appreciate cardiology input and recommendation Cont Lasix 40mg IV daily, strict I/Os, low salt diet, daily BMP given chronic kidney disease. Dr. Mix following. Remains weak and lethargic but no shortness of breath at rest Cumulative fluid balance is -1171 mL and 201 2 mL as of 03/04/2022 Patient remains free of any shortness of breath at rest Appreciate PT and OT evaluation and recommended to go to PCP Patient remains reasonably stable and the immigration case manager is working on placement Has been accepted to [facility] and will be transferred tomorrow Will check PRP tomorrow and will decide the doses of Lasix to be given (2) UTI (urinary tract infection): Plan: Increased urgency and +UA. Rocephin started and will continue pending clinical improvement and culture results. Urine culture grew E. coli and is sensitive to ceftriaxone-we will continue for 5 days at least Will finish the course of antibiotic (3) Abdominal ascites: Plan: Likely result of acute ferrer failure, however, recently seen in outpatient GI clinic and there was a plan to perform abdominal paracentesis. Cont with paracentesis and low salt diet per GI. Has been getting albumin infusion which will be given before and after paracentesis Status post paracentesis-traumatic 2 L bloody fluid was taken out-likely secondary to trauma She has been feeling much better following paracentesis CT scan of the abdomen pelvis did not show any significant findings and no hematoma The patient was reassured Very high RBC count and minimally high WBC count Albumin level is 2.4 with total protein 3.4 Gram stain is pending and cytology is pending too--no organism and no malignant cells No abdominal distention and minimal tenderness on palpation (4) Cirrhosis: Plan: Appears compensated but ascites present--INR and bilirubin are within normal limits. (5) Generalized weakness: Plan: As a result of issues above. PT/OT to assess when appropriate. Accepted to [facility] and will be transferred tomorrow (6) Recurrent falls: Plan: As a result of UTI and fatigue/weakness from heart failure and other chronic medical conditions. (7) Diabetes mellitus type 2 in nonobese: Plan: Allergies to Levemir, but says she has taken Lantus in the past without issue. Hold Tresiba and cont Lantus/Novolog. Currently at goal . Sliding scale has been started (8) CKD (chronic kidney disease) stage 4, GFR 15-29 ml/min: Plan: Chronic, at her baseline. Minimize insult to kidneys with contrast or other nephrotoxins and renally dose medications as needed. Creatinine is slightly up at 2.25 today Will monitor PRP-creatinine remains elevated at 2.3 Diuretics are restarted (9) HTN (hypertension): Plan: Chronic, uncontrolled. Reassess after diuretic therapy started and continue home therapies (10) DVT prophylaxis: Plan: Heparin Full Code Dispo-to PCU Admission and Anticipated Discharge Date Admission Date: March 01, 2022 Subjective 03/03/2022 The patient was seen and examined in telemetry unit She complains to have generalized weakness Denies any chest pain, palpitation or shortness of breath No abdominal pain nausea and or vomiting 03/04/2022 The patient was seen and examined in telemetry unit She has had paracentesis which was reported to be bloody by the radiologist She has had CT scan of the abdomen and pelvis following paracentesis She has been feeling much better following paracentesis and denies any significant symptoms today Will ask for PT and OT evaluation 03/05/2022 The patient was seen and examined in telemetry unit She has been generally weak and lethargic today but denies any other significant symptoms She denies any more abdominal pain, chest pain or palpitation or any more shortness of breath 03/06/2022 The patient was seen and examined in telemetry unit She feels a little drowsy and weaker today following a particular medicine that she took Denies any chest pain or palpitation Denies any shortness of breath or abdominal pain Review of Systems Review of Systems: All systems reviewed and are unremarkable except as noted below Neurologic: Generally weak and lethargic Physical Exam Physical Exam: Lying in bed very lethargic without any acute distress Constitutional: well developed, well nourished, + ill appearing and average body habitus Eyes: PERRL, conjunctivae normal, anicteric sclerae ENMT: external ear and nose normal, oropharynx normal Neck: trachea midline, no thyromegaly Respiratory: no respiratory distress Auscultation: + diminished lung soun ds; no crackles and no wheezes Cardiovascular: Rate/Rhythm: + irregularly irregular; not tachycardic Heart Sounds: normal S1, normal S2 and + murmur (2/6 ESM over precordium) Vessels: + JVD (Elevated JVD) Extremities: no edema Gastrointestinal (Abdomen): Inspection/Auscultation: + abdomen distended and normal bowel sounds Percussion/Palpation: abdomen soft and + ascites (Mild to moderate ascites clinically); abdomen nontender Musculoskeletal: No acute arthritis in any joint Neurologic: Alert, awake and oriented x3. Generally weak but looks brighter Lymphatic: no cervical or axillary lymphadenopathy Results & Data Results & Data ([facility]) Vital Signs (Past 12 Hours) Vital Signs Temp Pulse Pulse Resp BP Pulse Ox 03/06/22 15:20 36.8 C 96 H 18 119/86 94 03/06/22 12:03 37.1 C 75 18 136/67 96 03/06/22 07:38 36.5 C 76 16 151/76 H 96 Laboratory Results [facility] 03/06/22 06:14 Sodium 139 Potassium 5.0 D Chloride 108 H Carbon Dioxide 24 BUN 77 H Creatinine 2.12 H Glucose 179 H Calcium 8.5 Medications Administered Current Inpatient Medications Acetaminophen (Acetaminophen 500 Mg Tab) 500 mg PO Q4H PRN PRN Reason: Pain or Fever Stop: 03/31/22 21:10 Last Admin: 03/05/22 20:43 Dose: 500 mg Documented by: Allopurinol (Allopurinol 100 Mg Tab) [address] [facility] Stop: 04/01/22 08:59 Last Admin: 03/06/22 08:54 Dose: 200 mg Documented by: Aspirin (Aspirin 81 Mg Ectab) [address] [facility] Stop: 04/01/22 08:59 Last Admin: 03/06/22 08:54 Dose: 81 mg Documented by: Atorvastatin Calcium (Atorvastatin 40 Mg Tab) [address] [facility] Stop: 04/01/22 08:59 Last Admin: 03/06/22 08:53 Dose: 40 mg Documented by: Dextrose (Dextrose 50% 50 Ml Syringe) 25 - 50 ml IV UD PRN; Protocol PRN Reason: Hypoglycemia Protocol Stop: 03/31/22 21:10 Docusate Sodium (Docusate Sodium 100 Mg Cap) 100 mg PO BID INGE Stop: 03/31/22 21:10 Last Admin: 03/06/22 08:53 Dose: 100 mg Documented by: Furosemide (Furosemide Inj 20 Mg/2 Ml Vial) 20 mg IV [id number] INGE Stop: 04/05/22 06:59 Last Admin: 03/06/22 14:45 Dose: 20 mg Documented by: Glucagon (Glucagon For Inj 1 Mg Vial) 1 mg SQ UD PRN; Protocol PRN Reason: Hypoglycemia Protocol Stop: 03/31/22 21:10 Glucose (Glucose 10 Tabs/Tube) 4 - 8 tabs PO UD PRN; Protocol PRN Reason: Hypoglycemia Protocol Stop: 03/31/22 21:10 Glucose (Glucose 40% Gel 15 Gm Tube) 15 - 30 gm PO UD PRN; Protocol PRN Reason: Hypoglycemia Protocol Stop: 03/31/22 21:10 Heparin Sodium (Porcine) (Heparin Sod 5,000 Unit/0.5 Ml Vial) 5,000 units SQ Q12 INGE Stop: 03/31/22 21:10 Last Admin: 03/06/22 08:54 Dose: 5,000 units Documented by: Ceftriaxone Sodium 1,000 mg/ (Dextrose) 60 mls @ 100 mls/hr IV Q24H [facility]; Protocol Stop: 03/07/22 16:59 Last Infusion: 03/05/22 17:31 Dose: Infused Documented by: Insulin Aspart (Insulin Aspart Per Unit) 0 units SC ACHS [facility] Stop: 04/03/22 16:29 Last Admin: 03/06/22 12:27 Dose: 5 units Documented by: Insulin Glargine (Lantus Per Unit Charge) 5 units SQ HS [facility] Stop: 03/31/22 21:10 Last Admin: 03/05/22 20:38 Dose: 5 units Documented by: Isosorbide Mononitrate (Isosorbide [place] Extended Rel 30 Mg Tabcr) 30 mg PO QAM [facility] Stop: 04/01/22 08:59 Last Admin: 03/06/22 08:53 Dose: 30 mg Documented by: Lorazepam (Lorazepam 0.5 Mg Tab) 0.5 mg PO HS PRN PRN Reason: Insomnia Stop: 03/31/22 21:10 Last Admin: 03/05/22 20:37 Dose: 0.5 mg Documented by: Losartan Potassium (Losartan Potassium 25 Mg Tab) 12.5 mg PO QAM [facility] Stop: 04/01/22 08:59 Last Admin: 03/06/22 08:54 Dose: 12.5 mg Documented by: Metoprolol Succinate (Metoprolol Succ 25mg Ext Rel Tab) [facility] [place]: 04/01/22 08:59 Last Admin: 03/06/22 08:54 Dose: 25 mg Documented by: Miscellaneous (Carbohydrates For Hypoglycemia ) 15 - 30 gm PO UD PRN PRN Reason: Hypoglycemia Protocol Stop: 03/31/22 21:10 Last Admin: 03/05/22 07:36 Dose: 15 gm Documented by: Pantoprazole Sodium (Pantoprazole 40 Mg Tab) [address] [facility] Stop: 04/01/22 08:59 Last Admin: 03/06/22 08:53 Dose: 40 mg Documented by: Polyethylene Glycol (Polyethylene (Miralax) 17 Gm Pack) 17 gm PO DAILY PRN PRN Reason: Constipation Stop: 03/31/22 21:10 Sertraline HCl (Sertraline Hcl 100 Mg Tablet) 100 mg PO HS [facility] Stop: 03/31/22 21:10 Last Admin: 03/05/22 20:31 Dose: 100 mg Documented by: (1) Abdominal ascites Ascites type: other type Qualified Code(s): R18.8 - Other ascites
[2022-03-06] MEDS: cefTRIAXone SODIUM 1,000 MG in DEXTROSE 5% 50 ML IV SCH (17:50)
[2022-03-06] MEDS: LANTUS PER UNIT CHARGE SQ SCH (21:43)
[2022-03-06] MEDS: SERTRALINE HCL 100 MG TABLET PO SCH (21:44)
[2022-03-06] MEDS: LORazepam 0.5 MG TAB PO PRN (22:52)
[2022-03-07] MEDS: FUROSEMIDE INJ 20 MG/2 ML VIAL IV SCH (06:19)
[2022-03-07 07:57] LABS: BUN Creatinine Ratio 32.7 (10-20); Calcium 8.8 mg/dl (8.5-10.1); Creatinine Clr Calc Pharmacy 13.2 ml/min; Est GFR (African American) 21.1 ml/min; Est GFR (Non-African American) 18.2 ml/min; Magnesium 2.2 mg/dl (1.7-2.4); Potassium 4.7 mmol/L (3.5-5.1)
[2022-03-07] MEDS: ATORVASTATIN 40 MG TAB PO SCH (07:59)
[2022-03-07] MEDS: allopurinoL 100 MG TAB PO SCH (07:59)
[2022-03-07] MEDS: ASPIRIN 81 MG ECTAB PO SCH (07:59)
[2022-03-07] MEDS: LOSARTAN POTASSIUM 25 MG TAB PO SCH (07:59)
[2022-03-07] MEDS: PANTOprazole 40 MG TAB PO SCH (07:59)
[2022-03-07] MEDS: DOCUSATE SODIUM 100 MG CAP PO SCH ×2 (08:00→20:47)
[2022-03-07] MEDS: METOPROLOL SUCC 25MG EXT REL TAB PO SCH (08:00)
[2022-03-07] MEDS: ISOSORBIDE MONO EXTENDED REL 30 MG TABCR PO SCH (08:00)
[2022-03-07] MEDS: HEPARIN SOD 5,000 UNIT/0.5 ML VIAL SQ SCH ×2 (08:01→20:47)
[2022-03-07] MEDS: INSULIN ASPART PER UNIT SC SCH ×4 (08:14→20:32)
--- NOTE | 2022-03-07 11:27 | Cardiology Progress Note ---
Date of Service March 07, 2022 Assessment & Plan (1) Acute right heart failure: Plan: Acute on chronic right heart failure Chronic AFL /AFIB (not on anticoagulation due to past GI bleeding, chronic anemia, pt preference) RV dysfunction , severe TR, severe RA enlargement on echo Stage 4 CKD with PREETI Congestive hepatopathy, cirrhosis due to right heart failure s/p paracentesis of 2 L ascites this admission -Creatinine trended up to 2.48. DC IV furosemide 20 mg BID , 7 am, 1400. Resume furosemide 40 mg PO daily when creatine back to baseline of ~ 2 mg/dl. DC Spear catheter. Mobilize as tolerated. Discussed with Dr Dorado. Admission and Anticipated Discharge Date Admission Date: March 01, 2022 Subjective Pt seen in cardiology follow up. Pt reports having a restless night. She is exhausted. Telemetry reveals rate controlled AF / AFL in the 70s. Physical Exam Constitutional: + frail appearing Respiratory: mildly reduced breath sounds at the bases Cardiovascular: irregular rhythm, 2/6 SM , no LE edema Gastrointestinal (Abdomen): soft , non tender, non distended Neurologic: PERRL, EOMI, accommodation nl, no face palsy, no dysarthria Results & Data ([facility]) Vital Signs (Past 12 Hours) Vital Signs Temp Pulse Pulse Resp BP Pulse Ox 03/07/22 07:55 36.8 C 85 18 150/71 H 94 03/07/22 02:42 36.9 C 87 18 150/74 H 94 03/06/22 23:31 78 Laboratory Results Cardiac Enzymes 03/01/22 03/02/22 03/03/22 Range/Units 17:00 05:54 06:09 Creatinine 2.03 H 2.01 H 2.35 H D (0.6-1.2) mg/dl 03/04/22 03/05/22 03/06/22 Range/Units 07:16 06:23 06:14 Creatinine 2.35 H 2.24 H 2.12 H (0.6-1.2) mg/dl 03/07/22 Range/Units 06:58 Creatinine 2.48 H D (0.6-1.2) mg/dl Comprehensive Metabolic Panel 03/07/22 Range/Units 06:58 Sodium 138 (136-145) mmol/L Potassium 4.7 (3.5-5.1) mmol/L Chloride 106 (98-107) mmol/L Carbon Dioxide 24 (21-32) mmol/L BUN 81 H (6-23) mg/dl Creatinine 2.48 H D (0.6-1.2) mg/dl Glucose 161 H (70-99(Fasting)) mg/dl Calcium 8.8 (8.5-10.1) mg/dl Intake and Output 03/06/22 03/07/22 03/07/22 22:59 06:59 14:59 Intake Total 540 / 660 Output Total 400 / 1825 925 / 1825 Balance 140 / -1165 -925 / -1165 Intake: IV 60 / 60 cefTRIAXone SODIUM 1,000 mg In 60 / 60 Dextrose 5% 50 ml @ 100 mls/hr IV Q24H [facility] Rx#:[id number] Oral 480 / 600 Output: Urine Amount (Catheter) 400 / 1825 925 / 1825 Spear/Indwelling 400 / 1825 925 / 1825 Other: Other Intake Source sips Weight 48.9 kg Weight Measurement Method Built in [facility]
--- NOTE | 2022-03-07 14:45 | Hospitalist Progress Note ---
Date of Service March 07, 2022 Assessment & Plan (1) Acute right heart failure: Plan: Known h/o right heart failure possibly as a cause of cirrhosis 2/2 congestive hepatopathy presents with acute worsening and fluid overload. Presumed cardiac cause for her increased ascites given heart failure syndrome described including decreased exercise tolerance, weight gain, 2 pillow orthopnea, +PND reported. She has increased fatigue with a dry cough for last 2-3 weeks along with these symptoms described. Significant JVD seen on examination Acute right heart failure is complicated by atrial fibrillation and valvular heart disease Appreciate cardiology input and recommendation Cont Lasix 40mg IV daily, strict I/Os, low salt diet, daily BMP given chronic kidney disease. Dr. Mix following. Remains weak and lethargic but no shortness of breath at rest Cumulative fluid balance is -1171 mL and 201 2 mL as of 03/04/2022 Patient remains free of any shortness of breath at rest Appreciate PT and OT evaluation and recommended to go to PCP Patient remains reasonably stable and the senior case manager is working on placement Has been accepted to [facility] and will be transferred tomorrow Will check PRP tomorrow and will decide the doses of Lasix to be given Creatinine went up to 2.48 and the Lasix were changed to oral We will monitor for next 24 to 48 hours (2) UTI (urinary tract infection): Plan: Increased urgency and +UA. Rocephin started and will continue pending clinical improvement and culture results. Urine culture grew E. coli and is sensitive to ceftriaxone-we will continue for 5 days at least Will finish the course of antibiotic We will take out the Spear catheter (3) Abdominal ascites: Plan: Likely result of acute ferrer failure, however, recently seen in outpatient GI clinic and there was a plan to perform abdominal paracentesis. Cont with paracentesis and low salt diet per GI. Has been getting albumin infusion which will be given before and after paracentesis Status post paracentesis-traumatic 2 L bloody fluid was taken out-likely secondary to trauma She has been feeling much better following paracentesis CT scan of the abdomen pelvis did not show any significant findings and no hematoma The patient was reassured Very high RBC count and minimally high WBC count Albumin level is 2.4 with total protein 3.4 Gram stain is pending and cytology is pending too--no organism and no malignant cells No abdominal distention and minimal tenderness on palpation Distention of the abdomen and no pain at rest (4) Cirrhosis: Plan: Appears compensated but ascites present--INR and bilirubin are within normal limits. (5) Generalized weakness: Plan: As a result of issues above. PT/OT to assess when appropriate. Accepted to [facility] and will be transferred tomorrow Remains very weak to be transferred (6) Recurrent falls: Plan: As a result of UTI and fatigue/weakness from heart failure and other chronic medical conditions. (7) Diabetes mellitus type 2 in nonobese: Plan: Allergies to Levemir, but says she has taken Lantus in the past without issue. Hold Tresiba and cont Lantus/Novolog. Currently at goal . Sliding scale has been started (8) CKD (chronic kidney disease) stage 4, GFR 15-29 ml/min: Plan: Chronic, at her baseline. Minimize insult to kidneys with contrast or other nephrotoxins and renally dose medications as needed. Creatinine is slightly up at 2.25 today Will monitor PRP-creatinine remains elevated at 2.3 Diuretics are restarted-oral diuretics (9) HTN (hypertension): Plan: Chronic, uncontrolled. Reassess after diuretic therapy started and continue home therapies (10) DVT prophylaxis: Plan: Heparin Full Code Dispo-to PCU Admission and Anticipated Discharge Date Admission Date: March 01, 2022 Subjective 03/03/2022 The patient was seen and examined in telemetry unit She complains to have generalized weakness Denies any chest pain, palpitation or shortness of breath No abdominal pain nausea and or vomiting 03/04/2022 The patient was seen and examined in telemetry unit She has had paracentesis which was reported to be bloody by the radiologist She has had CT scan of the abdomen and pelvis following paracentesis She has been feeling much better following paracentesis and denies any significant symptoms today Will ask for PT and OT evaluation 03/05/2022 The patient was seen and examined in telemetry unit She has been generally weak and lethargic today but denies any other significant symptoms She denies any more abdominal pain, chest pain or palpitation or any more shortness of breath 03/06/2022 The patient was seen and examined in telemetry unit She feels a little drowsy and weaker today following a particular medicine that she took Denies any chest pain or palpitation Denies any shortness of breath or abdominal pain 03/07/2022 The patient was seen and examined in telemetry unit She is worse today with increasing weakness and tiredness She could not sleep last night at all Denies any increasing pain and/or shortness of breath Not ready to be discharged today Review of Systems Review of Systems: All systems reviewed and are unremarkable except as noted below Neurologic: Generally weak and lethargic Physical Exam Physical Exam: Lying in bed very lethargic without any acute distress Constitutional: well developed, well nourished, + ill appearing and average body habitus Eyes: PERRL, conjunctivae normal, anicteric sclerae ENMT: external ear and nose normal, oropharynx normal Neck: trachea midline, no thyromegaly Respiratory: no respiratory distress Auscultation: + diminished lung sounds; no crackles and no wheezes Cardiovascular: Rate/Rhythm: + irregularly irregular; not tachycardic Heart Sounds: normal S1, normal S2 and + murmur (2/6 ESM over precordium) Vessels: + JVD (Elevated JVD) Extremities: no edema Gastrointestinal (Abdomen): Inspection/Auscultation: + abdomen distended and normal bowel sounds Percussion/Palpation: abdomen soft and + ascites (Mild to moderate ascites clinically); abdomen nontender Musculoskeletal: No acute arthritis in any joint Neurologic: Very lethargic but alert and awake Lymphatic: no cervical or axillary lymphadenopathy Results & Data Results & Data ([facility]) Vital Signs (Past 12 Hours) Vital Signs Temp Pulse Pulse Resp BP Pulse Ox 03/07/22 11:41 37.1 C 77 16 117/62 95 03/07/22 07:55 36.8 C 85 18 150/71 H 94 03/07/22 02:42 36.9 C 87 18 150/74 H 94 Laboratory Results [facility] 03/07/22 06:58 Sodium 138 Potassium 4.7 Chloride 106 Carbon Dioxide 24 BUN 81 H Creatinine 2.48 H D Glucose 161 H Calcium 8.8 Medications Administered Current Inpatient Medications Acetaminophen (Acetaminophen 500 Mg Tab) 500 mg PO Q4H PRN PRN Reason: Pain or Fever Stop: 03/31/22 21:10 Last Admin: 03/05/22 20:43 Dose: 500 mg Documented by: Allopurinol (Allopurinol 100 Mg Tab) [facility] [place]: 04/01/22 08:59 Last Admin: 03/07/22 07:59 Dose: 200 mg Documented by: Aspirin (Aspirin 81 Mg Ectab) 81 mg PO QAM [facility] Stop: 04/01/22 08:59 Last Admin: 03/07/22 07:59 Dose: 81 mg Documented by: Atorvastatin Calcium (Atorvastatin 40 Mg Tab) 40 mg PO QAM [facility] Stop: 04/01/22 08:59 Last Admin: 03/07/22 07:59 Dose: 40 mg Documented by: Dextrose (Dextrose 50% 50 Ml Syringe) 25 - 50 ml IV UD PRN; Protocol PRN Reason: Hypoglycemia Protocol Stop: 03/31/22 21:10 Docusate Sodium (Docusate Sodium 100 Mg Cap) 100 mg PO BID [facility] Stop: 03/31/22 21:10 Last Admin: 03/07/22 08:00 Dose: Not Given Documented by: Glucagon (Glucagon For Inj 1 Mg Vial) 1 mg SQ UD PRN; Protocol PRN Reason: Hypoglycemia Protocol Stop: 03/31/22 21:10 Glucose (Glucose 10 Tabs/Tube) 4 - 8 tabs PO UD PRN; Protocol PRN Reason: Hypoglycemia Protocol Stop: 03/31/22 21:10 Glucose (Glucose 40% Gel 15 Gm Tube) 15 - 30 gm PO UD PRN; Protocol PRN Reason: Hypoglycemia Protocol Stop: 03/31/22 21:10 Heparin Sodium (Porcine) (Heparin Sod 5,000 Unit/0.5 Ml Vial) 5,000 units SQ Q12 [facility] Stop: 03/31/22 21:10 Last Admin: 03/07/22 08:01 Dose: 5,000 units Documented by: Ceftriaxone Sodium 1,000 mg/ (Dextrose) 60 mls @ 100 mls/hr IV Q24H [facility]; Protocol Stop: 03/07/22 16:59 Last Infusion: 03/06/22 18:46 Dose: Infused Documented by: Insulin Aspart (Insulin Aspart Per Unit) 0 units SC ACHS [facility] Stop: 04/03/22 16:29 Last Admin: 03/07/22 12:21 Dose: 5 units Documented by: Insulin Glargine (Lantus Per Unit Charge) 5 units SQ HS [facility] Stop: 03/31/22 21:10 Last Admin: 03/06/22 21:43 Dose: 5 units Documented by: Isosorbide Mononitrate (Isosorbide [place] Extended Rel 30 Mg Tabcr) 30 mg PO QAM [facility] Stop: 04/01/22 08:59 Last Admin: 03/07/22 08:00 Dose: 30 mg Documented by: Lorazepam (Lorazepam 0.5 Mg Tab) 0.5 mg PO HS PRN PRN Reason: Insomnia Stop: 03/31/22 21:10 Last Admin: 03/06/22 22:52 Dose: 0.5 mg Documented by: Losartan Potassium (Losartan Potassium 25 Mg Tab) 12.5 mg PO QAM [facility] Stop: 04/01/22 08:59 Last Admin: 03/07/22 07:59 Dose: 12.5 mg Documented by: Metoprolol Succinate (Metoprolol Succ 25mg Ext Rel Tab) 25 [facility] [place] [place]: 04/01/22 08:59 Last Admin: 03/07/22 08:00 Dose: 25 mg Documented by: Miscellaneous (Carbohydrates For Hypoglycemia ) 15 - 30 gm PO UD PRN PRN Reason: Hypoglycemia Protocol Stop: 03/31/22 21:10 Last Admin: 03/05/22 07:36 Dose: 15 gm Documented by: Pantoprazole Sodium (Pantoprazole 40 Mg Tab) 40 mg PO QAM [facility] Stop: 04/01/22 08:59 Last Admin: 03/07/22 07:59 Dose: 40 mg Documented by: Polyethylene Glycol (Polyethylene (Miralax) 17 Gm Pack) 17 gm PO DAILY PRN PRN Reason: Constipation Stop: 03/31/22 21:10 Sertraline HCl (Sertraline Hcl 100 Mg Tablet) 100 mg PO HS [facility] Stop: 03/31/22 21:10 Last Admin: 03/06/22 21:44 Dose: 100 mg Documented by: (1) Abdominal ascites Ascites type: other type Qualified Code(s): R18.8 - Other ascites
[2022-03-07] MEDS: LANTUS PER UNIT CHARGE SQ SCH (20:33)
[2022-03-07] MEDS: SERTRALINE HCL 100 MG TABLET PO SCH (20:47)
[2022-03-07] MEDS: MELATONIN 3 MG TAB PO PRN (20:47)
[2022-03-07] MEDS: hydrOXYzine HCl 10 MG TAB PO PRN (20:47)
[2022-03-08 08:10] LABS: Calcium 8.5 mg/dl (8.5-10.1); Magnesium 2.2 mg/dl (1.7-2.4); Potassium 4.6 mmol/L (3.5-5.1)
[2022-03-08 08:15] LABS: BUN Creatinine Ratio 33.3 (10-20); Est GFR (African American) 20.7 ml/min; Est GFR (Non-African American) 17.9 ml/min
[2022-03-08] MEDS: ISOSORBIDE MONO EXTENDED REL 30 MG TABCR PO SCH (08:24)
[2022-03-08] MEDS: LOSARTAN POTASSIUM 25 MG TAB PO SCH (08:25)
[2022-03-08] MEDS: HEPARIN SOD 5,000 UNIT/0.5 ML VIAL SQ SCH ×2 (08:25→20:12)
[2022-03-08] MEDS: ASPIRIN 81 MG ECTAB PO SCH (08:26)
[2022-03-08] MEDS: PANTOprazole 40 MG TAB PO SCH (08:26)
[2022-03-08] MEDS: allopurinoL 100 MG TAB PO SCH (08:26)
[2022-03-08] MEDS: ATORVASTATIN 40 MG TAB PO SCH (08:26)
[2022-03-08] MEDS: METOPROLOL SUCC 25MG EXT REL TAB PO SCH (08:26)
[2022-03-08] MEDS: DOCUSATE SODIUM 100 MG CAP PO SCH ×2 (08:26→20:12)
[2022-03-08] MEDS: INSULIN ASPART PER UNIT SC SCH ×4 (08:35→20:05)
[2022-03-08 10:45] LABS: Phosphorus 4.2 mg/dl (2.5-4.9)
--- NOTE | 2022-03-08 14:14 | Hospitalist Progress Note ---
Date of Service March 08, 2022 Assessment & Plan (1) Acute right heart failure: Plan: Known h/o right heart failure possibly as a cause of cirrhosis 2/2 congestive hepatopathy presents with acute worsening and fluid overload. Presumed cardiac cause for her increased ascites given heart failure syndrome described including decreased exercise tolerance, weight gain, 2 pillow orthopnea, +PND reported. She has increased fatigue with a dry cough for last 2-3 weeks along with these symptoms described. Significant JVD seen on examination Acute right heart failure is complicated by atrial fibrillation and valvular heart disease Appreciate cardiology input and recommendation Cont Lasix 40mg IV daily, strict I/Os, low salt diet, daily BMP given chronic kidney disease. Dr. Mix following. Remains weak and lethargic but no shortness of breath at rest Cumulative fluid balance is -1171 mL and 201 2 mL as of 03/04/2022 Patient remains free of any shortness of breath at rest Appreciate PT and OT evaluation and recommended to go to PCP Patient remains reasonably stable and the case technician is working on placement Has been accepted to [facility] and will be transferred tomorrow Will check PRP tomorrow and will decide the doses of Lasix to be given Creatinine went up to 2.48 and the Lasix were changed to oral We will monitor for next 24 to 48 hours Since creatinine went up to 2.52 and cumulative fluid balance is negative more than 3000 We will hold Lasix for now and monitor BMP Continue with PT and OT (2) UTI (urinary tract infection): Plan: Increased urgency and +UA. Rocephin started and will continue pending clinical improvement and culture results. Urine culture grew E. coli and is sensitive to ceftriaxone-we will continue for 5 days at least Will finish the course of antibiotic We will take out the Spear catheter (3) Abdominal ascites: Plan: Likely result of acute ferrer failure, however, recently seen in outpatient GI clinic and there was a plan to perform abdominal paracentesis. Cont with paracentesis and low salt diet per GI. Has been getting albumin infusion which will be given before and after paracentesis Status post paracentesis-traumatic 2 L bloody fluid was taken out-likely secondary to trauma She has been feeling much better following paracentesis CT scan of the abdomen pelvis did not show any significant findings and no hematoma The patient was reassured Very high RBC count and minimally high WBC count Albumin level is 2.4 with total protein 3.4 Gram stain is pending and cytology is pending too--no organism and no malignant cells No abdominal distention and minimal tenderness on palpation Distention of the abdomen and no pain at rest (4) Cirrhosis: Plan: Appears compensated but ascites present--INR and bilirubin are within normal limits. (5) Generalized weakness: Plan: As a result of issues above. PT/OT to assess when appropriate. Accepted to [facility] and will be transferred tomorrow Remains very weak to be transferred Weakness significantly improved and she is out of bed on a chair today (6) Recurrent falls: Plan: As a result of UTI and fatigue/weakness from heart failure and other chronic medical conditions. (7) Diabetes mellitus type 2 in nonobese: Plan: Allergies to Levemir, but says she has taken Lantus in the past without issue. Hold Tresiba and cont Lantus/Novolog. Currently at goal . Sliding scale has been started (8) CKD (chronic kidney disease) stage 4, GFR 15-29 ml/min: Plan: Chronic, at her baseline. Minimize insult to kidneys with contrast or other nephrotoxins and renally dose medications as needed. Creatinine is slightly up at 2.25 today Will monitor PRP-creatinine remains elevated at 2.3 Diuretics are on hold will restart when the kidney function placement (9) HTN (hypertension): Plan: Chronic, uncontrolled. Reassess after diuretic therapy started and continue home therapies (10) DVT prophylaxis: Plan: Heparin Full Code Dispo-to PCU Admission and Anticipated Discharge Date Admission Date: March 01, 2022 Subjective 03/03/2022 The patient was seen and examined in telemetry unit She complains to have generalized weakness Denies any chest pain, palpitation or shortness of breath No abdominal pain nausea and or vomiting 03/04/2022 The patient was seen and examined in telemetry unit She has had paracentesis which was reported to be bloody by the radiologist She has had CT scan of the abdomen and pelvis following paracentesis She has been feeling much better following paracentesis and denies any signific ant symptoms today Will ask for PT and OT evaluation 03/05/2022 The patient was seen and examined in telemetry unit She has been generally weak and lethargic today but denies any other significant symptoms She denies any more abdominal pain, chest pain or palpitation or any more shortness of breath 03/06/2022 The patient was seen and examined in telemetry unit She feels a little drowsy and weaker today following a particular medicine that she took Denies any chest pain or palpitation Denies any shortness of breath or abdominal pain 03/07/2022 The patient was seen and examined in telemetry unit She is worse today with increasing weakness and tiredness She could not sleep last night at all Denies any increasing pain and/or shortness of breath Not ready to be discharged today 03/08/2020 The patient was seen and examined telemetry unit She is out of bed on a chair today and has been feeling little better Denies any significant abdominal pain nausea no vomiting No chest pain no palpitation Review of Systems Review of Systems: All systems reviewed and are unremarkable except as noted below Neurologic: Generally weak and lethargic Physical Exam Physical Exam: Sitting on a chair without any acute distress looks great today Constitutional: well developed, well nourished, + ill appearing and average body habitus Eyes: PERRL, conjunctivae normal, anicteric sclerae ENMT: external ear and nose normal, oropharynx normal Neck: trachea midline, no thyromegaly Respiratory: no respiratory distress Auscultation: + diminished lung sounds; no crackles and no wheezes Cardiovascular: Rate/Rhythm: + irregularly irregular; not tachycardic Heart Sounds: normal S1, normal S2 and + murmur (2/6 ESM over precordium) Vessels: + JVD (Elevated JVD) Extremities: no edema Gastrointestinal (Abdomen): Inspection/Auscultation: + abdomen distended and normal bowel sounds Percussion/Palpation: abdomen soft and + ascites (Mild to moderate ascites clinically); abdomen nontender Musculoskeletal: No acute arthritis involving any joint Neurologic: Alert, awake and oriented x3. No focal sensory or no motor deficit appreciated Lymphatic: no cervical or axillary lymphadenopathy Results & Data Results & Data ([facility]) Vital Signs (Past 12 Hours) Vital Signs Temp Pulse Pulse Resp BP Pulse Ox 03/08/22 10:48 37.1 C 79 17 146/67 H 93 03/08/22 07:07 37.1 C 100 H 18 151/68 H 93 03/08/22 04:39 37.1 C 86 16 128/65 92 Laboratory Results [facility] 03/08/22 06:15 Sodium 136 Potassium 4.6 Chloride 103 Carbon Dioxide 23 BUN 84 H Creatinine 2.52 H Glucose 184 H Calcium 8.5 Medications Administered Current Inpatient Medications Acetaminophen (Acetaminophen 500 Mg Tab) 500 mg PO Q4H PRN PRN Reason: Pain or Fever Stop: 03/31/22 21:10 Last Admin: 03/05/22 20:43 Dose: 500 mg Documented by: Allopurinol (Allopurinol 100 Mg Tab) 200 mg PO QAM [facility] Stop: 04/01/22 08:59 Last Admin: 03/08/22 08:26 Dose: 200 mg Documented by: Aspirin (Aspirin 81 Mg Ectab) 81 mg PO QAM [facility] Stop: 04/01/22 08:59 Last Admin: 03/08/22 08:26 Dose: 81 mg Documented by: Atorvastatin Calcium (Atorvastatin 40 Mg Tab) 40 mg PO QAM [facility] Stop: 04/01/22 08:59 Last Admin: 03/08/22 08:26 Dose: 40 mg Documented by: Dextrose (Dextrose 50% 50 Ml Syringe) 25 - 50 ml IV UD PRN; Protocol PRN Reason: Hypoglycemia Protocol Stop: 03/31/22 21:10 Docusate Sodium (Docusate Sodium 100 Mg Cap) 100 mg PO BID [facility] Stop: 03/31/22 21:10 Last Admin: 03/08/22 08:26 Dose: 100 mg Documented by: Glucagon (Glucagon For Inj 1 Mg Vial) 1 mg SQ UD PRN; Protocol PRN Reason: Hypoglycemia Protocol Stop: 03/31/22 21:10 Glucose (Glucose 10 Tabs/Tube) 4 - 8 tabs PO UD PRN; Protocol PRN Reason: Hypoglycemia Protocol Stop: 03/31/22 21:10 Glucose (Glucose 40% Gel 15 Gm Tube) 15 - 30 gm PO UD PRN; Protocol PRN Reason: Hypoglycemia Protocol Stop: 03/31/22 21:10 Heparin Sodium (Porcine) (Heparin Sod 5,000 Unit/0.5 Ml Vial) 5,000 units SQ Q12 [facility] Stop: 03/31/22 21:10 Last Admin: 03/08/22 08:25 Dose: 5,000 units Documented by: Hydroxyzine HCl (Hydroxyzine Hcl 10 Mg Tab) 10 mg PO QID PRN PRN Reason: Itching Stop: 04/06/22 19:49 Last Admin: 03/07/22 20:47 Dose: 10 mg Documented by: Insulin Aspart (Insulin Aspart Per Unit) 0 units SC [facility] Stop: 04/03/22 16:29 Last Admin: 03/08/22 12:03 Dose: 8 units Documented by: Insulin Glargine (Lantus Per Unit Charge) 5 units SQ HS [facility] Stop: 03/31/22 21:10 Last Admin: 03/07/22 20:33 Dose: 5 units Documented by: Isosorbide Mononitrate (Isosorbide [place] Extended Rel 30 Mg Tabcr) 30 mg PO [facility] Stop: 04/01/22 08:59 Last Admin: 03/08/22 08:24 Dose: 30 mg Documented by: Losartan Potassium (Losartan Potassium 25 Mg Tab) 12.5 mg PO [facility] Stop: 04/01/22 08:59 Last Admin: 03/08/22 08:25 Dose: 12.5 mg Documented by: Melatonin (Melatonin 3 Mg Tab) 3 mg PO HS PRN PRN Reason: Sleep Stop: 04/06/22 19:46 Last Admin: 03/07/22 20:47 Dose: 3 mg Documented by: Metoprolol Succinate (Metoprolol Succ 25mg Ext Rel Tab) 25 mg PO [facility] Stop: 04/01/22 08:59 Last Admin: 03/08/22 08:26 Dose: 25 mg Documented by: Miscellaneous (Carbohydrates For Hypoglycemia ) 15 - 30 gm PO UD PRN PRN Reason: Hypoglycemia Protocol Stop: 03/31/22 21:10 Last Admin: 03/05/22 07:36 Dose: 15 gm Documented by: Pantoprazole Sodium (Pantoprazole 40 Mg Tab) 40 mg PO [facility] Stop: 04/01/22 08:59 Last Admin: 03/08/22 08:26 Dose: 40 mg Documented by: Polyethylene Glycol (Polyethylene (Miralax) 17 Gm Pack) 17 gm PO DAILY PRN PRN Reason: Constipation Stop: 03/31/22 21:10 Sertraline HCl (Sertraline Hcl 100 Mg Tablet) 100 mg PO [facility] Stop: 03/31/22 21:10 Last Admin: 03/07/22 20:47 Dose: 100 mg Documented by: (1) Abdominal ascites Ascites type: other type Qualified Code(s): R18.8 - Other ascites
[2022-03-08] MEDS: ACETAMINOPHEN 500 MG TAB PO PRN (15:47)
[2022-03-08] MEDS: LANTUS PER UNIT CHARGE SQ SCH (20:06)
[2022-03-08] MEDS: MELATONIN 3 MG TAB PO PRN (20:13)
[2022-03-08] MEDS: SERTRALINE HCL 100 MG TABLET PO SCH (20:13)
[2022-03-08] MEDS: hydrOXYzine HCl 10 MG TAB PO PRN (20:13)
[2022-03-09] MEDS: ACETAMINOPHEN 500 MG TAB PO PRN (01:34)
[2022-03-09] MEDS: HEPARIN SOD 5,000 UNIT/0.5 ML VIAL SQ SCH (08:13)
[2022-03-09] MEDS: ISOSORBIDE MONO EXTENDED REL 30 MG TABCR PO SCH (08:13)
[2022-03-09] MEDS: ATORVASTATIN 40 MG TAB PO SCH (08:13)
[2022-03-09] MEDS: PANTOprazole 40 MG TAB PO SCH (08:14)
[2022-03-09] MEDS: METOPROLOL SUCC 25MG EXT REL TAB PO SCH (08:14)
[2022-03-09] MEDS: LOSARTAN POTASSIUM 25 MG TAB PO SCH (08:14)
[2022-03-09] MEDS: allopurinoL 100 MG TAB PO SCH (08:14)
[2022-03-09] MEDS: DOCUSATE SODIUM 100 MG CAP PO SCH (08:14)
[2022-03-09] MEDS: ASPIRIN 81 MG ECTAB PO SCH (08:14)
[2022-03-09] MEDS: INSULIN ASPART PER UNIT SC SCH ×2 (08:45→13:01)
[2022-03-09 08:56] LABS: Basophils # (auto) 0.04 K/uL (0-0.2); Basophils % (auto) 0.5 %; Eosinophils # (auto) 0.24 K/uL (0-0.50); Eosinophils % (auto) 2.9 %; Hemoglobin 11.8 g/dl (12.0-16.0); Immature Granulocytes # (auto) 0.06 K/uL (0.00-0.02); Immature Granulocytes % (auto) 0.7 %; Lymphocytes # (auto) 1.21 K/uL (1.2-3.4); Lymphocytes % (auto) 14.6 %; Mean Corpuscular Hemoglobin 30.6 pg (25.0-34.0); Mean Corpuscular Hgb Conc 31.9 g/dL (32.0-36.0); Mean Corpuscular Volume 96.1 fL (80.0-100.0); Mean Platelet Volume 11.1 fL (9.4-12.3); Monocytes # (auto) 0.76 K/uL (0.24-0.82); Monocytes % (auto) 9.2 %; Neutrophils # (auto) 5.97 K/uL (1.4-6.5); Neutrophils % (auto) 72.1 %; Platelet Count 169 K/uL (130-400); RDW Coefficient of Variation 15.4 % (11.5-14.5); RDW Standard Deviation 53.6 fL (36.4-46.3); Red Blood Count 3.85 M/uL (3.93-5.22); White Blood Count 8.28 K/ul (4.8-10.8)
[2022-03-09 09:30] LABS: BUN Creatinine Ratio 36.7 (10-20); Calcium 9.4 mg/dl (8.5-10.1); Creatinine Clr Calc Pharmacy 14.4 ml/min; Est GFR (African American) 23.6 ml/min; Est GFR (Non-African American) 20.4 ml/min; Magnesium 2.4 mg/dl (1.7-2.4); Potassium 4.7 mmol/L (3.5-5.1)
--- NOTE | 2022-03-09 11:09 | Hospitalist Progress Note ---
Date of Service March 09, 2022 Assessment & Plan (1) Acute right heart failure: Plan: Known h/o right heart failure possibly as a cause of cirrhosis 2/2 congestive hepatopathy presents with acute worsening and fluid overload. Presumed cardiac cause for her increased ascites given heart failure syndrome described including decreased exercise tolerance, weight gain, 2 pillow orthopnea, +PND reported. She has increased fatigue with a dry cough for last 2-3 weeks along with these symptoms described. Significant JVD seen on examination Acute right heart failure is complicated by atrial fibrillation and valvular heart disease Appreciate cardiology input and recommendation Cont Lasix 40mg IV daily, strict I/Os, low salt diet, daily BMP given chronic kidney disease. Dr. Mix following. Remains weak and lethargic but no shortness of breath at rest Cumulative fluid balance is -1171 mL and 201 2 mL as of 03/04/2022 Patient remains free of any shortness of breath at rest Appreciate PT and OT evaluation and recommended to go to PCP Patient remains reasonably stable and the porter sample case is working on placement Has been accepted to [facility] and will be transferred tomorrow Will check PRP tomorrow and will decide the doses of Lasix to be given Creatinine went up to 2.48 and the Lasix were changed to oral We will monitor for next 24 to 48 hours Since creatinine went up to 2.52 and cumulative fluid balance is negative more than 3000 We will hold Lasix for now and monitor BMP Creatinine is going down and today it is 2.26 Will start Lasix from tomorrow at 40 mg daily as advised by the tailor fitter (2) UTI (urinary tract infection): Plan: Increased urgency and +UA. Rocephin started and will continue pending clinical improvement and culture results. Urine culture grew E. coli and is sensitive to ceftriaxone-we will continue for 5 days at least Will finish the course of antibiotic We will take out the Spear catheter Has been voiding normally (3) Abdominal ascites: Plan: Likely result of acute ferrer failure, however, recently seen in outpatient GI clinic and there was a plan to perform abdominal paracentesis. Cont with paracentesis and low salt diet per GI. Has been getting albumin infusion which will be given before and after paracentesis Status post paracentesis-traumatic 2 L bloody fluid was taken out-likely secondary to trauma She has been feeling much better following paracentesis CT scan of the abdomen pelvis did not show any significant findings and no hematoma The patient was reassured Very high RBC count and minimally high WBC count Albumin level is 2.4 with total protein 3.4 Gram stain is pending and cytology is pending too--no organism and no malignant cells No abdominal distention and minimal tenderness on palpation Distention of the abdomen and no pain at rest Clinically no more ascites and abdomen is nontender (4) Cirrhosis: Plan: Appears compensated but ascites present--INR and bilirubin are within normal limits. (5) Generalized weakness: Plan: As a result of issues above. PT/OT to assess when appropriate. Accepted to [facility] and will be transferred tomorrow Remains very weak to be transferred Weakness significantly improved and she is out of bed on a chair today Will need to continue physical therapy as tolerated (6) Recurrent falls: Plan: As a result of UTI and fatigue/weakness from heart failure and other chronic medical conditions. (7) Diabetes mellitus type 2 in nonobese: Plan: Allergies to Levemir, but says she has taken Lantus in the past without issue. Hold Tresiba and cont Lantus/Novolog. Currently at goal . Sliding scale has been started (8) CKD (chronic kidney disease) stage 4, GFR 15-29 ml/min: Plan: Chronic, at her baseline. Minimize insult to kidneys with contrast or other nephrotoxins and renally dose medications as needed. Creatinine is slightly up at 2.25 today Will monitor PRP-creatinine remains elevated at 2.3 Diuretics are on hold will restart when the kidney function placement Creatinine is 2.2 today Will restart Lasix 40 mg orally from tomorrow-we will need to monitor PRP as an outpatient (9) HTN (hypertension): Plan: Chronic, uncontrolled. Reassess after diuretic therapy started and continue home therapies (10) DVT prophylaxis: Plan: Heparin Full Code Dispo-to PCU Will be transferred to [facility] this afternoon Discussed with the son Admission and Anticipated Discharge Date Admission Date: March 01, 2022 Subjective 03/03/2022 The patient was seen and examined in telemetry unit She complains to have generalized weakness Denies any chest pain, palpitation or shortness of breath No abdominal pain nausea and or vomiting 03/04/2022 The patient was seen and examined in telemetry unit She has had paracentesis which was reported to be bloody by the radiologist She has had CT scan of the abdomen and pelvis following paracentesis She has been feeling much better following paracentesis and denies any significant symptoms today Will ask for PT and OT evaluation 03/05/2022 The patient was seen and examined in telemetry unit She has been generally weak and lethargic today but denies any other significant symptoms She denies any more abdominal pain, chest pain or palpitation or any more shortness of breath 03/06/2022 The patient was seen and examined in telemetry unit She feels a little drowsy and weaker today following a particular medicine that she took Denies any chest pain or palpitation Denies any shortness of breath or abdominal pain 03/07/2022 The patient was seen and examined in telemetry unit She is worse today with increasing weakness and tiredness She could not sleep last night at all Denies any increasing pain and/or shortness of breath Not ready to be discharged today 03/08/2022 The patient was seen and examined telemetry unit She is out of bed on a chair today and has been feeling little better Denies any significant abdominal pain nausea no vomiting No chest pain no palpitation 03/09/2022 The patient was seen and examined in telemetry unit He could not sleep last night and feels a little down this morning Denies any chest pain, shortness of breath or palpitation No abdominal pain nausea and or vomiting She is ready to be discharged to [facility] this afternoon Review of Systems Review of Systems: All systems reviewed and are unremarkable except as noted below Neurologic: Generally weak and lethargic Physical Exam Physical Exam: Lying in bed without any acute distress Constitutional: well developed, well nourished, + ill appearing and average body habitus Eyes: PERRL, conjunctivae normal, anicteric sclerae ENMT: external ear and nose normal, oropharynx normal Neck: trachea midline, no thyromegaly Respiratory: no respiratory distress Auscultation: + diminished lung sounds; no crackles and no wheezes Cardiovascular: Rate/Rhythm: + irregularly irregular; not tachycardic Heart Sounds: normal S1, normal S2 and + murmur (2/6 ESM over precordium) Vessels: + JVD (Elevated JVD) Extremities: no edema Gastrointestinal (Abdomen): Inspection/Auscultation: + abdomen distended and normal bowel sounds Percussion/Palpation: abdomen soft and + ascites (Mild to moderate ascites clinically); abdomen nontender Musculoskeletal: No acute arthritis in any joint Neurologic: Alert and awake. Generally weak but has been moving all the limbs equally. Lymphatic: no cervical or axillary lymphadenopathy Results & Data Results & Data ([facility]) Vital Signs (Past 12 Hours) Vital Signs Temp Pulse Pulse Resp BP Pulse Ox 03/09/22 07:05 36.9 C 78 18 123/68 91 03/09/22 03:29 37.5 C 85 20 129/76 93 03/08/22 23:08 37.3 C 81 18 131/56 L 93 Laboratory Results Short CBC 03/09/22 Range/Units 08:18 WBC 8.28 (4.8-10.8) K/ul Hgb 11.8 L (12.0-16.0) g/dl Hct 37.0 (34.1-44.9) % Plt Count 169 (130-400) K/uL BMP 03/09/22 08:18 Sodium 138 Potassium 4.7 Chloride 103 Carbon Dioxide 23 BUN 83 H Creatinine 2.26 H Glucose 133 H Calcium 9.4 Medications Administered Current Inpatient Medications Acetaminophen (Acetaminophen 500 Mg Tab) 500 mg PO Q4H PRN PRN Reason: Pain or Fever Stop: 03/31/22 21:10 Last Admin: 03/09/22 01:34 Dose: 500 mg Documented by: Allopurinol (Allopurinol 100 Mg Tab) 200 mg PO QAM [facility] Stop: 04/01/22 08:59 Last Admin: 03/09/22 08:14 Dose: 200 mg Documented by: Aspirin (Aspirin 81 Mg Ectab) 81 mg PO QAM [facility] Stop: 04/01/22 08:59 Last Admin: 03/09/22 08:14 Dose: 81 mg Documented by: Atorvastatin Calcium (Atorvastatin 40 Mg Tab) 40 mg PO QAM [facility] Stop: 04/01/22 08:59 Last Admin: 03/09/22 08:13 Dose: 40 mg Documented by: Dextrose (Dextrose 50% 50 Ml Syringe) 25 - 50 ml IV UD PRN; Protocol PRN Reason: Hypoglycemia Protocol Stop: 03/31/22 21:10 Docusate Sodium (Docusate Sodium 100 Mg Cap) 100 mg PO BID [facility] Stop: 03/31/22 21:10 Last Admin: 03/09/22 08:14 Dose: Not Given Documented by: Glucagon (Glucagon For Inj 1 Mg Vial) 1 mg SQ UD PRN; Protocol PRN Reason: Hypoglycemia Protocol Stop: 03/31/22 21:10 Glucose (Glucose 10 Tabs/Tube) 4 - 8 tabs PO UD PRN; Protocol PRN Reason: Hypoglycemia Protocol Stop: 03/31/22 21:10 Glucose (Glucose 40% Gel 15 Gm Tube) 15 - 30 gm PO UD PRN; Protocol PRN Reason: Hypoglycemia Protocol Stop: 03/31/22 21:10 Heparin Sodium (Porcine) (Heparin Sod 5,000 Unit/0.5 Ml Vial) 5,000 units SQ Q12 [facility] Stop: 03/31/22 21:10 Last Admin: 03/09/22 08:13 Dose: 5,000 units Documented by: Hydroxyzine HCl (Hydroxyzine Hcl 10 Mg Tab) 10 mg PO QID PRN PRN Reason: Itching Stop: 04/06/22 19:49 Last Admin: 03/08/22 20:13 Dose: 10 mg Documented by: Insulin Aspart (Insulin Aspart Per Unit) 0 units SC [facility] Stop: 04/03/22 16:29 Last Admin: 03/09/22 08:45 Dose: 2 units Documented by: Insulin Glargine (Lantus Per Unit Charge) 5 units SQ HS [facility] Stop: 03/31/22 21:10 Last Admin: 03/08/22 20:06 Dose: 5 units Documented by: Isosorbide Mononitrate (Isosorbide [place] Extended Rel 30 Mg Tabcr) 30 mg PO QAM [facility] Stop: 04/01/22 08:59 Last Admin: 03/09/22 08:13 Dose: 30 mg Documented by: Losartan Potassium (Losartan Potassium 25 Mg Tab) 12.5 mg PO QAM [facility] Stop: 04/01/22 08:59 Last Admin: 03/09/22 08:14 Dose: 12.5 mg Documented by: Melatonin (Melatonin 3 Mg Tab) 3 mg PO HS PRN PRN Reason: Sleep Stop: 04/06/22 19:46 Last Admin: 03/08/22 20:13 Dose: 3 mg Documented by: Metoprolol Succinate (Metoprolol Succ 25mg Ext Rel Tab) 25 mg PO QAM [facility] Stop: 04/01/22 08:59 Last Admin: 03/09/22 08:14 Dose: 25 mg Documented by: Miscellaneous (Carbohydrates For Hypoglycemia ) 15 - 30 gm PO UD PRN PRN Reason: Hypoglycemia Protocol Stop: 03/31/22 21:10 Last Admin: 03/05/22 07:36 Dose: 15 gm Documented by: Pantoprazole Sodium (Pantoprazole 40 Mg Tab) 40 mg PO QAM [facility] Stop: 04/01/22 08:59 Last Admin: 03/09/22 08:14 Dose: 40 mg Documented by: Polyethylene Glycol (Polyethylene (Miralax) 17 Gm Pack) 17 gm PO DAILY PRN PRN Reason: Constipation Stop: 03/31/22 21:10 Sertraline HCl (Sertraline Hcl 100 Mg Tablet) 100 mg PO HS [facility] Stop: 03/31/22 21:10 Last Admin: 03/08/22 20:13 Dose: 100 mg Documented by: (1) Abdominal ascites Ascites type: other type Qualified Code(s): R18.8 - Other ascites
--- NOTE | 2022-03-09 16:08 | Discharge Summary ---
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 Imaging in 2008 suggestive of lobular liver and ascites s/p IJ LB 8/09 = mild steatosis, bridging fibrosis, sinus total dilation. Cirrhosis serologies negative. Ultimately dx'd with right heart failure, cardiac cirrhosis + NAFLD. Last seen by GI in 2019. Lost to follow-up at that time. Developed RLQ abd discomfort that is constant x 1 month. Saw GI in the clinic on 02/25/22 with US guided paracentesis planned and MRI of liver. She presents today reporting recurrent falls and worsening ascites. She reports 5-10 lb weight gain and other symptoms over the last 2-3 weeks includingworsening dry cough, incrased swelling in abdomen with lower abdomina pain that is described as intermittent sharp pains that are fleeting and change from side to side when she moves around. She has 2 pillow orthopnea and +PND reported. 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 She reports "sometimes I think I will never get back" referring to walking to her mailbox and back again. She is not able to drive a car. She denies fevers, chills. She reports a new urinary urgency but no dysuria or flank pain. She has noticed alternating diarrhea and now has not had a BM in 2 days. She is VERY ITCHY on her back. No rash is present but she does have ecchymosis as the result of a fall at home. Admission Exam Per Admitting Provider Physical Exam: CONSTITUTIONAL: WNWD, vitals as above, generally ill appearing and fatigued EYES: pupils are round and equal bilaterally, normal conjunctivae, no scleral icterus ENT: external ear and nose normal, oropharynx clear, no TM abnormality, no maxillary or ethmoid sinus tenderness NECK: trachea midline, no lymphadenopathy, normal thyroid RESPIRATORY: clear to auscultation bilaterally, no crackles, rales or wheezes, normal respiratory effort CARDIOVASCULAR: regular rate and rhythm, S1 and 2 heard without murmurs, gallops or rubs, +significant JVD to angle of mandible, no peripheral edema, CHEST: inspection of chest was normal GASTROINTESTINAL: soft, TTP in RLQ/LLQ, no guarding, +fluid but not protuberant MUSCULOSKELETAL: generalized weakness, head is normocephalic and atraumatic, neck supple, normal palpation of chest wall without tenderness SKIN: warm and dry, ecchymotic areas on upper back. NEUROLOGIC: patellar DTRs 2+ bilat. PERRL, EOMI, no facial palsy, no dysarthria. Touch, pain and proprioception normal. CN 2-12 grossly intact, no sensory deficit, normal cognition, normal speech, no tremor PSYCHIATRIC: alert cooperative and oriented to person, place and time. Euthymic mood, makes good eye contact, language grossly intact, recent and remote memory grossly intact. Principal Diagnosis Acute right heart failure, UTI, cirrhosis with ascites status post paracentesis, type 2 diabetes, recurrent falls with ambulatory dysfunction, CKD stage IV Discharge Exam Lying in bed without any acute distress Constitutional well developed, well nourished, + ill appearing and average body habitus Eyes PERRL, conjunctivae normal, anicteric sclerae ENMT external ear and nose normal, oropharynx normal Neck trachea midline, no thyromegaly Respiratory no respiratory distress Auscultation: + diminished lung sounds; no crackles and no wheezes Cardiovascular Rate/Rhythm: + irregularly irregular; not tachycardic Heart Sounds: normal S1, normal S2 and + murmur (2/6 ESM over precordium) Vessels: + JVD (Elevated JVD) Extremities: no edema Gastrointestinal (Abdomen) Inspection/Auscultation: + abdomen distended and normal bowel sounds Percussion/Palpation: abdomen soft and + ascites (Mild to moderate ascites clinically); abdomen nontender Lymphatic no cervical or axillary lymphadenopathy Discharge Data Allergies Allergy/AdvReac Type Severity Reaction Status Date / Time gabapentin Allergy Severe EDEMA Verified 11/14/21 16:00 FACE/LIPS/TONGUE - ANGIOEDEMA meloxicam Allergy Severe RENAL Verified 11/14/21 16:00 FAILURE insulin detemir Allergy Intermediate HIVES, Verified 11/14/21 16:00 ELEVATED BSG latex Allergy Intermediate HIVES, RASH Verified 11/14/21 16:00 phenol Allergy Intermediate HIVES, Verified 11/14/21 16:00 ELEVATED BSG Sulfa (Sulfonamide Allergy Intermediate EDEMA,ITCHI Verified 11/14/21 16:00 Antibiotics) NG adhesive Allergy Mild skin Verified 11/14/21 16:00 irritation cephalexin Allergy Mild ELEVATED Verified 11/14/21 16:00 BSG TARA Inhibitors Allergy Unknown UNKNOWN Verified 11/14/21 16:00 Iodinated Contrast Media AdvReac Unknown PATIENT Verified 11/14/21 16:00 HAS CHRONIC KIDNEY FAILURE Consultations 03/01/22 18:32 ED Decision to Admit Stat 03/01/22 21:11 Consult Gastroenterology Routine 03/02/22 12:41 Consult Cardiology Routine Ordered Studies 03/01/22 14:28 CT abd pelvis wo con Stat CT cervical spine wo con Stat CT head/brain wo con Stat 03/04/22 07:00 US paracentesis abd w/image Routine 03/04/22 10:44 CT abd pelvis wo con Stat Hospital Course (1) Acute right heart failure: Known h/o right heart failure possibly as a cause of cirrhosis 2/2 congestive hepatopathy presents with acute worsening and fluid overload. Presumed cardiac cause for her increased ascites given heart failure syndrome described including decreased exercise tolerance, weight gain, 2 pillow orthopnea, +PND reported. She has increased fatigue with a dry cough for last 2-3 weeks along with these symptoms described. Significant JVD seen on examination Acute right heart failure is complicated by atrial fibrillation and valvular heart disease Appreciate cardiology input and recommendation Cont Lasix 40mg IV daily, strict I/Os, low salt diet, daily BMP given chronic kidney disease. Dr. Mix following. Remains weak and lethargic but no shortness of breath at rest Cumulative fluid balance is -1171 mL and 201 2 mL as of 03/04/2022 Patient remains free of any shortness of breath at rest Appreciate PT and OT evaluation and recommended to go to PCP Patient remains reasonably stable and the geriatric case manager is working on placement Has been accepted to [facility] and will be transferred tomorrow Will check PRP tomorrow and will decide the doses of Lasix to be given Creatinine went up to 2.48 and the Lasix were changed to oral We will monitor for next 24 to 48 hours Since creatinine went up to 2.52 and cumulative fluid balance is negative more than 3000 We will hold Lasix for now and monitor BMP Creatinine is going down and today it is 2.26 Will start Lasix from tomorrow at 40 mg daily as advised by the auditing control clerk (2) UTI (urinary tract infection): Increased urgency and +UA. Rocephin started and will continue pending clinical improvement and culture results. Urine culture grew E. coli and is sensitive to ceftriaxone-we will continue for 5 days at least Will finish the course of antibiotic We will take out the Spear catheter Has been voiding normally (3) Abdominal ascites: Likely result of acute ferrer failure, however, recently seen in outpatient GI clinic and there was a plan to perform abdominal paracentesis. Cont with paracentesis and low salt diet per GI. Has been getting albumin infusion which will be given before and after paracentesis Status post paracentesis-traumatic 2 L bloody fluid was taken out-likely secondary to trauma She has been feeling much better following paracentesis CT scan of the abdomen pelvis did not show any significant findings and no hematoma The patient was reassured Very high RBC count and minimally high WBC count Albumin level is 2.4 with total protein 3.4 Gram stain is pending and cytology is pending too--no organism and no malignant cells No abdominal distention and minimal tenderness on palpation Distention of the abdomen and no pain at rest Clinically no more ascites and abdomen is nontender (4) Cirrhosis: Appears compensated but ascites present--INR and bilirubin are within normal limits. (5) Generalized weakness: As a result of issues above. PT/OT to assess when appropriate. Accepted to [facility] and will be transferred tomorrow Remains very weak to be transferred Weakness significantly improved and she is out of bed on a chair today Will need to continue physical therapy as tolerated (6) Recurrent falls: As a result of UTI and fatigue/weakness from heart failure and other chronic medical conditions. (7) Diabetes mellitus type 2 in nonobese: Allergies to Levemir, but says she has taken Lantus in the past without issue. Hold Tresiba and cont Lantus/Novolog. Currently at goal . Sliding scale has been started (8) CKD (chronic kidney disease) stage 4, GFR 15-29 ml/min: Chronic, at her baseline. Minimize insult to kidneys with contrast or other nephrotoxins and renally dose medications as needed. Creatinine is slightly up at 2.25 today Will monitor PRP-creatinine remains elevated at 2.3 Diuretics are on hold will restart when the kidney function placement Creatinine is 2.2 today Will restart Lasix 40 mg orally from tomorrow-we will need to monitor PRP as an outpatient (9) HTN (hypertension): Chronic, uncontrolled. Reassess after diuretic therapy started and continue home therapies (10) DVT prophylaxis: Heparin Full Code Dispo-to PCU Will be transferred to [facility] this afternoon Discussed with the son Total Time Total Time Spent Total Time Spent (In Minutes): 35 minutes Discharge Plan Discharge Items Patient Disposition: Transfer Inpatient Rehab Fac Reason For Visit: GENERALIZED WEAKNESS,WORSENING ASCITES Discharge Diagnosis: Acute right heart failure, UTI, cirrhosis with ascites status post paracentesis, type 2 diabetes, recurrent falls with ambulatory dysfunction, CKD stage IV Condition on Discharge: Fair Activity: As commented below Activity Comment: We will continue PT and OT Non-emergency contact: Primary Care Provider Call non-emergency contact if: you have any medication questions and your symptoms worsen Follow-up/Referrals: Kourtney Molina MD [Primary Care Provider] - (Please make an appointment with your primary care provider within 7 days following discharge from the facility) Diet: Carb Consistent or DM2, Low Potassium (2gm) and Low Sodium (2gm) Fluids: 1500ml (6 cups) Addtl Attending Provider Instructions: Please take precautions to avoid falls Her lorazepam and hydroxyzine have been discontinued due to excessive drowsiness She can have melatonin to assist sleep She will need to have periodic BMP check to monitor kidney function and electrolytes Pending Studies at Discharge: No Stand-Alone Forms: My [facility] Skilled Items Patient informed of condition?: Yes DNR: No Discharge Level of Care: Acute rehab Communicable Disease: No Discharge Prognosis: Stable Lines: None Urinary Catheter: No Medications and DC Order Prescriptions: Continued furosemide 40 mg tablet 40 mg PO QAM RF: 0 atorvastatin 40 mg tablet 40 mg PO QAM RF: 0 isosorbide mononitrate 30 mg tablet extended release 24 hr 30 mg PO QAM RF: 0 fexofenadine 180 mg Tablet 180 mg PO DAILY PRN (Reason: Allergic Symptoms) RF: 0 allopurinol 100 mg tablet 200 mg PO QAM RF: 0 aspirin 81 mg Tablet,Delayed Release (Dr/Ec) 81 mg PO QAM RF: 0 bisacodyl 10 mg Suppository 10 mg PA DAILY PRN (Reason: Constipation) RF: 0 losartan 25 mg tablet 12.5 mg PO QAM RF: 0 nitroglycerin 0.4 mg Tablet, Sublingual 0.4 mg Sublingual UD PRN (Reason: Chest Pain) RF: 0 docusate sodium 100 mg Capsule 100 mg PO BID RF: 0 cholecalciferol (vitamin D3) [Vitamin D3] 2,000 unit Capsule 2,000 unit PO QAM RF: 0 metoprolol succinate 25 mg tablet extended release 24 hr 25 mg PO QAM RF: 0 sertraline 100 mg tablet 100 mg PO HS RF: 0 pantoprazole 20 mg tablet,delayed release (DR/EC) 20 mg PO QAM RF: 0 Tresiba FlexTouch U-100 100 unit/mL (3 mL) Insulin Pen 5 unit SUBCUT DAILY RF: 0 Discontinued hydroxyzine HCl 25 mg tablet 25 mg PO Q6H PRN (Reason: .ITCHING) RF: 0 lorazepam 0.5 mg tablet 0.5 - 1 mg PO HS PRN (Reason: Sleep) RF: 0 Discharge Orders: Discharge Order (Routine); Ordered 03/09/22 Ordered By: Kerrie Dorado Admission Data Admit Date/Time: 03/01/22 18:43 Attending Provider: Kerrie Dorado Admit Provider: Madeleine Morton Primary Care Provider: Kourtney Molina Other Providers: Madeleine Morton ; Cullen Al ; Delbert Mix ; [facility] Other Interventions: Discharge Summary Assessment (RN) Last Done: 03/09/22 12:22
== END 2022-03-09 13:11 | DRG 292 ==
LOC: ED 14:13 → SUATTDRO 18:43 → 2S 18:43

== ENCOUNTER 2022-03-11 08:29 | Inpatient (IN) ==
--- NOTE | 2022-03-11 08:37 | Emergency Department Note ---
Impression & Plan Sepsis, Acute dehydration, CKD (chronic kidney disease) stage 4, GFR 15-29 ml/min ED Provider Note NAME: VERO AKINS AGE: 76 SEX: F : 1945 ARRIVES VIA: Ambulance INFORMANT: Patient, ED PROVIDER(S): Hieu Lazcano MD Chief Complaint: Fever, tachycardia, low BP HPI: [facility] concern for hypotension tachycardia and fever. The patient reportedly was recently seen on Thursday as a sepsis alert at that time. The patient has had fever T-max of 103 today 100.8 and did recei ve Tylenol before arrival. The patient does complain of mild nonproductive cough. Patient has had some shortness of breath but this is been ongoing for several months at a time. The patient does have an AV fistula in place but does not currently receive dialysis. The patient does complain of some right-sided abdominal pain. Known history of cirrhosis did have a paracentesis sometime she believes within the last week. Patient reportedly was [facility]. Patient denies any chest pain sore throat or congestion. No leg swelling. Patient denies any dysuria or hematuria. No difficulty with bowel movements. Prior to arrival the patient was hypotensive and tachycardic 100s over 40s with heart rate in the 100s. The patient did not receive any antipyretics or fluids in route. The patient was seen did have a CAT scan on March 04. CT of + showed cardiomegaly and pleural effusions. Cirrhotic. Small amount of residual ascitic fluid. Patient does not have a known history of CHF. Patient was ordered 500 cc bolus initially but will continue to monitor hydration status given her prior history. Patient's echo was completed March 02 showed the patient has an LV ejection fraction of 55 to 60%. The patient does have dilatation of the right and left atrium with moderate mitral regurg and severe tricuspid regurg. Also has associated severe pulmonary hypertension. Ventricular hypokinesis also noted with right ventricular dilatation. ROS: See HPI for pertinent positives and negatives. A total of 10 systems were reviewed and otherwise negative. Past medical history: See below Surgical history: See below Social history: See below Physical Exam: GENERAL: NAD, wearing glasses, wearing a mask, non-toxic. EYE EXAM: Normal conjunctiva. PERRL, no anisocoria and EOM's grossly intact w/o pain. NECK: Supple, no nuchal rigidity, no adenopathy, non-tender. No signs of meningismus. LUNGS: Clear to auscultation. Normal chest wall mechanics. HEART: Tachycardic, systolic ejection murmur noted. ABDOMEN: Abdomen soft, non-tender, normo-active bowel sounds, no masses, no rebound or guarding. BACK: No CVA TTP. SKIN: No rashes and no bruising. UPPER EXTREMITIES: Upper extremities are grossly normal. LOWER EXTREMITIES: Grossly normal, no edema. No pain to palpation. NEURO EXAM: A&O x3, cranial nerves II-XII grossly intact, normal speech, moves all 4 extremities on command w/o issue. Differential diagnoses: Sepsis, UTI, pneumonia, metabolic, electrolyte abnormalities, cardiac sources, intracerebral event, toxicologic, neurologic, as well as other pathologies. Course: Patient was seen and evaluated the bedside. Full history physical exam was performed. EKG interpreted by me A. fib versus possible flutter. Heart rate of 105 with normal QRS and axis. Imaging Studies: See Below Cardiac monitoring: An order was placed for continuous cardiac monitoring. The monitor shows a rate of 98 with sinus rhythm. MDM: Patient was seen due to concern for hypotension tachycardia and associated fever. Blood work is obtained along with blood and urine cultures lactate. The patient was given a small amount of IV fluids only 500 cc given the patient's prior history of heart failure. I did review the patient's prior echo. Patient does have normal LV function but has significantly dilated atria as well as RV with associated pulmonary hypertension. Patient did have a chest x-ray which shows cardiomegaly with vascular congestion but without overt edema. Shows a normal white count of 13 hemoglobin of 9. Platelet count is normal. Patient's anemia is relatively chronic and stable. The patient did have 2 draws on March 09, w/ hgb of 11 and 9. Patient's hemoglobin today is about the same as before at 9.1. Patient may have a respiratory source given the white count fever and cough. I did speak with the on-call hospitalist DAVID Borrego. Agreeable to adding Vanco coverage due to concern for possible respiratory source at this time. Patient did have a Pro-Dennis of 20. Patient did receive IV fluids 500 cc but additional fluids deferred to inpatient team at this time given her prior history of cardiac issues. Patient was admitted by Dr. Montes. Past Med/Surg History Medical History TARA inhibitor intolerance Anxiety Atrial fibrillation follows w/ dr. aquino; dx years ago AV (arteriovenous fistula) left arm>"STILL WORKING" HAS NOT HAD TO USE Cirrhosis of liver CKD (chronic kidney disease) stage 4, GFR 15-29 ml/min follows w/ dr. 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 History of gastric ulcer History of gastrointestinal bleeding History of migraine HTN (hypertension) Hx of falling Hx of gout Hyperparathyroidism Osteoporosis Right-sided congestive heart failure Solitary right kidney Vertigo Surgical History H/O cataract removal with insertion of prosthetic lens RT/LEFT H/O tubal ligation History of section X 2 History of cholecystectomy History of colonoscopy History of esophagogastroduodenoscopy (EGD) History of lumbar laminectomy x 2 History of tooth extraction History of total abdominal hysterectomy and bilateral salpingo-oophorectomy Family History Other Cancer Diabetes Hypertension No family history of adverse response to anesthesia Social History Smoking Status: Never smoker Second Hand Exposure: Yes ( used to smoke); Hx Alcohol Use: No Hx Substance Use: No Preferred Language: Kazakh Communication Ability: Effective Manual 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 Required: No Beliefs That Will Affect Care: None marital status: / Current Living Situation: Alone Current Living Situation Comment: with help on Tuesdays and current occupational status: retired How many Children do You have: 2 Feels Safe at Home: Yes Assistive Devices: Cane, Walker and Wheelchair Allergies Allergies Allergy/AdvReac Type Severity Reaction Status Date / Time gabapentin Allergy Severe EDEMA Verified 03/11/22 11:05 FACE/LIPS/TONGUE - ANGIOEDEMA meloxicam Allergy Severe RENAL Verified 03/11/22 11:05 FAILURE insulin detemir Allergy Intermediate HIVES, Verified 03/11/22 11:05 ELEVATED BSG latex Allergy Intermediate HIVES, RASH Verified 03/11/22 11:05 phenol Allergy Intermediate HIVES, Verified 03/11/22 11:05 ELEVATED BSG Sulfa (Sulfonamide Allergy Intermediate EDEMA,ITCHI Verified 03/11/22 11:05 Antibiotics) NG adhesive Allergy Mild skin Verified 03/11/22 11:05 irritation cephalexin Allergy Mild ELEVATED Verified 03/11/22 11:05 BSG TARA Inhibitors Allergy Unknown UNKNOWN Verified 03/11/22 11:05 Iodinated Contrast Media AdvReac Unknown PATIENT Verified 03/11/22 11:05 HAS CHRONIC KIDNEY FAILURE Home Meds Home Medications Medication Instructions Recorded Confirmed allopurinol 100 mg tablet 200 mg PO QAM 10/06/18 03/11/22 aspirin 81 mg tablet,delayed 81 mg PO QAM 10/06/18 03/11/22 release atorvastatin 40 mg tablet 40 mg PO QAM 10/06/18 03/11/22 cholecalciferol (vitamin D3) 50 2,000 unit PO QAM 10/06/18 03/11/22 mcg (2,000 unit) capsule (Vitamin D3) docusate sodium 100 mg capsule 100 mg PO BID 10/06/18 03/11/22 furosemide 40 mg tablet 40 mg PO DAILYBB 10/06/18 03/11/22 isosorbide mononitrate 30 mg 30 mg PO QAM 10/06/18 03/11/22 tablet,extended release 24 hr losartan 25 mg tablet 12.5 mg PO QAM 10/06/18 03/11/22 nitroglycerin 0.4 mg sublingual 0.4 mg SUBLINGUAL UD PRN 10/06/18 03/11/22 tablet metoprolol succinate 25 mg 25 mg PO QAM 03/01/22 03/11/22 tablet,extended release 24 hr pantoprazole 20 mg tablet,delayed 20 mg PO DAILYBB 03/01/22 03/11/22 release sertraline 100 mg tablet 100 mg PO HS 03/01/22 03/11/22 acetaminophen 325 mg tablet 650 mg PO Q4 PRN 03/11/22 03/11/22 dextrose 40 % oral gel (Glucose 15 g PO UD PRN 03/11/22 03/11/22 Gel) hydroxyzine HCl 25 mg tablet 25 mg PO Q6 PRN 03/11/22 03/11/22 insulin glargine 100 unit/mL (3 5 unit SUBCUT HS 03/11/22 03/11/22 mL) subcutaneous pen (Lantus Solostar U-100 Insulin) insulin regular human 100 unit/mL 1 sliding scale dose SUBCUT 03/11/22 03/11/22 injection solution (Humulin R USEASDIRECTD Regular U-100 Insulin) loratadine 10 mg tablet 10 mg PO DAILY PRN 03/11/22 03/11/22 melatonin 3 mg tablet 3 mg PO HS PRN 03/11/22 03/11/22 ondansetron 4 mg disintegrating 4 mg PO Q6H PRN 03/11/22 03/11/22 tablet polyethylene glycol 3350 17 gram 17 g PO QDL PRN 03/11/22 03/11/22 oral powder packet (Miralax) sennosides 8.6 mg-docusate sodium 1 tab-cap PO QDL PRN 03/11/22 03/11/22 50 mg tablet (Senokot-S) Results & Data (ED) Vital Signs Vital Signs - 24 hr 03/11/22 08:42 03/11/22 08:43 03/11/22 08:46 Temperature 37.8 C H 37.8 C H Temperature Source Oral Oral Pulse Rate 104 H Pulse Rate [Right Finger] 107 H Pulse Rhythm Regular Pulse Rhythm [Right Finger] Regular Pulse Strength Normal Pulse Strength [Right Finger] Normal Respiratory Rate 24 25 H 27 H Respiratory Effort / Characteristics Non-Labored Spontaneous Non-Labored Spontaneous Non-Labored Spontaneous Respiratory Depth Normal Normal Respiratory Pattern Regular Regular Blood Pressure 117/87 Blood Pressure [Right Arm] 117/87 Blood Pressure Mean 97 Blood Pressure Mean [Right Arm] 97 Blood Pressure Position Lying Blood Pressure Position [Right Arm] Lying Pulse Oximetry 96 95 96 Oxygen Delivery Method Room Air Room Air Room Air Sepsis Recent Fever Within 48 Hours Yes Sepsis New/Unexplained Change in Mental Status No Sepsis Action Taken by Nursing Physician Notified 03/11/22 08:50 03/11/22 09:19 03/11/22 09:33 Temperature Temperature Source Pulse Rate 104 H Pulse Rate [Right Finger] 104 H 99 H Pulse Rhythm Regular Pulse Rhythm [Right Finger] Pulse Strength Pulse Strength [Right Finger] Normal Normal Respiratory Rate 23 22 24 Respiratory Effort / Characteristics Non-Labored Spontaneous Non-Labored Spontaneous Respiratory Depth Normal Normal Respiratory Pattern Regular Regular Blood Pressure Blood Pressure [Right Arm] 107/42 L Blood Pressure Mean Blood Pressure Mean [Right Arm] 63 Blood Pressure Position Blood Pressure Position [Right Arm] Lying Pulse Oximetry 95 95 95 Oxygen Delivery Method Room Air Room Air Room Air Sepsis Recent Fever Within 48 Hours Sepsis New/Unexplained Change in Mental Status Sepsis Action Taken by Nursing 03/11/22 10:00 03/11/22 10:15 03/11/22 10:50 Temperature 36.8 C Temperature Source Oral Pulse Rate Pulse Rate [Right Finger] 105 H 95 H 98 H Pulse Rhythm Pulse Rhythm [Right Finger] Pulse Strength Pulse Strength [Right Finger] Normal Normal Normal Respiratory Rate 22 21 21 Respiratory Effort / Characteristics Non-Labored Spontaneous Non-Labored Spontaneous Non-Labored Spontaneous Respiratory Depth Normal Normal Normal Respiratory Pattern Regular Regular Blood Pressure Blood Pressure [Right Arm] 105/66 105/69 122/65 Blood Pressure Mean Blood Pressure Mean [Right Arm] 79 81 84 Blood Pressure Position Blood Pressure Position [Right Arm] Lying Lying Pulse Oximetry 95 95 96 Oxygen Delivery Method Room Air Room Air Room Air Sepsis Recent Fever Within 48 Hours Sepsis New/Unexplained Change in Mental Status Sepsis Action Taken by Nursing 03/11/22 11:00 Temperature Temperature Source Pulse Rate Pulse Rate [Right Finger] Pulse Rhythm Pulse Rhythm [Right Finger] Pulse Strength Pulse Strength [Right Finger] Respiratory Rate 22 Respiratory Effort / Characteristics Non-Labored Respiratory Depth Respiratory Pattern Blood Pressure Blood Pressure [Right Arm] Blood Pressure Mean Blood Pressure Mean [Right Arm] Blood Pressure Position Blood Pressure Position [Right Arm] Pulse Oximetry 96 Oxygen Delivery Method Room Air Sepsis Recent Fever Within 48 Hours Sepsis New/Unexplained Change in Mental Status Sepsis Action Taken by Shelter Medications Current Medication List: was personally reviewed by me Laboratory Data Attestation: I reviewed the patient's lab results. Result diagrams: 03/11/22 09:10 03/11/22 09:10 Lab Results 03/11/22 03/11/22 03/11/22 Range/Units 09:10 09:10 09:10 WBC 13.68 H (4.8-10.8) K/ul RBC 3.04 L (3.93-5.22) M/uL Hgb 9.1 L (12.0-16.0) g/dl Hct 27.9 L (34.1-44.9) % MCV 91.8 (80.0-100.0) fL MCH 29.9 (25.0-34.0) pg MCHC 32.6 (32.0-36.0) g/dL RDW Std Deviation 51.5 H (36.4-46.3) fL RDW Coeff of Yrn 15.5 H (11.5-14.5) % Plt Count 206 (130-400) K/uL MPV 11.9 (9.4-12.3) fL Immature Gran % (Auto) 0.7 % Neut % (Auto) 86.9 % Lymph % (Auto) 4.8 % [place] % (Auto) 6.8 % Eos % (Auto) 0.6 % Baso % (Auto) 0.2 % Neut # (Auto) 11.89 H (1.4-6.5) K/uL Lymph # (Auto) 0.65 L (1.2-3.4) K/uL [place] # (Auto) 0.93 H (0.24-0.82) K/uL Eos # (Auto) 0.08 (0-0.50) K/uL Baso # (Auto) 0.03 (0-0.2) K/uL Immature Gran # (Auto) 0.10 H (0.00-0.02) K/uL PT 11.4 (9.0-12.0) Seconds INR 1.1 (0.9-1.1) APTT 34.6 H (21.0-31.0) Seconds PTT Ratio 1.3 Sodium 133 L (136-145) mmol/L Potassium 4.8 (3.5-5.1) mmol/L Chloride 101 (98-107) mmol/L Carbon Dioxide 21 (21-32) mmol/L Anion Gap 11 (3-11) BUN 89 H (6-23) mg/dl Creatinine 2.63 H (0.6-1.2) mg/dl Est Cr Clr Drug Dosing 13.5 ml/min Est GFR ( Amer) 19.7 ml/min Est GFR (Non-Af Amer) 17.0 ml/min BUN/Creatinine Ratio 33.8 H (10-20) Glucose 110 H (70-99(Fasting)) mg/dl Lactate (0.4-2.0) mmol/L Calcium 8.8 (8.5-10.1) mg/dl Magnesium 2.2 (1.7-2.4) mg/dl Total Bilirubin 0.6 (0.2-1.0) mg/dl AST 41 H (13-39) U/L ALT 30 (7-52) U/L Alkaline Phosphatase 121 H (34-104) U/L Total Protein 5.8 L (6.0-8.3) gm/dl Albumin 3.5 (3.4-5.0) gm/dl Globulin 2.3 L (2.5-4.0) gm/dl Albumin/Globulin Ratio 1.5 (0.9-2) Procalcitonin (0-0.5) ng/ml SARS-CoV-2, RNA, NAAT (NEGATIVE) 03/11/22 03/11/22 03/11/22 Range/Units 09:10 09:10 09:18 WBC (4.8-10.8) K/ul RBC (3.93-5.22) M/uL Hgb (12.0-16.0) g/dl Hct (34.1-44.9) % MCV (80.0-100.0) fL MCH (25.0-34.0) pg MCHC (32.0-36.0) g/dL RDW Std Deviation (36.4-46.3) fL RDW Coeff of Yrn (11.5-14.5) % Plt Count (130-400) K/uL MPV (9.4-12.3) fL Immature Gran % (Auto) % Neut % (Auto) % Lymph % (Auto) % [place] % (Auto) % Eos % (Auto) % Baso % (Auto) % Neut # (Auto) (1.4-6.5) K/uL Lymph # (Auto) (1.2-3.4) K/uL [place] # (Auto) (0.24-0.82) K/uL Eos # (Auto) (0-0.50) K/uL Baso # (Auto) (0-0.2) K/uL Immature Gran # (Auto) (0.00-0.02) K/uL PT (9.0-12.0) Seconds INR (0.9-1.1) APTT (21.0-31.0) Seconds PTT Ratio Sodium (136-145) mmol/L Potassium (3.5-5.1) mmol/L Chloride (98-107) mmol/L Carbon Dioxide (21-32) mmol/L Anion Gap (3-11) BUN (6-23) mg/dl Creatinine (0.6-1.2) mg/dl Est Cr Clr Drug Dosing ml/min Est GFR ( Amer) ml/min Est GFR (Non-Af Amer) ml/min BUN/Creatinine Ratio (10-20) Glucose (70-99(Fasting)) mg/dl Lactate 1.0 (0.4-2.0) mmol/L Calcium (8.5-10.1) mg/dl Magnesium (1.7-2.4) mg/dl Total Bilirubin (0.2-1.0) mg/dl AST (13-39) U/L ALT (7-52) U/L Alkaline Phosphatase (34-104) U/L Total Protein (6.0-8.3) gm/dl Albumin (3.4-5.0) gm/dl Globulin (2.5-4.0) gm/dl Albumin/Globulin Ratio (0.9-2) Procalcitonin 20.34 H (0-0.5) ng/ml SARS-CoV-2, RNA, NAAT NEGATIVE (NEGATIVE) Administered Medications Discontinued Medications Cefepime HCl (Maxipime) 2,000 mg in 20 mls @ 5 mls/min IV NOW STA; Protocol Stop: 03/11/22 08:46 Last Admin: 03/11/22 09:27 Dose: 5 mls/min Documented by: [id number] Sodium Chloride (Nss 1000ml) 500 mls @ 999 mls/hr IV .Q31M ONE Stop: 03/11/22 09:16 Last Admin: 03/11/22 09:33 Dose: 999 mls/hr Documented by: [id number] Imaging Data Radiologist's Impression: Chest X-Ray 03/11/22 08:43 XR chest 1V portable HISTORY: SEPSIS COMPARISON: Chest 03/01/2022. FINDINGS: No pneumothorax. No pleural effusions. The heart remains mildly enlarged. No new focal lung consolidations to suggest pneumonia. Stable linear scarlike density within the left midlung zone. There is mild central pulmonary vascular congestion without overt edema. Calcifications within the aortic knob. Degenerative changes within the shoulders. IMPRESSION: Cardiomegaly with mild central pulmonary vascular congestion without overt edema. ACT 112: Negative or not required by law. Electronically signed by: Javier Cerda M.D. 03/11/2022 9:23 AM Discharge Plan Visit Data Chief Complaint: Hypotension Stated Complaint: HYPOTENSIVE, TACHYCARDIA Discharge Problem: Sepsis, Acute dehydration, CKD (chronic kidney disease) stage 4, GFR 15-29 ml/min Patient Disposition: Admitted As Inpatient Forms Stand Alone Forms: On License Of [facility] Prescriptions Prescriptions: No Action furosemide 40 mg tablet 40 mg PO DAILYBB RF: 0 atorvastatin 40 mg tablet 40 mg PO QAM RF: 0 isosorbide mononitrate 30 mg tablet extended release 24 hr 30 mg PO QAM RF: 0 allopurinol 100 mg tablet 200 mg PO QAM RF: 0 aspirin 81 mg Tablet,Delayed Release (Dr/Ec) 81 mg PO QAM RF: 0 losartan 25 mg tablet 12.5 mg PO QAM RF: 0 nitroglycerin 0.4 mg Tablet, Sublingual 0.4 mg Sublingual UD PRN (Reason: Chest Pain) RF: 0 docusate sodium 100 mg Capsule 100 mg PO BID RF: 0 cholecalciferol (vitamin D3) [Vitamin D3] 2,000 unit Capsule 2,000 unit PO QAM RF: 0 metoprolol succinate 25 mg tablet extended release 24 hr 25 mg PO QAM RF: 0 sertraline 100 mg tablet 100 mg PO HS RF: 0 pantoprazole 20 mg tablet,delayed release (DR/EC) 20 mg PO DAILYBB RF: 0 acetaminophen 325 mg Tablet 650 mg PO Q4 PRN (Reason: Pain) RF: 0 polyethylene glycol 3350 [Miralax] 17 gram Powder In Packet 17 g PO QDL PRN (Reason: Constipation) RF: 0 sennosides-docusate sodium [Senokot-S] 8.6-50 mg Tablet 1 tab-cap PO QDL PRN (Reason: Constipation) RF: 0 dextrose [Glucose Gel] 40 % Gel 15 g PO UD PRN (Reason: Hypoglycemia) RF: 0 melatonin 3 mg Tablet 3 mg PO HS PRN (Reason: Insomnia) RF: 0 Humulin R Regular U-100 Insuln 100 unit/mL Solution 1 sliding scale dose SUBCUT USEASDIRECTD RF: 0 hydroxyzine HCl 25 mg Tablet 25 mg PO Q6 PRN (Reason: Itching) RF: 0 ondansetron 4 mg Tablet,Disintegrating 4 mg PO Q6H PRN (Reason: Nausea/Vomiting) RF: 0 loratadine 10 mg Tablet 10 mg PO DAILY PRN (Reason: Allergies) RF: 0 insulin glargine [Lantus Solostar U-100 Insulin] 100 unit/mL (3 mL) Insulin Pen 5 unit SUBCUT HS RF: 0 Referrals Referrals: [facility] [Primary Care Provider] -
[2022-03-11] MEDS ORDERED: CEFEPIME 2,000 MG/20 ML VIAL IV STA (08:43)
[2022-03-11] MEDS ORDERED: SODIUM CHLORIDE 0.9% 1000ML 500 ML IV ONE (08:46)
--- NOTE | 2022-03-11 09:25 | XRay Report ---
XR chest 1V portable HISTORY: SEPSIS COMPARISON: Chest 03/01/2022. FINDINGS: No pneumothorax. No pleural effusions. The heart remains mildly enlarged. No new focal lung consolidations to suggest pneumonia. Stable linear scarlike density within the left midlung zone. Th ere is mild central pulmonary vascular congestion without overt edema. Calcifications within the aort ic knob. Degenerative changes within the shoulders. IMPRESSION: Cardiomegaly with mild central pulmonary vascular congestion without overt edema. ACT 112: Negative or not required by law. Electronically signed by: Javier Cerda M.D. 03/11/2022 9:23 AM
[2022-03-11 09:34] LABS: Basophils # (auto) 0.03 K/uL (0-0.2); Basophils % (auto) 0.2 %; Eosinophils # (auto) 0.08 K/uL (0-0.50); Eosinophils % (auto) 0.6 %; Hematocrit (blood only) 27.9 % (34.1-44.9); Hemoglobin 9.1 g/dl (12.0-16.0); Immature Granulocytes % (auto) 0.7 %; Lymphocytes # (auto) 0.65 K/uL (1.2-3.4); Lymphocytes % (auto) 4.8 %; Mean Corpuscular Hemoglobin 29.9 pg (25.0-34.0); Mean Corpuscular Hgb Conc 32.6 g/dL (32.0-36.0); Mean Corpuscular Volume 91.8 fL (80.0-100.0); Mean Platelet Volume 11.9 fL (9.4-12.3); Monocytes # (auto) 0.93 K/uL (0.24-0.82); Monocytes % (auto) 6.8 %; Neutrophils # (auto) 11.89 K/uL (1.4-6.5); Neutrophils % (auto) 86.9 %; Platelet Count 206 K/uL (130-400); RDW Coefficient of Variation 15.5 % (11.5-14.5); RDW Standard Deviation 51.5 fL (36.4-46.3); Red Blood Count 3.04 M/uL (3.93-5.22); White Blood Count 13.68 K/ul (4.8-10.8)
[2022-03-11 10:05] LABS: INR 1.1 (0.9-1.1); Partial Thromboplastin Ratio 1.3; Partial Thromboplastin Time 34.6 Seconds (21.0-31.0); Prothrombin Time 11.4 Seconds (9.0-12.0)
[2022-03-11 10:21] LABS: Albumin Globulin Ratio 1.5 (0.9-2); Albumin Level 3.5 gm/dl (3.4-5.0); BUN Creatinine Ratio 33.8 (10-20); Bilirubin,Total 0.6 mg/dl (0.2-1.0); Calcium 8.8 mg/dl (8.5-10.1); Creatinine Clr Calc Pharmacy 13.5 ml/min; Est GFR (African American) 19.7 ml/min; Globulin 2.3 gm/dl (2.5-4.0); Magnesium 2.2 mg/dl (1.7-2.4); Potassium 4.8 mmol/L (3.5-5.1); Total Protein 5.8 gm/dl (6.0-8.3)
--- NOTE | 2022-03-11 11:01 | History & Physical Report ---
Date of Service March 11, 2022 Assessment & Plan (1) Sepsis: Plan: Severe Sepsis -Present on admission. (Sepsis criteria: tachycardia, leukocytosis, tachypnea with evidence of PREETI). -s/p 500 cc NSS In ER and cefepime, will also add Vancomycin pending blood and urine culture -Based on her symptoms, may be recurrent UTI, will follow up UA/Ur Cx. Continue empiric antibiotics for now PREETI -Cr 2.6, baseline around 2.2 -will hold lasix, avoid nephrotoxins Chronic right side CHF Severe pulmonary hypertension Valvular heart disease (mod MR, severe TR) -Appears euvolemic currently, will hold lasix in setting of sepsis. Consider resuming lasix tomorrow if renal function stabilizes and patient remains hemodynamically stable Cardiac cirrhosis -holding lasix for now -On exam, appears compensated -recent paracentesis, now with abdominal pain--> will obtain cT A/P without contrast Chronic A fib with RVR -not on AC due to history of GIB -continue aspirin, metoprolol with hold parameters T2IDDM -Lantus 5 units QHS, add correctional scale insulin HLD -statin History of gallbladder CA -OP follow up DVT ppx -SQ heparin Code Status -DNR/DNI, discussed with patient Disposition-From [facility], return when medically stable. Admit to PCU History of Present Illness Chief Complaint: weakness Primary Care Provider: [facility] Ms Mariela Jean is a 76 year old female with history of gallbladder cancer with liver metastasis diagnosed in 2006 w/p Gemzar/XRT in remission, history of chronic right side heart failure with cardiac cirrhosis, stage 4 CKD, chronic A fib who was recently admitted here from 03/01-03/09 for acute on chronic right side CHF requiring paracentesis and parenteral diuresis. She was discharged to [facility] 03/09 in stable condition but returns today with cough, weakness and reportedly noted to have low blood pressure at the facility but here BP has been normal. Labwork is significant for a markedly elevated WBC (13.6), procalcitonin 20. CXR unrevealing. UA pending. Blood cultures pending. ER course- Cefepime 2gm, NSS 500 cc Patient feels weak which is worse since she was discharged from here. She feels it may be related to her roommate situation at [facility] and not being able to sleep for past 2 nights. In addition, she reports cough which is unchanged, dys uria/sensation of incomplete bladder emptying, abdominal discomfort. Intermittent nausea and fever. Denies chest pain, shortness of breath or difficulty breathing. Denies new rash, ulcer or skin tears. Allergies Allergy/AdvReac Type Severity Reaction Status Date / Time gabapentin Allergy Severe EDEMA Verified 03/11/22 11:05 FACE/LIPS/TONGUE - ANGIOEDEMA meloxicam Allergy Severe RENAL Verified 03/11/22 11:05 FAILURE insulin detemir Allergy Intermediate HIVES, Verified 03/11/22 11:05 ELEVATED BSG latex Allergy Intermediate HIVES, RASH Verified 03/11/22 11:05 phenol Allergy Intermediate HIVES, Verified 03/11/22 11:05 ELEVATED BSG Sulfa (Sulfonamide Allergy Intermediate EDEMA,ITCHI Verified 03/11/22 11:05 Antibiotics) NG adhesive Allergy Mild skin Verified 03/11/22 11:05 irritation cephalexin Allergy Mild ELEVATED Verified 03/11/22 11:05 BSG TARA Inhibitors Allergy Unknown UNKNOWN Verified 03/11/22 11:05 Iodinated Contrast Media AdvReac Unknown PATIENT Verified 03/11/22 11:05 HAS CHRONIC KIDNEY FAILURE Home Medications Medication Instructions Recorded Confirmed Type allopurinol 100 mg tablet 200 mg PO QAM 10/06/18 03/11/22 History aspirin 81 mg tablet,delayed 81 mg PO QAM 10/06/18 03/11/22 History release atorvastatin 40 mg tablet 40 mg PO QAM 10/06/18 03/11/22 History cholecalciferol (vitamin D3) 50 2,000 unit PO QAM 10/06/18 03/11/22 History mcg (2,000 unit) capsule (Vitamin D3) docusate sodium 100 mg capsule 100 mg PO BID 10/06/18 03/11/22 History furosemide 40 mg tablet 40 mg PO DAILYBB 10/06/18 03/11/22 History isosorbide mononitrate 30 mg 30 mg PO QAM 10/06/18 03/11/22 History tablet,extended release 24 hr losartan 25 mg tablet 12.5 mg PO QAM 10/06/18 03/11/22 History nitroglycerin 0.4 mg sublingual 0.4 mg SUBLINGUAL UD PRN 10/06/18 03/11/22 History tablet metoprolol succinate 25 mg 25 mg PO QAM 03/01/22 03/11/22 History tablet,extended release 24 hr pantoprazole 20 mg tablet,delayed 20 mg PO DAILYBB 03/01/22 03/11/22 History release sertraline 100 mg tablet 100 mg PO HS 03/01/22 03/11/22 History acetaminophen 325 mg tablet 650 mg PO Q4 PRN 03/11/22 03/11/22 History dextrose 40 % oral gel (Glucose 15 g PO UD PRN 03/11/22 03/11/22 History Gel) hydroxyzine HCl 25 mg tablet 25 mg PO Q6 PRN 03/11/22 03/11/22 History insulin glargine 100 unit/mL (3 5 unit SUBCUT HS 03/11/22 03/11/22 History mL) subcutaneous pen (Lantus Solostar U-100 Insulin) insulin regular human 100 unit/mL 1 sliding scale dose SUBCUT 03/11/22 03/11/22 History injection solution (Humulin R USEASDIRECTD Regular U-100 Insulin) loratadine 10 mg tablet 10 mg PO DAILY PRN 03/11/22 03/11/22 History melatonin 3 mg tablet 3 mg PO HS PRN 03/11/22 03/11/22 History ondansetron 4 mg disintegrating 4 mg PO Q6H PRN 03/11/22 03/11/22 History tablet polyethylene glycol 3350 17 gram 17 g PO QDL PRN 03/11/22 03/11/22 History oral powder packet (Miralax) sennosides 8.6 mg-docusate sodium 1 tab-cap PO QDL PRN 03/11/22 03/11/22 History 50 mg tablet (Senokot-S) Past Med/Surg History Medical History TARA inhibitor intolerance Anxiety Atrial fibrillation follows w/ dr. aquino; dx years ago AV (arteriovenous fistula) left arm>"STILL WORKING" HAS NOT HAD TO USE Cirrhosis of liver CKD (chronic kidney disease) stage 4, GFR 15-29 ml/min follows w/ dr. 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 History of gastric ulcer History of gastrointestinal bleeding History of migraine HTN (hypertension) Hx of falling Hx of gout Hyperparathyroidism Osteoporosis Right-sided congestive heart failure Solitary right kidney Vertigo Surgical History H/O cataract removal with insertion of prosthetic lens RT/LEFT H/O tubal ligation History of section X 2 History of cholecystectomy History of colonoscopy History of esophagogastroduodenoscopy (EGD) History of lumbar laminectomy x 2 History of tooth extraction History of total abdominal hysterectomy and bilateral salpingo-oophorectomy Family History Other Cancer Diabetes Hypertension No family history of adverse response to anesthesia Social History Smoking Status: Never smoker Second Hand Exposure: Yes ( used to smoke); Hx Alcohol Use: No Hx Substance Use: No Preferred Language: Kiswahili Communication Ability: Effective Putty Remover Required: No Beliefs That Will Affect Care: None marital status: / Current Living Situation: Alone Current Living Situation Comment: with help on Tuesdays and current occupational status: retired How many Children do You have: 2 Feels Safe at Home: Yes Assistive Devices: Cane, Walker and Wheelchair Review of Systems Review of Systems: As above in HPI, remaining ROS reviewed and negative Physical Exam Physical Exam: Appears weak, non toxic, no acute distress Constitutional: normocephalic, atraumatic, mucous membrane moist Respiratory: breathing comfortably on room air, no wheezing/rhonchi/rales Cardiovascular: Irregular, mildly tachycardic, +systolic murmur Gastrointestinal (Abdomen): +BS, Diffusely tender to palpation, soft Musculoskeletal: No edema, no cyanosis or clubbing Neurologic: Awake, alert, spontaneously moving extremities Psychiatric: normal affect, speech linear, non pressured Results & Data Results & Data ([facility]) Vital Signs (Past 12 Hours) Vital Signs Temp Pulse Pulse Resp BP BP Pulse Ox 03/11/22 10:50 98 H 21 122/65 96 03/11/22 10:15 36.8 C 95 H 21 105/69 95 03/11/22 10:00 105 H 22 105/66 95 03/11/22 09:33 99 H 24 107/42 L 95 03/11/22 09:19 104 H 22 95 03/11/22 08:50 104 H 23 95 03/11/22 08:46 37.8 C H 107 H 27 H 117/87 96 03/11/22 08:43 25 H 95 03/11/22 08:42 37.8 C H 104 H 24 117/87 96 Laboratory Results Short CBC 03/11/22 Range/Units 09:10 WBC 13.68 H (4.8-10.8) K/ul Hgb 9.1 L (12.0-16.0) g/dl Hct 27.9 L (34.1-44.9) % Plt Count 206 (130-400) K/uL BMP 03/11/22 09:10 Sodium 133 L Potassium 4.8 Chloride 101 Carbon Dioxide 21 BUN 89 H Creatinine 2.63 H Glucose 110 H Calcium 8.8 Liver Function 03/11/22 Range/Units 09:10 Total Bilirubin 0.6 (0.2-1.0) mg/dl AST 41 H (13-39) U/L ALT 30 (7-52) U/L Alkaline Phosphatase 121 H (34-104) U/L Albumin 3.5 (3.4-5.0) gm/dl Urine 03/11/22 Range/Units 11:45 Urine Color Dark Yellow Urine Appearance Clear (Clear) Urine pH 5.0 (4.5-7.5) Ur Specific [place] 1.018 (1.000-1.030) Urine Protein 1+ H (Negative) Urine Glucose (UA) Negative (Negative) Diagnostic Findings CXR IMPRESSION: Cardiomegaly with mild central pulmonary vascular congestion without overt edema.
[2022-03-11] MEDS ORDERED: VANCOMYCIN CONSULT ACTIVE PRN (11:07)
[2022-03-11] MEDS ORDERED: VANCOMYCIN HCL 1,250 MG in SODIUM CHLORIDE 0.9% 500 ML IV ONE (11:07)
[2022-03-11 11:59] LABS: Appearance Urine Clear (Clear); Bacteria Urine Automated Negative (Negative); Bilirubin Urine Negative (Negative); Blood Urine Negative (Negative); Color Urine Dark Yellow; Epithelial Cell Urine Auto 20-30 /lpf (0-5); Glucose Urine UA Negative (Negative); Ketones Urine Trace (Negative); Leukocyte Esterase Urine Negative (Negative); Nitrite Urine Negative (Negative); Protein Urine 1+ (Negative); Specific Gravity Urine 1.018 (1.000-1.030); Urobilinogen Urine Negative (Negative)
--- NOTE | 2022-03-11 12:12 | Electrocardiogram Report ---
Test Reason : Blood Pressure : / mmHG Vent. Rate : 105 BPM Atrial Rate : 105 BPM P-R Int : 000 ms QRS Dur : 076 ms QT Int : 352 ms P-R-T Axes : 000 021 010 degrees QTc Int : 465 ms Atrial fibrillation with rapid ventricular response Abnormal ECG When compared with ECG of 01-MAR-2022 15:54, Nonspecific T wave abnormality, improved in Inferior leads T wave inversion no longer evident in Anterior leads Confirmed by Talib Shields ([id number]) on 03/11/2022 12:12:00 PM Referred By: [facility] Confirmed By:Ezio Shields
[2022-03-11 12:14] LABS: RBC Urine Automated 0-4 /hpf (0-4)
--- NOTE | 2022-03-11 13:11 | CT Scan Report ---
CT abd pelvis wo con CLINICAL HISTORY: abdominal pain TECHNIQUE: Helical axial images of the abdomen and pelvis were obtained. Automated dose lowering tech niques and/or adjustment according to patient size were utilized for this exam. This exam was perfor med without intravenous contrast. CT DOSE: 256.84 mGy.cm COMPARISON: Comparison is made to CT abdomen 03/04/2022 FINDINGS: Lower chest: Cardiomegaly is seen. Bilateral atelectasis is seen. There is smooth faint interlobular septal thickening. Liver: Nodular contour of the liver is seen compatible with cirrhosis. Gallbladder and biliary tree: Patient is status post cholecystectomy. No intra- or extrahepatic bilia ry ductal dilation. Pancreas: Unremarkable, no focal lesions. Spleen: 3.5 cm splenic cyst is again noted. Adrenals: Adrenal glands are unchanged from prior exam with stable thickening of the left renal. Kidneys and ureters: Atrophic appearance of the left kidney. Bilateral cortical scarring is seen. Ext ensive renal vascular calcification is seen with possible underlying stones. Bladder: Limited evaluation due to underdistention. A small amount of gas in the bladder likely repre sents recent instrumentation. Reproductive organs: Unremarkable. Bowel: Unremarkable appearance of the bowel. The appendix is normal. Lymph nodes Retroperitoneal: Unremarkable. Mesenteric: Unremarkable. Pelvic: Unremarkable. Peritoneum: Mild ascites is seen. Vessels: Atherosclerotic calcifications are seen. Abdominal wall: Unremarkable. Bones: Degenerative changes in the visualized spine. Posterior fixation hardware is seen at L5-S1. IMPRESSION: 1. Cirrhosis with mild ascites, slightly increased in extent from prior exam. 2. Cardiomegaly is partially visualized. Mild interlobular septal thickening may represent pulmonary edema. 3. Otherwise no acute abnormalities are seen. ACT 112: Negative or not required by law. Electronically signed by: Anirudh Eldridge M.D. 03/11/2022 1:10 PM
[2022-03-11] MEDS ORDERED: CARBOHYDRATES FOR HYPOGLYCEMIA PO PRN (13:14)
[2022-03-11] MEDS ORDERED: GLUCOSE 10 TAB/TUBE PO PRN (13:14)
[2022-03-11] MEDS ORDERED: PHARMACY GLYCEMIC MGMT CONSULT PRN (13:14)
[2022-03-11] MEDS ORDERED: POLYETHYLENE (MIRALAX) 17 GM PACK PO PRN (13:14)
[2022-03-11] MEDS ORDERED: GLUCOSE 40% GEL 15 GM TUBE PO PRN ×2 (13:14)
[2022-03-11] MEDS ORDERED: DEXTROSE 50% 50 ML SYRINGE IV PRN (13:14)
[2022-03-11] MEDS ORDERED: ONDANSETRON INJ 2 MG/ML 2 ML VIAL IV PRN (13:14)
[2022-03-11] MEDS ORDERED: GLUCAGON FOR INJ 1 MG VIAL SQ PRN (13:14)
--- NOTE | 2022-03-11 13:57 | Pharmacy Report ---
Pharmacy [facility] Short Note - Date of Service March 11, 2022 - Assessment & Plan Assessment 76 year old F receiving vancomycin/cefepime for treatment of empiric indication. Day # 1/2 of antimicrobial therapy. Plan Vancomycin * vancomycin 1250 mg IV x 1 (23.5 mg/kg) * due to patient's kidney function, will dose vancomycin by levels * random vancomycin level for 03/12/22 in AM Pharmacy will continue to follow and will adjust dose/frequency as necessary. Thank you.
--- NOTE | 2022-03-11 14:00 | Pharmacy Report ---
Pharmacy Glycemic Short Note 2 - Date of Service March 11, 2022 - Glycemic Short BSG Results (Last 24 hours): 03/11/22 09:10 Glucose 110 H OUTPATIENT ANTIDIABETIC REGIMEN: * Lantus 5 units HS * Regular sliding scale ASSESSMENT: * Ms Jean is a 76 y/o F with a PMH of IDDM who presents with sepsis. * Patient was previously admitted earlier in February. During that hospitalization, patient tolerated Lantus 5 units + Novolog CF 30 CR 20. Fasting BSGs were reasonable but BSGs trended upwards during the day. * Will continue Lantus dose. * Will tighten Novolog somewhat. Continue to monitor. PLAN FOR INPATIENT GLYCEMIC CONTROL: * Basal insulin * Lantus 5 units SQ HS * Bolus insulin * NovoLog per scale ACHS or Q6hrs while NPO * Goal Range: Low 110 mg/dL - High 140 mg/dL * Correction Factor: 30 mg/dL/unit * Nutritional / Prandial insulin per carb ratio of 1 unit per 10 grams CHO consumed
[2022-03-11] MEDS: INSULIN ASPART PER UNIT SC SCH ×3 (15:11→20:40)
[2022-03-11] MEDS: ACETAMINOPHEN 325 MG TAB PO PRN (19:53)
[2022-03-11] MEDS: DOCUSATE SODIUM 100 MG CAP PO SCH (20:39)
[2022-03-11] MEDS: HEPARIN SOD 5,000 UNIT/0.5 ML VIAL SQ SCH (20:40)
[2022-03-11] MEDS: SERTRALINE HCL 100 MG TABLET PO SCH (20:41)
[2022-03-11] MEDS: LANTUS PER UNIT CHARGE SQ SCH (20:43)
[2022-03-12] MEDS ORDERED: PANTOprazole 40 MG TAB PO SCH (06:30)
[2022-03-12 07:07] LABS: Basophils # (auto) 0.04 K/uL (0-0.2); Basophils % (auto) 0.3 %; Eosinophils # (auto) 0.19 K/uL (0-0.50); Eosinophils % (auto) 1.3 %; Hematocrit (blood only) 30.5 % (34.1-44.9); Hemoglobin 9.8 g/dl (12.0-16.0); Immature Granulocytes # (auto) 0.09 K/uL (0.00-0.02); Immature Granulocytes % (auto) 0.6 %; Lymphocytes # (auto) 0.89 K/uL (1.2-3.4); Mean Corpuscular Hemoglobin 29.6 pg (25.0-34.0); Mean Corpuscular Hgb Conc 32.1 g/dL (32.0-36.0); Mean Corpuscular Volume 92.1 fL (80.0-100.0); Mean Platelet Volume 11.2 fL (9.4-12.3); Monocytes # (auto) 0.68 K/uL (0.24-0.82); Monocytes % (auto) 4.6 %; Neutrophils # (auto) 13.02 K/uL (1.4-6.5); Neutrophils % (auto) 87.2 %; Platelet Count 225 K/uL (130-400); RDW Coefficient of Variation 15.4 % (11.5-14.5); RDW Standard Deviation 51.8 fL (36.4-46.3); Red Blood Count 3.31 M/uL (3.93-5.22); White Blood Count 14.91 K/ul (4.8-10.8)
[2022-03-12 07:22] LABS: BUN Creatinine Ratio 34.7 (10-20); Calcium 8.6 mg/dl (8.5-10.1); Est GFR (Non-African American) 14.7 ml/min
--- NOTE | 2022-03-12 07:52 | Pharmacy Report ---
Pharmacy [facility] Note - Date of Service March 12, 2022 - Assessment and Plan Assessment 76 year old F receiving vancomycin/cefepime for treatment of empiric indication. Pertinent microbiologic data includes: N/A. Day # 2 of antimicrobial therapy. Plan Vancomycin * Random level this morning is 17.8 mcg/mL which is therapeutic. * Estimated half-life right now is 14 hours - HOWEVER, this is skewed by the loading of the patient. * Vancomycin 750 mg IV x 1 (15 mg/kg) * Random level ordered for: 03/13/22 Pharmacy will continue to follow and will adjust dose/frequency as necessary. Thank you.
[2022-03-12] MEDS: allopurinoL 100 MG TAB PO SCH (08:35)
[2022-03-12] MEDS: DOCUSATE SODIUM 100 MG CAP PO SCH ×2 (08:35→21:06)
[2022-03-12] MEDS ORDERED: hydrOXYzine HCl 25 MG TAB PO PRN (08:35)
[2022-03-12] MEDS: HEPARIN SOD 5,000 UNIT/0.5 ML VIAL SQ SCH ×2 (08:36→21:07)
[2022-03-12] MEDS: CHOLECALCIFEROL 1,000 UNITS 25 MCG TAB PO SCH (08:36)
[2022-03-12] MEDS: ASPIRIN 81 MG ECTAB PO SCH (08:36)
[2022-03-12] MEDS: ATORVASTATIN 40 MG TAB PO SCH (08:36)
[2022-03-12] MEDS: METOPROLOL SUCC 25MG EXT REL TAB PO SCH (08:36)
[2022-03-12] MEDS ORDERED: CEFEPIME 2,000 MG in SYRINGE 0 ML IV SCH (09:00)
[2022-03-12] MEDS: INSULIN ASPART PER UNIT SC SCH ×4 (09:49→21:14)
[2022-03-12] MEDS ORDERED: VANCOMYCIN HCL 750 MG in SODIUM CHLORIDE 0.9% 250 ML IV ONE (10:00)
--- NOTE | 2022-03-12 14:48 | Hospitalist Progress Note ---
Date of Service March 12, 2022 Assessment & Plan (1) Sepsis: Plan Severe Sepsis -Present on admission. (Sepsis criteria: tachycardia, leukocytosis, tachypnea with evidence of PREETI). -s/p 500 cc NSS In ER and cefepime/vanc started -Urine and blood cultures are empirically negative -no uti symptoms and afebrile -RUQ tenderness and symptoms seem to revolve around her abdomen -change abx to ceftriaxone to cover for SBP (2gm IV-->checked wtih pharmacist and ok wtih dosing despite her current renal function) -recent paracentesis on 03/05--61 PMNs, bloody tap, cytology was negative for malignancy -still concerned for abdominal source with ongoing tenderness and level of illness -consult GI for help with etiology -incomplete resuscitation wtih ongoing tachycardia. Giving additional 1L IVF now and cont to hold lasix. Notably there are no CHF symptoms present and she is not examining as hypervolemic. PREETI -Cr 2.9, baseline around 2.2 -continue to hold lasix and giving fluids as above. Chronic right side CHF Severe pulmonary hypertension Valvular heart disease (mod MR, severe TR) Cardiac cirrhosis -holding lasix for now -On exam, appears compensated -recent paracentesis, now with abdominal pain- CT a/p without acute abnormalities Chronic A fib with RVR -not on AC due to history of GIB -continue aspirin, metoprolol with hold parameters T2IDDM -Lantus 5 units QHS, add correctional scale insulin Pharmacist is managing this to achieve/maintain euglycemia. HLD -statin History of gallbladder CA -OP follow up DVT ppx -SQ heparin Code Status -DNR/DNI Disposition-From [facility], return when medically stable. Admit to PCU DO Greg Syed Hospitalist Admission and Anticipated Discharge Date Admission Date: March 11, 2022 Subjective 76-year-old female with known history of gallbladder cancer diagnosed 2006 with metastatic disease. She has a known history of cirrhosis with a history of NAFLD and longstanding right heart sided heart failure. She was recently discharged from the hospital on 03/09 and sent to [facility] for rehab. Patient states today that she was not feeling well when she was discharged from the hospital. She reports feeling generally weak and with generalized malaise but cannot highlight any specific symptom that was concerning. Today she is weak after being admitted for sepsis yesterday. She reports generalized lightheadedness and is describing intermittent right upper quadrant pain. She is not able to identify any triggers or palliative factors for this pain. She did have a urinary tract infection that was treated last admission and there is no evidence of urinary infection on lab studies currently. Blood cultures drawn on 03/11 are not reporting any growth to date. She still appears very peaked and weak and fragile. She reports not feeling much better today than she did yesterday. She continues on broad-spectrum antibiotics. Her abdomen appears to be the most constant source of discussion. When she underwent a paracentesis on 03/05 the peritoneal fluid was sent for cytology exam revealing scattered mesothelial cells and mixed inflammation with edges negative for malignancy. The tap was bloody but the gram stain was negative. The patient does not report any improvement since the paracentesis and it is hard to gauge from her expressions whether she feels this is contributing to her current symptoms and state. She reports 1 episode of physical therapy at [facility] which did not go well because of her level of weakness. Review of Systems Review of Systems: All systems were reviewed and negative except as indicated above Physical Exam Physical Exam: CONSTITUTIONAL: WNWD, vitals as above, generally ill- appearing, NAD EYES: normal conjunctivae, no scleral icterus, ENT: external ear and nose normal, MMM NECK: trachea midline, RESPIRATORY: clear to auscultation bilaterally, no crackles, rales or wheezes, normal respiratory effort CARDIOVASCULAR: regular rate and rhythm, S1 and 2 heard without murmurs, gallops or rubs, +JVD to angle of mandible, no peripheral edema, CHEST: inspection of chest was normal GASTROINTESTINAL: normal bowel sounds, soft, TTP in RUQ, ND no guarding, possible palpable RLQ herniation. MUSCULOSKELETAL: generalized nonfocal weakness, head is normocephalic and atraumatic, SKIN: warm and dry, scattered ecchymosis along lower abdomen. NEUROLOGIC: CN 2-12 grossly intact, no sensory deficit, normal cognition, normal speech, no tremor PSYCHIATRIC: alert cooperative and oriented to person, place and time. Euthymic mood, makes good eye contact, language grossly intact, recent and remote memory grossly intact. Results & Data Results & Data ([facility]) Vital Signs (Past 12 Hours) Vital Signs Temp Pulse Pulse Resp BP Pulse Ox O2 Del Method 03/12/22 11:26 37.1 C 101 H 18 99/61 L 94 Room Air 03/12/22 08:00 Room Air 03/12/22 08:00 92 H 03/12/22 07:27 36.6 C 99 H 19 106/60 93 Room Air 03/12/22 03:30 36.6 C 89 16 102/64 93 Room Air Laboratory Results Short CBC 03/12/22 Range/Units 06:29 WBC 14.91 H (4.8-10.8) K/ul Hgb 9.8 L (12.0-16.0) g/dl Hct 30.5 L (34.1-44.9) % Plt Count 225 (130-400) K/uL BMP 03/12/22 06:29 Sodium 131 L Potassium 5.0 Chloride 99 Carbon Dioxide 19 L BUN 103 H Creatinine 2.97 H D Glucose 137 H Calcium 8.6 Medications Administered Current Inpatient Medications Acetaminophen (Acetaminophen 325 Mg Tab) 650 mg PO Q6 PRN PRN Reason: Pain or Fever Stop: 04/10/22 13:13 Last Admin: 03/11/22 19:53 Dose: 650 mg Allopurinol (Allopurinol 100 Mg Tab) 200 mg PO QAM [facility] Stop: 04/11/22 08:59 Last Admin: 03/12/22 08:35 Dose: 200 mg Aspirin (Aspirin 81 Mg Ectab) 81 mg PO QAM [facility] Stop: 04/11/22 08:59 Last Admin: 03/12/22 08:36 Dose: 81 mg Atorvastatin Calcium (Atorvastatin 40 Mg Tab) 40 mg PO QAM [facility] Stop: 04/11/22 08:59 Last Admin: 03/12/22 08:36 Dose: 40 mg Dextrose (Dextrose 50% 50 Ml Syringe) 25 - 50 ml IV UD PRN; Protocol PRN Reason: Hypoglycemia Protocol Stop: 04/10/22 13:13 Docusate Sodium (Docusate Sodium 100 Mg Cap) 100 mg PO BID [facility] Stop: 04/10/22 20:59 Last Admin: 03/12/22 08:35 Dose: 100 mg Glucagon (Glucagon For Inj 1 Mg Vial) 1 mg SQ UD PRN; Protocol PRN Reason: Hypoglycemia Protocol Stop: 04/10/22 13:13 Glucose (Glucose 40% Gel 15 Gm Tube) 15 gm PO UD PRN PRN Reason: Hypoglycemia Stop: 04/10/22 13:13 Glucose (Glucose 40% Gel 15 Gm Tube) 15 - 30 gm PO UD PRN; Protocol PRN Reason: Hypoglycemia Protocol Stop: 04/10/22 13:13 Glucose (Glucose 10 Tab/Tube) 4 - 8 tab PO UD PRN; Protocol PRN Reason: Hypoglycemia Treatment Stop: 04/10/22 13:13 Heparin Sodium (Porcine) (Heparin Sod 5,000 Unit/0.5 Ml Vial) 5,000 units SQ Q12 [facility] Stop: 04/10/22 20:59 Last Admin: 03/12/22 08:36 Dose: 5,000 units Hydroxyzine HCl (Hydroxyzine Hcl 25 Mg Tab) 25 mg PO Q6H PRN PRN Reason: itching Stop: 04/11/22 08:34 Cefepime HCl 2,000 mg/ Syringe 20 mls @ 5.5 mls/min IV DAILY [facility]; Protocol Stop: 03/13/22 23:59 Last Admin: 03/12/22 08:40 Dose: 5.5 mls/min Insulin Aspart (Insulin Aspart Per Unit) 0 units SC ACHS [facility] Stop: 04/10/22 13:59 Last Admin: 03/12/22 13:04 Dose: Not Given Insulin Glargine (Lantus Per Unit Charge) 5 units SQ HS [facility] Stop: 04/10/22 20:59 Last Admin: 03/11/22 20:43 Dose: 5 units Metoprolol Succinate (Metoprolol Succ 25mg Ext Rel Tab) 25 mg PO QAM [facility] Stop: 04/11/22 08:59 Last Admin: 03/12/22 08:36 Dose: 25 mg Miscellaneous (Carbohydrates For Hypoglycemia ) 15 - 30 gm PO UD PRN PRN Reason: Hypoglycemia Protocol Stop: 04/10/22 13:13 Miscellaneous Information (Vancomycin Consult Active) 1 each N/A UD PRN PRN Reason: Consult Stop: 04/10/22 11:06 Miscellaneous Information (Pharmacy Glycemic Mgmt Consult) 1 each N/A UD PRN; Protocol PRN Reason: Consult Stop: 04/10/22 13:13 Ondansetron HCl (Ondansetron Inj 2 Mg/Ml 2 Ml Vial) 4 mg IV Q6H PRN PRN Reason: Nausea Stop: 04/10/22 13:13 Pantoprazole Sodium (Pantoprazole 40 Mg Tab) 40 mg PO DAILYBB [facility] Stop: 04/12/22 06:29 Polyethylene Glycol (Polyethylene (Miralax) 17 Gm Pack) 17 gm PO QDL PRN PRN Reason: Constipation Stop: 04/10/22 13:13 Sertraline HCl (Sertraline Hcl 100 Mg Tablet) 100 mg PO HS [facility] Stop: 04/10/22 20:59 Last Admin: 03/11/22 20:41 Dose: 100 mg Vitamin D (Cholecalciferol 1,000 Units 25 Mcg Tab) 2,000 units PO QAM [facility] Stop: 04/11/22 08:59 Last Admin: 03/12/22 08:36 Dose: 2,000 units
[2022-03-12] MEDS ORDERED: SODIUM CHLORIDE 0.9% 1000ML 1,000 ML IV SCH (15:45)
[2022-03-12] MEDS: SERTRALINE HCL 100 MG TABLET PO SCH (21:09)
[2022-03-12] MEDS: LANTUS PER UNIT CHARGE SQ SCH (21:15)
[2022-03-12] MEDS: ACETAMINOPHEN 325 MG TAB PO PRN (22:26)
[2022-03-13] MEDS: PANTOprazole 40 MG TAB PO SCH (05:25)
[2022-03-13 07:00] LABS: Albumin Globulin Ratio 1.4 (0.9-2); Albumin Level 3.3 gm/dl (3.4-5.0); BUN Creatinine Ratio 31.7 (10-20); Bilirubin,Total 0.8 mg/dl (0.2-1.0); Calcium 8.3 mg/dl (8.5-10.1); Creatinine Clr Calc Pharmacy 10.2 ml/min; Est GFR (African American) 13.8 ml/min; Est GFR (Non-African American) 11.9 ml/min; Globulin 2.4 gm/dl (2.5-4.0); Magnesium 2.3 mg/dl (1.7-2.4); Phosphorus 6.1 mg/dl (2.5-4.9); Potassium 4.7 mmol/L (3.5-5.1); Total Protein 5.7 gm/dl (6.0-8.3)
[2022-03-13 07:31] LABS: Basophils # (auto) 0.09 K/uL (0-0.2); Basophils % (auto) 0.6 %; Eosinophils # (auto) 0.31 K/uL (0-0.50); Hematocrit (blood only) 32.9 % (34.1-44.9); Hemoglobin 10.9 g/dl (12.0-16.0); Immature Granulocytes # (auto) 0.12 K/uL (0.00-0.02); Immature Granulocytes % (auto) 0.8 %; Lymphocytes # (auto) 1.07 K/uL (1.2-3.4); Mean Corpuscular Hemoglobin 30.8 pg (25.0-34.0); Mean Corpuscular Hgb Conc 33.1 g/dL (32.0-36.0); Mean Corpuscular Volume 92.9 fL (80.0-100.0); Mean Platelet Volume 12.4 fL (9.4-12.3); Monocytes # (auto) 0.91 K/uL (0.24-0.82); Monocytes % (auto) 5.9 %; Neutrophils # (auto) 12.83 K/uL (1.4-6.5); Neutrophils % (auto) 83.7 %; Nucleated RBC # (auto) 0.02 K/uL (0-0); Nucleated RBC % (auto) 0.1 %; Platelet Count 236 K/uL (130-400); RDW Coefficient of Variation 15.8 % (11.5-14.5); RDW Standard Deviation 53.5 fL (36.4-46.3); Red Blood Count 3.54 M/uL (3.93-5.22); White Blood Count 15.33 K/ul (4.8-10.8)
[2022-03-13] MEDS ORDERED: cefTRIAXone SODIUM 2,000 MG in DEXTROSE 5% 50 ML IV SCH ×2 (09:00→10:00)
[2022-03-13] MEDS ORDERED: SODIUM CHLORIDE 0.9% 1000ML 250 ML IV ONE (09:14)
[2022-03-13] MEDS ORDERED: SODIUM CHLORIDE 0.9% 1000ML 1,000 ML IV SCH (09:15)
[2022-03-13] MEDS ORDERED: POTASSIUM CHLORIDE CRTAB 20 MEQ TABCR PO STA (09:24)
[2022-03-13] MEDS: HEPARIN SOD 5,000 UNIT/0.5 ML VIAL SQ SCH ×2 (10:11→21:19)
[2022-03-13 10:18] LABS: Base Excess ABG -12.3 mEq/L (-9-1.8); HCO3 ABG 12 mmol/L (19-24); Oxygen Saturation ABG 98.6 % (90-95); PCO2 ABG 23 mmHg (35-46); PO2 ABG 102 mmHg (80-95); pH ABG 7.33 (7.35-7.45)
[2022-03-13 10:24] LABS: Allen Test Pos (Pos)
--- NOTE | 2022-03-13 10:40 | Hospitalist Progress Note ---
Date of Service March 13, 2022 Assessment & Plan (1) Sepsis: Plan Severe Sepsis -Present on admission. (Sepsis criteria: tachycardia, leukocytosis, tachypnea with evidence of PREETI). -s/p 500 cc NSS In ER and cefepime/vanc started -Urine and blood cultures negative from 03/11 admission -no uti symptoms and afebrile (recent infection cleared) -RUQ tenderness and symptoms seem to revolve around her abdomen -change abx to ceftriaxone to cover for SBP (2gm IV-->checked wtih pharmacist and ok wtih dosing despite her current renal function) -recent paracentesis on 03/05--no infection present, bloody tap, cytology was negative for malignancy -still concerned for abdominal source with ongoing tenderness and level of illness -consulted GI for help with etiology given known GB cancer history and cirrhosis. -incomplete resuscitation wtih ongoing tachycardia. Continued to hold lasix and gave gentle IVF x 1L. Notably there are no CHF symptoms present and she is not examining as hypervolemic although there was venous congestion on CXR from admission 03/13: worse today and hypotensive/tachycardia still present. elevated LFTs and worsening renal failure suggestive of hypoperfusion. PREETI -Cr worse today, baseline around 2.2 -continue to hold lasix and more aggressive reesuscitation as tolerated -this is a difficult balance with volume and what her system can handle; will consult nephrology for assistance -consult laundry machine tender for consideration of pressor support. Acute right sided CHF-likely contributing here. Severe pulmonary hypertension Valvular heart disease (mod MR, severe TR) -cannot diurese given the hypotension -consulted ICU and cardiology for help with more aggressive management. Cardiac cirrhosis -holding lasix for now CT a/p without acute abnormalities Has known RUQ tenderness Out of concern not to miss something, even though her RUQ pain is chronic, have asked general surgery to see her and given thoughts It is reassuring that her lactate is normal A fib with RVR -not on AC due to history of GIB -continue aspirin, metoprolol with hold parameters T2IDDM -Lantus 5 units QHS, add correctional scale insulin Pharmacist is managing this to achieve/maintain euglycemia. HLD -statin History of gallbladder CA -OP follow up, appears to be in remission. DVT ppx -SQ heparin Code Status -DNR/DNI Disposition-From [facility], transfer to ICU. I did have a conversation with her son who is currently at work and updated him on her guarded prognosis. He verbalized understanding, and mentioned that he was surprised she lasted this long with her underlying medical conditions. Also, he reconfirmed that she is a DNR/DNI and that she wanted her body to be donated to [employer]. After further discussion with laundry machine tender, checked random cortisol which was 32. Empirically started hydrocortisone at stress dose. Added fungal blood cultures and empiric caspofungin. Changed Rocpehin to cefepime to continue pseudomonas coverage. CXR this am revealed worsening pulmonary edema. Even though not hypoxic or working to breathe yet, do not want this to occur. Stopped IVF and gave some albumin. Repeat labwork ordered for this afternoon. Sent down to ICU for further treatment. 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 She has a known history of cirrhosis with a history of NAFLD and longstanding right heart sided heart failure. She was recently discharged from the hospital on 03/09 and sent to [facility] for rehab. feels weaker and worse today more lethargic increased hypotension still mildly tachy and in atrial fibrillation appears underresuscitated notably no abx given for the past 24 hours--checked with pharmacy who retimed the ceftriaxone to this am based on renal function and presumed clearance slightly worsened wBC coung 14-->15 mild fever last night 37.7C (100F) denies pain Review of Systems Review of Systems: All systems were reviewed and negative except as indicated above Physical Exam Physical Exam: CONSTITUTIONAL: WNWD, vitals as above, generally ill- appearing, lethargic, not as responsive as yesterday but still mentating clearly EYES: normal conjunctivae, no scleral icterus, ENT: external ear and nose normal, MMM NECK: trachea midline, RESPIRATORY: clear to auscultation bilaterally, no crackles, rales or wheezes, normal respiratory effort CARDIOVASCULAR: regular rate and rhythm, S1 and 2 heard without murmurs, gallops or rubs, +JVD to angle of mandible, no peripheral edema, CHEST: inspection of chest was normal GASTROINTESTINAL: normal bowel sounds, soft, TTP in RUQ, ND no guarding, possible palpable RLQ herniation. MUSCULOSKELETAL: generalized nonfocal weakness, head is normocephalic and atraumatic, SKIN: warm and dry, scattered ecchymosis along lower abdomen. NEUROLOGIC: CN 2-12 grossly intact, no sensory deficit, normal cognition, normal speech, no tremor PSYCHIATRIC: lethargic, as above. Results & Data Results & Data ([facility]) Vital Signs (Past 12 Hours) Vital Signs Temp Pulse Pulse Resp BP Pulse Ox O2 Del Method 03/13/22 09:38 36.5 C 112 H 16 91/59 L 95 Room Air 03/13/22 08:00 36.4 C L 98 H 16 103/64 94 Room Air 03/13/22 02:51 36.6 C 93 H 18 90/60 L 98 Room Air 03/12/22 22:58 115 H Laboratory Results Short CBC 03/13/22 Range/Units 06:05 WBC 15.33 H (4.8-10.8) K/ul Hgb 10.9 L (12.0-16.0) g/dl Hct 32.9 L (34.1-44.9) % Plt Count 236 (130-400) K/uL [facility] 03/13/22 06:05 Sodium 130 L Potassium 4.7 Chloride 100 Carbon Dioxide 17 L BUN 112 H Creatinine 3.53 H D Glucose 148 H Calcium 8.3 L Liver Function 03/13/22 Range/Units 06:05 Total Bilirubin 0.8 (0.2-1.0) mg/dl AST 309 H (13-39) U/L ALT 138 H (7-52) U/L Alkaline Phosphatase 124 H (34-104) U/L Albumin 3.3 L (3.4-5.0) gm/dl Medications Administered Current Inpatient Medications Acetaminophen (Acetaminophen 325 Mg Tab) 650 mg PO Q6 PRN PRN Reason: Pain or Fever Stop: 04/10/22 13:13 Last Admin: 03/12/22 22:26 Dose: 650 mg Allopurinol (Allopurinol 100 Mg Tab) 200 mg PO [facility] Stop: 04/11/22 08:59 Last Admin: 03/12/22 08:35 Dose: 200 mg Aspirin (Aspirin 81 Mg Ectab) [facility] Stop: 04/11/22 08:59 Last Admin: 03/12/22 08:36 Dose: 81 mg Atorvastatin Calcium (Atorvastatin 40 Mg Tab) 40 mg PO QAM [facility] Stop: 04/11/22 08:59 Last Admin: 03/12/22 08:36 Dose: 40 mg Dextrose (Dextrose 50% 50 Ml Syringe) 25 - 50 ml IV UD PRN; Protocol PRN Reason: Hypoglycemia Protocol Stop: 04/10/22 13:13 Docusate Sodium (Docusate Sodium 100 Mg Cap) 100 mg PO BID IN[facility] Stop: 04/10/22 20:59 Last Admin: 03/12/22 21:06 Dose: Not Given Glucagon (Glucagon For Inj 1 Mg Vial) 1 mg SQ UD PRN; Protocol PRN Reason: Hypoglycemia Protocol Stop: 04/10/22 13:13 Glucose (Glucose 40% Gel 15 Gm Tube) 15 gm PO UD PRN PRN Reason: Hypoglycemia Stop: 04/10/22 13:13 Glucose (Glucose 40% Gel 15 Gm Tube) 15 - 30 gm PO UD PRN; Protocol PRN Reason: Hypoglycemia Protocol Stop: 04/10/22 13:13 Glucose (Glucose 10 Tab/Tube) 4 - 8 tab PO UD PRN; Protocol PRN Reason: Hypoglycemia Treatment Stop: 04/10/22 13:13 Heparin Sodium (Porcine) (Heparin Sod 5,000 Unit/0.5 Ml Vial) 5,000 units SQ Q12 INGE Stop: 04/10/22 20:59 Last Admin: 03/13/22 10:11 Dose: 5,000 units Hydroxyzine HCl (Hydroxyzine Hcl 25 Mg Tab) 25 mg PO Q6H PRN PRN Reason: itching Stop: 04/11/22 08:34 Sodium Chloride (Nss 1000ml) 1,000 mls @ 125 mls/hr IV .Q8H INGE Stop: 03/14/22 01:14 Last Admin: 03/13/22 10:12 Dose: 125 mls/hr Ceftriaxone Sodium 2,000 mg/ (Dextrose) 70 mls @ 100 mls/hr IV Q24H INGE; Protocol Stop: 03/23/22 09:59 Last Admin: 03/13/22 10:11 Dose: 100 mls/hr Insulin Aspart (Insulin Aspart Per Unit) 0 units SC ACHS INGE Stop: 04/10/22 13:59 Last Admin: 03/12/22 21:14 Dose: 1 units Insulin Glargine (Lantus Per Unit Charge) 5 units SQ HS [facility] Stop: 04/10/22 20:59 Last Admin: 03/12/22 21:15 Dose: 5 units Metoprolol Succinate (Metoprolol Succ 25mg Ext Rel Tab) 25 mg PO QAM [facility] Stop: 04/11/22 08:59 Last Admin: 03/12/22 08:36 Dose: 25 mg Miscellaneous (Carbohydrates For Hypoglycemia ) 15 - 30 gm PO UD PRN PRN Reason: Hypoglycemia Protocol Stop: 04/10/22 13:13 Miscellaneous Information (Pharmacy Glycemic Mgmt Consult) 1 each N/A UD PRN; Protocol PRN Reason: Consult Stop: 04/10/22 13:13 Ondansetron HCl (Ondansetron Inj 2 Mg/Ml 2 Ml Vial) 4 mg IV Q6H PRN PRN Reason: Nausea Stop: 04/10/22 13:13 Pantoprazole Sodium (Pantoprazole 40 Mg Tab) 40 mg PO DAILYBB [facility] Stop: 04/12/22 06:29 Last Admin: 03/13/22 05:25 Dose: 40 mg Polyethylene Glycol (Polyethylene (Miralax) 17 Gm Pack) 17 gm PO QDL PRN PRN Reason: Constipation Stop: 04/10/22 13:13 Sertraline HCl (Sertraline Hcl 100 Mg Tablet) 100 mg PO HS [facility] Stop: 04/10/22 20:59 Last Admin: 03/12/22 21:09 Dose: 100 mg Vitamin D (Cholecalciferol 1,000 Units 25 Mcg Tab) 2,000 units PO QAM [facility] Stop: 04/11/22 08:59 Last Admin: 03/12/22 08:36 Dose: 2,000 units
[2022-03-13] MEDS: INSULIN ASPART PER UNIT SC SCH ×4 (11:21→21:24)
[2022-03-13] MEDS: METOPROLOL SUCC 25MG EXT REL TAB PO SCH (11:22)
[2022-03-13] MEDS: DOCUSATE SODIUM 100 MG CAP PO SCH ×2 (11:22→21:19)
[2022-03-13] MEDS: ATORVASTATIN 40 MG TAB PO SCH (11:22)
[2022-03-13] MEDS: CHOLECALCIFEROL 1,000 UNITS 25 MCG TAB PO SCH (11:22)
[2022-03-13] MEDS: allopurinoL 100 MG TAB PO SCH (11:22)
[2022-03-13] MEDS: ASPIRIN 81 MG ECTAB PO SCH (11:22)
--- NOTE | 2022-03-13 11:27 | XRay Report ---
XR chest 1V portable CLINICAL HISTORY: h/o heart failure. Follow-up mild vascular congestion COMPARISON STUDY: 03/11/2022 TECHNIQUE: 1 view of the chest FINDINGS: Single frontal view of the chest demonstrates the heart to again be enlarged. Compared to the previou s examination, there is worsening of central vascular congestion with indistinctness of central hilar vessels present. There is no evidence for interstitial or alveolar edema. There is no evidence for p leural effusion. No confluent alveolar opacities are identified. There is no acute osseous pathology. IMPRESSION: 1. Compared to previous examination, there is worsening of central interstitial edema characteristic of early congestive heart failure. ACT 112: Negative or not required by law. Electronically signed by: Juancarlos Sunshine M.D. 03/13/2022 11:26 AM
[2022-03-13] MEDS ORDERED: CASPOFUNGIN 70 MG in SODIUM CHLORIDE 0.9% 250 ML IV ONE (12:00)
[2022-03-13] MEDS ORDERED: CEFEPIME 2,000 MG in SYRINGE 0 ML IV ONE (12:00)
--- NOTE | 2022-03-13 12:00 | Surgery Consultation ---
Date of Consultation March 13, 2022 Assessment & Plan (1) Abdominal pain: This is a 76y F with a PMH significant for cirrhosis, DM2, afib, gallbladder ca s/p cholecystectomy, heart failure, CKD who presents to the [facility] on 03/11 with generalized weakness, fevers, and low blood pressures. Of note the patient had a recent admission from 03/01-03/09 with acute on chronic right heart failure and she did undergo a paracentesis at that time. 2L were removed and it cytology was negative for malignancy. She is now admitted with a septic picture and again acute on chronic heart failure. Patient has been complaining of some vague R sided abdominal pain. She does have cirrhosis and history of cholecystectomy for gallbladder cancer. Today patient is lethargic but abdomen is soft, non distended and non tender. HR 100s in afib, SBP in the 90s. Unclear if pain could be from reaccumulation of ascites? Her WBC is increasing 15 today and has been started on abx to cover for SBP. Does not have a surgical abdomen at this time and CT scan 2 days ago was negative for acute process. A GI consultation is pending and we appreciate their input. No plans for surgical intervention at this time. as above. critically ill. poor prognosis. no indication for surgical intervention at this time. agree could consider repeat paracentesis and cx fluid. will follow in background. (2) Cirrhosis: (3) Acute right heart failure: History of Present Illness Attending Physician: Madeleine Morton, DO History of Present Illness This is a 76y F with a PMH significant for cirrhosis, DM2, afib, gallbladder ca s/p cholecystectomy, heart failure, CKD who presents to the [facility] on 03/11 with generalized weakness, fevers, and low blood pressures. Majority of HPI obtained from chart review and discussion with MD and RN as patient is lethargic and not answering questions appropriately. The patient had a recent admission from 03/01- 03/09 with acute on chronic right heart failure and she did undergo a paracente sis at that time. 2L were removed and it cytology was negative for malignancy. The patient was discharged to rehab however has apparently not been feeling well since then and was re-admitted with a septic picture. Her UA and blood cultures are negative. Since being here she has complained of some R sided abdominal pain we have been consulted to evaluate for as her etiology for sepsis at this point is unclear. She did have a CT a/p performed on admission that revealed no acute intra abdominal pathology in addition to cirrhosis with mild ascites, slightly increased in extent from prior exam. A CXR today revealed findings of worsening congestive heart failure. RN says the patient had been eating yesterday, but is more lethargic today so appetite is poor. Has been having loose BMs. No vomiting . Allergies Allergy/AdvReac Type Severity Reaction Status Date / Time gabapentin Allergy Severe EDEMA Verified 03/11/22 11:05 FACE/LIPS/TONGUE - ANGIOEDEMA meloxicam Allergy Severe RENAL Verified 03/11/22 11:05 FAILURE insulin detemir Allergy Intermediate HIVES, Verified 03/11/22 11:05 ELEVATED BSG latex Allergy Intermediate HIVES, RASH Verified 03/11/22 11:05 phenol Allergy Intermediate HIVES, Verified 03/11/22 11:05 ELEVATED BSG Sulfa (Sulfonamide Allergy Intermediate EDEMA,ITCHI Verified 03/11/22 11:05 Antibiotics) NG adhesive Allergy Mild skin Verified 03/11/22 11:05 irritation cephalexin Allergy Mild ELEVATED Verified 03/11/22 11:05 BSG TARA Inhibitors Allergy Unknown UNKNOWN Verified 03/11/22 11:05 Iodinated Contrast Media AdvReac Unknown PATIENT Verified 03/11/22 11:05 HAS CHRONIC KIDNEY FAILURE Home Medications Medication Instructions Recorded Confirmed Type allopurinol 100 mg tablet 200 mg PO QAM 10/06/18 03/11/22 History aspirin 81 mg tablet,delayed 81 mg PO QAM 10/06/18 03/11/22 History release atorvastatin 40 mg tablet 40 mg PO QAM 10/06/18 03/11/22 History cholecalciferol (vitamin D3) 50 2,000 unit PO QAM 10/06/18 03/11/22 History mcg (2,000 unit) capsule (Vitamin D3) docusate sodium 100 mg capsule 100 mg PO BID 10/06/18 03/11/22 History furosemide 40 mg tablet 40 mg PO DAILYBB 10/06/18 03/11/22 History isosorbide mononitrate 30 mg 30 mg PO QAM 10/06/18 03/11/22 History tablet,extended release 24 hr losartan 25 mg tablet 12.5 mg PO QAM 10/06/18 03/11/22 History nitroglycerin 0.4 mg sublingual 0.4 mg sublingual UD PRN Chest Pain 10/06/18 03/11/22 History tablet metoprolol succinate 25 mg 25 mg PO QAM 03/01/22 03/11/22 History tablet,extended release 24 hr pantoprazole 20 mg tablet,delayed 20 mg PO DAILYBB 03/01/22 03/11/22 History release sertraline 100 mg tablet 100 mg PO HS 03/01/22 03/11/22 History acetaminophen 325 mg tablet 650 mg PO Q4 PRN Pain 03/11/22 03/11/22 History dextrose 40 % oral gel (Glucose 15 g PO UD PRN Hypoglycemia 03/11/22 03/11/22 History Gel) hydroxyzine HCl 25 mg tablet 25 mg PO Q6 PRN Itching 03/11/22 03/11/22 History insulin glargine 100 unit/mL (3 5 unit subcut HS 03/11/22 03/11/22 History mL) subcutaneous pen (Lantus Solostar U-100 Insulin) insulin regular human 100 unit/mL 1 sliding scale dose subcut 03/11/22 03/11/22 History injection solution (Humulin R USEASDIRECTD Regular U-100 Insulin) loratadine 10 mg tablet 10 mg PO DAILY PRN Allergies 03/11/22 03/11/22 History melatonin 3 mg tablet 3 mg PO HS PRN Insomnia 03/11/22 03/11/22 History ondansetron 4 mg disintegrating 4 mg PO Q6H PRN Nausea/Vomiting 03/11/22 03/11/22 History tablet polyethylene glycol 3350 17 gram 17 g PO QDL PRN Constipation 03/11/22 03/11/22 History oral powder packet (Miralax) sennosides 8.6 mg-docusate sodium 1 tab-cap PO QDL PRN Constipation 03/11/22 03/11/22 History 50 mg tablet (Senokot-S) Patient History Medical History (Updated 03/13/22 @ 15:22 by Donna Mckeon PA-C) TARA inhibitor intolerance Anxiety Atrial fibrillation follows w/ dr. aquino; dx years ago AV (arteriovenous fistula) left arm>"STILL WORKING" HAS NOT HAD TO USE Cirrhosis of liver CKD (chronic kidney disease) stage 4, GFR 15-29 ml/min follows w/ dr. 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 History of gastric ulcer History of gastrointestinal bleeding History of migraine HTN (hypertension) Hx of falling Hx of gout Hyperparathyroidism Osteoporosis Right-sided congestive heart failure Solitary right kidney Vertigo Surgical History H/O cataract removal with insertion of prosthetic lens RT/LEFT H/O tubal ligation History of section X 2 History of cholecystectomy History of colonoscopy History of esophagogastroduodenoscopy (EGD) History of lumbar laminectomy x 2 History of tooth extraction History of total abdominal hysterectomy and bilateral salpingo-oophorectomy Family History Other Cancer Diabetes Hypertension No family history of adverse response to anesthesia Social History Smoking Status: Former smoker Second Hand Exposure: Yes ( used to smoke); Hx Alcohol Use: No Hx Substance Use: No Preferred Language: Canadian Communication Ability: Effective Movement Therapist Required: No Beliefs That Will Affect Care: None marital status: / Current Living Situation: Alone Current Living Situation Comment: with help on tuesdays and current occupational status: retired How many Children do You have: 2 Other Information That Helps Us Care for You: No Feels Safe at Home: Yes Safety Concerns: Feels Safe At This Time Assistive Devices: Cane, Walker and Wheelchair Review of Systems Review of Systems: Unobtainable due to cognitive status Physical Exam Physical Exam: lethargic, opens eyes and tries to answer questions, but poor historian and some confusion noted Respiratory: normal respiratory effort Gastrointestinal (Abdomen): Inspection/Auscultation: abdomen not distended Percussion/Palpation: abdomen soft; abdomen nontender Results & Data ([facility]) Vital Signs (Past 12 Hours) Vital Signs Temp Pulse Resp BP Pulse Ox O2 Del Method 03/13/22 09:38 36.5 C 112 H 16 91/59 L 95 Room Air 03/13/22 08:00 36.4 C L 98 H 16 103/64 94 Room Air 03/13/22 02:51 36.6 C 93 H 18 90/60 L 98 Room Air Diagnostic Findings CT abd pelvis wo con CLINICAL HISTORY: abdominal pain TECHNIQUE: Helical axial images of the abdomen and pelvis were obtained. Automated dose lowering techniques and/or adjustment according to patient size were utilized for this exam. This exam was performed without intravenous contrast. CT DOSE: 256.84 mGy.cm COMPARISON: Comparison is made to CT abdomen 03/04/2022 FINDINGS: Lower chest: Cardiomegaly is seen. Bilateral atelectasis is seen. There is smooth faint interlobular septal thickening. Liver: Nodular contour of the liver is seen compatible with cirrhosis. Gallbladder and biliary tree: Patient is status post cholecystectomy. No intra- or extrahepatic biliary ductal dilation. Pancreas: Unremarkable, no focal lesions. Spleen: 3.5 cm splenic cyst is again noted. Adrenals: Adrenal glands are unchanged from prior exam with stable thickening of the left renal. Kidneys and ureters: Atrophic appearance of the left kidney. Bilateral cortical scarring is seen. Extensive renal vascular calcification is seen with possible underlying stones. Bladder: Limited evaluation due to underdistention. A small amount of gas in the bladder likely represents recent instrumentation. Reproductive organs: Unremarkable. Bowel: Unremarkable appearance of the bowel. The appendix is normal. Lymph nodes Retroperitoneal: Unremarkable. Mesenteric: Unremarkable. Pelvic: Unremarkable. Peritoneum: Mild ascites is seen. Vessels: Atherosclerotic calcifications are seen. Abdominal wall: Unremarkable. Bones: Degenerative changes in the visualized spine. Posterior fixation hardware is seen at L5-S1. IMPRESSION: 1. Cirrhosis with mild ascites, slightly increased in extent from prior exam. 2. Cardiomegaly is partially visualized. Mild interlobular septal thickening may represent pulmonary edema. 3. Otherwise no acute abnormalities are seen. ACT 112: Negative or not required by law. Electronically signed by: Anirudh Eldridge M.D. 03/11/2022 1:10 PM XR chest 1V portable CLINICAL HISTORY: h/o heart failure. Follow-up mild vascular congestion COMPARISON STUDY: 03/11/2022 TECHNIQUE: 1 view of the chest FINDINGS: Single frontal view of the chest demonstrates the heart to again be enlarged. Compared to the previous examination, there is worsening of central vascular congestion with indistinctness of central hilar vessels present. There is no evidence for interstitial or alveolar edema. There is no evidence for pleural effusion. No confluent alveolar opacities are identified. There is no acute osseous pathology. IMPRESSION: 1. Compared to previous examination, there is worsening of central interstitial edema characteristic of early congestive heart failure. ACT 112: Negative or not required by law. Electronically signed by: Juancarlos Sunshine M.D. 03/13/2022 11:26 AM PG Care Time/CCT Total # of Minutes Spent Total Time Spent with Patient: Total time spent is greater than 50% in coordination of care (as documented) at patient's floor/unit and/or counseling patient: Coding Level of Care Code 48170 Initial Inpt Care Lvl 3 Diagnoses Abdominal pain R10.9 Cirrhosis K74.60 Acute right heart failure I50.811
--- NOTE | 2022-03-13 12:34 | Electrocardiogram Report ---
Test Reason : Blood Pressure : / mmHG Vent. Rate : 110 BPM Atrial Rate : 115 BPM P-R Int : 000 ms QRS Dur : 080 ms QT Int : 308 ms P-R-T Axes : 000 023 -04 degrees QTc Int : 416 ms Atrial fibrillation with rapid ventricular response Abnormal ECG When compared with ECG of 11-MAR-2022 08:34, No significant change was found Confirmed by Talib Shields ([id number]) on 03/13/2022 12:33:59 PM Referred By: [facility] Confirmed By:Ezio Shields
[2022-03-13] MEDS: ALBUMIN 25% 100 mL 25 GM/100 ML VIAL IV SCH ×2 (12:36→14:40)
[2022-03-13] MEDS: POTASSIUM CHLORIDE / WTR 10 MEQ/100 ML PLCT IV SCH ×2 (12:37→14:19)
[2022-03-13] MEDS: HYDROCORTISONE SOD 100 MG in SYRINGE 0 ML IV SCH ×2 (12:37→20:50)
--- NOTE | 2022-03-13 13:51 | Gastrointestinal Consultation ---
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 Also has NAFLD which may be contributing. Expect LFTs to improve as cardiac status and sepsis improve. Doubt related to biliary obstruction as no CBD abnormalities mentioned on CT on 03/11. Diuretics per cardiology. Recommend repeat paracentesis. Will watch for results of blood/urine cultures. GI will watch peripherally, including checking results of fluid analysis. Please ask if any GI issues and if questions regarding results of diagnostic tap (cell count, culture, total protein and albumin ordered). Supervising Physician Co-Signing Physician Notes Late entry: Patient was seen and examined on 03/13 with DAVID Zhao whose note reflects our findings and plan. History of Present Illness Reason for Consultation: sepsis after paracentesis Requesting Physician: Dr. Morton Attending Physician: Madeleine Morton, History of Present Illness Ms. Mariela Jean is a 76 yr old female with DM, CAD, CHF, cardiac ascites (see last week's GI consult), re-admitted 03/11 for weakness. Hypotensive and w leukocytosis on arrival. LFTs are increased today compared to yesterday. Admission labs w WBC 13, increased to 15 today despite Cefepime, then changed to Ceftriaxone this morning. Pt had undergone paracentesis last week. Ascitic culture was (-). She did have an e-coli UTI last week. This week, blood/urine cultures are pending and are negative thus far. Pt is very somnolent, laying on her left side, answers simple questions, able to tell me her name and that she is in a hospital but unable to tell me the name of the hospital and why she is here. Allergies Allergy/AdvReac Type Severity Reaction Status Date / Time gabapentin Allergy Severe EDEMA Verified 03/11/22 11:05 FACE/LIPS/TONGUE - ANGIOEDEMA meloxicam Allergy Severe RENAL Verified 03/11/22 11:05 FAILURE insulin detemir Allergy Intermediate HIVES, Verified 03/11/22 11:05 ELEVATED BSG latex Allergy Intermediate HIVES, RASH Verified 03/11/22 11:05 phenol Allergy Intermediate HIVES, Verified 03/11/22 11:05 ELEVATED BSG Sulfa (Sulfonamide Allergy Intermediate EDEMA,ITCHI Verified 03/11/22 11:05 Antibiotics) NG adhesive Allergy Mild skin Verified 03/11/22 11:05 irritation cephalexin Allergy Mild ELEVATED Verified 03/11/22 11:05 BSG TARA Inhibitors Allergy Unknown UNKNOWN Verified 03/11/22 11:05 Iodinated Contrast Media AdvReac Unknown PATIENT Verified 03/11/22 11:05 HAS CHRONIC KIDNEY FAILURE Home Medications Medication Instructions Recorded Confirmed Type allopurinol 100 mg tablet 200 mg PO QAM 10/06/18 03/11/22 History aspirin 81 mg tablet,delayed 81 mg PO QAM 10/06/18 03/11/22 History release atorvastatin 40 mg tablet 40 mg PO QAM 10/06/18 03/11/22 History cholecalciferol (vitamin D3) 50 2,000 unit PO QAM 10/06/18 03/11/22 History mcg (2,000 unit) capsule (Vitamin D3) docusate sodium 100 mg capsule 100 mg PO BID 10/06/18 03/11/22 History furosemide 40 mg tablet 40 mg PO DAILYBB 10/06/18 03/11/22 History isosorbide mononitrate 30 mg 30 mg PO QAM 10/06/18 03/11/22 History tablet,extended release 24 hr losartan 25 mg tablet 12.5 mg PO QAM 10/06/18 03/11/22 History nitroglycerin 0.4 mg sublingual 0.4 mg sublingual UD PRN Chest Pain 10/06/18 03/11/22 History tablet metoprolol succinate 25 mg 25 mg PO QAM 03/01/22 03/11/22 History tablet,extended release 24 hr pantoprazole 20 mg tablet,delayed 20 mg PO DAILYBB 03/01/22 03/11/22 History release sertraline 100 mg tablet 100 mg PO HS 03/01/22 03/11/22 History acetaminophen 325 mg tablet 650 mg PO Q4 PRN Pain 03/11/22 03/11/22 History dextrose 40 % oral gel (Glucose 15 g PO UD PRN Hypoglycemia 03/11/22 03/11/22 History Gel) hydroxyzine HCl 25 mg tablet 25 mg PO Q6 PRN Itching 03/11/22 03/11/22 History insulin glargine 100 unit/mL (3 5 unit subcut HS 03/11/22 03/11/22 History mL) subcutaneous pen (Lantus Solostar U-100 Insulin) insulin regular human 100 unit/mL 1 sliding scale dose subcut 03/11/22 03/11/22 History injection solution (Humulin R USEASDIRECTD Regular U-100 Insulin) loratadine 10 mg tablet 10 mg PO DAILY PRN Allergies 03/11/22 03/11/22 History melatonin 3 mg tablet 3 mg PO HS PRN Insomnia 03/11/22 03/11/22 History ondansetron 4 mg disintegrating 4 mg PO Q6H PRN Nausea/Vomiting 03/11/22 03/11/22 History tablet polyethylene glycol 3350 17 gram 17 g PO QDL PRN Constipation 03/11/22 03/11/22 History oral powder packet (Miralax) sennosides 8.6 mg-docusate sodium 1 tab-cap PO QDL PRN Constipation 03/11/22 03/11/22 History 50 mg tablet (Senokot-S) Patient History Medical History TARA inhibitor intolerance Anxiety Atrial fibrillation follows w/ dr. aquino; dx years ago AV (arteriovenous fistula) left arm>"STILL WORKING" HAS NOT HAD TO USE Cirrhosis of liver CKD (chronic kidney disease) stage 4, GFR 15-29 ml/min follows w/ dr. 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 History of gastric ulcer History of gastrointestinal bleeding History of migraine HTN (hypertension) Hx of falling Hx of gout Hyperparathyroidism Osteoporosis Right-sided congestive heart failure Solitary right kidney Vertigo Surgical History H/O cataract removal with insertion of prosthetic lens RT/LEFT H/O tubal ligation History of section X 2 History of cholecystectomy History of colonoscopy History of esophagogastroduodenoscopy (EGD) History of lumbar laminectomy x 2 History of tooth extraction History of total abdominal hysterectomy and bilateral salpingo-oophorectomy Family History Other Cancer Diabetes Hypertension No family history of adverse response to anesthesia Social History Smoking Status: Former smoker Second Hand Exposure: Yes ( used to smoke); Hx Alcohol Use: No Hx Substance Use: No Preferred Language: Kyrgyz Communication Ability: Effective Food And Beverage Coordinator Required: No Beliefs That Will Affect Care: None marital status: / Current Living Situation: Alone Current Living Situation Comment: with help on tuesdays and current occupational status: retired How many Children do You have: 2 Feels Safe at Home: Yes Assistive Devices: Cane, Walker and Wheelchair Review of Systems Review of Systems: Other than pt c/o being achy, and denying abdominal pain, not answering questions about symptoms. ROS not obtainable from the pt. Physical Exam Constitutional: + ill appearing (chronically), cooperative and + overweight Neck: trachea midline, no thyromegaly Respiratory: normal respiratory effort, lungs clear to auscultation Cardiovascular: RRR, no murmur, no edema Lymphatic: no cervical or axillary lymphadenopathy Results & Data ([facility]) Vital Signs (Past 12 Hours) Vital Signs Temp Pulse Pulse Resp BP Pulse Ox O2 Del Method 03/13/22 12:04 36.4 C L 106 H 16 94/65 L 97 Room Air 03/13/22 08:00 Room Air 03/13/22 08:00 104 H 03/13/22 09:38 36.5 C 112 H 16 91/59 L 95 Room Air 03/13/22 08:00 36.4 C L 98 H 16 103/64 94 Room Air 03/13/22 02:51 36.6 C 93 H 18 90/60 L 98 Room Air Laboratory Results WBC 15, Hb 10, Hct 32, Plts 236, Na 130, K 4.7, Cl 109, CO2 25, BUN 24, cr 0.98, glucose 116. T Bili 0.8, D bili 0.2, AST 309, ALT 138, Alk Phos 124. Diagnostic Findings CTAP 03/11/22 1. Cirrhosis with mild ascites, slightly increased in extent from prior exam. 2. Cardiomegaly is partially visualized. Mild interlobular septal thickening may represent pulmonary edema. 3. Otherwise no acute abnormalities are seen.
--- NOTE | 2022-03-13 14:05 | Billing Data ---
Date of Service March 13, 2022 Coding Level of Care Code Critical Care ea addt'l 30 min
--- NOTE | 2022-03-13 14:05 | Critical Care Consultation ---
Date of Consultation March 13, 2022 Assessment & Plan (1) Admitted to intensive care unit: Impression: Critically ill 76-year-old female with significant history for cirrhosis secondary to nonalcoholic fatty liver disease with recent admission and discharged to the hospital who presented to the hospital for the complaint of low blood pressure, tachycardia, and fever. She was initially admitted to the PCU and was given broad-spectrum antibiotics in addition to the fluid resuscitation as well as albumin, however, patient is currently in cardiovascular compromise and requires pressors at this time to increase total MAP and perfusion. Neuro: Metabolic encephalopathy -Possibly hepatic versus uremic as the cause -Frequent reorientation as able, attempt to correct/ improve the underlying cause Respiratory: No current respiratory complications, patient is attempting to compensate metabolic acidosis with pulling of carbon dioxide, may require BiPAP or later on intubation due to decreased drive from hypocapnia, continue to monitor Cardiovascular: Hypotension -As blood cultures have returned negative, likely due to portal hypertension/splanchnic vasodilation as a complication of liver cirrhosis. Patient has failed to improve given fluids and albumin. -Utilize pressors as needed with a map goal greater than 65 Atrial fibrillation -Chronic condition, cardiology consulted to help determine best course of action as atrial fibrillation likely making perfusion more difficult and exacerbating right heart failure, see below Acute right heart failure -Secondary to chronic congestive hepatopathy -Due to hypotension, will hold off from diuresis for now, patient saturating well on room air Elevated troponin -Secondary to demand ischemia Renal/electrolyte: PREETI on CKD 4 -BUN/creatinine ratio greater than 20 indicative of prerenal cause -Likely to improve if MAP is improved with pressors Metabolic acidosis -VBG checked with a pH of 7.25 and anion gap of 13 Hyponatremia -Latest sodium of 130, continue to monitor GI: Liver cirrhosis secondary to nonalcoholic fatty liver disease -Decompensated -GI consult appreciated -Meld score of 25 with a 19.6% mortality in the next 3 months Endocrine: Type 2 diabetes mellitus -ICU hyperglycemic protocol Infectious disease: -Empiric antibiotic coverage with cefepime as well as fungal coverage with caspofungin Heme-Onc: -DVT prophylaxis with heparin Diet: N.p.o. DVT prophylaxis: Heparin CODE STATUS: DNR/DNI (2) Sepsis: (3) Acute right heart failure: (4) Cirrhosis: (5) Generalized weakness: (6) History of cancer of gall bladder: (7) Diabetes mellitus, type 2: (8) Atrial fibrillation: Supervising Physician Co-Signing Physician Notes Dr. De La Cruz was resident physician during care of patient. I separately evaluated patient for sahu portions of the history and the exam. I was present during the critical portion of medical decision making, and I discussed the case with the resident. I generally agree with the findings and plan. Had discussion with the patient's son. Patient does not want dialysis. She has stopped taking medication and has become rather homebound. The plan was if the patient had recovered and was able to be discharged home to placement would be to a usp. Son reports she has expressed several times she does not have a desire to live and would like to go see her late . We discussed risks and benefits of dialysis, vasoactive medication, advanced central venous access, intubation and mechanical ventilation. At this time we will bring the patient to the ICU and start peripherally administered vasoactive's to see if there will be a small response from increased forward flow. We expanded antibiotic coverage and administered steroids in the event of relative adrenal insufficiency. Ultimately we will not be fixing many underlying chronic medical conditions and are moving towards comfort options. The family is anticipated to arrive at the bedside as at this time she is still somewhat communicative however she certainly lacks capacity to make decisions for herself. I have personally spent 94 minutes of critical care time in the direct management of this patient. This is a life/limb threatening event. This includes time spent evaluating patient, direct bedside care, chart review, placing orders, interpretation of diagnostic studies, discussion with consultants, patient, and/or family members regarding treatment decisions, as well as other required patient management activities. This time is exclusive of all separately billable procedures, and teaching time and separate from and in addition to any other critical care service time. History of Present Illness Attending Physician: Madeleine Morton, DO History of Present Illness 76-year-old female with a past medical history of history of gallbladder cancer with liver metastasis diagnosed in 2006 in remission right heart failure, cirrhosis secondary to nonalcoholic fatty liver disease, type 2 diabetes, atrial fibrillation, CKD 4, hypertension, and solitary right kidney who was admitted to the hospital for the concern of severe sepsis presenting with leukocytosis, tachycardia, tachypnea, and evidence of PREETI. Patient seems to be having cardiovascular compromise despite treatment with intravenous fluids, albumin, and antibiotics. Patient seen at the bedside after consultation was placed and patient is quite weak and appears to be altered. She knows that she is in the hospital but thinks that it is January. Overall seems to be quite somnolent without any other meaningful HPI obtained at this time. Allergies Allergy/AdvReac Type Severity Reaction Status Date / Time gabapentin Allergy Severe EDEMA Verified 03/11/22 11:05 FACE/LIPS/TONGUE - ANGIOEDEMA meloxicam Allergy Severe RENAL Verified 03/11/22 11:05 FAILURE insulin detemir Allergy Intermediate HIVES, Verified 03/11/22 11:05 ELEVATED BSG latex Allergy Intermediate HIVES, RASH Verified 03/11/22 11:05 phenol Allergy Intermediate HIVES, Verified 03/11/22 11:05 ELEVATED BSG Sulfa (Sulfonamide Allergy Intermediate EDEMA,ITCHI Verified 03/11/22 11:05 Antibiotics) NG adhesive Allergy Mild skin Verified 03/11/22 11:05 irritation cephalexin Allergy Mild ELEVATED Verified 03/11/22 11:05 BSG TARA Inhibitors Allergy Unknown UNKNOWN Verified 03/11/22 11:05 Iodinated Contrast Media AdvReac Unknown PATIENT Verified 03/11/22 11:05 HAS CHRONIC KIDNEY FAILURE Home Medications Medication Instructions Recorded Confirmed Type allopurinol 100 mg tablet 200 mg PO QAM 10/06/18 03/11/22 History aspirin 81 mg tablet,delayed 81 mg PO QAM 10/06/18 03/11/22 History release atorvastatin 40 mg tablet 40 mg PO QAM 10/06/18 03/11/22 History cholecalciferol (vitamin D3) 50 2,000 unit PO QAM 10/06/18 03/11/22 History mcg (2,000 unit) capsule (Vitamin D3) docusate sodium 100 mg capsule 100 mg PO BID 10/06/18 03/11/22 History furosemide 40 mg tablet 40 mg PO DAILYBB 10/06/18 03/11/22 History isosorbide mononitrate 30 mg 30 mg PO QAM 10/06/18 03/11/22 History tablet,extended release 24 hr losartan 25 mg tablet 12.5 mg PO QAM 10/06/18 03/11/22 History nitroglycerin 0.4 mg sublingual 0.4 mg sublingual UD PRN Chest Pain 10/06/18 03/11/22 History tablet metoprolol succinate 25 mg 25 mg PO QAM 03/01/22 03/11/22 History tablet,extended release 24 hr pantoprazole 20 mg tablet,delayed 20 mg PO DAILYBB 03/01/22 03/11/22 History release sertraline 100 mg tablet 100 mg PO HS 03/01/22 03/11/22 History acetaminophen 325 mg tablet 650 mg PO Q4 PRN Pain 03/11/22 03/11/22 History dextrose 40 % oral gel (Glucose 15 g PO UD PRN Hypoglycemia 03/11/22 03/11/22 History Gel) hydroxyzine HCl 25 mg tablet 25 mg PO Q6 PRN Itching 03/11/22 03/11/22 History insulin glargine 100 unit/mL (3 5 unit subcut HS 03/11/22 03/11/22 History mL) subcutaneous pen (Lantus Solostar U-100 Insulin) insulin regular human 100 unit/mL 1 sliding scale dose subcut 03/11/22 03/11/22 History injection solution (Humulin R USEASDIRECTD Regular U-100 Insulin) loratadine 10 mg tablet 10 mg PO DAILY PRN Allergies 03/11/22 03/11/22 History melatonin 3 mg tablet 3 mg PO HS PRN Insomnia 03/11/22 03/11/22 History ondansetron 4 mg disintegrating 4 mg PO Q6H PRN Nausea/Vomiting 03/11/22 03/11/22 History tablet polyethylene glycol 3350 17 gram 17 g PO QDL PRN Constipation 03/11/22 03/11/22 History oral powder packet (Miralax) sennosides 8.6 mg-docusate sodium 1 tab-cap PO QDL PRN Constipation 03/11/22 03/11/22 History 50 mg tablet (Senokot-S) Patient History Medical History (Updated 03/13/22 @ 14:05 by Chris De La Cruz DO) TARA inhibitor intolerance Anxiety Atrial fibrillation follows w/ dr. aquino; dx years ago AV (arteriovenous fistula) left arm>"STILL WORKING" HAS NOT HAD TO USE Cirrhosis of liver CKD (chronic kidney disease) stage 4, GFR 15-29 ml/min follows w/ dr. 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 History of gastric ulcer History of gastrointestinal bleeding History of migraine HTN (hypertension) Hx of falling Hx of gout Hyperparathyroidism Osteoporosis Right-sided congestive heart failure Solitary right kidney Vertigo Surgical History H/O cataract removal with insertion of prosthetic lens RT/LEFT H/O tubal ligation History of section X 2 History of cholecystectomy History of colonoscopy History of esophagogastroduodenoscopy (EGD) History of lumbar laminectomy x 2 History of tooth extraction History of total abdominal hysterectomy and bilateral salpingo-oophorectomy Family History Other Cancer Diabetes Hypertension No family history of adverse response to anesthesia Social History Smoking Status: Former smoker Second Hand Exposure: Yes ( used to smoke); Hx Alcohol Use: No Hx Substance Use: No Preferred Language: Maltese Communication Ability: Effective Intermediate Designer Required: No Beliefs That Will Affect Care: None marital status: / Current Living Situation: Alone Current Living Situation Comment: with help on tuesdays and current occupational status: retired How many Children do You have: 2 Other Information That Helps Us Care for You: No Feels Safe at Home: Yes Safety Concerns: Feels Safe At This Time Assistive Devices: Cane, Walker and Wheelchair Review of Systems Review of Systems: Unobtainable due to cognitive status Physical Exam Constitutional: + ill appearing and + lethargic Eyes: + anicteric sclerae Neck: normal visual inspection and trachea midline Respiratory: normal respiratory effort; no respiratory distress Auscultation: + crackles Cardiovascular: Rate/Rhythm: + tachycardic and + irregularly irregular Vessels: + JVD Extremities: + edema Gastrointestinal (Abdomen): Inspection/Auscultation: abdomen normal to inspection and normal bowel sounds; abdomen not distended Percussion/Palp ation: abdomen soft; abdomen nontender Musculoskeletal: Head/Neck/Chest: normocephalic and head atraumatic Skin: no rashes, warm and dry Neurologic: moves all extremities and awake Psychiatric: Orientation: oriented to person and oriented to place; + not oriented to time Results & Data Results & Data ([facility]) Vital Signs (Past 12 Hours) Vital Signs Temp Pulse Pulse Resp BP Pulse Ox O2 Del Method 03/13/22 12:04 36.4 C L 106 H 16 94/65 L 97 Room Air 03/13/22 08:00 Room Air 03/13/22 08:00 104 H 03/13/22 09:38 36.5 C 112 H 16 91/59 L 95 Room Air 03/13/22 08:00 36.4 C L 98 H 16 103/64 94 Room Air 03/13/22 02:51 36.6 C 93 H 18 90/60 L 98 Room Air
[2022-03-13 14:20] LABS: HCO3 VBG 14 mmol/L; Oxygen Saturation VBG < 60.0 %; PCO2 VBG 32 mmHg (38-50); PO2 VBG 19 mmHg; pH VBG 7.25 (7.36-7.41)
[2022-03-13 14:48] LABS: Fibrinogen 440 mg/dl (184-400); INR 1.2 (0.9-1.1); Partial Thromboplastin Ratio 1.5; Partial Thromboplastin Time 40.9 Seconds (21.0-31.0); Prothrombin Time 12.8 Seconds (9.0-12.0)
--- NOTE | 2022-03-13 15:08 | Cardiology Consultation ---
Date of Consultation March 13, 2022 Assessment & Plan (1) Sepsis: (2) Acute right heart failure: (3) Renal failure (ARF), acute on chronic: (4) Cirrhosis: Plan Patient admitted for diffuse weakness/lethargy, possibly sepsis with multiorgan failure. She remains in afib RVR. Metoprolol held due to hypotension. Echo without change from prior evaluation last week. Severe TR and severe RV dysfunction Patient now with renal failure and possible sepsis. Source of infection unknown at this time. Blood cultures pending. Transferred to ICU. Based on history and current status, poor prognosis. Further cardiac testing would not improve her clinic course at this time. Discussed with Dr. Ruby. Supervising Physician Co-Signing Physician Notes 76-year-old female mated with progressive weakness. Seen and examined at the bedside. Appears uncomfortable. Unable to offer appropriate history. Found to be hypotensive and started on intravenous pressor agents. Hospitalized proximately 1 week ago due to acute right-sided heart failure in the setting of CKD stage IV, congestive hepatopathy with cirrhosis and ascites. 2 L paracentesis performed last week. PE: Hypotensive, chronically ill. Heart: Irregular rhythm, borderline tachycardic. 2/6 midsystolic murmur heard best left sternal border. +JVD. Lungs: Diminished breath sounds at the bases bilateral. Poor effort. Extremities: No significant edema. A/P: Agree with above PA-C history, physical exam, assessment and plan. Patient currently hypotensive with concerns regarding possible sepsis. Bedside 2D transthoracic echocardiogram demonstrates stable findings of right ventricular dysfunction with severe tricuspid regurgitation, severe pulmonary hypertension, D-shaped septum suggesting right ventricular pressure and volume overload. Multiorgan failure including hepatic, renal, and CHF. Poor prognosis. 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 Vasopressors will be continued currently for blood pressure support. No further cardiac testing at this time. History of Present Illness Reason for Consultation: Sepsis; CHF; Afib Requesting Physician: Dr. Morton Attending Physician: Dr. Ruby History of Present Illness Patient is a 76 year old female, known to [facility] cardiology, Dr. Aquino for history of chronic afib, chronic right heart failure with severe TR, severe pulm hypertension, and chronic liver cirrhosis. She was admitted last week with abdominal pain, cirrhosis, ascites, CHF, underwent paracentesis. Evaluated by Dr. Aquino and symptoms improved with diuresis. Discharged to [facility]. She was re-admitted to [facility] for worsening weakness, generalized malaise, abdominal pain, elevated WBC consistent with sepsis. Blood cultures pending. Started on gentle fluids and broad spectrum antibiotics. Cardiology was consulted for physical decline. Metoprolol has been held for hypotension. Remains in afib RVR. No significant elevated in HS troponin. At time of consult, patient able to report she does not feel well but will not specify specific complaints. Very lethargic. Moaning in discomfort. She denies c hest pain. Being transferred to ICU. Allergies Allergy/AdvReac Type Severity Reaction Status Date / Time gabapentin Allergy Severe EDEMA Verified 03/11/22 11:05 FACE/LIPS/TONGUE - ANGIOEDEMA meloxicam Allergy Severe RENAL Verified 03/11/22 11:05 FAILURE insulin detemir Allergy Intermediate HIVES, Verified 03/11/22 11:05 ELEVATED BSG latex Allergy Intermediate HIVES, RASH Verified 03/11/22 11:05 phenol Allergy Intermediate HIVES, Verified 03/11/22 11:05 ELEVATED BSG Sulfa (Sulfonamide Allergy Intermediate EDEMA,ITCHI Verified 03/11/22 11:05 Antibiotics) NG adhesive Allergy Mild skin Verified 03/11/22 11:05 irritation cephalexin Allergy Mild ELEVATED Verified 03/11/22 11:05 BSG TARA Inhibitors Allergy Unknown UNKNOWN Verified 03/11/22 11:05 Iodinated Contrast Media AdvReac Unknown PATIENT Verified 03/11/22 11:05 HAS CHRONIC KIDNEY FAILURE Home Medications Medication Instructions Recorded Confirmed Type allopurinol 100 mg tablet 200 mg PO QAM 10/06/18 03/11/22 History aspirin 81 mg tablet,delayed 81 mg PO QAM 10/06/18 03/11/22 History release atorvastatin 40 mg tablet 40 mg PO QAM 10/06/18 03/11/22 History cholecalciferol (vitamin D3) 50 2,000 unit PO QAM 10/06/18 03/11/22 History mcg (2,000 unit) capsule (Vitamin D3) docusate sodium 100 mg capsule 100 mg PO BID 10/06/18 03/11/22 History furosemide 40 mg tablet 40 mg PO DAILYBB 10/06/18 03/11/22 History isosorbide mononitrate 30 mg 30 mg PO QAM 10/06/18 03/11/22 History tablet,extended release 24 hr losartan 25 mg tablet 12.5 mg PO QAM 10/06/18 03/11/22 History nitroglycerin 0.4 mg sublingual 0.4 mg sublingual UD PRN Chest Pain 10/06/18 03/11/22 History tablet metoprolol succinate 25 mg 25 mg PO QAM 03/01/22 03/11/22 History tablet,extended release 24 hr pantoprazole 20 mg tablet,delayed 20 mg PO DAILYBB 03/01/22 03/11/22 History release sertraline 100 mg tablet 100 mg PO HS 03/01/22 03/11/22 History acetaminophen 325 mg tablet 650 mg PO Q4 PRN Pain 03/11/22 03/11/22 History dextrose 40 % oral gel (Glucose 15 g PO UD PRN Hypoglycemia 03/11/22 03/11/22 History Gel) hydroxyzine HCl 25 mg tablet 25 mg PO Q6 PRN Itching 03/11/22 03/11/22 History insulin glargine 100 unit/mL (3 5 unit subcut HS 03/11/22 03/11/22 History mL) subcutaneous pen (Lantus Solostar U-100 Insulin) insulin regular human 100 unit/mL 1 sliding scale dose subcut 03/11/22 03/11/22 History injection solution (Humulin R USEASDIRECTD Regular U-100 Insulin) loratadine 10 mg tablet 10 mg PO DAILY PRN Allergies 03/11/22 03/11/22 History melatonin 3 mg tablet 3 mg PO HS PRN Insomnia 03/11/22 03/11/22 History ondansetron 4 mg disintegrating 4 mg PO Q6H PRN Nausea/Vomiting 03/11/22 03/11/22 History tablet polyethylene glycol 3350 17 gram 17 g PO QDL PRN Constipation 03/11/22 03/11/22 History oral powder packet (Miralax) sennosides 8.6 mg-docusate sodium 1 tab-cap PO QDL PRN Constipation 03/11/22 03/11/22 History 50 mg tablet (Senokot-S) Patient History Medical History (Updated 03/13/22 @ 15:28 by Maru Enrique MD, PhD) TARA inhibitor intolerance Anxiety Atrial fibrillation follows w/ dr. aquino; dx years ago AV (arteriovenous fistula) left arm>"STILL WORKING" HAS NOT HAD TO USE Cirrhosis of liver CKD (chronic kidney disease) stage 4, GFR 15-29 ml/min follows w/ dr. 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 History of gastric ulcer History of gastrointestinal bleeding History of migraine HTN (hypertension) Hx of falling Hx of gout Hyperparathyroidism Osteoporosis Right-sided congestive heart failure Solitary right kidney Vertigo Surgical History H/O cataract removal with insertion of prosthetic lens RT/LEFT H/O tubal ligation History of section X 2 History of cholecystectomy History of colonoscopy History of esophagogastroduodenoscopy (EGD) History of lumbar laminectomy x 2 History of tooth extraction History of total abdominal hysterectomy and bilateral salpingo-oophorectomy Family History Other Cancer Diabetes Hypertension No family history of adverse response to anesthesia Social History Smoking Status: Former smoker Second Hand Exposure: Yes ( used to smoke); Hx Alcohol Use: No Hx Substance Use: No Preferred Language: Sammarinese Communication Ability: Effective [employer]ience [employer] Tech Required: No Beliefs That Will Affect Care: None marital status: / Current Living Situation: Alone Current Living Situation Comment: with help on tuesdays and current occupational status: retired How many Children do You have: 2 Other Information That Helps Us Care for You: No Feels Safe at Home: Yes Safety Concerns: Feels Safe At This Time Assistive Devices: Cane, Walker and Wheelchair Review of Systems Review of Systems: Unobtainable due to reduced consciousness (lethargy) Physical Exam Constitutional: WD/WN, vitals as above + acute distress and + frail appearing Respiratory: no respiratory distress Auscultation: + diminished lung sounds Cardiovascular: Rate/Rhythm: + tachycardic and + irregularly irregular Heart Sounds: + murmur Vessels: + JVD Extremities: no edema Gastrointestinal (Abdomen): normal bowel sounds, soft, nontender, no hepatosplenomegaly Results & Data ([facility]) Vital Signs (Past 12 Hours) Vital Signs Temp Pulse Pulse Resp BP Pulse Ox O2 Del Method 03/13/22 14:32 94 H 93/53 L 03/13/22 12:04 36.4 C L 106 H 16 94/65 L 97 Room Air 03/13/22 08:00 Room Air 03/13/22 08:00 104 H 03/13/22 09:38 36.5 C 112 H 16 91/59 L 95 Room Air 03/13/22 08:00 36.4 C L 98 H 16 103/64 94 Room Air Laboratory Results Laboratory Results WBC 15.33 K/ul (4.8-10.8) H 03/13/22 06:05 RBC 3.54 M/uL (3.93-5.22) L 03/13/22 06:05 Hgb 10.9 g/dl (12.0-16.0) L 03/13/22 06:05 Hct 32.9 % (34.1-44.9) L 03/13/22 06:05 MCV 92.9 fL (80.0-100.0) 03/13/22 06:05 MCH 30.8 pg (25.0-34.0) 03/13/22 06:05 MCHC 33.1 g/dL (32.0-36.0) 03/13/22 06:05 RDW Std Deviation 53.5 fL (36.4-46.3) H 03/13/22 06:05 RDW Coeff of Yrn 15.8 % (11.5-14.5) H 03/13/22 06:05 Plt Count 236 K/uL (130-400) 03/13/22 06:05 MPV 12.4 fL (9.4-12.3) H 03/13/22 06:05 Immature Gran % (Auto) 0.8 % 03/13/22 06:05 Neut % (Auto) 83.7 % 03/13/22 06:05 Lymph % (Auto) 7.0 % 03/13/22 06:05 [place] % (Auto) 5.9 % 03/13/22 06:05 Eos % (Auto) 2.0 % 03/13/22 06:05 Baso % (Auto) 0.6 % 07/14/22 06:05 Neut # (Auto) 12.83 K/uL (1.4-6.5) H 03/13/22 06:05 Lymph # (Auto) 1.07 K/uL (1.2-3.4) L 03/13/22 06:05 [place] # (Auto) 0.91 K/uL (0.24-0.82) H 03/13/22 06:05 Eos # (Auto) 0.31 K/uL (0-0.50) 03/13/22 06:05 Baso # (Auto) 0.09 K/uL (0-0.2) 03/13/22 06:05 Immature Gran # (Auto) 0.12 K/uL (0.00-0.02) H 03/13/22 06:05 Absolute Nucleated RBC 0.02 K/uL (0-0) H 03/13/22 06:05 Nucleated RBC % (auto) 0.1 % 03/13/22 06:05 PT 12.8 Seconds (9.0-12.0) H 03/13/22 14:10 INR 1.2 (0.9-1.1) H 03/13/22 14:10 APTT 40.9 Seconds (21.0-31.0) H 03/13/22 14:10 PTT Ratio 1.5 03/13/22 14:10 Fibrinogen 440 mg/dl (184-400) H 03/13/22 14:10 ABG pH 7.33 (7.35-7.45) L 03/13/22 10:01 ABG pCO2 23 mmHg (35-46) L 03/13/22 10:01 ABG pO2 102 mmHg (80-95) H 03/13/22 10:01 ABG HCO3 12 mmol/L (19-24) L 03/13/22 10:01 ABG O2 Saturation 98.6 % (90-95) H 03/13/22 10:01 ABG Base Excess -12.3 mEq/L (-9-1.8) L 03/13/22 10:01 Gianni Test Pos (Pos) 03/13/22 10:01 VBG pH 7.25 (7.36-7.41) L 03/13/22 14:10 VBG pCO2 32 mmHg (38-50) L 03/13/22 14:10 VBG pO2 19 mmHg 03/13/22 14:10 VBG HCO3 14 mmol/L 03/13/22 14:10 VBG O2 Saturation < 60.0 % 03/13/22 14:10 VBG Base Excess -12.0 mEq/L 03/13/22 14:10 Oxygen Given ROOM AIR 03/13/22 10:01 Sodium 130 mmol/L (136-145) L 03/13/22 06:05 Potassium 4.7 mmol/L (3.5-5.1) 03/13/22 06:05 Chloride 100 mmol/L (98-107) 03/13/22 06:05 Carbon Dioxide 17 mmol/L (21-32) L 03/13/22 06:05 Anion Gap 13 (3-11) H 03/13/22 06:05 BUN 112 mg/dl (6-23) H 03/13/22 06:05 Creatinine 3.53 mg/dl (0.6-1.2) H D 03/13/22 06:05 Est Cr Clr Drug Dosing 10.2 ml/min 03/13/22 06:05 Est GFR ( Amer) 13.8 ml/min 03/13/22 06:05 Est GFR (Non-Af Amer) 11.9 ml/min 03/13/22 06:05 BUN/Creatinine Ratio 31.7 (10-20) H 03/13/22 06:05 Glucose 148 mg/dl (70-99(Fasting)) H 03/13/22 06:05 POC Glucose 144 mg/dl (70-99) H 03/13/22 11:42 Lactate 1.4 mmol/L (0.4-2.0) 03/13/22 10:01 Calcium 8.3 mg/dl (8.5-10.1) L 03/13/22 06:05 Phosphorus 6.1 mg/dl (2.5-4.9) H 03/13/22 06:05 Magnesium 2.3 mg/dl (1.7-2.4) 03/13/22 06:05 Total Bilirubin 0.8 mg/dl (0.2-1.0) 03/13/22 06:05 AST 309 U/L (13-39) H 03/13/22 06:05 ALT 138 U/L (7-52) H 03/13/22 06:05 Alkaline Phosphatase 124 U/L (34-104) H 03/13/22 06:05 Ammonia 35.0 umol/L (18-72) 03/13/22 14:10 Troponin I High Sens 69.1 pg/ml (0-14) H* D 03/13/22 10:01 Total Protein 5.7 gm/dl (6.0-8.3) L 03/13/22 06:05 Albumin 3.3 gm/dl (3.4-5.0) L 03/13/22 06:05 Globulin 2.4 gm/dl (2.5-4.0) L 03/13/22 06:05 Albumin/Globulin Ratio 1.4 (0.9-2) 03/13/22 06:05 Procalcitonin 42.59 ng/ml (0-0.5) H 03/13/22 06:22 Random Cortisol 32.08 mcg/dl 03/13/22 11:52 Urine Color Dark Yellow 03/11/22 11:45 Urine Appearance Clear (Clear) 03/11/22 11:45 Urine pH 5.0 (4.5-7.5) 03/11/22 11:45 Ur Specific [place] 1.018 (1.000-1.030) 03/11/22 11:45 Urine Protein 1+ (Negative) H 03/11/22 11:45 Urine Glucose (UA) Negative (Negative) 03/11/22 11:45 Urine Ketones Trace (Negative) H 03/11/22 11:45 Urine Blood Negative (Negative) 03/11/22 11:45 Urine Nitrite Negative (Negative) 03/11/22 11:45 Urine Bilirubin Negative (Negative) 03/11/22 11:45 Urine Urobilinogen Negative (Negative) 03/11/22 11:45 Ur Leukocyte Esterase Negative (Negative) 03/11/22 11:45 Urine WBC (Auto) 1-5 /hpf (0-5) 03/11/22 11:45 Urine RBC (Auto) 0-4 /hpf (0-4) 03/11/22 11:45 U Hyaline Cast (Auto) 1-5 /lpf (0-5) 03/11/22 11:45 U Epithel Cells (Auto) 20-30 /lpf (0-5) H 03/11/22 11:45 Urine Bacteria (Auto) Negative (Negative) 03/11/22 11:45 Granular Casts 1-5 /lpf (0) H 03/11/22 11:45 Urine Yeast Budding (None Prsent) A 03/11/22 11:45 Stl C. diff Tox B Gene Negative Cdiff Gene (Neg) 03/12/22 21:00 Random Vancomycin 17.8 mcg/ml (10-20) 03/12/22 06:29 SARS-CoV-2, RNA, NAAT NEGATIVE (NEGATIVE) 03/11/22 09:18 Impressions Abdomen/Pelvis CT 03/11/22 11:43 CT abd pelvis wo con CLINICAL HISTORY: abdominal pain TECHNIQUE: Helical axial images of the abdomen and pelvis were obtained. Automated dose lowering techniques and/or adjustment according to patient size were utilized for this exam. This exam was performed without intravenous contrast. CT DOSE: 256.84 mGy.cm COMPARISON: Comparison is made to CT abdomen 03/04/2022 FINDINGS: Lower chest: Cardiomegaly is seen. Bilateral atelectasis is seen. There is smooth faint interlobular septal thickening. Liver: Nodular contour of the liver is seen compatible with cirrhosis. Gallbladder and biliary tree: Patient is status post cholecystectomy. No intra- or extrahepatic biliary ductal dilation. Pancreas: Unremarkable, no focal lesions. Spleen: 3.5 cm splenic cyst is again noted. Adrenals: Adrenal glands are unchanged from prior exam with stable thickening of the left renal. Kidneys and ureters: Atrophic appearance of the left kidney. Bilateral cortical scarring is seen. Extensive renal vascular calcification is seen with possible underlying stones. Bladder: Limited evaluation due to underdistention. A small amount of gas in the bladder likely represents recent instrumentation. Reproductive organs: Unremarkable. Bowel: Unremarkable appearance of the bowel. The appendix is normal. Lymph nodes Retroperitoneal: Unremarkable. Mesenteric: Unremarkable. Pelvic: Unremarkable. Peritoneum: Mild ascites is seen. Vessels: Atherosclerotic calcifications are seen. Abdominal wall: Unremarkable. Bones: Degenerative changes in the visualized spine. Posterior fixation hardware is seen at L5-S1. IMPRESSION: 1. Cirrhosis with mild ascites, slightly increased in extent from prior exam. 2. Cardiomegaly is partially visualized. Mild interlobular septal thickening may represent pulmonary edema. 3. Otherwise no acute abnormalities are seen. ACT 112: Negative or not required by law. Electronically signed by: Anirudh Eldridge M.D. 03/11/2022 1:10 PM Chest X-Ray 03/13/22 10:56 XR chest 1V portable CLINICAL HISTORY: h/o heart failure. Follow-up mild vascular congestion COMPARISON STUDY: 03/11/2022 TECHNIQUE: 1 view of the chest FINDINGS: Single frontal view of the chest demonstrates the heart to again be enlarged. Compared to the previous examination, there is worsening of central vascular congestion with indistinctness of central hilar vessels present. There is no evidence for interstitial or alveolar edema. There is no evidence for pleural effusion. No confluent alveolar opacities are identified. There is no acute osseous pathology. IMPRESSION: 1. Compared to previous examination, there is worsening of central interstitial edema characteristic of early congestive heart failure. ACT 112: Negative or not required by law. Electronically signed by: Juancarlos Sunshine M.D. 03/13/2022 11:26 AM Diagnostic Findings Telemetry reviewed: Afib with HR's around 110 bpm Echo report reviewed - Compared to prior study dated 03/02/22, estimated systolic pulm pressure has declined, otherwise no significant change. LVEF 50-55% RV is severely dilated Moderate diffuse RV hypokinesis. Flattened septum consistentent with RV pressure overload. Severe TR Severe pulm hypertension Estimated systolic pulm artery pressure is 59 mmHg Medications Administered Current Inpatient Medications Acetaminophen (Acetaminophen 325 Mg Tab) 650 mg PO Q6 PRN PRN Reason: Pain or Fever Stop: 04/10/22 13:13 Last Admin: 03/12/22 22:26 Dose: 650 mg Allopurinol ([facility]op[facility]ol 100 Mg Tab) [facility] [place]: 04/11/22 08:59 Last Admin: 03/13/22 11:22 Dose: Not Given Aspirin (Aspirin 81 Mg Ectab) 81 mg PO QAM [facility] Stop: 04/11/22 08:59 Last Admin: 03/13/22 11:22 Dose: Not Given Atorvastatin Calcium (Atorvastatin 40 Mg Tab) 40 mg PO QAM [facility] Stop: 04/11/22 08:59 Last Admin: 03/13/22 11:22 Dose: Not Given Dextrose (Dextrose 50% 50 Ml Syringe) 25 - 50 ml IV UD PRN; Protocol PRN Reason: Hypoglycemia Protocol Stop: 04/10/22 13:13 Docusate Sodium (Docusate Sodium 100 Mg Cap) 100 mg PO BID INGE Stop: 04/10/22 20:59 Last Admin: 03/13/22 11:22 Dose: Not Given Glucagon (Glucagon For Inj 1 Mg Vial) 1 mg SQ UD PRN; Protocol PRN Reason: Hypoglycemia Protocol Stop: 04/10/22 13:13 Glucose (Glucose 40% Gel 15 Gm Tube) 15 gm PO UD PRN PRN Reason: Hypoglycemia Stop: 04/10/22 13:13 Glucose (Glucose 40% Gel 15 Gm Tube) 15 - 30 gm PO UD PRN; Protocol PRN Reason: Hypoglycemia Protocol Stop: 04/10/22 13:13 Glucose (Glucose 10 Tab/Tube) 4 - 8 tab PO UD PRN; Protocol PRN Reason: Hypoglycemia Treatment Stop: 04/10/22 13:13 Heparin Sodium (Porcine) (Heparin Sod 5,000 Unit/0.5 Ml Vial) 5,000 units SQ Q12 INGE Stop: 04/10/22 20:59 Last Admin: 03/13/22 10:11 Dose: 5,000 units Hydroxyzine HCl (Hydroxyzine Hcl 25 Mg Tab) 25 mg PO Q6H PRN PRN Reason: itching Stop: 04/11/22 08:34 Hydrocortisone Sodium (Succinate 100 mg/ Syringe) 2 mls @ 4 mls/min IV Q8H INGE Stop: 04/12/22 11:59 Last Admin: 03/13/22 12:37 Dose: 4 mls/min Caspofungin 50 mg/ Sodium (Chloride) 257.1429 mls @ 257.143 mls/hr IV DAILY [facility] Stop: 03/16/22 08:59 Albumin Human (Albumin 25% 100 Ml) 25 gm in 100 mls @ 50 mls/hr IV Q2H INGE Stop: 03/13/22 15:44 Last Admin: 03/13/22 12:36 Dose: 50 mls/hr Cefepime HCl 1,000 mg/ Syringe 11.3 mls @ 5.5 mls/min IV Q24H [facility]; Protocol Stop: 03/16/22 11:59 Insulin Aspart (Insulin Aspart Per Unit) 0 units SC ACHS INGE Stop: 04/10/22 13:59 Last Admin: 03/13/22 12:38 Dose: Not Given Insulin Glargine (Lantus Per Unit Charge) 5 units SQ HS INGE Stop: 04/10/22 20:59 Last Admin: 03/12/22 21:15 Dose: 5 units Metoprolol Succinate (Metoprolol Succ 25mg Ext Rel Tab) 25 mg PO QAM INGE Stop: 04/11/22 08:59 Last Admin: 03/13/22 11:22 Dose: Not Given Miscellaneous (Carbohydrates For Hypoglycemia ) 15 - 30 gm PO UD PRN PRN Reason: Hypoglycemia Protocol Stop: 04/10/22 13:13 Miscellaneous Information (Pharmacy Glycemic Mgmt Consult) 1 each N/A UD PRN; Protocol PRN Reason: Consult Stop: 04/10/22 13:13 Ondansetron HCl (Ondansetron Inj 2 Mg/Ml 2 Ml Vial) 4 mg IV Q6H PRN PRN Reason: Nausea Stop: 04/10/22 13:13 Pantoprazole Sodium (Pantoprazole 40 Mg Tab) 40 mg PO DAILYBB [facility] Stop: 04/12/22 06:29 Last Admin: 03/13/22 05:25 Dose: 40 mg Polyethylene Glycol (Polyethylene (Miralax) 17 Gm Pack) 17 gm PO QDL PRN PRN Reason: Constipation Stop: 04/10/22 13:13 Sertraline HCl (Sertraline Hcl 100 Mg Tablet) 100 mg PO HS [facility] Stop: 04/10/22 20:59 Last Admin: 03/12/22 21:09 Dose: 100 mg Vitamin D (Cholecalciferol 1,000 Units 25 Mcg Tab) 2,000 units PO QAM [facility] Stop: 04/11/22 08:59 Last Admin: 03/13/22 11:22 Dose: Not Given
--- NOTE | 2022-03-13 15:24 | Nephrology Consultation ---
Date of Consultation March 13, 2022 Assessment & Plan (1) Acute worsening of stage 4 chronic kidney disease: baseline creatinine low/mid 2's. now with rapidly worsening renal function with climbing BUN, creatinine, new acidemia in the setting of worsening chronic multiorgan failure. worsening acid base status and mild hyponatremia but other chemistries so far acceptable -not a dialysis candidate per POA and pt wishes; would be a poor candidate in any event w/ HF/ chronic liver disease for dialysis -continue supportive measures > pressors, stress dosed steroids for now -cont caspofungin and cefepime -labs q 12-24 hrs for now Appreciate consult; will follow with you History of Present Illness Reason for Consultation: acute on chronic renal failure Requesting Physician: Dr Morton Attending Physician: Madeleine Morton, History of Present Illness 76 y/o F whom I'm asked to see for acute on chronic renal failure was admitted from rehab on 03/11 for severe sepsis w/ unclear source after recent d/c on 03/09. 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 very sensitive to meds and has had delirium w/ big med changes in the past. She was admitted here from 03/01-03/09 for acute on chronic R HF and had cx negative 2L paracentesis at that admission, dx of cardiac ascites. She was at [facility] for about 48 hrs when she was noted to have worsening generalized wea kness and hypotension as well as cough, LUTS; of note her presenting temp there was 100.7 and hgb dropped in 24 hr from 11.8 > 9.8 per H&P at rehab. her creat was 2.3-2.5 in the days before recent [facility] d/c; she came back w/ level 2.6, up to 3.7 this afternoon. she has elevated WBC in high teens, procal low 40s. she was started on low dose of NS at admissoin and had empiric vanco/cefepime. cultures blood, urine so far remarkable only for C glabrata in urine and caspofungin added today. SBP on arrival was 100-120s initially but overnight dropped to 80-90s w/ HR 110s; liver and renal labs worsening; today she is lethargic/confused. cannot meaningfully participate in ROS or hx. She has had 4+ BM and 2 + voids today. multiple services were rapidly leveraged to evaluate her> gi, surgery, cardiology, critical care all following. She was receiving NS at 100 ml/hr when I examined her late this am. She has since been moved to ICU and started on pressors after more aggressive resuscitation w/ albumin/IVF did not improve bp. Critical care reviewed goals of care reviewed w/ POA - no dialysis, no more invasive measures apart from peripheral pressors w/ continuation of abtx, steroids for now. Allergies Allergy/AdvReac Type Severity Reaction Status Date / Time gabapentin Allergy Severe EDEMA Verified 03/11/22 11:05 FACE/LIPS/TONGUE - ANGIOEDEMA meloxicam Allergy Severe RENAL Verified 03/11/22 11:05 FAILURE insulin detemir Allergy Intermediate HIVES, Verified 03/11/22 11:05 ELEVATED BSG latex Allergy Intermediate HIVES, RASH Verified 03/11/22 11:05 phenol Allergy Intermediate HIVES, Verified 03/11/22 11:05 ELEVATED BSG Sulfa (Sulfonamide Allergy Intermediate EDEMA,ITCHI Verified 03/11/22 11:05 Antibiotics) NG adhesive Allergy Mild skin Verified 03/11/22 11:05 irritation cephalexin Allergy Mild ELEVATED Verified 03/11/22 11:05 BSG TARA Inhibitors Allergy Unknown UNKNOWN Verified 03/11/22 11:05 Iodinated Contrast Media AdvReac Unknown PATIENT Verified 03/11/22 11:05 HAS CHRONIC KIDNEY FAILURE Home Medications Medication Instructions Recorded Confirmed Type allopurinol 100 mg tablet 200 mg PO QAM 10/06/18 03/11/22 History aspirin 81 mg tablet,delayed 81 mg PO QAM 10/06/18 03/11/22 History release atorvastatin 40 mg tablet 40 mg PO QAM 10/06/18 03/11/22 History cholecalciferol (vitamin D3) 50 2,000 unit PO QAM 10/06/18 03/11/22 History mcg (2,000 unit) capsule (Vitamin D3) docusate sodium 100 mg capsule 100 mg PO BID 10/06/18 03/11/22 History furosemide 40 mg tablet 40 mg PO DAILYBB 10/06/18 03/11/22 History isosorbide mononitrate 30 mg 30 mg PO QAM 10/06/18 03/11/22 History tablet,extended release 24 hr losartan 25 mg tablet 12.5 mg PO QAM 10/06/18 03/11/22 History nitroglycerin 0.4 mg sublingual 0.4 mg sublingual UD PRN Chest Pain 10/06/18 03/11/22 History tablet metoprolol succinate 25 mg 25 mg PO QAM 03/01/22 03/11/22 History tablet,extended release 24 hr pantoprazole 20 mg tablet,delayed 20 mg PO DAILYBB 03/01/22 03/11/22 History release sertraline 100 mg tablet 100 mg PO HS 03/01/22 03/11/22 History acetaminophen 325 mg tablet 650 mg PO Q4 PRN Pain 03/11/22 03/11/22 History dextrose 40 % oral gel (Glucose 15 g PO UD PRN Hypoglycemia 03/11/22 03/11/22 History Gel) hydroxyzine HCl 25 mg tablet 25 mg PO Q6 PRN Itching 03/11/22 03/11/22 History insulin glargine 100 unit/mL (3 5 unit subcut HS 03/11/22 03/11/22 History mL) subcutaneous pen (Lantus Solostar U-100 Insulin) insulin regular human 100 unit/mL 1 sliding scale dose subcut 03/11/22 03/11/22 History injection solution (Humulin R USEASDIRECTD Regular U-100 Insulin) loratadine 10 mg tablet 10 mg PO DAILY PRN Allergies 03/11/22 03/11/22 History melatonin 3 mg tablet 3 mg PO HS PRN Insomnia 03/11/22 03/11/22 History ondansetron 4 mg disintegrating 4 mg PO Q6H PRN Nausea/Vomiting 03/11/22 03/11/22 History tablet polyethylene glycol 3350 17 gram 17 g PO QDL PRN Constipation 03/11/22 03/11/22 History oral powder packet (Miralax) sennosides 8.6 mg-docusate sodium 1 tab-cap PO QDL PRN Constipation 03/11/22 03/11/22 History 50 mg tablet (Senokot-S) Patient History Medical History (Updated 03/13/22 @ 15:28 by Maru Enrique MD, PhD) TARA inhibitor intolerance Anxiety Atrial fibrillation follows w/ dr. aquino; dx years ago AV (arteriovenous fistula) left arm>"STILL WORKING" HAS NOT HAD TO USE Cirrhosis of liver CKD (chronic kidney disease) stage 4, GFR 15-29 ml/min follows w/ dr. 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 History of gastric ulcer History of gastrointestinal bleeding History of migraine HTN (hypertension) Hx of falling Hx of gout Hyperparathyroidism Osteoporosis Right-sided congestive heart failure Solitary right kidney Vertigo Surgical History H/O cataract removal with insertion of prosthetic lens RT/LEFT H/O tubal ligation History of section X 2 History of cholecystectomy History of colonoscopy History of esophagogastroduodenoscopy (EGD) History of lumbar laminectomy x 2 History of tooth extraction History of total abdominal hysterectomy and bilateral salpingo-oophorectomy Family History Other Cancer Diabetes Hypertension No family history of adverse response to anesthesia Social History Smoking Status: Former smoker Second Hand Exposure: Yes ( used to smoke); Hx Alcohol Use: No Hx Substance Use: No Preferred Language: Bahamian Communication Ability: Effective 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 Beliefs That Will Affect Care: None marital status: / Current Living Situation: Alone Current Living Situation Comment: with help on tuesdays and current occupational status: retired How many Children do You have: 2 Other Information That Helps Us Care for You: No Feels Safe at Home: Yes Safety Concerns: Feels Safe At This Time Assistive Devices: Cane, Walker and Wheelchair Review of Systems Review of Systems: Unobtainable due to reduced consciousness Physical Exam Constitutional: well developed, + thin, + altered mental status and + frail appearing; no acute distress Eyes: EOM intact bilaterally eyes closed most of eval ENMT: Ears: no external ear abnormality Nose: no external nose abnormality Mouth: + dry oral mucous membranes Neck: no nuchal rigidity Respiratory: normal respiratory effort Auscultation: + diminished lung sounds Cardiovascular: Rate/Rhythm: + irregularly irregular (in 100s) Heart Sounds: + murmur Extremities: + AV fistula; no edema Gastrointestinal (Abdomen): Inspection/Auscultation: + abdomen distended (slight) and normal bowel sounds Percussion/Palpation: abdomen soft; abdomen nontender, no guarding and no ascites Musculoskeletal: Extremities: + abnormal strength Skin: no rashes, warm and dry Neurologic: browning, generalized weakness, lethargic, speaks only 1-2 syllables moaned/muttered and only w/ intensive stimulation, no tremor Results & Data ([facility]) Vital Signs (Past 12 Hours) Vital Signs Temp Pulse Pulse Resp BP Pulse Ox O2 Del Method 03/13/22 14:32 94 H 93/53 L 03/13/22 12:04 36.4 C L 106 H 16 94/65 L 97 Room Air 03/13/22 08:00 Room Air 03/13/22 08:00 104 H 03/13/22 09:38 36.5 C 112 H 16 91/59 L 95 Room Air 03/13/22 08:00 36.4 C L 98 H 16 103/64 94 Room Air Laboratory Results 03/13/22 17:15 03/13/22 16:[address] a/p non con 1. Cirrhosis with mild ascites, slightly increased in extent from prior exam. 2. Cardiomegaly is partially visualized. Mild interlobular septal thickening may represent pulmonary edema. 3. Otherwise no acute abnormalities are seen. cxr yesterday Cardiomegaly with mild central pulmonary vascular congestion without overt edema
[2022-03-13] MEDS ORDERED: NOREPINEPHRINE/D5W 4 MG/250 ML PLCT IV SCH (16:11)
[2022-03-13] MEDS ORDERED: STAT IV Infusion **Titration per Protocol STA ×2 (16:11→16:20)
[2022-03-13] MEDS: PHENYLEPHRINE HCL 20 MG in DEXTROSE 5% 500 ML IV SCH (17:14)
[2022-03-13 17:29] LABS: Albumin Globulin Ratio 1.8 (0.9-2); Albumin Level 4.3 gm/dl (3.4-5.0); BUN Creatinine Ratio 29.3 (10-20); Bilirubin,Total 1.2 mg/dl (0.2-1.0); Calcium 8.5 mg/dl (8.5-10.1); Creatinine Clr Calc Pharmacy 9.7 ml/min; Est GFR (African American) 12.9 ml/min; Est GFR (Non-African American) 11.2 ml/min; Globulin 2.4 gm/dl (2.5-4.0); Total Protein 6.7 gm/dl (6.0-8.3)
[2022-03-13 17:31] LABS: Hematocrit (blood only) 27.4 % (34.1-44.9); Hemoglobin 8.9 g/dl (12.0-16.0); Mean Corpuscular Hemoglobin 29.8 pg (25.0-34.0); Mean Corpuscular Hgb Conc 32.5 g/dL (32.0-36.0); Mean Corpuscular Volume 91.6 fL (80.0-100.0); Mean Platelet Volume 11.8 fL (9.4-12.3); Nucleated RBC # (auto) 0.02 K/uL (0-0); Nucleated RBC % (auto) 0.1 %; Platelet Count 255 K/uL (130-400); RDW Coefficient of Variation 15.1 % (11.5-14.5); RDW Standard Deviation 49.8 fL (36.4-46.3); Red Blood Count 2.99 M/uL (3.93-5.22); White Blood Count 17.04 K/ul (4.8-10.8)
[2022-03-13 17:45] LABS: Potassium 4.6 mmol/L (3.5-5.1)
[2022-03-13 17:51] LABS: Basophilic Stippling 1+; Basophils # (auto) 0.04 K/uL (0-0.2); Basophils % (auto) 0.2 %; Echinocytes 1+; Eosinophils # (auto) 0.04 K/uL (0-0.50); Eosinophils % (auto) 0.2 %; Immature Granulocytes % (auto) 1.2 %; Lymphocytes # (auto) 0.55 K/uL (1.2-3.4); Lymphocytes % (auto) 3.2 %; Monocytes # (auto) 0.78 K/uL (0.24-0.82); Monocytes % (auto) 4.6 %; Neutrophils # (auto) 15.43 K/uL (1.4-6.5); Neutrophils % (auto) 90.6 %; Polychromasia 1+; Schistocytes 1+
[2022-03-13] MEDS: LANTUS PER UNIT CHARGE SQ SCH (21:24)
[2022-03-14] MEDS: PHENYLEPHRINE HCL 20 MG in DEXTROSE 5% 500 ML IV SCH ×3 (02:41→17:52)
[2022-03-14] MEDS: HYDROCORTISONE SOD 100 MG in SYRINGE 0 ML IV SCH (04:55)
[2022-03-14] MEDS: PANTOprazole 40 MG TAB PO SCH (05:55)
[2022-03-14 06:06] LABS: Basophils # (auto) 0.02 K/uL (0-0.2); Basophils % (auto) 0.1 %; Eosinophils # (auto) 0.01 K/uL (0-0.50); Hematocrit (blood only) 28.2 % (34.1-44.9); Hemoglobin 9.4 g/dl (12.0-16.0); Immature Granulocytes # (auto) 0.35 K/uL (0.00-0.02); Immature Granulocytes % (auto) 1.7 %; Mean Corpuscular Hemoglobin 30.6 pg (25.0-34.0); Mean Corpuscular Hgb Conc 33.3 g/dL (32.0-36.0); Mean Corpuscular Volume 91.9 fL (80.0-100.0); Mean Platelet Volume 11.6 fL (9.4-12.3); Monocytes # (auto) 1.66 K/uL (0.24-0.82); Monocytes % (auto) 8.2 %; Nucleated RBC # (auto) 0.04 K/uL (0-0); Nucleated RBC % (auto) 0.2 %; Platelet Count 273 K/uL (130-400); RDW Coefficient of Variation 15.2 % (11.5-14.5); RDW Standard Deviation 50.6 fL (36.4-46.3); Red Blood Count 3.07 M/uL (3.93-5.22); White Blood Count 20.14 K/ul (4.8-10.8)
[2022-03-14 06:21] LABS: INR 1.8 (0.9-1.1)
[2022-03-14 06:34] LABS: Albumin Level 3.9 gm/dl (3.4-5.0); BUN Creatinine Ratio 28.5 (10-20); Bilirubin Direct 0.7 mg/dl (0-0.2); Bilirubin,Total 1.2 mg/dl (0.2-1.0); Calcium 8.6 mg/dl (8.5-10.1); Creatinine Clr Calc Pharmacy 8.7 ml/min; Est GFR (African American) 11.2 ml/min; Est GFR (Non-African American) 9.7 ml/min; Magnesium 2.4 mg/dl (1.7-2.4); Phosphorus 7.8 mg/dl (2.5-4.9); Potassium 5.7 mmol/L (3.5-5.1); Total Protein 6.1 gm/dl (6.0-8.3)
[2022-03-14 06:55] LABS: iSTAT Allen Test Pass; iSTAT Arterial Blood Gas HCO3 11 meg/L (19-24); iSTAT Arterial Blood Gas pCO2 24 mmHg (35-46); iSTAT Arterial Blood Gas pH 7.24 (7.35-7.45); iSTAT Arterial Blood Gas pO2 > 420 mmHg (80-95); iSTAT Carbon Dioxide 11 mmol/L (24-31); iSTAT FiO2 100 %; iSTAT Site R Radial
[2022-03-14 07:10] LABS: Estimated Average Glucose 177 mg/dl; Hemoglobin A1C 7.8 % (4.5-5.6)
--- NOTE | 2022-03-14 07:24 | XRay Report ---
XR chest 1V portable HISTORY: hypoxia COMPARISON: Chest 03/13/2022. FINDINGS: No pneumothorax. Suspect trace bilateral pleural effusions. The cardiac silhouette remains enlarged. There are calcifications within the aortic knob. There is mild interstitial vascular thicke sue likely representing pulmonary vascular congestion. Linear density within the left midlung zone f avor subsegmental atelectasis or scarring. Otherwise, no focal lung consolidations to suggest pneumon ia. IMPRESSION: Cardiomegaly with mild congestive change and trace bilateral pleural effusions. This is similar to th e prior study. ACT 112: Negative or not required by law. Electronically signed by: Javier Cerda M.D. 03/14/2022 7:23 AM
[2022-03-14] MEDS: INSULIN ASPART PER UNIT SC SCH ×2 (08:27→10:28)
[2022-03-14] MEDS: DOCUSATE SODIUM 100 MG CAP PO SCH (08:28)
[2022-03-14] MEDS: HEPARIN SOD 5,000 UNIT/0.5 ML VIAL SQ SCH (08:28)
[2022-03-14] MEDS: ATORVASTATIN 40 MG TAB PO SCH (08:28)
[2022-03-14] MEDS ORDERED: FUROSEMIDE 40 MG/4 ML VIAL IV ONE (08:36)
--- NOTE | 2022-03-14 08:38 | Nephrology Progress Note ---
Date of Service March 14, 2022 Assessment & Plan (1) Acute worsening of stage 4 chronic kidney disease: Plan: baseline creatinine low/mid 2's. now with rapidly /further worsening renal function with climbing BUN, creatinine, worsening acidemia in the setting of worsening multiorgan failure and emerging oliguria. markedly worsening acid base status and slightly worse hyponatremia but other chemistries so far acceptable -not a dialysis candidate per POA and pt wishes; would be a poor candidate in any event w/ HF/ chronic liver disease for dialysis; does have functional AVF -continue supportive measures > pressors, stress dosed steroids for now -cont caspofungin and cefepime; cxs remain NGTD and will cont to follow -labs q 12-24 hrs for now and as below >>for hyperkalemia, gave 60 mg IV lasix x 1 this am and recheck bmp and lactate at noon -will also give bicarb IV x 1 fluid situation clinically and grim prognosis; continue supportive care and follow her course Appreciate consult; will follow with you Admission and Anticipated Discharge Date Admission Date: March 11, 2022 Subjective 60 mL uop ON; remains lethargic/obtunded; K 5.7 today; creat, transaminases worsening; on low dose phenylephrine Review of Systems Review of Systems: Unobtainable due to reduced consciousness Physical Exam Constitutional: well developed, + thin, + altered mental status and + frail appearing; no acute distress Eyes: EOM intact bilaterally ENMT: Ears: no external ear abnormality Nose: no external nose abnormality Mouth: + dry oral mucous membranes Neck: no nuchal rigidity Respiratory: normal respiratory effort Auscultation: + diminished lung sounds Cardiovascular: Rate/Rhythm: + irregularly irregular (in 120s) Heart Sounds: + murmur Extremities: + AV fistula (+t/b); no edema Gastrointestinal (Abdomen): Inspection/Auscultation: + abdomen distended (slight) and normal bowel sounds Percussion/Palpation: + abdomen tender (RUQ TTP) and abdomen soft; no guarding and no ascites Musculoskeletal: Extremities: strength 5/5 throughout and + abnormal strength Skin: no rashes, warm and dry Neurologic: browning; does not follow commands Results [facility] Data ([facility]) Vital Signs (Past 12 Hours) Vital Signs Temp Pulse Pulse Resp BP Pulse Ox Pulse Ox 03/14/22 08:00 03/14/22 08:00 36.6 C 122 H 24 94 03/14/22 08:00 96 03/14/22 08:00 106 H 03/14/22 06:00 102 H 23 89 L 03/14/22 05:46 131/57 L 03/14/22 05:46 105 H 24 03/14/22 05:33 108/41 L 03/14/22 05:33 102 H 27 H 92 03/14/22 05:30 52/29 L 03/14/22 05:30 103 H 28 H 96 03/14/22 05:16 108 H 24 85 L 03/14/22 05:16 93/72 L 03/14/22 05:00 101 H 26 H 97 03/14/22 05:00 135/76 03/14/22 04:46 107 H 20 96 03/14/22 04:46 125/92 03/14/22 04:30 115/62 03/14/22 04:30 98 H 25 H 96 03/14/22 04:15 100/73 03/14/22 04:15 107 H 24 99 03/14/22 04:01 98 H 25 H 94 03/14/22 04:01 36.5 C 134/83 03/14/22 04:00 105 H 25 H 97 03/14/22 03:45 103 H 23 99 03/14/22 03:45 97/71 L 03/14/22 03:31 108/34 L 03/14/22 03:31 103 H 24 96 03/14/22 03:16 133/72 03/14/22 03:16 105 H 26 H 89 L 03/14/22 03:00 105 H 23 95 03/14/22 03:00 144/57 H 03/14/22 02:46 104 H 27 H 97 03/14/22 02:46 139/39 L 03/14/22 02:32 110/78 03/14/22 02:32 103 H 25 H 94 03/14/22 02:30 55/27 L 03/14/22 02:30 105 H 25 H 96 03/14/22 02:00 109 H 20 94 03/14/22 01:46 102 H 25 H 93 03/14/22 01:46 150/53 H 03/14/22 01:17 110 H 25 H 88 L 03/14/22 01:17 132/77 03/14/22 01:00 102 H 24 94 03/14/22 01:00 111/79 03/14/22 00:46 104 H 27 H 100 03/14/22 00:46 108/85 03/14/22 00:31 133/45 L 03/14/22 00:31 105 H 22 97 03/14/22 00:15 96/62 L 03/14/22 00:15 107 H 25 H 98 03/14/22 00:01 110 H 19 95 03/14/22 00:01 133/72 03/14/22 00:00 100 H 27 H 95 03/13/22 23:45 107 H 25 H 97 03/13/22 23:45 94/57 L 03/13/22 23:30 77/61 L 03/13/22 23:30 108 H 23 95 03/13/22 23:16 111 H 28 H 99 03/13/22 23:16 114/62 03/13/22 23:15 110 H 26 H 96 03/13/22 23:15 53/35 L 03/13/22 23:00 91/73 L 03/13/22 23:00 103 H 24 97 03/13/22 22:45 104 H 22 92 03/13/22 22:45 133/104 H 03/13/22 22:30 116/54 L 03/13/22 22:30 103 H 31 H 93 03/13/22 22:15 107 H 22 86 L 03/13/22 22:15 120/74 03/13/22 22:01 114/64 03/13/22 22:01 106 H 31 H 66 L 03/13/22 22:00 103 H 30 H 90 03/13/22 21:31 128/53 L 03/13/22 21:31 107 H 25 H 99 03/13/22 21:00 104 H 23 86 L 03/13/22 20:46 97/60 L 03/13/22 20:46 108 H 23 86 L 03/13/22 23:34 106 H O2 Del Method O2 Del Method O2 Flow Rate O2 Flow Rate 03/14/22 08:00 Oxymask 4 03/14/22 08:00 Oxymask 4 03/14/22 08:00 Oxymask 4 03/14/22 08:00 03/14/22 06:00 03/14/22 05:46 03/14/22 05:46 03/14/22 05:33 03/14/22 05:33 03/14/22 05:30 03/14/22 05:30 03/14/22 05:16 03/14/22 05:16 03/14/22 05:00 03/14/22 05:00 03/14/22 04:46 03/14/22 04:46 03/14/22 04:30 03/14/22 04:30 03/14/22 04:15 03/14/22 04:15 03/14/22 04:01 03/14/22 04:01 03/14/22 04:00 03/14/22 03:45 03/14/22 03:45 03/14/22 03:31 03/14/22 03:31 03/14/22 03:16 03/14/22 03:16 03/14/22 03:00 03/14/22 03:00 03/14/22 02:46 03/14/22 02:46 03/14/22 02:32 03/14/22 02:32 03/14/22 02:30 03/14/22 02:30 03/14/22 02:00 03/14/22 01:46 03/14/22 01:46 03/14/22 01:17 03/14/22 01:17 03/14/22 01:00 03/14/22 01:00 03/14/22 00:46 03/14/22 00:46 03/14/22 00:31 03/14/22 00:31 03/14/22 00:15 03/14/22 00:15 03/14/22 00:01 03/14/22 00:01 03/14/22 00:00 03/13/22 23:45 03/13/22 23:45 03/13/22 23:30 03/13/22 23:30 03/13/22 23:16 03/13/22 23:16 03/13/22 23:15 03/13/22 23:15 03/13/22 23:00 03/13/22 23:00 03/13/22 22:45 03/13/22 22:45 03/13/22 22:30 03/13/22 22:30 03/13/22 22:15 03/13/22 22:15 03/13/22 22:01 03/13/22 22:01 03/13/22 22:00 03/13/22 21:31 03/13/22 21:31 03/13/22 21:00 03/13/22 20:46 03/13/22 20:46 03/13/22 23:34 Laboratory Results 03/14/22 05:55 03/14/22 05:55
[2022-03-14] MEDS ORDERED: CASPOFUNGIN 50 MG in SODIUM CHLORIDE 0.9% 250 ML IV SCH (09:00)
--- NOTE | 2022-03-14 09:00 | Critical Care Progress Note ---
Date of Service March 14, 2022 Assessment & Plan (1) Admitted to intensive care unit: Plan: Impression: Critically ill 76-year-old female with significant history for cirrhosis secondary to nonalcoholic fatty liver disease with recent admission and discharged to the hospital who presented to the hospital for the complaint of low blood pressure, tachycardia, and fever. She was initially admitted to the PCU and was given broad-spectrum antibiotics in addition to the fluid resuscitation as well as albumin, however, patient is currently in cardiovascular compromise and requires pressors at this time to increase total MAP and perfusion. Neuro: Metabolic encephalopathy -Possibly hepatic versus uremic as the cause -Frequent reorientation as able, attempt to correct/ improve the underlying cause Respiratory: Hypoxia -New oxygen requirement of 4 L oxymask from yesterday likely related to fluid overload as patient has had poor to no urinary output overnight. -We will diurese with 60 mg of Lasix Cardiovascular: Hypotension -As blood cultures have returned negative, likely due to portal hypertension/splanchnic vasodilation as a complication of liver cirrhosis. Patient has failed to improve given fluids and albumin. -Utilize pressors as needed with a map goal greater than 65 Atrial fibrillation -Chronic condition, cardiology consulted to help determine best course of action as atrial fibrillation likely making perfusion more difficult and exac erbating right heart failure, see below Acute right heart failure -Secondary to chronic congestive hepatopathy -Due to hypotension, will hold off from diuresis for now, patient saturating well on room air -60 mg of Lasix to be given recommended by nephrology Elevated troponin -Secondary to demand ischemia, should improve with increased MAP Renal/electrolyte: PREETI on CKD 4, oliguric -BUN/creatinine ratio greater than 20 indicative of prerenal cause -Likely to improve if MAP is improved with pressors -Continuing to worsen today with creatinine bump up to 4.18 -Patient and family would not like dialysis Metabolic acidosis -ABG this morning showed a pH of 7.24 Hyponatremia -Latest sodium of 128, continue to monitor GI: Liver cirrhosis secondary to nonalcoholic fatty liver disease -Decompensated -GI consult appreciated -Meld score of 25 with a 19.6% mortality in the next 3 months Endocrine: Type 2 diabetes mellitus -ICU hyperglycemic protocol Infectious disease: -Empiric antibiotic coverage with cefepime as well as fungal coverage with caspofungin -White blood cell count increased from 17-20.1 this morning Heme-Onc: -DVT prophylaxis with heparin Diet: N.p.o. DVT prophylaxis: Heparin Disposition: ICU CODE STATUS: DNR/DNI (2) Sepsis: (3) Acute right heart failure: (4) Cirrhosis: (5) Generalized weakness: (6) History of cancer of gall bladder: (7) Diabetes mellitus, type 2: (8) Atrial fibrillation: Admission and Anticipated Discharge Date Admission Date: March 11, 2022 Supervising Physician Co-Signing Physician Notes Dr. De La Cruz was resident physician during care of patient. I separately evaluated patient for sahu portions of the history and the exam. I was present during the critical portion of medical decision making, and I discussed the case with the resident. I generally agree with the findings and plan. Worsening renal function. Mental status continues to decline. No significant improvement with increase in blood pressure. Transitioning towards comfort will reassess with family today. I anticipate poor prognosis. Patient did not want hemodialysis. Minimizing aggressive interventions. Patient remains critically ill. I have personally spent 45 minutes of critical care time in the direct management of this patient. This is a life/limb threatening event. This includes time spent evaluating patient, direct bedside care, chart review, placing orders, interpretation of diagnostic studies, discussion with consultants, patient, and/or family members regarding treatment decisions, as well as other required patient management activities. This time is exclusive of all separately billable procedures, and teaching time and separate from and in addition to any other critical care service time. Subjective Patient seen at bedside this morning. No acute events reported overnight. Patient has been weaned down from 0.9 to 0.7 for phenylephrine. Patient is arousable to both voice and tactile stimulation, however, patient is nonverbal and does not seem to be following commands. No new or meaningful HPI obtainable at this time. Review of Systems Review of Systems: Unobtainable due to cognitive status Physical Exam Constitutional: + ill appearing and + lethargic Eyes: + anicteric sclerae Neck: normal visual inspection and trachea midline Respiratory: normal respiratory effort; no respiratory distress Auscultation: + crackles Cardiovascular: Rate/Rhythm: + tachycardic and + irregularly irregular Vessels: + JVD Extremities: + edema Gastrointestinal (Abdomen): Inspection/Auscultation: abdomen normal to inspection and normal bowel sounds; abdomen not distended Percussion/Palpation: abdomen soft; abdomen nontender Musculoskeletal: Head/Neck/Chest: normocephalic and head atraumatic Skin: no rashes, warm and dry Neurologic: moves all extremities and awake Results & Data Results & Data ([facility]) Vital Signs (Past 12 Hours) Vital Signs Temp Pulse Pulse Resp BP Pulse Ox Pulse Ox 03/14/22 08:00 03/14/22 08:00 36.6 C 122 H 24 94 03/14/22 08:00 96 03/14/22 08:00 106 H 03/14/22 06:00 102 H 23 89 L 03/14/22 05:46 131/57 L 03/14/22 05:46 105 H 24 03/14/22 05:33 108/41 L 03/14/22 05:33 102 H 27 H 92 03/14/22 05:30 52/29 L 03/14/22 05:30 103 H 28 H 96 03/14/22 05:16 108 H 24 85 L 03/14/22 05:16 93/72 L 03/14/22 05:00 101 H 26 H 97 03/14/22 05:00 135/76 03/14/22 04:46 107 H 20 96 03/14/22 04:46 125/92 03/14/22 04:30 115/62 03/14/22 04:30 98 H 25 H 96 03/14/22 04:15 100/73 03/14/22 04:15 107 H 24 99 03/14/22 04:01 98 H 25 H 94 03/14/22 04:01 36.5 C 134/83 03/14/22 04:00 105 H 25 H 97 03/14/22 03:45 103 H 23 99 03/14/22 03:45 97/71 L 03/14/22 03:31 108/34 L 03/14/22 03:31 103 H 24 96 03/14/22 03:16 133/72 03/14/22 03:16 105 H 26 H 89 L 03/14/22 03:00 105 H 23 95 03/14/22 03:00 144/57 H 03/14/22 02:46 104 H 27 H 97 03/14/22 02:46 139/39 L 03/14/22 02:32 110/78 03/14/22 02:32 103 H 25 H 94 07/15/22 02:30 55/27 L 07/15/22 02:30 105 H 25 H 96 03/14/22 02:00 109 H 20 94 03/14/22 01:46 102 H 25 H 93 03/14/22 01:46 150/53 H 03/14/22 01:17 110 H 25 H 88 L 03/14/22 01:17 132/77 03/14/22 01:00 102 H 24 94 03/14/22 01:00 111/79 03/14/22 00:46 104 H 27 H 100 03/14/22 00:46 108/85 03/14/22 00:31 133/45 L 03/14/22 00:31 105 H 22 97 03/14/22 00:15 96/62 L 03/14/22 00:15 107 H 25 H 98 03/14/22 00:01 110 H 19 95 03/14/22 00:01 133/72 03/14/22 00:00 100 H 27 H 95 03/13/22 23:45 107 H 25 H 97 03/13/22 23:45 94/57 L 03/13/22 23:30 77/61 L 03/13/22 23:30 108 H 23 95 03/13/22 23:16 111 H 28 H 99 03/13/22 23:16 114/62 03/13/22 23:15 110 H 26 H 96 03/13/22 23:15 53/35 L 03/13/22 23:00 91/73 L 03/13/22 23:00 103 H 24 97 03/13/22 22:45 104 H 22 92 03/13/22 22:45 133/104 H 03/13/22 22:30 116/54 L 03/13/22 22:30 103 H 31 H 93 03/13/22 22:15 107 H 22 86 L 03/13/22 22:15 120/74 03/13/22 22:01 114/64 03/13/22 22:01 106 H 31 H 66 L 03/13/22 22:00 103 H 30 H 90 03/13/22 21:31 128/53 L 03/13/22 21:31 107 H 25 H 99 03/13/22 21:00 104 H 23 86 L 03/13/22 23:34 106 H O2 Del Method O2 Del Method O2 Flow Rate O2 Flow Rate 03/14/22 08:00 Oxymask 4 03/14/22 08:00 Oxymask 4 03/14/22 08:00 Oxymask 4 03/14/22 08:00 03/14/22 06:00 03/14/22 05:46 03/14/22 05:46 03/14/22 05:33 03/14/22 05:33 03/14/22 05:30 03/14/22 05:30 03/14/22 05:16 03/14/22 05:16 03/14/22 05:00 03/14/22 05:00 03/14/22 04:46 03/14/22 04:46 03/14/22 04:30 03/14/22 04:30 03/14/22 04:15 03/14/22 04:15 03/14/22 04:01 03/14/22 04:01 03/14/22 04:00 03/14/22 03:45 03/14/22 03:45 03/14/22 03:31 03/14/22 03:31 03/14/22 03:16 03/14/22 03:16 03/14/22 03:00 03/14/22 03:00 03/14/22 02:46 03/14/22 02:46 03/14/22 02:32 03/14/22 02:32 03/14/22 02:30 03/14/22 02:30 03/14/22 02:00 03/14/22 01:46 03/14/22 01:46 03/14/22 01:17 03/14/22 01:17 03/14/22 01:00 03/14/22 01:00 03/14/22 00:46 03/14/22 00:46 03/14/22 00:31 03/14/22 00:31 03/14/22 00:15 03/14/22 00:15 03/14/22 00:01 03/14/22 00:01 03/14/22 00:00 03/13/22 23:45 03/13/22 23:45 03/13/22 23:30 03/13/22 23:30 03/13/22 23:16 03/13/22 23:16 03/13/22 23:15 03/13/22 23:15 03/13/22 23:00 03/13/22 23:00 03/13/22 22:45 03/13/22 22:45 03/13/22 22:30 03/13/22 22:30 03/13/22 22:15 03/13/22 22:15 03/13/22 22:01 03/13/22 22:01 03/13/22 22:00 03/13/22 21:31 03/13/22 21:31 03/13/22 21:00 03/13/22 23:34
--- NOTE | 2022-03-14 09:14 | Billing Data ---
Date of Service March 14, 2022 Coding Level of Care Code Critical Care 1st -74 mins
[2022-03-14] MEDS ORDERED: ONDANSETRON 4 MG OD TAB SL PRN (09:45)
[2022-03-14] MEDS ORDERED: LORazepam 0.5 MG in SYRINGE 0.25 ML IV PRN (09:45)
[2022-03-14] MEDS ORDERED: MoRPHine SULF/NSS 100 MG/100 ML BAG IV SCH (09:45)
[2022-03-14] MEDS ORDERED: LORazepam 0.5 MG TAB PO PRN (09:45)
[2022-03-14] MEDS ORDERED: STAT IV Infusion **Titration per Protocol STA ×2 (09:45→10:47)
[2022-03-14] MEDS ORDERED: GLYCOPYRROLATE 0.2 MG/ML VIAL IV PRN (10:47)
--- NOTE | 2022-03-14 10:54 | Hospitalist Progress Note ---
Date of Service March 14, 2022 Assessment & Plan (1) Sepsis: Plan Severe Sepsis -Present on admission. (Sepsis criteria: tachycardia, leukocytosis, tachypnea with evidence of PREETI). -s/p 500 cc NSS In ER and cefepime/vanc started -Urine and blood cultures negative from 03/11 admission -no uti symptoms and afebrile (recent infection cleared) -RUQ tenderness and symptoms seem to revolve around her abdomen -change abx to ceftriaxone to cover for SBP (2gm IV-->checked wtih pharmacist and ok wtih dosing despite her current renal function) -recent paracentesis on 03/05--no infection present, bloody tap, cytology was negative for malignancy -still concerned for abdominal source with ongoing tenderness and level of illness -consulted GI for help with etiology given known GB cancer history and cirrhosis. -incomplete resuscitation wtih ongoing tachycardia. Continued to hold lasix and gave gentle IVF x 1L. Notably there are no CHF symptoms present and she is not examining as hypervolemic although there was venous congestion on CXR from admission 03/13: worse today and hypotensive/tachycardia still present. elevated LFTs and worsening renal failure suggestive of hypoperfusion. 03/14: ICU therapies and pressor support overnight. Suspect hypotension and worsened hemodynamics due to liver cirrhosis and heart failure as opposed to infection as cultures remain negative. PREETI -Cr worse today to 4.2, baseline around 2.2 -per family, dialysis is not a preferred option. Acute right sided CHF-likely contributing here. Severe pulmonary hypertension Valvular heart disease (mod MR, severe TR) -diuretics and pressors given overnight but still no improvement and now requiring oxygen supplementation. Cardiac cirrhosis -holding lasix for now CT a/p without acute abnormalities A fib with RVR -not on AC due to history of GIB -continue aspirin, metoprolol T2IDDM -Lantus 5 units QHS, add correctional scale insulin Pharmacist is managing this to achieve/maintain euglycemia. HLD -statin History of gallbladder CA DVT ppx -SQ heparin Code Status -DNR/DNI Disposition-Remains in ICU but was transition to comfort care after efforts were not improving her hemodynamics. Palliative care was consulted. 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 She has a known history of cirrhosis with a history of NAFLD and longstanding right heart sided heart failure. She was recently discharged from the hospital on 03/09 and sent to [facility] for rehab. Overnight she developed a need for supplemental oxygen related to fluid overload. Lasix was given. Poor urinary output was noted. Patient remained on Levophed and phenylephrine and was able to titrate to phenylephrine overnight. Blood cultures continue to be negative and hypotension thought secondary to portal hypertension/splanchnic vasodilation as a complication of liver cirrhosis. She has failed to improve given fluids and albumin's and continues to rely on pressor therapy. Congestive hepatopathy present and worsening creatinine with bump up to 4.2. Family is not wanting to pursue dialysis. She remains acidotic. She was transitioned to comfort care measures this morning. She remains obtunded and unable to obtain review of systems. She was started on a morphine drip however this was transitioned to hydromorphone in setting of renal failure. Review of Systems Review of Systems: Unable to obtain review of systems secondary to obtunded state Physical Exam Physical Exam: CONSTITUTIONAL: WNWD, vitals as above, generally ill- appearing, obtunded EYES: normal conjunctivae, no scleral icterus, ENT: external ear and nose normal, MMM NECK: trachea midline, RESPIRATORY: clear to auscultation bilaterally, no crackles, rales or wheezes, normal respiratory effort CARDIOVASCULAR: regular rate and rhythm, S1 and 2 heard without murmurs, gallops or rubs, +JVD to angle of mandible, no peripheral edema, CHEST: inspection of chest was normal GASTROINTESTINAL: soft, ND no guarding MUSCULOSKELETAL: obtunded SKIN: warm and dry, scattered ecchymosis along lower abdomen. NEUROLOGIC: obtunded Results & Data Results & Data ([facility]) Vital Signs (Past 12 Hours) Vital Signs Temp Pulse Pulse Resp BP Pulse Ox Pulse Ox 03/14/22 09:45 104 H 23 97 03/14/22 09:45 47/26 L 03/14/22 09:40 65/42 L 03/14/22 09:40 94 H 24 97 03/14/22 09:30 106 H 26 H 96 03/14/22 09:16 102 H 19 97 03/14/22 09:16 125/69 03/14/22 09:15 107 H 24 97 03/14/22 09:00 105 H 23 98 03/14/22 09:00 122/85 03/14/22 08:46 112 H 30 H 96 03/14/22 08:45 117 H 22 97 03/14/22 08:30 112 H 25 H 96 03/14/22 08:30 117/99 03/14/22 08:16 108 H 22 95 03/14/22 08:16 115/95 03/14/22 08:15 111 H 26 H 96 03/14/22 08:00 112 H 22 96 03/14/22 08:00 86/73 L 03/14/22 07:45 111 H 26 H 93 03/14/22 07:45 127/71 03/14/22 07:31 136/83 03/14/22 07:31 120 H 26 H 94 03/14/22 07:30 121 H 25 H 87 L 03/14/22 07:15 115 H 29 H 93 03/14/22 07:15 129/68 03/14/22 07:01 110 H 29 H 03/14/22 07:01 125/79 03/14/22 07:00 113 H 32 H 03/14/22 08:00 03/14/22 08:00 36.6 C 122 H 24 94 03/14/22 08:00 96 03/14/22 08:00 106 H 03/14/22 06:00 102 H 23 89 L 03/14/22 05:46 131/57 L 03/14/22 05:46 105 H 24 03/14/22 05:33 108/41 L 03/14/22 05:33 102 H 27 H 92 03/14/22 05:30 52/29 L 03/14/22 05:30 103 H 28 H 96 03/14/22 05:16 108 H 24 85 L 03/14/22 05:16 93/72 L 03/14/22 05:00 101 H 26 H 97 03/14/22 05:00 135/76 03/14/22 04:46 107 H 20 96 03/14/22 04:46 125/92 03/14/22 04:30 115/62 03/14/22 04:30 98 H 25 H 96 03/14/22 04:15 100/73 03/14/22 04:15 107 H 24 99 03/14/22 04:01 98 H 25 H 94 03/14/22 04:01 36.5 C 134/83 03/14/22 04:00 105 H 25 H 97 03/14/22 03:45 103 H 23 99 03/14/22 03:45 97/71 L 03/14/22 03:31 108/34 L 03/14/22 03:31 103 H 24 96 03/14/22 03:16 133/72 03/14/22 03:16 105 H 26 H 89 L 03/14/22 03:00 105 H 23 95 03/14/22 03:00 144/57 H 03/14/22 02:46 104 H 27 H 97 03/14/22 02:46 139/39 L 03/14/22 02:32 110/78 03/14/22 02:32 103 H 25 H 94 03/14/22 02:30 55/27 L 03/14/22 02:30 105 H 25 H 96 03/14/22 02:00 109 H 20 94 03/14/22 01:46 102 H 25 H 93 03/14/22 01:46 150/53 H 03/14/22 01:17 110 H 25 H 88 L 03/14/22 01:17 132/77 03/14/22 01:00 102 H 24 94 03/14/22 01:00 111/79 03/14/22 00:46 104 H 27 H 100 03/14/22 00:46 108/85 03/14/22 00:31 133/45 L 03/14/22 00:31 105 H 22 97 03/14/22 00:15 96/62 L 03/14/22 00:15 107 H 25 H 98 03/14/22 00:01 110 H 19 95 03/14/22 00:01 133/72 03/14/22 00:00 100 H 27 H 95 03/13/22 23:45 107 H 25 H 97 03/13/22 23:45 94/57 L 03/13/22 23:30 77/61 L 03/13/22 23:30 108 H 23 95 03/13/22 23:16 111 H 28 H 99 03/13/22 23:16 114/62 03/13/22 23:15 110 H 26 H 96 07/14/22 23:15 53/35 L 07/14/22 23:00 91/73 L 03/13/22 23:00 103 H 24 97 03/13/22 23:34 106 H O2 Del Method O2 Del Method O2 Flow Rate O2 Flow Rate 03/14/22 09:45 03/14/22 09:45 03/14/22 09:40 03/14/22 09:40 03/14/22 09:30 03/14/22 09:16 03/14/22 09:16 03/14/22 09:15 03/14/22 09:00 03/14/22 09:00 03/14/22 08:46 03/14/22 08:45 03/14/22 08:30 03/14/22 08:30 03/14/22 08:16 03/14/22 08:16 03/14/22 08:15 03/14/22 08:00 03/14/22 08:00 03/14/22 07:45 03/14/22 07:45 03/14/22 07:31 03/14/22 07:31 03/14/22 07:30 03/14/22 07:15 03/14/22 07:15 03/14/22 07:01 03/14/22 07:01 03/14/22 07:00 03/14/22 08:00 Oxymask 4 03/14/22 08:00 Oxymask 4 03/14/22 08:00 Oxymask 4 03/14/22 08:00 03/14/22 06:00 03/14/22 05:46 03/14/22 05:46 03/14/22 05:33 03/14/22 05:33 03/14/22 05:30 03/14/22 05:30 03/14/22 05:16 03/14/22 05:16 03/14/22 05:00 03/14/22 05:00 03/14/22 04:46 03/14/22 04:46 03/14/22 04:30 03/14/22 04:30 03/14/22 04:15 03/14/22 04:15 03/14/22 04:01 03/14/22 04:01 03/14/22 04:00 03/14/22 03:45 03/14/22 03:45 03/14/22 03:31 03/14/22 03:31 03/14/22 03:16 03/14/22 03:16 03/14/22 03:00 03/14/22 03:00 03/14/22 02:46 03/14/22 02:46 03/14/22 02:32 03/14/22 02:32 03/14/22 02:30 03/14/22 02:30 03/14/22 02:00 03/14/22 01:46 03/14/22 01:46 03/14/22 01:17 03/14/22 01:17 03/14/22 01:00 03/14/22 01:00 03/14/22 00:46 03/14/22 00:46 03/14/22 00:31 03/14/22 00:31 03/14/22 00:15 03/14/22 00:15 03/14/22 00:01 03/14/22 00:01 03/14/22 00:00 03/13/22 23:45 03/13/22 23:45 03/13/22 23:30 03/13/22 23:30 03/13/22 23:16 03/13/22 23:16 03/13/22 23:15 03/13/22 23:15 03/13/22 23:00 03/13/22 23:00 03/13/22 23:34 Laboratory Results Short CBC 03/14/22 Range/Units 05:55 WBC 20.14 H (4.8-10.8) K/ul Hgb 9.4 L (12.0-16.0) g/dl Hct 28.2 L (34.1-44.9) % Plt Count 273 (130-400) K/uL BMP 03/14/22 05:55 Sodium 128 L Potassium 5.7 H D Chloride 98 Carbon Dioxide 10 L BUN 119 H Creatinine 4.18 H D Glucose 256 H Calcium 8.6 Liver Function 03/14/22 Range/Units 05:55 Total Bilirubin 1.2 H (0.2-1.0) mg/dl Direct Bilirubin 0.7 H (0-0.2) mg/dl AST 957 H (13-39) U/L ALT 439 H (7-52) U/L Alkaline Phosphatase 113 H (34-104) U/L Albumin 3.9 (3.4-5.0) gm/dl Diagnostic Findings Chest X-Ray 03/14/22 06:22 XR chest 1V portable HISTORY: hypoxia COMPARISON: Chest 03/13/2022. FINDINGS: No pneumothorax. Suspect trace bilateral pleural effusions. The cardiac silhouette remains enlarged. There are calcifications within the aortic knob. There is mild interstitial vascular thickening likely representing pulmonary vascular congestion. Linear density within the left midlung zone favor subsegmental atelectasis or scarring. Otherwise, no focal lung consolidations to suggest pneumonia. IMPRESSION: Cardiomegaly with mild congestive change and trace bilateral pleural effusions. This is similar to the prior study. ACT 112: Negative or not required by law. Electronically signed by: Javier Cerda M.D. 03/14/2022 7:23 AM Medications Administered Current Inpatient Medications Glucose (Glucose 40% Gel 15 Gm Tube) 15 gm PO UD PRN PRN Reason: Hypoglycemia Stop: 04/10/22 13:13 Glycopyrrolate (Glycopyrrolate 0.2 Mg/Ml Vial) 0.2 mg IV Q4H PRN PRN Reason: Secretions or Pulm Congestion Stop: 04/13/22 10:46 Last Admin: 03/14/22 12:36 Dose: 0.2 mg Lorazepam 0.5 mg/ Syringe 0.5 mls @ 2 mls/min IV Q4H PRN PRN Reason: Anxiety/Agitation Stop: 04/13/22 09:44 Last Admin: 03/14/22 12:59 Dose: 2 mls/min Hydromorphone HCl (Dilaudid/Nss) 100 mg in 100 mls @ 0.4 mls/hr IV .Q96H INGE; Protocol Stop: 03/28/22 10:59 Last Titration: 03/14/22 12:44 Dose: 0.4 mg/hr, 0.4 mls/hr
[2022-03-14] MEDS ORDERED: HYDROmorphone/NSS 100 MG/100 ML BAG IV SCH (11:00)
[2022-03-14] MEDS ORDERED: SODIUM BICARB 8.4% INJ 50 MEQ/50 ML SYR IV ONE (11:00)
[2022-03-14] MEDS ORDERED: CEFEPIME 1,000 MG in SYRINGE 0 ML IV SCH (12:00)
--- NOTE | 2022-03-14 14:57 | Palliative Care Consultation ---
Date of Consultation March 14, 2022 Assessment & Plan (1) Copious oral secretions: Glycopyrrolate 0.2mg IV. Monitor. May need routine dosing. (2) Dyspnea: On hydromorphone infusion at 0.2mg/hr. Monitor for signs of discomfort. (3) Anxiety: Appears restless and uncomfortable despite hydromorphone infusion. Lorazepam given. (4) Palliative care encounter: I talked with Mariela's son, Spencer, in the room. He tells me that he went thro [facility] this a few years ago when his father on hospice. He notes that Mariela's refusal to have dialysis is consistent with wishes that she has expressed in the past and he feels confident that focus on comfort and symptom management is what she would want at this time. He tells me that he has support from his and that his brother is arriving soon from out of town. He denies questions or concerns at this time and feels that he knows what to expect, having been through this with his father. We discussed medications for Mariela's comfort. Palliative care will follow. History of Present Illness Reason for Consultation: comfort care Requesting Physician: Dr. Morton Attending Physician: Madeleine Morton, History of Present Illness 76 yo lady right sided heart failure, cirrhosis, afib and CKD IV. Who was admitted from [facility] with hypotension and possible sepsis. She had been transferred to [facility] after hospital discharge for heart failure. She has been in the ICU on pressor support . Despite treatment she has had progressive renal failure and had opted against dialysis. Her son, Spencer is at bedside and based on her wishes, he has opted for shift of focus in her care to symptom management and comfort. Allergies Allergy/AdvReac Type Severity Reaction Status Date / Time gabapentin Allergy Severe EDEMA Verified 03/11/22 11:05 FACE/LIPS/TONGUE - ANGIOEDEMA meloxicam Allergy Severe RENAL Verified 03/11/22 11:05 FAILURE insulin detemir Allergy Intermediate HIVES, Verified 03/11/22 11:05 ELEVATED BSG latex Allergy Intermediate HIVES, RASH Verified 03/11/22 11:05 phenol Allergy Intermediate HIVES, Verified 03/11/22 11:05 ELEVATED BSG Sulfa (Sulfonamide Allergy Intermediate EDEMA,ITCHI Verified 03/11/22 11:05 Antibiotics) NG adhesive Allergy Mild skin Verified 03/11/22 11:05 irritation cephalexin Allergy Mild ELEVATED Verified 03/11/22 11:05 BSG TARA Inhibitors Allergy Unknown UNKNOWN Verified 03/11/22 11:05 Iodinated Contrast Media AdvReac Unknown PATIENT Verified 03/11/22 11:05 HAS CHRONIC KIDNEY FAILURE Home Medications Medication Instructions Recorded Confirmed Type allopurinol 100 mg tablet 200 mg PO QAM 10/06/18 03/11/22 History aspirin 81 mg tablet,delayed 81 mg PO QAM 10/06/18 03/11/22 History release atorvastatin 40 mg tablet 40 mg PO QAM 10/06/18 03/11/22 History cholecalciferol (vitamin D3) 50 2,000 unit PO QAM 10/06/18 03/11/22 History mcg (2,000 unit) capsule (Vitamin D3) docusate sodium 100 mg capsule 100 mg PO BID 10/06/18 03/11/22 History furosemide 40 mg tablet 40 mg PO DAILYBB 10/06/18 03/11/22 History isosorbide mononitrate 30 mg 30 mg PO QAM 10/06/18 03/11/22 History tablet,extended release 24 hr losartan 25 mg tablet 12.5 mg PO QAM 10/06/18 03/11/22 History nitroglycerin 0.4 mg sublingual 0.4 mg sublingual UD PRN Chest Pain 10/06/18 03/11/22 History tablet metoprolol succinate 25 mg 25 mg PO QAM 03/01/22 03/11/22 History tablet,extended release 24 hr pantoprazole 20 mg tablet,delayed 20 mg PO DAILYBB 03/01/22 03/11/22 History release sertraline 100 mg tablet 100 mg PO HS 03/01/22 03/11/22 History acetaminophen 325 mg tablet 650 mg PO Q4 PRN Pain 03/11/22 03/11/22 History dextrose 40 % oral gel (Glucose 15 g PO UD PRN Hypoglycemia 03/11/22 03/11/22 History Gel) hydroxyzine HCl 25 mg tablet 25 mg PO Q6 PRN Itching 03/11/22 03/11/22 History insulin glargine 100 unit/mL (3 5 unit subcut HS 03/11/22 03/11/22 History mL) subcutaneous pen (Lantus Solostar U-100 Insulin) insulin regular human 100 unit/mL 1 sliding scale dose subcut 03/11/22 03/11/22 History injection solution (Humulin R USEASDIRECTD Regular U-100 Insulin) loratadine 10 mg tablet 10 mg PO DAILY PRN Allergies 03/11/22 03/11/22 History melatonin 3 mg tablet 3 mg PO HS PRN Insomnia 03/11/22 03/11/22 History ondansetron 4 mg disintegrating 4 mg PO Q6H PRN Nausea/Vomiting 03/11/22 History tablet polyethylene glycol 3350 17 gram 17 g PO QDL PRN Constipation 03/11/22 03/11/22 History oral powder packet (Miralax) sennosides 8.6 mg-docusate sodium 1 tab-cap PO QDL PRN Constipation 03/11/22 03/11/22 History 50 mg tablet (Senokot-S) Patient History Medical History TARA inhibitor intolerance Anxiety Atrial fibrillation follows w/ dr. aquino; dx years ago AV (arteriovenous fistula) left arm>"STILL WORKING" HAS NOT HAD TO USE Cirrhosis of liver CKD (chronic kidney disease) stage 4, GFR 15-29 ml/min follows w/ dr. 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 History of gastric ulcer History of gastrointestinal bleeding History of migraine HTN (hypertension) Hx of falling Hx of gout Hyperparathyroidism Osteoporosis Right-sided congestive heart failure Solitary right kidney Vertigo Surgical History H/O cataract removal with insertion of prosthetic lens RT/LEFT H/O tubal ligation History of section X 2 History of cholecystectomy History of colonoscopy History of esophagogastroduodenoscopy (EGD) History of lumbar laminectomy x 2 History of tooth extraction History of total abdominal hysterectomy and bilateral salpingo-oophorectomy Family History Other Cancer Diabetes Hypertension No family history of adverse response to anesthesia Social History Smoking Status: Former smoker Second Hand Exposure: Yes ( used to smoke); Hx Alcohol Use: No Hx Substance Use: No Preferred Language: Niuean Communication Ability: Effective Clinical Support Tech Required: No Beliefs That Will Affect Care: None marital status: / Current Living Situation: Alone Current Living Situation Comment: with help on tuesdays and current occupational status: retired How many Children do You have: 2 Other Information That Helps Us Care for You: No Feels Safe at Home: Yes Safety Concerns: Feels Safe At This Time Assistive Devices: Cane, Walker and Wheelchair Review of Systems Review of Systems: Unobtainable due to reduced consciousness ESAS pain by observation 0/3 dyspnea by observation 0/3 PPS 20% Physical Exam Constitutional: lethargic, opens eyes with movement, tenses with care, grunts at times ENMT: copious oral secretions Respiratory: normal respiratory effort; no labored breathing Cardiovascular: Rate/Rhythm: + irregularly irregular Gastrointestinal (Abdomen): nontender Musculoskeletal: Extremities: extremities normal to inspection Genitourinary: incontinent, less than 100cc UOP in 24 hours. Results & Data ([facility]) Vital Signs (Past 12 Hours) Vital Signs Temp Pulse Pulse Resp BP Pulse Ox Pulse Ox 03/14/22 09:45 104 H 23 97 03/14/22 09:45 47/26 L 03/14/22 09:40 65/42 L 03/14/22 09:40 94 H 24 97 03/14/22 09:30 106 H 26 H 96 03/14/22 09:16 102 H 19 97 03/14/22 09:16 125/69 03/14/22 09:15 107 H 24 97 03/14/22 09:00 105 H 23 98 03/14/22 09:00 122/85 03/14/22 08:46 112 H 30 H 96 03/14/22 08:45 117 H 22 97 03/14/22 08:30 112 H 25 H 96 03/14/22 08:30 117/99 03/14/22 08:16 108 H 22 95 03/14/22 08:16 115/95 03/14/22 08:15 111 H 26 H 96 03/14/22 08:00 112 H 22 96 03/14/22 08:00 86/73 L 03/14/22 07:45 111 H 26 H 93 03/14/22 07:45 127/71 03/14/22 07:31 136/83 03/14/22 07:31 120 H 26 H 94 03/14/22 07:30 121 H 25 H 87 L 03/14/22 07:15 115 H 29 H 93 03/14/22 07:15 129/68 03/14/22 07:01 110 H 29 H 03/14/22 07:01 125/79 03/14/22 07:00 113 H 32 H 03/14/22 08:00 03/14/22 08:00 97.9 F 122 H 24 94 03/14/22 08:00 96 03/14/22 08:00 106 H 03/14/22 06:00 102 H 23 89 L 03/14/22 05:46 131/57 L 03/14/22 05:46 105 H 24 03/14/22 05:33 108/41 L 03/14/22 05:33 102 H 27 H 92 03/14/22 05:30 52/29 L 03/14/22 05:30 103 H 28 H 96 03/14/22 05:16 108 H 24 85 L 03/14/22 05:16 93/72 L 03/14/22 05:00 101 H 26 H 97 03/14/22 05:00 135/76 03/14/22 04:46 107 H 20 96 03/14/22 04:46 125/92 03/14/22 04:30 115/62 03/14/22 04:30 98 H 25 H 96 03/14/22 04:15 100/73 03/14/22 04:15 107 H 24 99 03/14/22 04:01 98 H 25 H 94 03/14/22 04:01 97.7 F 134/83 03/14/22 04:00 105 H 25 H 97 03/14/22 03:45 103 H 23 99 03/14/22 03:45 97/71 L 03/14/22 03:31 108/34 L 03/14/22 03:31 103 H 24 96 03/14/22 03:16 133/72 03/14/22 03:16 105 H 26 H 89 L 03/14/22 03:00 105 H 23 95 03/14/22 03:00 144/57 H 07/15/22 02:46 104 H 27 H 97 03/14/22 02:46 139/39 L O2 Del Method O2 Del Method O2 Flow Rate O2 Flow Rate 03/14/22 09:45 03/14/22 09:45 03/14/22 09:40 03/14/22 09:40 03/14/22 09:30 03/14/22 09:16 03/14/22 09:16 03/14/22 09:15 03/14/22 09:00 03/14/22 09:00 03/14/22 08:46 03/14/22 08:45 03/14/22 08:30 03/14/22 08:30 03/14/22 08:16 03/14/22 08:16 03/14/22 08:15 03/14/22 08:00 03/14/22 08:00 03/14/22 07:45 03/14/22 07:45 03/14/22 07:31 03/14/22 07:31 03/14/22 07:30 03/14/22 07:15 03/14/22 07:15 03/14/22 07:01 03/14/22 07:01 03/14/22 07:00 03/14/22 08:00 Oxymask 4 03/14/22 08:00 Oxymask 4 03/14/22 08:00 Oxymask 4 03/14/22 08:00 03/14/22 06:00 03/14/22 05:46 03/14/22 05:46 03/14/22 05:33 03/14/22 05:33 03/14/22 05:30 03/14/22 05:30 03/14/22 05:16 03/14/22 05:16 03/14/22 05:00 03/14/22 05:00 03/14/22 04:46 03/14/22 04:46 03/14/22 04:30 03/14/22 04:30 03/14/22 04:15 03/14/22 04:15 03/14/22 04:01 03/14/22 04:01 03/14/22 04:00 03/14/22 03:45 03/14/22 03:45 03/14/22 03:31 03/14/22 03:31 03/14/22 03:16 03/14/22 03:16 03/14/22 03:00 03/14/22 03:00 03/14/22 02:46 03/14/22 02:46 PG Care Time/CCT Total # of Minutes Spent Total Time Spent: 55 Total Time Spent with Patient: Total time spent is greater than 50% in coordination of care (as documented) at patient's floor/unit and/or counseling patient:goal of care, symptom management, family education and support Coding Level of Care Code 03832 Initial Inpt Care Lvl 2 Diagnoses Copious oral secretions R68.89 Dyspnea R06.00 Anxiety F41.9 Palliative care encounter Z51.5
--- NOTE | 2022-03-14 18:08 | Electrocardiogram Report ---
Test Reason : Blood Pressure : / mmHG Vent. Rate : 112 BPM Atrial Rate : 113 BPM P-R Int : 000 ms QRS Dur : 100 ms QT Int : 302 ms P-R-T Axes : 000 009 022 degrees QTc Int : 412 ms Poor data quality, interpretation may be adversely affected Atrial fibrillation with rapid ventricular response Abnormal ECG Confirmed by Talib Shields ([id number]) on 03/14/2022 6:07:43 PM Referred By: [facility] Confirmed By:Ezio Shields
--- NOTE | 2022-03-15 19:20 | Death Pronouncement Note ---
Date of Service March 15, 2022 Pronouncement Note Admission Date March 11, 2022 Date and Time of Date of : 03/15/22 Time of : 18:43 Preliminary Cause of (1) Acute worsening of stage 4 chronic kidney disease: (2) Acute right heart failure: (3) Sepsis: (4) Multi-organ failure with liver failure: Contributing Factors Cirrhosis, metabolic acidosis, hyponatremia Summary On arrival patient is motionless and not arousable to verbal or physical stimuli. Pupils are fixed and dilated. There is no rise and fall of the chest. There are no heart sounds on cardiac auscultation. There are no breath sounds on pulmonary auscultation. Skin is warm and dry. There is no grimace or movement in response to nailbed pressure. Time of was 6:43 PM. Family was at bedside and all questions answered. DO Praveen Additional Data Attending physician: Madeleine Morton, DO
--- NOTE | 2022-03-15 19:23 | Discharge Summary ---
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 She was discharged to [facility] 03/09 in stable condition but returns today with cough, weakness and reportedly noted to have low blood pressure at the facility but here BP has been normal. Labwork is significant for a markedly elevated WBC (13.6), procalcitonin 20. CXR unrevealing. UA pending. Blood cultures pending. ER course- Cefepime 2gm, NSS 500 cc Patient feels weak which is worse since she was discharged from here. She feels it may be related to her roommate situation at [facility] and not being able to sleep for past 2 nights. In addition, she reports cough which is unchanged, dysuria/sensation of incomplete bladder emptying, abdominal discomfort. Intermittent nausea and fever. Denies chest pain, shortness of breath or difficulty breathing. Denies new rash, ulcer or skin tears. Principal Diagnosis Multiorgan failure with liver failure Sepsis Acute worsening of stage IV chronic kidney disease Acute right heart failure Cirrhosis Metabolic acidosis Hyponatremia Discharge Exam CONSTITUTIONAL: WNWD, vitals as above, generally ill-appearing, obtunded EYES: normal conjunctivae, no scleral icterus, ENT: external ear and nose normal, MMM NECK: trachea midline, RESPIRATORY: clear to auscultation bilaterally, no crackles, rales or wheezes, normal respiratory effort CARDIOVASCULAR: regular rate and rhythm, S1 and 2 heard without murmurs, gallops or rubs, +JVD to angle of mandible, no peripheral edema, CHEST: inspection of chest was normal GASTROINTESTINAL: soft, ND no guarding MUSCULOSKELETAL: obtunded SKIN: warm and dry, scattered ecchymosis along lower abdomen. NEUROLOGIC: obtunded Discharge Data Allergies Allergy/AdvReac Type Severity Reaction Status Date / Time gabapentin Allergy Severe EDEMA Verified 03/11/22 11:05 FACE/LIPS/TONGUE - ANGIOEDEMA meloxicam Allergy Severe RENAL Verified 03/11/22 11:05 FAILURE insulin detemir Allergy Intermediate HIVES, Verified 03/11/22 11:05 ELEVATED BSG latex Allergy Intermediate HIVES, RASH Verified 03/11/22 11:05 phenol Allergy Intermediate HIVES, Verified 03/11/22 11:05 ELEVATED BSG Sulfa (Sulfonamide Allergy Intermediate EDEMA,ITCHI Verified 03/11/22 11:05 Antibiotics) NG adhesive Allergy Mild skin Verified 03/11/22 11:05 irritation cephalexin Allergy Mild ELEVATED Verified 03/11/22 11:05 BSG TARA Inhibitors Allergy Unknown UNKNOWN Verified 03/11/22 11:05 Iodinated Contrast Media AdvReac Unknown PATIENT Verified 03/11/22 11:05 HAS CHRONIC KIDNEY FAILURE Consultations 03/11/22 11:07 ED Decision to Admit Stat 03/12/22 15:22 Consult Gastroenterology Routine 03/13/22 09:09 Consult Cardiology Routine 03/13/22 09:18 Consult General Surgery Routine 03/13/22 11:54 Consult Buyer Tobacco Head Stat 03/14/22 10:47 Consult Palliative Care Routine Ordered Studies 03/11/22 11:43 CT abd pelvis wo con Stat Hospital Course (1) Multi-organ failure with liver failure: (2) Acute worsening of stage 4 chronic kidney disease: (3) Acute right heart failure: (4) Sepsis: (5) Cirrhosis: (6) Acute metabolic encephalopathy: (7) Metabolic acidosis: Plan The patient is a 76-year-old female who presented from [facility] shortly after recent discharge from the hospital for concern of low blood pressure tachycardia and fever. She was started on fluid resuscitation cautiously with a known history of CHF and cirrhosis with ascites. Her recent echo revealed normal LV function but with a dignified currently dilated atria as well as RV with associated pulmonary hypertension. Chest x-ray revealed cardiomegaly with vascular congestion but without overt edema. White blood cell count was 13 and hemoglobin was 9. Platelet count was normal. Patient's anemia was relatively chronic and stable. Cough was present. Vancomycin and cefepime were started initially and she was admitted to the hospitalist service. There was a concern for sepsis and creatinine was elevated to 2.6 with a baseline of 2.2. Therefore, Lasix was held. The following day she did not clinically appear significantly better and her antibiotics were changed to ceftriaxone to cover for SBP. Notably her recent paracentesis on 03/05 revealed no evidence of SBP or infection, there was a bloody tap and her cytology was negative for malignancy with a history of gallbladder cancer. There was still a concern for abdominal source of sepsis with ongoing tenderness and the level of illness present. No other source could be found with negative blood cultures and negative urine cultures at this point. She had ongoing tachycardia and incomplete resuscitation was thought likely so she was given additional IV fluids. At this point she was still oxygenating well on room air and not tachypneic. Her creatinine continued to rise around 2.9. The following day she looked even worse. Ceftriaxone had not been given for approximately 18 to 24 hours given her poor creatinine clearance. At this point a chest x-ray revealed worsened venous congestion from admission and hypotension and tachycardia was still present elevated LFTs and worsening renal failure was suggestive of hypoperfusion. She was transition to the ICU for pressor support. At this point metabolic encephalopathy became more clear considered hepatic versus uremic as the cause with worsening renal function. She started to require oxygen supplementation likely as an attempt to compensate for metabolic acidosis which had developed. She required Levophed and phenylephrine overnight. Acute right heart failure was present secondary to chronic congestive hepatopathy. Because of hypotension diuresis could not be performed and dialysis was not an option in this patient. Empiric antibiotic coverage was expanded to include cefepime as well as coverage with caspofungin and fungal Blood cultures were ordered. A repeat echocardiogram was unchanged from study done on 03/02. Because of her new oxygen requirement diuresis attempt with 60 mg of Lasix was given. Hypotension was considered likely secondary to portal hypertension/splanchnic vasodilation as a complication of liver cirrhosis. Infection was considered less likely as cultures were negative at that time. She had failed to improve given fluids and albumin and continued to need pressor support. Given worsening renal function continued decline in mental status and no significant improvement with increase in blood pressure she was transition toward comfort care measures and placed on a hydromorphone drip with as needed Ativan. Palliative care was consulted to assist with medication guidance and family support. She ultimately passed with family at bedside on 03/15. Total Time Total Time Spent Total Time Spent (In Minutes): 60 Discharge Plan Discharge Items Patient Disposition: Discharge Diagnosis: Multiorgan failure Sepsis versus end-stage liver cirrhosis in setting of chronic congestive hepatopathy Acute right heart failure Acute kidney injury in setting of CKD stage IV Metabolic acidosis Hyponatremia Other Date/Time: 03/15/22 06:43
== END 2022-03-15 20:30 | disposition expired | DRG 871 ==
LOC: ED 08:29 → SUATTDRO 11:42 → 2S 11:42 → 1E 03-13 15:49 → 2W 03-15 10:59